=== PATIENT | male | born 1965 | race Hispanic/Latino ===

== ENCOUNTER 2017-11-22 13:00 | Inpatient (IN) | payer BC ==
[2017-11-22 18:41] LABS: Absolute Monocytes 0.2 K/uL (0.1-1.3); Absolute Neutrophil 1.9 K/uL (1.8-8.0); Basophils % 0.7 % (0-1.3); Eosinophils % 4.8 % (0-4.4); Hematocrit 33.4 % (39.6-49.0); Lymphocytes % 29.8 % (15.3-44.8); MCH 27.6 pg (27.0-35.0); MCV 79.9 fL (80-100); MPV 8.3 fL (7.6-11.3); Monocytes % 5.4 % (3.3-12.3); RBC Red Blood Cell Count 4.18 M/uL (4.33-5.43)
[2017-11-22 18:47] LABS: Potassium 4.7 mEq/L (3.6-5.0)
[2017-11-22] MEDS ORDERED: Morphine 2 MG/2 ML SYR IV PRN (19:00)
[2017-11-22] MEDS ORDERED: D50W 25 GM/50 ML SYRINGE IV PRN (20:37)
[2017-11-22] MEDS ORDERED: GLUCAGON 1 MG/VIAL IM PRN (20:37)
[2017-11-22] MEDS: ENOXAPARIN 40 MG/0.4 ML SQ SCH (21:00)
[2017-11-22] MEDS ORDERED: VANCOMYCIN/NS 1 gm 1 GM/250 ML BAG IV SCH (21:00)
[2017-11-22] MEDS: NA CHLORIDE 0.9% 1,000 ML IV SCH (21:03)
[2017-11-22] MEDS: INSULIN -REGULAR HUMAN 50 UNIT/0.5 ML ML SQ SCH (21:03)
[2017-11-22 21:23] LABS: Urine Appearance CLEAR; Urine Bilirubin NEGATIVE (NEG); Urine Blood 1+ (NEG); Urine Color YELLOW; Urine Glucose 3+ (NEG); Urine Protein 2+ (NEG); Urine Urobilinogen 0.2 mg/dL (0.2-1.0); Urine pH 5.5 (5.0-7.0)
[2017-11-22 21:28] LABS: Urine Microscopic Reflex ORDER UMIC
[2017-11-22 22:24] LABS: Urine Bacteria <20 /HPF (NONE SEEN); Urine Culture Reflex Order NOT NEEDED; Urine RBC <5 /HPF (NONE SEEN)
[2017-11-22 23:18] VITALS: BMI 43.9
[2017-11-23] MEDS: ACETAMINOPHEN 325 MG TABLET PO SCH ×3 (00:04→16:36)
[2017-11-23] MEDS: PANTOPRAZOLE 40MG TABLET PO SCH (07:30)
[2017-11-23] MEDS ORDERED: MIDAZOLAM HCL 2 MG/2 ML INJ ONE (07:34)
[2017-11-23] MEDS ORDERED: PROPOFOL 200 MG/20 ML VIAL IV ONE (07:34)
[2017-11-23] MEDS ORDERED: FENTANYL CITR 100 MCG/2 ML ONE (07:35)
[2017-11-23] MEDS ORDERED: LIDOCAINE 2% MPF 5 ML VIAL ONE (07:35)
[2017-11-23] MEDS: INSULIN -REGULAR HUMAN 50 UNIT/0.5 ML ML SQ SCH ×4 (07:40→20:52)
[2017-11-23] MEDS ORDERED: BUPIVACA 0.25%/EPI 0.0005%/PF 30 ML VIAL ONE (08:11)
[2017-11-23] MEDS ORDERED: KETOROLAC 30 MG/ML INJ ONE (08:37)
[2017-11-23] MEDS ORDERED: GLUCAGON 1 MG/VIAL IM PRN (08:41)
[2017-11-23] MEDS ORDERED: D50W 25 GM/50 ML SYRINGE IV PRN (08:41)
--- NOTE | 2017-11-23 08:44 | P.OP ---
Preoperative diagnosis: Suprapubic Abscess Postoperative diagnosis: Suprapubic Abscess Primary procedure: Incision and Drainage of Suprapubic Abscess Anesthesia: GETA + Local Estimated blood loss: <5cc Specimen: Cultures Sent / necrotic tissue Findings: ~4 cm suprapubic abscess Complications: None Transferred to: Recovery Room Condition: Good
[2017-11-23] MEDS: ENOXAPARIN 40 MG/0.4 ML SQ SCH (09:00)
[2017-11-23] MEDS: NA CHLORIDE 0.9% 1,000 ML IV SCH ×2 (09:49→20:52)
[2017-11-23] MEDS: LISINOPRIL 20 MG TAB PO SCH (09:50)
[2017-11-23] MEDS: AMLODIPINE 10 MG TAB PO SCH (09:50)
--- NOTE | 2017-11-23 10:11 | P.HP ---
Certification for Inpatient Patient admitted to: Inpatient With expected LOS: >2 Midnights Patient will require the following post-hospital care: Home Health Services Practitioner: I am a practitioner with admitting privileges, knowledge of patient current condition, hospital course, and medical plan of care. 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 He was seen a few weeks ago with what looked like a superficial rash. Was increasing in pain and erythema. He went to the urgent care. However it burst. He did not have any antibiotics. Came to the office. I sent him to the wound care center. He was found to have a deeper abcess than at first noted. After discussing with Dr. Perry. Patient was admitted for surgical debridgement. Part of the decision was his labs came back with an a1c of 13. Considering an infection in a poorly controlled diabetic. The possibility of sepsis made outpatient treatment too risky. Allergies No Known Allergies Allergy (Unverified 11/22/17 11:07) Home Medications: Amlodipine Besylate 10 mg PO DAILY 11/22/17 Lisinopril [Prinivil*] 20 mg PO DAILY 11/22/17 - Past Medical/Surgical History Has patient received pneumonia vaccine in the past: No Diabetic: Yes -: HTN -: DM -: jj -: Appendectomy - Family History Mother -: Hypertension, Diabetes Father -: Diabetes - Social History Smoking Status: Never smoker Alcohol use: No CD- Drugs: No Caffeine use: Yes Place of Residence: Home Review of Systems 10-point ROS is otherwise unremarkable Integumentary: As per HPI Physical Examination - Vital Signs Temperature: 97.3 F Blood Pressure: 143/87 Pulse: 66 Respirations: 17 Pulse Ox (%): 93 - Physical Exam General: Alert, In no apparent distress HEENT: Atraumatic, PERRLA, Mucous membr. moist/pink, EOMI, Sclerae nonicteric Neck: Supple, 2+ carotid pulse no bruit, No LAD, Without JVD or thyroid abnormality Respiratory: Clear to auscultation bilaterally, Normal air movement Cardiovascular: Regular rate/rhythm, Normal S1 S2 Gastrointestinal: Normal bowel sounds, No tenderness Musculoskeletal: No tenderness Integumentary: No rashes, Other (swelling and continuous serous drainage of the suprapubic area. He has puss extruded from one of the areas.) Neurological: Normal gait, Normal speech, Normal strength at 5/5 x4 extr, Normal tone, Normal affect Lymphatics: No axilla or inguinal lymphadenopathy - Studies Laboratory Data (last 24 hrs) 11/22/17 18:25: Sodium 128 L, Potassium 4.7, BUN 35 H, Creatinine 1.56 H, Glucose 399 H 11/22/17 18:25: WBC 3.3 L, Hgb 11.6 L, Hct 33.4 L, Plt Count 238 Assessment and Plan - Problems (Diagnosis) (1) Suprapubic abscess Current Visit: Yes Status: Acute Plan: Start the patient on fluids and vancomycin. Cultures drawn. Dr. Perry already taken him to the OR. 4 CM abcess I&D performed (2) HTN (hypertension) Current Visit: Yes Status: Acute Plan: will continue home medications of amlodipine and lisinopril. Will adjust as necessary. Qualifiers: Hypertension type: essential hypertension Qualified Code(s): I10 - Essential (primary) hypertension (3) Diabetes 1.5, managed as type 2 Current Visit: Yes Status: Acute Plan: Will start the patient on levemir with insulin sliding scale. Will continue to work with him as an outpatient Discharge Plan: Home Plan to discharge in: 48 Hours - Advance Directives Does patient have a Living Will: No Does patient have a Durable POA for Healthcare: No - Code Status/Comfort Care Code Status Assessed: No Code Status: Full Code Physician Review: Patient Assessed, Agree with Above Assessment and Plan Critical Care: No Time Spent Managing Pts Care (In Minutes): 75
--- NOTE | 2017-11-23 11:28 | CON ---
Date of Consultation: 11/23/2017 History Of Present Illness: The patient is a 51-year-old male, who presents with approximat ya 2-week history of suprapubic tenderness, swelling and pain. He noted that he started having some drainage from this several days ago and continues to drain and gets red and more tender in the supra pubic region. He is not aware of any insect bites, abrasions, trauma. He said it simply began as a boil, but beyond that he has no insight into the etiology of this. He has had similar episodes befor e in the past. He has been getting this abscess treated in the [facility] for approximately 1 0 days. He has a history of tinea capitis in the past as well. It is unsure if this is related etio logy. Past Surgical History: He has had appendectomy and a cholecystectomy. He has a right lateral knee w ound in the past. Allergies: NO KNOWN DRUG ALLERGIES. Past Medical History: Significant for hypertension, diabetes. Medications: Amlodipine and lisinopril. Social History: He denies smoking, alcohol, or recreational drug use. Review of Systems: A 10-point review of systems other than HPI, denies. Physical Examination: Vital Signs: At the time of my examination, his BMI is 44.0. His vital signs are blood pressure 144 /87, pulse 62, respiratory rate 16, temperature 97.0. General: He is awake, alert, and oriented. Psychiatric: He is appropriate and conversive. HEENT: He is normocephalic. His sclerae are anicteric. His mucous membranes are moist. He has poo r dentition. His oropharynx is otherwise clear. Neck: Supple. No JVD. Chest: Normal expansion and excursion. Cardiovascular: Regular rate and rhythm. Pulmonary: Clear to auscultation bilaterally. Abdomen: Soft, nontender. Skin: Focused examination of the suprapubic region shows a draining abscess in the central suprapubi c position with purulent drainage and surrounding cellulitis. This is fluctuant area. The remainder of skin examination is unremarkable. Laboratory Data: Reveals a white blood count of 3.3, hemoglobin is 11.6, hematocrit of 33.4, platele t count is 238. His sodium was 128, potassium 4.7, chloride 99, carbon dioxide 25, BUN 35, creatinin e 1.5, glucose is 399. UA showed 3+ glucose, 2+ protein, and 1+ blood, otherwise negative. Assessment And Plan: This is a 51-year-old male, who presents with a suprapubic abscess and history of uncontrolled diabetes. 1.IV fluid hydration. 2.Antibiotic coverage. 3.I have explained the risks, benefits, and alternatives of incision and drainage of the suprapubic abscess including, but not limited to bleeding, infection, damage to surrounding tissue, need for fur ther operations and procedures. A long-term wound care will be necessary. I have explained to the p atient with daily packing. He agrees to proceed as indicated. Thank you for this interesting consult. JOMAR/JOHNATHAN Voice ID: [id number] Report ID: [id number]
[2017-11-23] MEDS: VANCOMYCIN 2 GM in NA CHLORIDE 0.9% 500 ML IVPB SCH (14:37)
--- NOTE | 2017-11-23 20:44 | OP ---
Date of Procedure: 11/23/2017 Surgeon: Khadar Perry MD, Preoperative Diagnosis: Suprapubic abscess. Postoperative Diagnosis: Suprapubic abscess. Procedure Performed: Incision and drainage of suprapubic abscess. Anesthesia: General endotracheal plus local with 0.25% Marcaine with epinephrine. Estimated Blood Loss: 5 cc. Specimen: Culture sent of necrotic tissue. Findings: Approximately 4 cm suprapubic abscess. Complication: None. Disposition: Transferred to recovery room in good condition. Procedure In Detail: After informed consent was obtained, the patient was brought to the operating r oom, prepped and draped in the usual sterile fashion. After adequate anesthesia was achieved, a line ar incision was made over a suprapubic abscess of approximately 4 cm in size down to subcutaneous tis sues. Dissection continued down, and I digitally manipulated the tissues to break up loculations of this multiloculated abscess of the suprapubic area. There was approximately a 4 cm cavity with purul ent fluid present. This was completely cleansed out and irrigated multiple times. Hemostasis was ac hieved with electrocautery. I irrigated it once again until completely dry and then packed it with h sirena-inch iodoform packing with sterile dressing placed on top. The patient tolerated the procedure well without evidence of complication and transferred to PACU in good condition. All counts were cor rect at the end of the case. JOMAR/JOHNATHAN Voice ID: [id number] Report ID: [id number]
[2017-11-24] MEDS: ACETAMINOPHEN 325 MG TABLET PO SCH ×3 (00:01→17:00)
[2017-11-24 07:29] LABS: Absolute Lymphocytes (CBC) 0.6 K/uL (0.7-4.9); Absolute Monocytes 0.2 K/uL (0.1-1.3); Absolute Neutrophil 2.1 K/uL (1.8-8.0); Basophils % 0.5 % (0-1.3); Eosinophils % 3.1 % (0-4.4); Hematocrit 31.4 % (39.6-49.0); Lymphocytes % 20.7 % (15.3-44.8); MCH 27.3 pg (27.0-35.0); MCV 79.2 fL (80-100); MPV 8.3 fL (7.6-11.3); Monocytes % 5.9 % (3.3-12.3); RBC Red Blood Cell Count 3.96 M/uL (4.33-5.43)
[2017-11-24 07:51] LABS: Bilirubin Total 0.5 mg/dL (0.3-1.2); Potassium 4.6 mEq/L (3.6-5.0); Protein, Total 6.3 g/dL (6.0-8.3)
[2017-11-24] MEDS: INSULIN DETEMIR 100 UNIT/1 ML INSULIN SQ SCH (08:29)
[2017-11-24] MEDS: INSULIN -REGULAR HUMAN 50 UNIT/0.5 ML ML SQ SCH ×4 (08:29→20:52)
[2017-11-24] MEDS: PANTOPRAZOLE 40MG TABLET PO SCH (08:29)
[2017-11-24] MEDS: ENOXAPARIN 40 MG/0.4 ML SQ SCH (09:11)
[2017-11-24] MEDS: LISINOPRIL 20 MG TAB PO SCH (09:11)
[2017-11-24] MEDS: AMLODIPINE 10 MG TAB PO SCH (09:12)
[2017-11-24] MEDS: NA CHLORIDE 0.9% 1,000 ML IV SCH (10:41)
--- NOTE | 2017-11-24 11:34 | P.PN ---
Subjective Date of Service: 11/24/17 Primary Care Provider: Shereen Chief Complaint: Suprapubic abcess Subjective: Improving (pain much improved after drainage of abscess) Physical Examination - Vital Signs Temperature: 97.7 F Blood Pressure: 118/79 Pulse: 79 Respirations: 18 Pulse Ox (%): 97 - Physical Exam General: Alert, In no apparent distress, Cooperative Integumentary: Other (drainage site packed well, continues to drain clear fluid) - Studies Laboratory Data (last 24 hrs) 11/24/17 06:45: Sodium 136, Potassium 4.6, BUN 21 H, Creatinine 1.12, Glucose 191 H, Total Bilirubin 0.5, AST 12, ALT 13, Alkaline Phosphatase 66 11/24/17 06:45: WBC 3.0 L, Hgb 10.8 L, Hct 31.4 L, Plt Count 197 Microbiology Data (last 24 hrs): 11/23/17 08:29 Wound - Other Gram Stain - Final 11/23/17 08:29 Body Fluid - Other Gram Stain - Final Assessment And Plan - Current Problems (Diagnosis) (1) Suprapubic abscess Onset Date: 11/23/17 Current Visit: Yes Status: Acute Plan: - 1 more day of antibiotics - continue current treatment plan - follow up cultures - dressing changes daily with packing Physician Review: Patient Assessed, Agree with Above Assessment and Plan
[2017-11-24] MEDS: VANCOMYCIN 2 GM in NA CHLORIDE 0.9% 500 ML IVPB SCH (14:45)
[2017-11-25] MEDS: NA CHLORIDE 0.9% 1,000 ML IV SCH (00:20)
[2017-11-25] MEDS: ACETAMINOPHEN 325 MG TABLET PO SCH ×2 (00:38→08:56)
[2017-11-25 06:08] LABS: Absolute Lymphocytes (CBC) 1.1 K/uL (0.7-4.9); Absolute Monocytes 0.2 K/uL (0.1-1.3); Absolute Neutrophil 1.3 K/uL (1.8-8.0); Basophils % 0.3 % (0-1.3); Eosinophils % 4.5 % (0-4.4); Hematocrit 31.5 % (39.6-49.0); Lymphocytes % 39.7 % (15.3-44.8); MCH 27.5 pg (27.0-35.0); MCV 79.8 fL (80-100); MPV 8.4 fL (7.6-11.3); Monocytes % 7.1 % (3.3-12.3); RBC Red Blood Cell Count 3.95 M/uL (4.33-5.43)
[2017-11-25 06:29] LABS: Albumin 2.8 g/dL (3.2-5.5); Bilirubin Total 0.4 mg/dL (0.3-1.2); Potassium 4.3 mEq/L (3.6-5.0)
[2017-11-25 07:04] LABS: Blood Morphology Comment NOT SEEN (NOT SEEN); Platelet Estimate ADEQ; Urine White Blood Cell Casts OK
[2017-11-25] MEDS: INSULIN -REGULAR HUMAN 50 UNIT/0.5 ML ML SQ SCH ×2 (07:30→11:30)
[2017-11-25] MEDS: INSULIN DETEMIR 100 UNIT/1 ML INSULIN SQ SCH (08:00)
[2017-11-25] MEDS: ENOXAPARIN 40 MG/0.4 ML SQ SCH (08:53)
[2017-11-25] MEDS: PANTOPRAZOLE 40MG TABLET PO SCH (08:53)
[2017-11-25] MEDS: AMLODIPINE 10 MG TAB PO SCH (08:53)
[2017-11-25] MEDS: LISINOPRIL 20 MG TAB PO SCH (08:55)
[2017-11-25 11:08] VITALS: O2SAT 100
[2017-11-25 14:52] VITALS: BP 140/88; TEMP 97.3
== END 2017-11-25 11:54 | disposition home or self-care (01) | DRG 603 ==
LOC: 2ND 17:54
PROVIDERS: ADMIT Internal Medicine; ATTEND Internal Medicine
PROC: 0J9C3ZX Drainage of Pelvic Region Subcutaneous Tissue and Fascia, Percutaneous Approach, Diagnostic (ICD-10-PCS; principal; 2017-11-23 08:00)
DX: L02.211 Cutaneous abscess of abdominal wall (principal); I10 Essential (primary) hypertension; E11.65 Type 2 diabetes mellitus with hyperglycemia
CPT/HCPCS: 36415; 80048; 80053; 81003; 81015; 82962; 85025; 87040; 87070; 87075; 87077; 87186; 87205; 88304; 88305; J1650; J2250; J3010; J3370; J7030

== ENCOUNTER 2018-04-19 09:25 | Day surgery (SDC) | payer BC ==
--- OUTSIDE RECORDS SUMMARY | 2018-04-19 09:39 | XMS REPORT ---
:1965 Author Organization e[employer] Care Team Providers Name Role Phone Davis Regan Provider Role Unavailable Allergies, Adverse Reactions, Alerts Substance Reaction Event Type N.K.D.A. Info Not Available Non Drug Allergy Problems Problem Type Condition Code Onset Dates Condition Status Assessment HTN (hypertension) I10 Active Assessment Stage 1 chronic kidney disease N18.1 Active Assessment Microalbuminuria R80.9 Active Assessment Hyperlipidemia E78.5 Active Assessment Type 2 diabetes mellitus with E11.65 Active hyperglycemia Problem Hyperlipidemia E78.5 Active Problem HTN (hypertension) I10 Active Problem Stage 1 chronic kidney disease N18.1 Active Problem BMI 40.0-44.9, adult Z68.41 Active Problem Renal insufficiency N28.9 Active Problem Type 2 diabetes mellitus with E11.65 Active hyperglycemia Medications Medication Code Code Instructions Start End Status Dosage System Date Date Jardiance [facility] 94388605674 10 MG Orally November 22Apr Active 1 tablet Once a day 2017 Bydureon [facility] 45663039320 2 MG Active not Subcutaneous defined Lisinopril [facility] 79152955213 40 MG Orally Active 1 tablet Once a day Xultophy [facility] [address]-29 100-3.6 November 22 Active 30 units UNIT-MG/ML 2017 Subcutaneous daily Amlodipine Besylate [facility] 07658919858 10 MG Active TAKE ONE TABLET BY MOUTH ONCE DAILY Hydrochlorothiazide [facility] 15749848156 25 MG Orally Active 1 tablet Once a day in the morning Tramadol HCl [facility] 12541642757 50 MG Orally 3 Active 1 tablet x daily as as needed needed for pain Results No Known Results Summary Purpose eClinicalWorks Submission
--- OUTSIDE RECORDS SUMMARY | 2018-04-19 09:39 | XMS REPORT ---
:1965 Author Organization [employer] Care Team Providers Name Role Phone VickyKhadar Provider Role Unavailable Allergies, Adverse Reactions, Alerts Substance Reaction Event Type N.K.D.A. Info Not Available Non Drug Allergy Problems Problem Type Condition Code Onset Dates Condition Status Problem HTN (hypertension) I10 Active Problem Renal insufficiency N28.9 Active Problem Hyperlipidemia E78.5 Active Assessment Cutaneous abscess, unspecified site L02.91 Active Assessment Abscess of pubic region L02.219 Active Problem Type 2 diabetes mellitus with E11.65 Active hyperglycemia Problem BMI 40.0-44.9, adult Z68.41 Active Medications Medication Code Code Instructions Start End Status Dosage System Date Date Tramadol HCl [facility] 85277840368 50 MG Orally 3 Active 1 tablet x daily as as needed needed for pain Amlodipine Besylate ND 52332794330 10 MG Orally Active 1 tablet Once a day Jardiance [facility] 99174483356 10 MG Orally November 22Apr Active 1 tablet Once a day 2017 Xultophy [facility] 56049043002 100-3.6 November 22, Active 20 units UNIT-MG/ML 2018 Subcutaneous daily Bydureon ND 39669404125 2 MG Active not Subcutaneous defined Hydrochlorothiazide ND 32714977309 25 MG Orally Active 1 tablet Once a day in the morning Lisinopril [facility] 45176131751 40 MG Orally Active 1 tablet Once a day Results No Known Results Summary Purpose eClinicalWorks Submission
--- OUTSIDE RECORDS SUMMARY | 2018-04-19 09:39 | XMS REPORT ---
:1965 Author Organization [employer] Care Team Providers Name Role Phone Davis Regan Provider Role Unavailable Allergies, Adverse Reactions, Alerts Substance Reaction Event Type N.K.D.A. Info Not Available Non Drug Allergy Problems Problem Type Condition Code Onset Dates Condition Status Assessment Cutaneous abscess of back excluding L02.212 Active buttocks Assessment Type 2 diabetes mellitus with E11.65 Active hyperglycemia Problem Hyperlipidemia E78.5 Active Problem HTN (hypertension) I10 Active Problem Stage 1 chronic kidney disease N18.1 Active Problem BMI 40.0-44.9, adult Z68.41 Active Problem Renal insufficiency N28.9 Active Problem Type 2 diabetes mellitus with E11.65 Active hyperglycemia Medications Medication Code Code Instructions Start End Status Dosage System Date Date Tramadol HCl [facility] 36666379483 50 MG Orally Active 1 tablet every 8 hours as needed Bydureon [facility] 53550518467 2 MG Active not Subcutaneous defined Lisinopril ND 97381517851 40 MG Orally Active 1 tablet Once a day Xultophy [facility] 64690506228 100-3.6 November 22, Active 30 units UNIT-MG/ML 2017 Subcutaneous daily Bactrim DS [facility] 94934126382 800-160 MG Sept Oct Active 1 tablet Orally Twice a 2017 Hydrochlorothiazide [facility] 28571647902 25 MG Orally Active 1 tablet Once a day in the morning Amlodipine Besylate [facility] 55161771603 10 MG Active TAKE ONE TABLET BY MOUTH ONCE DAILY Jardiance [facility] 52365181791 10 MG Orally November 22Apr Active 1 tablet Once a day 2017 Results No Known Results Summary Purpose eClinicalWorks Submission
--- OUTSIDE RECORDS SUMMARY | 2018-04-19 09:39 | XMS REPORT ---
:1965 Author Organization [employer] Care Team Providers Name Role Phone Shereen, Davis Provider Role Unavailable Allergies No Known Allergies Problems Problem Type Condition Code Onset Dates Condition Status Assessment BMI 40.0-44.9, adult Z68.41 Active Assessment Type 2 diabetes mellitus with E11.65 Active hyperglycemia Assessment Renal insufficiency N28.9 Active Problem HTN (hypertension) I10 Active Problem Renal insufficiency N28.9 Active Problem Hyperlipidemia E78.5 Active Assessment Hyperlipidemia E78.5 Active Assessment HTN (hypertension) I10 Active Problem Type 2 diabetes mellitus with E11.65 Active hyperglycemia Problem BMI 40.0-44.9, adult Z68.41 Active Medications Medication Code Code Instructions Start End Status Dosage System Date Date Xultophy [facility] 27718896130 100-3.6 November 22, Active 20 units UNIT-MG/ML 2017 Subcutaneous daily Jardiance [facility] 98761332980 10 MG Orally November 22Apr Active 1 tablet Once a day 2017 Amlodipine Besylate [facility] 24710618099 10 MG Orally Active 1 tablet Once a day Hydrochlorothiazide [facility] 40610012943 25 MG Orally Active 1 tablet Once a day in the morning Tramadol HCl [facility] 01043621243 50 MG Orally 3 Active 1 tablet x daily as as needed needed for pain Lisinopril [facility] 15385109333 40 MG Orally Active 1 tablet Once a day Bydureon [facility] 50503302325 2 MG Active not Subcutaneous defined Results No Known Results Summary Purpose eClinicalWorks Submission
--- OUTSIDE RECORDS SUMMARY | 2018-04-19 09:39 | XMS REPORT ---
:1965 Author Organization e[employer]Works Care Team Providers Name Role Phone Shereen, Davis Provider Role Unavailable Allergies No Known Allergies Problems Problem Type Condition Code Onset Dates Condition Status Assessment Type 2 diabetes mellitus with E11.65 Active hyperglycemia Assessment Boil L02.92 Active Problem HTN (hypertension) I10 Active Problem Renal insufficiency N28.9 Active Problem Hyperlipidemia E78.5 Active Assessment Hyperlipidemia E78.5 Active Assessment Renal insufficiency N28.9 Active Problem Type 2 diabetes mellitus with E11.65 Active hyperglycemia Problem BMI 40.0-44.9, adult Z68.41 Active Medications Medication Code Code Instructions Start End Status Dosage System Date Date Lisinopril [facility] 09194708023 40 MG Orally Active 1 tablet Once a day Amlodipine Besylate [facility] 72188046801 10 MG Orally Active 1 tablet Once a day Jardiance [facility] 99583399601 10 MG Orally May Oct Active 1 tablet Once a day 2017 Tramadol HCl [facility] 01442525066 50 MG Orally 3 Active 1 tablet as x daily as needed needed for pain Hydrochlorothiazide [facility] 33494006088 25 MG Orally Active 1 tablet in Once a day the morning Bydureon [facility] 84748529523 2 MG Active not defined Subcutaneous Clotrimazole-Betameth [facility] 92707139519 1-0.05 % October Active 1 asone Externally , application Twice a day 2017 2017 to affected area Xultophy [facility] 52319855124 100-3.6 November Active 20 units UNIT-MG/ML 02, Subcutaneous 2018 daily Results No Known Results Summary Purpose eClinicalWorks Submission
--- OUTSIDE RECORDS SUMMARY | 2018-04-19 09:39 | XMS REPORT ---
:1965 Author Organization eClinicalWorks Care Team Providers Name Role Phone ShereenKimanian Provider Role Unavailable Allergies No Known Allergies Problems Problem Type Condition Code Onset Dates Condition Status Assessment HTN (hypertension) I10 Active Problem HTN (hypertension) I10 Active Problem Renal insufficiency N28.9 Active Problem Hyperlipidemia E78.5 Active Assessment Suprapubic abscess L02.219 Active Assessment Type 2 diabetes mellitus with E11.65 Active hyperglycemia Problem Type 2 diabetes mellitus with E11.65 Active hyperglycemia Problem BMI 40.0-44.9, adult Z68.41 Active Medications Medication Code Code Instructions Start End Status Dosage System Date Date Xultophy [facility] 65883198523 100-3.6 November 22 Active 20 units UNIT-MG/ML 2017 Subcutaneous daily Jardiance [facility] 82893788560 10 MG Orally November 22Apr Active 1 tablet Once a day 2017 Amlodipine Besylate [facility] 16998397401 10 MG Orally Active 1 tablet Once a day Tramadol HCl [facility] 32790785870 50 MG Orally 3 Active 1 tablet x daily as as needed needed for pain Lisinopril ND 05000692775 40 MG Orally Active 1 tablet Once a day Bydureon [facility] 53576074088 2 MG Active not Subcutaneous defined Hydrochlorothiazide [facility] 24078980204 25 MG Orally Active 1 tablet Once a day in the morning Results No Known Results Summary Purpose eClinicalWorks Submission
[2018-04-19] MEDS ORDERED: BUPIVACA 0.25%/EPI 0.0005% MDV 50 ML VIAL ONE (09:40)
[2018-04-19] MEDS ORDERED: CEFAZOLIN/SWI 1gm 1 GM/10 ML SYR ONE (09:52)
[2018-04-19] MEDS: NA CHLORIDE 0.9% 1,000 ML ONE ×2 (09:56→10:26)
[2018-04-19] MEDS ORDERED: LIDOCAINE 2% MPF 5 ML VIAL ONE (10:10)
[2018-04-19] MEDS ORDERED: MIDAZOLAM HCL 2 MG/2 ML INJ ONE (10:10)
[2018-04-19] MEDS ORDERED: PROPOFOL 200 MG/20 ML VIAL IV ONE (10:10)
[2018-04-19] MEDS ORDERED: FENTANYL CITR 100 MCG/2 ML ONE (10:10)
--- NOTE | 2018-04-19 11:07 | P.OP ---
Preoperative diagnosis: Right upper back infected sebaceous cyst Postoperative diagnosis: Right upper back infected sebaceous cyst Primary procedure: Excision of Right upper back infected sebaceous cyst Anesthesia: GETA + Local Estimated blood loss: <10cc Specimen: cultures and sebaceous material with capsule Findings: large ~7cm infected sebaceous cyst Complications: None Transferred to: Recovery Room Condition: Good
[2018-04-19] MEDS: MEPERIDINE HCL 50 MG/ML AMP ONE ×2 (11:29→11:44)
[2018-04-19] MEDS ORDERED: CODEINE 30MG/APAP 300MG TAB ONE (12:10)
[2018-04-19 13:23] VITALS: TEMP 96.4
[2018-04-19 13:26] VITALS: BP 136/64; O2SAT 96
--- NOTE | 2018-04-19 22:42 | OP ---
Date of Procedure: 04/19/2018 Surgeon: Khadar Perry MD, Preoperative Diagnosis: Right upper back infected sebaceous cyst. Postoperative Diagnosis: Right upper back infected sebaceous cyst. Procedure Performed: Excision of right upper back infected sebaceous cyst. Anesthesia: General endotracheal plus local, 0.25% Marcaine with epinephrine. Estimated Blood Loss: Less than 2 cc. Specimen: Cultures and sebaceous material with capsule sent. Findings: Large, approximately 7 cm x 4 cm infected sebaceous cyst down to the level of the muscle. Complications: None Disposition: Transferred to recovery room in good condition. Procedure In Detail: After informed consent was obtained, patient was brought to the operating room, prepped and draped in usual sterile fashion. After adequate anesthesia was achieved, a linear incis ion was made after appropriately anesthetizing an area of the right upper back of approximately 7 cm in size. Immediately encountered was a large sebaceous cyst with pus and rupture. This was cultured at this time and sent for examination. I then circumferentially removed the capsule and the sebaceo us material and sent it for pathologic examination as well. I completely removed all of the capsule material and sebum circumferentially and removed any necrotic skin from the edge of the incision as t his was an area where sebum had been emanating and draining prior to incision. I got down to good bl eeding tissue approximately to the level of the muscle but not involving the fascia. The area was co piously irrigated multiple times. Hemostasis was achieved easily with electrocautery and the wound w as then packed with iodoform soaked gauze in a damp to dry fashion. The patient tolerated the proced ure well without evidence of complication and transferred to the PACU in good condition. All counts were correct at the end of the case. JOMAR/JOHNATHAN Voice ID: [id number] Report ID: [id number]
== END 2018-04-19 12:45 | disposition home or self-care (01) ==
LOC: OR 09:25
PROVIDERS: ATTEND Surgery
PROC: 0JB70ZZ Excision of Back Subcutaneous Tissue and Fascia, Open Approach (ICD-10-PCS; principal; 2018-04-19 10:45)
DX: L72.3 Sebaceous cyst (principal); E11.9 Type 2 diabetes mellitus without complications; I10 Essential (primary) hypertension; E78.5 Hyperlipidemia, unspecified; Z83.3 Family history of diabetes mellitus; Z82.49 Family history of ischemic heart disease and other diseases of the circulatory system
CPT/HCPCS: 82962; 87070; 87075; 87205; 88304; 88305; J0690; J2175; J2250; J3010; J7030

== ENCOUNTER 2022-06-02 08:01 | Inpatient (IN) | payer OTHER ==
--- OUTSIDE RECORDS SUMMARY | 2022-06-02 08:06 | XMS REPORT | Continuity of Care Document ---
:1965 Author Organization [facility] t Address [address] [place] [address] Care Team Providers Name Role Phone Ofelia Attending Clinician Unavailable NASIM Attending Clinician Unavailable Tiffanie Andersen Attending Clinician Unavailable Ofelia Admitting Clinician Unavailable NASIM Admitting Clinician Unavailable Payers Payer Name Policy Type Policy Number Effective Date Expiration Date Lavell shultz [employer] - CHOICE [id number] 2020 00:00:00 (POS II) [place] [id number] 2017 00:00:00 [place] ([place] Problems Condition Condition Condition Status Onset Resolution Last Treating Co mments Source Name Details Category Date Date Treatment Clinician Date Onychomyco Onychomyco Problem Active 2020-07 [place] sis of sis of 0-09 da toenails Toenails 00:00: [facility] Tinea Tinea Problem Active 2020-07 [place] pedis Pedis 0-09 da 00:00: [facility] Vitamin D Vitamin D Problem Active 2020-07 [place] deficiency Deficiency 0-09 da 00:00: [facility] Peripheral Peripheral Problem Active 2020-07 [place] vascular Vascular 0-09 da disease Disease 00:00: [facility] 00 [facility] Eczema Eczema Problem Active 2020-07 [place] 0-09 da 00:00: [facility] 00 [facility] Body mass Body Mass Problem Active 2020-07 [place] index 40+ Index 40+ 0-09 da - severely - Severely 00:00: Ep iscop obese Obese 00 al Health Outreac h Program Chronic Chronic Problem Active [place] kidney Kidney 4-16 da disease Disease 00:00: [facility] stage 3A Stage 3a 00 al Health Outreac h Program SARS-CoV-2 SARS-CoV-2 Problem Active M [place] 7-18 da 00:00: [facility] 00 oh [facility] Diabetes Diabetes Problem Active [place] mellitus Mellitus da [facility] Hypertensi Hypertensi Problem Active M [place] ve ve da disorder Disorder [facility] p al [facility]re[facility] Program Type 2 Type 2 Problem Active Common diabetes diabetes Spirit mellitus mellitus - [facility] with with [facility] hyperglyce [facility] HTN HTN Problem Active Common (hypertens (hypertens Sp messi ion) ion) [facility] Renal Renal Problem Active Common insufficie insufficie Sp messi ncy ncy [facility] Hyperlipid Hyperlipid Problem Active C ommon emia emia Spirit [facility] BMI BMI Problem Active Common 40.0-44.9, 40.0-44.9, Sp messi adult adult - [facility] Stage 1 Stage 1 Problem Active Common chronic chronic [facility] kidney kidney - [facility] disease disease [facility] Allergies, Adverse Reactions, Alerts This patient has no known allergies or adverse reactions. Social History Smoking Status Start Date Stop Date Source Never Smoker [facility] Health Outreach Program Medications Ordered Filled Start Stop Current Ordering Indication Dosage Frequency Signature Comments Components Source Medication Medication Date Date Medication? Clinician (SIG) Name Name Odalis Jacobo Yes Davis 30 units Common 11-22 Shereen Spirit 00:00: - [facility] 00 [facility] cholecalcif cholecalcif No 1capsul Q1W cholecalci [place] mildred mildred e(s) ferol da (vitamin (vitamin (vitamin Epi scop D3) 1,250 D3) 1,250 D3) 1,250 al mcg (50,000 mcg (50,000 mcg H ealth unit) unit) (50,000 Outreac capsule capsule unit) h Take 1 Take 1 capsule Program capsule capsule Take 1 every week every week capsule by oral by oral every week route as route as by oral directed. directed. route as directed. ciclopirox ciclopirox No ciclopirox [place] 8 % topical 8 % topical 8 % d a solution solution topical Epis [employer] APPLY TO APPLY TO solution al THE THE APPLY TO Health AFFECTED AFFECTED THE Outreac AREA(S) BY AREA(S) BY AFFECTED h TOPICAL TOPICAL AREA(S) BY Pro gram ROUTE ONCE ROUTE ONCE TOPICAL DAILY DAILY ROUTE ONCE PREFERABLY PREFERABLY DAILY AT BEDTIME AT BEDTIME PREFERABLY OR 8 HOURS OR 8 HOURS AT BEDTIME BEFORE BEFORE OR 8 HOURS WASHING WASHING BEFORE WASHING lisinopril lisinopril No lisinopril [place] 10 mg 10 mg 10 mg da tablet Take tablet Take tablet [facility] 1 tablet 1 tablet Take 1 al every day every day tablet Hea lth by oral by oral every day Outr eac route in route in by oral h the the route in Program morning. morning. the morning. lisinopril lisinopril No 1 Q1D lisinopril [place] 20 mg 20 mg 20 mg da tablet Take tablet Take tablet [facility] 1 tablet 1 tablet Take 1 al every day every day tablet Hea lth by oral by oral every day Outr eac route as route as by oral h directed. directed. route as P rogram directed. Ozempic Ozempic No Ozempic [place] 0.25 mg or 0.25 mg or 0.25 mg or da 0.5 mg (2 0.5 mg (2 0.5 mg (2 [facility] mg/1.5 mL) mg/1.5 mL) mg/1.5 mL) al [facility] pen s pen us pen Outreac injector injector injector h Inject 0.5 Inject 0.5 Inject 0.5 Program mg every mg every mg every week by week by week by subcutaneou subcutaneou subcutaneo s route as s route as us route directed. directed. as directed. Ozempic 1 Ozempic 1 No Ozempic 1 [place] mg/dose (2 mg/dose (2 mg/dose (2 da mg/1.5 mL) mg/1.5 mL) mg/1.5 mL) [facility] subcutaneou subcutaneou subcutaneo al s pen s pen us pen Health injector injector injector Out reac h Program Sure Sure No Sure [place] Comfort Pen Comfort Pen Comfort da Needle 32 Needle 32 Pen Needle [facility] gauge x gauge x 32 gauge x al 07/27" 07/27" 07/27" Health Outreac h Program Synjardy 5 Synjardy 5 No Synjardy 5 [place] mg-1,000 mg mg-1,000 mg mg-1,000 da tablet TAKE tablet TAKE mg tablet [facility] ONE (1) ONE (1) TAKE ONE al TABLET(S) TABLET(S) (1) Healt h BY MOUTH BY MOUTH TABLET(S) Ou treac EVERY 12 EVERY 12 BY MOUTH h HOURS HOURS EVERY 12 Pro gram DIRECTED. DIRECTED. HOURS DIRECTED. Synjardy XR Synjardy XR No 2 Q1D Synjardy [place] 12.5 12.5 XR 12.5 da mg-1,000 mg mg-1,000 mg mg-1,000 [facility] tablet, tablet, mg tablet, al extended extended extended Hea lth release release release Outrea c Take 2 Take 2 Take 2 h tablets tablets tablets Progra m every day every day every day by oral by oral by oral route in route in route in the the the morning. morning. morning. Tresiba Tresiba No Tresiba [place] FlexTouch FlexTouch FlexTouch da U-200 U-200 U-200 [facility] insulin 200 insulin 200 insulin al unit/mL (3 unit/mL (3 200 Hea lth mL) mL) unit/mL (3 Outreac subcutaneou subcutaneou mL) h s pen s pen subcutaneo Program Inject 30 Inject 30 us pen units at units at Inject 30 bedtime bedtime units at every day. every day. bedtime every day. Immunizations Ordered Immunization Filled Immunization Date Status Commen ts Source Name Name COVID-19, mRNA, COVID-19, mRNA, 2021-10-06 Completed [place]ez margarette LNP-S, PF, 100 LNP-S, PF, 100 14:01:11 [facility] pal mcg/0.5 mL dose mcg/0.5 mL dose Heal th (Moderna) (Moderna) Outreach Program COVID-19, mRNA, COVID-19, mRNA, 2021-08-25 Completed Cortez margarette LNP-S, PF, 100 LNP-S, PF, 100 12:43:55 [facility] pal mcg/0.5 mL dose mcg/0.5 mL dose Heal th (Moderna) (Moderna) Outreach Program pneumococcal pneumococcal Unknown Completed [place] polysaccharide PPV23 polysaccharide PPV23 [facility] pneumococcal pneumococcal Unknown Completed [place] polysaccharide PPV23 polysaccharide PPV23 [facility] Vital Signs Vital Name Observation Time Observation Value Comments Source BP Diastolic 2021-10-26 00:00:00 110 [facility] Height 2021-10-26 00:00:00 66 [facility] BMI (Body Mass 2021-10-26 00:00:00 44.9 kg/m2 [place] 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 [facility] Index) Health Outreach Program BP Systolic 2021-10-26 00:00:00 174 [facility] Body Weight 2021-10-26 00:00:00 4449 [facility]av[facility] Height 2021-04-30 00:00:00 66 [facility] BMI (Body Mass 2021-04-30 00:00:00 45.2 kg/m2 [place] 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 Spirit[facility] Index) Health Outreach Program BP Systolic 2021-04-30 00:00:00 144 [facility]Hg[facility] Body Weight 2021-04-30 00:00:00 4480 [oz_av] [facility] BP Diastolic 2021-04-30 00:00:00 86 mm[facility]Hg[facility] BP Diastolic 2020-12-16 00:00:00 90 mm[Hg] [place] [facility] Height 2020-12-16 00:00:00 66 [in_i] [place] [facility] BMI (Body Mass 2020-12-16 00:00:00 45.8 kg/m2 [place] 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 Spirit[facility] Index) Health Outreach Program BP Systolic 2020-12-16 00:00:00 140 mm[Hg] [place] [facility] Body Weight 2020-12-16 00:00:00 4544 [oz_av] [place] [facility] BP Diastolic 2020-11-17 00:00:00 90 mm[Hg] [place] [facility] Height 2020-11-17 00:00:00 66 [in_i] [place] [facility] BMI (Body Mass 2020-11-17 00:00:00 45.5 kg/m2 [place] 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 [facility] Index) Health Outreach Program BP Systolic 2020-11-17 00:00:00 128 mm[Hg] [place] [facility] Body Weight 2020-11-17 00:00:00 4512 [oz_av] [place] [facility] BP Diastolic 2020-11-03 00:00:00 77 mm[Hg] [place] [facility] Height 2020-11-03 00:00:00 66 [in_i] [place] [facility] BMI (Body Mass 2020-11-03 00:00:00 46.5 kg/m2 [place] 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 [facility]ism Index) Health Outreach Program BP Systolic 2020-11-03 00:00:00 112 mm[Hg] [place] [facility] Body Weight 2020-11-03 00:00:00 4608 [oz_av] [place] [facility] BP Diastolic 2020-05-22 00:00:00 80 mm[Hg] [place] [facility] Height 2020-05-22 00:00:00 66 [in_i] [place] [facility] BMI (Body Mass 2020-05-22 00:00:00 46 kg/m2 [place] 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 [facility] Index) Health Outreach Program BP Systolic 2020-05-22 00:00:00 132 mm[Hg] [place] [facility] Body Weight 2020-05-22 00:00:00 4560 [oz_av] [place] [facility] BP Diastolic 2020-05-01 00:00:00 90 mm[Hg] [place] [facility] Height 2020-05-01 00:00:00 66 [in_i] [place] [facility] BMI (Body Mass 2020-05-01 00:00:00 46.5 kg/m2 [place] 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 [facility] Index) Health Outreach Program BP Systolic 2020-05-01 00:00:00 150 mm[Hg] [place] [facility] Body Weight 2020-05-01 00:00:00 4608 [oz_av] [place] [facility] BP Diastolic 2020-03-25 00:00:00 68 mm[Hg] [place] [facility] Height 2020-03-25 00:00:00 66 [in_i] [place] [facility] BMI (Body Mass 2020-03-25 00:00:00 45.1 kg/m2 [place] 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 [facility] Index) Health Outreach Program BP Systolic 2020-03-25 00:00:00 110 mm[Hg] [place] [facility] Body Weight 2020-03-25 00:00:00 4468 [oz_av] [place] [facility] BP Diastolic 2020-03-18 00:00:00 82 mm[Hg] [place] [facility] Height 2020-03-18 00:00:00 66 [in_i] [place] [facility] BMI (Body Mass 2020-03-18 00:00:00 44.3 kg/m2 [place] 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 [facility] Index) Health Outreach Program BP Systolic 2020-03-18 00:00:00 120 mm[Hg] [place] [facility] Body Weight 2020-03-18 00:00:00 4393.6 [oz_av] [place] 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 [facility] BP Diastolic 2020-03-13 00:00:00 78 mm[Hg] [place] [facility] Height 2020-03-13 00:00:00 66 [in_i] [place] [facility] BMI (Body Mass 2020-03-13 00:00:00 45 kg/m2 [place] 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 [facility] Index) Health Outreach Program BP Systolic 2020-03-13 00:00:00 128 mm[Hg] [place] [facility] Body Weight 2020-03-13 00:00:00 4460.8 [oz_av] [place] 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 [facility] BP Diastolic 2020-03-11 00:00:00 78 mm[Hg] [place] [facility] Height 2020-03-11 00:00:00 66 [in_i] [place] [facility] BMI (Body Mass 2020-03-11 00:00:00 44.6 kg/m2 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 [facility] Index) Health Outreach Program BP Systolic 2020-03-11 00:00:00 118 mm[Hg] [place] [facility] Body Weight 2020-03-11 00:00:00 4422.4 [oz_av] 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 [facility] Height 2020-02-25 00:00:00 66 [in_i] [place] [facility] BP Diastolic 2020-02-21 00:00:00 82 mm[Hg] [place] [facility] Height 2020-02-21 00:00:00 66 [in_i] [place] [facility] BMI (Body Mass 2020-02-21 00:00:00 48.4 kg/m2 [place] 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 [facility] Index) Health Outreach Program BP Systolic 2020-02-21 00:00:00 150 mm[Hg] [place] [facility] Body Weight 2020-02-21 00:00:00 4800 [oz_av] [place] [facility] BP Diastolic 2020-02-08 00:00:00 84 mm[Hg] [place] [facility] Height 2020-02-08 00:00:00 66 [in_i] [place] [facility] BMI (Body Mass 2020-02-08 00:00:00 48.4 kg/m2 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 [facility] Index) Health Outreach Program BP Systolic 2020-02-08 00:00:00 118 mm[Hg] [place] [facility] Body Weight 2020-02-08 00:00:00 4800 [oz_av] [place] [facility] BP Diastolic 2019-09-20 00:00:00 80 mm[Hg] [place] [facility] Height 2019-09-20 00:00:00 66 [in_i] [place] [facility] BMI (Body Mass 2019-09-20 00:00:00 46 kg/m2 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 Spirit[facility] Index) Health Outreach Program BP Systolic 2019-09-20 00:00:00 138 mm[Hg] [place] [facility] Body Weight 2019-09-20 00:00:00 285.2 [lb_av] [place] [facility] BP Diastolic 2019-05-15 00:00:00 68 mm[Hg] [place] [facility] Height 2019-05-15 00:00:00 66 [in_i] [place] [facility] BMI (Body Mass 2019-05-15 00:00:00 41.4 kg/m2 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 [facility] Index) Health Outreach Program BP Systolic 2019-05-15 00:00:00 128 mm[Hg] [place] [facility] Body Weight 2019-05-15 00:00:00 256.2 [lb_av] [place] [facility] BP Diastolic 2019-05-07 00:00:00 86 mm[Hg] [place] [facility] Height 2019-05-07 00:00:00 66 [in_i] [place] [facility] BMI (Body Mass 2019-05-07 00:00:00 41.5 kg/m2 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 [facility] Index) Health Outreach Program BP Systolic 2019-05-07 00:00:00 142 mm[Hg] [place] [facility] Body Weight 2019-05-07 00:00:00 257.4 [lb_av] [place] [facility] Procedures Procedure Date / Time Performed Performing Clinician Sourjadon e Cholecystectomy 2016-07-24 00:00:00 [place] Appendectomy [facility] Plan of Care Planned Activity Planned Date Details Comments Source Diagnostic Test 2021-10-26 glucose, [place] Ep iscopal Pending 00:00:00 fingerstick, blood Health Ou [place] [code = glucose, Program fingerstick, blood] Diagnostic Test 2021-10-26 CMP, serum or plasma Cortez margarette [facility] Pending 00:00:00 [code = CMP, serum Health Ou [place] or plasma] Program Diagnostic Test 2021-10-26 CBC w/ auto diff [place] [facility] Pending 00:00:00 [code = CBC w/ auto Health O utreach diff] Program Diagnostic Test 2021-10-26 microalbumin/creatin Cortez margarette [facility] Pending 00:00:00 ine, mass ratio, Health Outr each urine [code = Program microalbumin/creatin ine, mass ratio, urine] Diagnostic Test 2021-10-26 HIV 1 + 2, [place] Ep iscopal Pending 00:00:00 meaningful use set Health Ou [place] [code = HIV 1 + 2, Program meaningful use set] Diagnostic Test 2021-10-26 HbA1c (hemoglobin [place] [facility] Pending 00:00:00 A1c), blood [code = Health O utreach HbA1c (hemoglobin Program A1c), blood] Diagnostic Test 2021-10-26 PSA, total, serum or Cortez margarette [facility] Pending 00:00:00 plasma [code = PSA, Health O utreach total, serum or Program plasma] Diagnostic Test 2021-10-26 urinalysis, [place] Ep iscopal Pending 00:00:00 dipstick, reflex Health Outr each micro [code = Program urinalysis, dipstick, reflex micro] Diagnostic Test 2021-10-26 culture, urine [code Cortez margarette [facility] Pending 00:00:00 = culture, urine] Health Out reach Program Encounters Start End Encounter Admission Attending Care Care Encounter Source Date/Time Date/Time Type Type Clinicians Facility Department ID 2022-05-31 2022-05-31 Outpatient Ofelia LINARES [facility] [id number] [place] 00:00:00 00:00:00 1108 da [facility] 2021-10-26 2021-10-26 [facility] Ofelia [facility] [place] - [id number] 022 [place] 00:00:00 00:00:00 Rob Graves 0405 da DATA CENTER CONSULTANT-ATTENDING PHYSICIAN-C: [facility] Epi scop 1700 HOP - [facility] [phone] Sandra baker , Ph. 2021-10-06 2021-10-06 [facility] Ofelia [facility] [place] - [id number] 022 [place] 00:00:00 00:00:00 Rob Cuellar 0316 da MD: 1700 Spiritism [facility] [phone] h , Ph. Program 2021-08-25 2021-08-25 Outpatient Ofelia [facility] 7211 [place] 02:14:00 02:14:00 0202 da [facility] 2021-04-30 2021-04-30 [facility] Ofelia [facility] [place] - [id number] 021 [place] 00:00:00 00:00:00 Rob Graves 1008 da DATA CENTER CONSULTANT-ATTENDING PHYSICIAN-C: Spirit[facility] Epi scop 1700 [facility] [phone] Sandra baker , Ph. 2021-04-28 2021-04-28 Outpatient Ofelia [facility] 7211 [place] 04:40:00 04:40:00 1006 da [facility] Program 2020-12-16 2020-12-16 [facility] [place] - [id number] 021 [place] 00:00:00 00:00:00 Rob Graves 0526 da DATA CENTER CONSULTANT-ATTENDING PHYSICIAN-C: [facility] Epi scop 1700 [facility] [phone] Progr am , Ph. 2020-11-17 2020-11-17 [facility] [place] - [id number] 021 [place] 00:00:00 00:00:00 Rob Graves 0427 da DATA CENTER CONSULTANT-ATTENDING PHYSICIAN-C: [facility] Epi scop 1700 [facility] [phone] Progr am , Ph. 2020-11-03 2020-11-03 [facility] [place] - [id number] 021 [place] 00:00:00 00:00:00 Rob Graves 0413 da DATA CENTER CONSULTANT-ATTENDING PHYSICIAN-C: [facility] Epi scop 1700 [facility] [phone] Progr am , Ph. 2020-06-17 2020-06-17 Outpatient NEESE_MADELINE LINARES [facility] [id number] [place] 10:04:00 10:04:00 1125 da [facility] al [facility] Outreac h Program 2020-06-03 2020-06-03 Outpatient NEESE_MADELINE LINARES [facility] [id number] [place] 05:28:00 05:28:00 1111 da [facility] al [facility] Outreac h Program 2020-05-22 2020-05-22 Madeline Vega NEESE_MADELINE [facility] [place] - 7211 [place] 00:00:00 00:00:00 KRISTIN Romano: Rob 1030 d a 1700 Spiritism [facility] [address] [phone] h , Ph. Program 2020-05-01 2020-05-01 Madeline ROMANO_MADELINE LIN[place] - 7211 [place] 00:00:00 00:00:00 KRISTIN Romano: Rob 1009 d a 1700 [facility] [place] [phone] h , Ph. Program 2020-04-01 2020-04-01 Outpatient ROSALINA_MADELINE LINARES [facility] 72 [place] 09:20:00 09:20:00 0909 da [facility] al [facility] Outreac h Program 2020-03-25 2020-03-25 Madeline ROMANO_MADELINE [place] - 7211 [place] 00:00:00 00:00:00 KRISTIN Romano: Rob 0902 d a 1700 [facility] [place] [phone] h , Ph. Program 2020-03-18 2020-03-18 Madeline Vega MARCELINAJENNY_MADELINE [place] - 7211 [place] 00:00:00 00:00:00 KRISTIN Romano: [place] 0826 d a 1700 [facility] [place] [facility] [phone] h , Ph. Program 2020-03-13 2020-03-13 Madeline Gary ROMANO_MADELINE [place] - 7211 [place] 00:00:00 00:00:00 KRISTIN Romano: [place] 0821 d a 1700 [facility] [place] [facility] [phone] h , Ph. Program 2020-03-11 2020-03-11 Madeline Gary MARCELINAJENNY_MADELINE [place] - 7211 [place] 00:00:00 00:00:00 KRISTIN Romano: Rob 0819 d a 1700 [facility] [place] [facility] [phone] h , Ph. Program 2020-02-25 2020-02-25 Danuta LIN[place] - 7211 [place] 00:00:00 00:00:00 Rob Lees 0804 da ATTENDING PHYSICIAN: 1700 Spirit[facility] [address], [place] Outreac [phone] h , Ph. Program 2020-02-21 2020-02-21 Madeline Gary NEELIA [place] 7211 [place] 00:00:00 00:00:00 Rosalina PA: Rob 0731 d a 1700 [facility] [place] [facility] [place] [phone] h , Ph. Program 2020-02-19 2020-02-19 Outpatient NASIM LINARES [facility] 72 [place] 11:34:00 11:34:00 0729 da [facility] Program 2020-02-08 2020-02-08 Batool [place] - [id number] [place] 00:00:00 00:00:00 Joaquin Rivas 0718 da Simone, Spiritism Ep[facility] ATTENDING PHYSICIAN: 1700 [facility] - [place] [phone] [facility] am , Ph. 2019-09-20 2019-09-20 Madeline Gary MARCELINAELIA [place] - 7211 [place] 00:00:00 00:00:00 KRISTIN Romano: Rob 0228 d a 1700 [facility] [place] [facility] [phone] h , Ph. Program 2019-09-03 2019-09-02 Inpatient Tiffanie Andersen [facility] ENDO LA00 [id number] [facility] 14:00:00 13:29:[address] [facility] lance [facility] 2019-06-19 2019-06-19 [place] - [id number] 019 [place] 00:00:00 00:00:00 Rosalina PA: Rob 1127 d a 1700 Spiritism [facility] [address], [facility], [address] [place] [phone] Progr am , Ph. 2019-05-15 2019-05-15 [place] - [id number] 019 [place] 00:00:00 00:00:00 Rosalina PA: Rob 1023 d a 1700 Spiritism Ep[facility] [address], [facility] 3, [address] [place] [phone] Progr am , Ph. 2019-05-07 2019-05-07 [place] - [id number] 019 [place] 00:00:00 00:00:00 KRISTIN Romano: Rob 1015 d a 1700 Spiritism Ep[facility] [address], [facility] 3, [address] [place] [phone] Progr am , Ph. 2018-10-19 2018-10-19 [facility]patient [facility] 24 [id number] Common 14:28:00 14:28:00 [facility] 2018-10-16 2018-10-16 [facility] 24 [id number] Common 16:00:00 16:00:00 [facility] 2018-05-03 2018-05-03 [facility] 22 [id number] Common 08:13:00 08:13:00 [facility] 2018-04-23 2018-04-23 [facility] 21 [id number] Common 08:44:00 08:44:00 t Specialty/U Sp messi Specialty rology - [facility] 2018-04-17 2018-04-17 [facility] 21 [id number] Common 08:45:00 08:45:00 t Specialty/U Sp messi Specialty rology - [facility] 2018-04-16 2018-04-16 Outpatient [facility] 21 [id number] Common 10:00:00 10:00:00 t [facility] [address] [facility] [place] 2018-04-10 2018-04-10 [facility] 14 [id number] Common 08:30:00 08:30:00 t [facility] [address] [facility] 2017-12-27 2017-12-27 [facility] 13 [id number] Common 08:30:00 08:30:00 t [facility] [address] [facility] [place] 2017-11-30 2017-11-30 Out[facility] 13 [id number] Common 14:15:00 14:15:00 t Specialty/U Sp messi Specialty rology - [facility]Urology Clinic [facility] 2017-11-30 2017-11-30 [facility] 13 [id number] Common 08:30:00 08:30:00 t [facility] [address] [facility] [place] 2017-11-22 2017-11-22 Out[facility] 13 [id number] Common 08:45:00 08:45:00 t [facility] it [address] [facility] [place] Results Test Description Test Time Test Comments Results Result Comments Source Glucose [Mass/volume] in Capillary blood 2021-10-26 16:26:09 Test Item Value Reference Range Interpretation Comme nts Blood Glucose: mg/dl (test code = Blood Glucose: mg/dl) 400 [facility], [id number] 00:00:00 Test Item Value Reference Range Interpretation Comments Interpretation and review of note laboratory results (test code = 58564-7) Report (test code = 23881-8) not applicable [facility] CKD [id number] 00:00:00 Test Item Value Reference Range Interpretation Comments Report (test code = 63516-5) note Interpretation and review of laboratory . results (test code = 88989-4) [facility] Dent[facility] patient [id number] 00:00:00 Test Item Value Reference Range Interpretation Comments pdf (test code = pdf) not applicable [facility]enton[facility]acteria identified in Wound by [id number] 00:00:00 Test Item Value Reference Range Interpretation Comments Bacteria identified in final report Unspecified specimen by Anaerobe culture (test code = 635-3) Bacteria identified in pantoea agglomerans A Unspecified specimen by Culture (test code = 6463-4) Bacteria identified in final report A Unspecified specimen by Aerobe culture (test code = 634-6) Other Antibiotic comment [Susceptibility] (test code = 29864-4) [facility]enton[facility] W Auto Differential panel - Blood 2020-11-04 00:00:00 Test Item Value Reference Range Interpretation Comments Leukocytes [#/volume] in Blood 6.2 x10e3/uL 3.4-10.8 by Automated count (test code = 6690-2) Erythrocytes [#/volume] in 4.31 x10e6/uL 4.14-5.80 Blood by Automated count (test code = 789-8) Hemoglobin [Mass/volume] in 11.8 g/dL 13.0-17.7 L Blood (test code = 718-7) Hematocrit [Volume Fraction] of 35.5 % 37.5-51.0 L Blood by Automated count (test code = 4544-3) MCV [Entitic volume] by 82 fL 79-97 Automated count (test code = 787-2) MCH [Entitic mass] by Automated 27.4 pg 26.6-33.0 count (test code = 785-6) MCHC [Mass/volume] by Automated 33.2 g/dL 31.5-35.7 count (test code = 786-4) Erythrocyte distribution width 13.4 % 11.6-15.4 [Ratio] by Automated count (test code = 788-0) Platelets [#/volume] in Blood 262 x10e3/uL 150-450 by Automated count (test code = 777-3) Neutrophils/100 leukocytes in 81 % not estab. Blood by Automated count (test code = 770-8) Lymphocytes/100 leukocytes in 12 % not estab. Blood by Automated count (test code = 736-9) Monocytes/100 leukocytes in 5 % not estab. Blood by Automated count (test code = 5905-5) Eosinophils/100 leukocytes in 2 % not estab. Blood by Automated count (test code = 713-8) Basophils/100 leukocytes in 0 % not estab. Blood by Automated count (test code = 706-2) immature cells (test code = hot plate plywood press feeder immature cells) Neutrophils [#/volume] in Blood 5.0 x10e3/uL 1.4-7.0 by Automated count (test code = 751-8) Lymphocytes [#/volume] in Blood 0.8 x10e3/uL 0.7-3.1 by Automated count (test code = 731-0) Monocytes [#/volume] in Blood 0.3 x10e3/uL 0.1-0.9 by Automated count (test code = 742-7) Eosinophils [#/volume] in Blood 0.1 x10e3/uL 0.0-0.4 by Automated count (test code = 711-2) Basophils [#/volume] in Blood 0.0 x10e3/uL 0.0-0.2 by Automated count (test code = 704-7) Immature granulocytes/100 0 % not estab. leukocytes in Blood by Automated count (test code = 03021-1) Immature granulocytes 0.0 x10e3/uL 0.0-0.1 [#/volume] in Blood by Automated count (test code = 61029-9) Nucleated erythrocytes/100 hot plate plywood press feeder leukocytes [Ratio] in Blood by Automated count (test code = 88454-0) Morphology [Interpretation] in hot plate plywood press feeder Blood Narrative (test code = 63156-7) [facility] ProgramComprehensive metabolic 2000 panel - Serum or [id number] 00:00:00 Test Item Value Reference Range Interpretation Comments Glucose [Mass/volume] in Serum 526 mg/dL 65-99 H or Plasma (test code = 2345-7) Urea nitrogen [Mass/volume] in 21 mg/dL 6-24 Serum or Plasma (test code = 3094-0) Creatinine [Mass/volume] in 1.54 mg/dL 0.76-1.27 H Serum or Plasma (test code = 2160-0) Glomerular filtration 51 mL/min/1.73 >59 L rate/1.73 sq M.predicted among non-blacks [Volume Rate/Area] in Serum, Plasma or Blood by Creatinine-based formula (CKD-EPI) (test code = 65560-6) Glomerular filtration 59 mL/min/1.73 >59 L rate/1.73 sq M.predicted among blacks [Volume Rate/Area] in Serum, Plasma or Blood by Creatinine-based formula (CKD-EPI) (test code = 46274-8) Urea nitrogen/Creatinine [Mass 14 9-20 Ratio] in Serum or Plasma (test code = 3097-3) Sodium [Moles/volume] in Serum 132 mmol/L 134-144 L or Plasma (test code = 2951-2) Potassium [Moles/volume] in 4.3 mmol/L 3.5-5.2 Serum or Plasma (test code = 2823-3) Chloride [Moles/volume] in 92 mmol/L 96-106 L Serum or Plasma (test code = 5-0) Carbon dioxide, total 25 mmol/L 20-29 [Moles/volume] in Serum or Plasma (test code = 2027-9) Calcium [Mass/volume] in Serum 8.5 mg/dL 8.7-10.2 L or Plasma (test code = 58279-9) Protein [Mass/volume] in Serum 6.8 g/dL 6.0-8.5 or Plasma (test code = 2885-2) Albumin [Mass/volume] in Serum 3.3 g/dL 3.8-4.9 L or Plasma (test code = 1751-7) Globulin [Mass/volume] in 3.5 g/dL 1.5-4.5 Serum by calculation (test code = 39863-6) Albumin/Globulin [Mass Ratio] 0.9 1.2-2.2 L in Serum or Plasma (test code = 1759-0) Bilirubin.total [Mass/volume] 0.4 mg/dL 0.0-1.2 in Serum or Plasma (test code = 1975-2) Alkaline phosphatase 94 IU/L 39-117 [Enzymatic activity/volume] in Serum or Plasma (test code = 6768-6) Aspartate aminotransferase 7 IU/L 0-40 [Enzymatic activity/volume] in Serum or Plasma (test code = 1920-8) Alanine aminotransferase 9 IU/L 0-44 [Enzymatic activity/volume] in Serum or Plasma (test code = 1742-6) [facility] ProgramMicroalbumin/Creatinine [Mass Ratio] in [id number] 00:00:00 Test Item Value Reference Range Interpretation Comments Creatinine [Mass/volume] in 131.3 mg/dL not estab. Urine (test code = 2161-8) Microalbumin [Mass/volume] in 2710.8 ug/mL not estab. Urine (test code = 67449-8) Albumin/Creatinine [Mass 2065 mg/g creat 0-29 H ratio] in Urine (test code = 9318-7) [facility] CKD [id number] 00:00:00 Test Item Value Reference Range Interpretation Comments Report (test code = 67694-8) note Interpretation and review of laboratory . results (test code = 61134-1) [facility] DentonHemoglobin A1c/Hemoglobin.total in [id number] 00:00:00 Test Item Value Reference Range Interpretation Comments Hemoglobin A1c/Hemoglobin.total in 12.9 % 4.8-5.6 H Blood (test code = 4548-4) Glucose mean value [Mass/volume] in 324 mg/dL Blood Estimated from glycated hemoglobin (test code = 89949-2) [facility] Dentondiabetes patient [id number] 00:00:00 Test Item Value Reference Range Interpretation Comments pdf (test code = pdf) not applicable [facility] DentonComprehensive metabolic 2000 panel - Serum or [id number] 00:00:00 Test Item Value Reference Range Interpretation Comments Glucose [Mass/volume] in Serum 244 mg/dL 65-99 H or Plasma (test code = 2345-7) Urea nitrogen [Mass/volume] in 23 mg/dL 6-24 Serum or Plasma (test code = 3094-0) Creatinine [Mass/volume] in 1.49 mg/dL 0.76-1.27 H Serum or Plasma (test code = 2160-0) Glomerular filtration 53 mL/min/1.73 >59 L rate/1.73 sq M.predicted among non-blacks [Volume Rate/Area] in Serum, Plasma or Blood by Creatinine-based formula (CKD-EPI) (test code = 35537-0) Glomerular filtration 61 mL/min/1.73 >59 rate/1.73 sq M.predicted among blacks [Volume Rate/Area] in Serum, Plasma or Blood by Creatinine-based formula (CKD-EPI) (test code = 13176-1) Urea nitrogen/Creatinine [Mass 15 9-20 Ratio] in Serum or Plasma (test code = 3097-3) Sodium [Moles/volume] in Serum 138 mmol/L 134-144 or Plasma (test code = 2951-2) Potassium [Moles/volume] in 4.2 mmol/L 3.5-5.2 Serum or Plasma (test code = 2823-3) Chloride [Moles/volume] in 99 mmol/L 96-106 Serum or Plasma (test code = 2074-0) Carbon dioxide, total 27 mmol/L 20-29 [Moles/volume] in Serum or Plasma (test code = 2027-9) Calcium [Mass/volume] in Serum 9.0 mg/dL 8.7-10.2 or Plasma (test code = 40497-5) Protein [Mass/volume] in Serum 6.8 g/dL 6.0-8.5 or Plasma (test code = 2885-2) Albumin [Mass/volume] in Serum 3.9 g/dL 3.8-4.9 or Plasma (test code = 175-7) Globulin [Mass/volume] in 2.9 g/dL 1.5-4.5 Serum by calculation (test code = 57853-4) Albumin/Globulin [Mass Ratio] 1.3 1.2-2.2 in Serum or Plasma (test code = 1759-0) Bilirubin.total [Mass/volume] 0.3 mg/dL 0.0-1.2 in Serum or Plasma (test code = 1974-) Alkaline phosphatase 79 IU/L 39-117 [Enzymatic activity/volume] in Serum or Plasma (test code = 6768-6) Aspartate aminotransferase 14 IU/L 0-40 [Enzymatic activity/volume] in Serum or Plasma (test code = 1920-8) Alanine aminotransferase 18 IU/L 0-44 [Enzymatic activity/volume] in Serum or Plasma (test code = 1742-6) [facility] CKD [id number] 00:00:00 Test Item Value Reference Range Interpretation Comments interpretation (test code = note interpretation) pdf (test code = pdf) . [facility] patient [id number] 00:00:00 Test Item Value Reference Range Interpretation Comments pdf (test code = pdf) not applicable [facility] DentonHemoglobin A1c/Hemoglobin.total in [id number] 00:00:00 Test Item Value Reference Range Interpretation Comments Hemoglobin A1c/Hemoglobin.total in 9.9 % 4.8-5.6 H Blood (test code = 4548-4) [facility]entonBacteria identified in Unspecified specimen by Anaerobe+Aerobe [id number] 00:00:00 Test Item Value Reference Range Interpretation Comments Bacteria identified in final report Unspecified specimen by Anaerobe culture (test code = 635-3) Bacteria identified in staphylococcus aureus A Unspecified specimen by Culture (test code = 6463-4) Bacteria identified in final report A Unspecified specimen by Aerobe culture (test code = 634-6) Other Antibiotic comment [Susceptibility] (test code = 96010-9) [facility]acteria identified in Unspecified specimen by Anaerobe+Aerobe [id number] 00:00:00 Test Item Value Reference Range Interpretation Comments Bacteria identified in final report Unspecified specimen by Anaerobe culture (test code = 635-3) Bacteria identified in staphylococcus aureus A Unspecified specimen by Culture (test code = 6463-4) Bacteria identified in final report A Unspecified specimen by Aerobe culture (test code = 634-6) Other Antibiotic comment [Susceptibility] (test code = 22568-2) [facility] identified in Unspecified specimen by Anaerobe+Aerobe [id number] 00:00:00 Test Item Value Reference Range Interpretation Comments Bacteria identified in final report Unspecified specimen by Anaerobe culture (test code = 635-3) Bacteria identified in staphylococcus aureus A Unspecified specimen by Culture (test code = 6463-4) Bacteria identified in final report A Unspecified specimen by Aerobe culture (test code = 634-6) Other Antibiotic comment [Susceptibility] (test code = 94268-2) [facility]] in Respiratory specimen by ISIDRO with probe [id number] 00:00:00 Test Item Value Reference Range Interpretation Comments SARS coronavirus 2 RNA not detected not detected [Presence] in Respiratory specimen by ISIDRO with probe detection (test code = 13246-4) [facility] [Presence] in Respiratory specimen by ISIDRO with probe [id number] 00:00:00 Test Item Value Reference Range Interpretation Comments SARS coronavirus 2 RNA not detected not detected [Presence] in Respiratory specimen by ISIDRO with probe detection (test code = 04727-8) [facility] [Presence] in Respiratory specimen by ISIDRO with probe [id number] 00:00:00 Test Item Value Reference Range Interpretation Comments SARS coronavirus 2 RNA not detected not detected [Presence] in Respiratory specimen by ISIDRO with probe detection (test code = 89034-5) [facility] [Presence] in Respiratory specimen by ISIDRO with probe [id number] 00:00:00 Test Item Value Reference Range Interpretation Comments SARS coronavirus 2 RNA not detected not detected [Presence] in Respiratory specimen by ISIDRO with probe detection (test code = 98965-2) [facility] [Presence] in Respiratory specimen by ISIDRO with probe [id number] 00:00:00 Test Item Value Reference Range Interpretation Comments SARS coronavirus 2 RNA not detected not detected [Presence] in Respiratory specimen by ISIDRO with probe detection (test code = 13279-0) [facility] [Presence] in Respiratory specimen by ISIDRO with probe [id number] 00:00:00 Test Item Value Reference Range Interpretation Comments SARS coronavirus 2 RNA not detected not detected [Presence] in Respiratory specimen by ISIDRO with probe detection (test code = 57795-8) [facility] [Presence] in Respiratory specimen by ISIDRO with probe [id number] 00:00:00 Test Item Value Reference Range Interpretation Comments SARS coronavirus 2 RNA not detected not detected [Presence] in Respiratory specimen by ISIDRO with probe detection (test code = 56767-6) [facility] [Presence] in Respiratory specimen by ISIDRO with probe [id number] 00:00:00 Test Item Value Reference Range Interpretation Comments SARS coronavirus 2 RNA [Presence] in detected not detected A Respiratory specimen by ISIDRO with probe detection (test code = 73789-6) [facility] [Presence] in Respiratory specimen by ISIDRO with probe [id number] 00:00:00 Test Item Value Reference Range Interpretation Comments SARS coronavirus 2 RNA [Presence] in detected not detected A Respiratory specimen by ISIDRO with probe detection (test code = 44609-5) [facility] [id number] 00:00:00 Test Item Value Reference Range Interpretation Comments pdf image (test code = pdf image) . [facility]entonH.pylori,IgG/IgM [id number] 00:00:00 Test Item Value Reference Range Interpretation Comments Helicobacter pylori IgG Ab 1.75 index value 0.00-0.79 H [Units/volume] in Serum by Immunoassay (test code = 5176-3) Helicobacter pylori IgM Ab <9.0 0.0-8.9 [Units/volume] in Serum (test code = 7903-8) [facility]entonCBC [facility] Auto Differential panel - Blood 2019-05-08 00:00:00 Test Item Value Reference Range Interpretation Comments Leukocytes [#/volume] in Blood 3.3 x10e3/uL 3.4-10.8 L by Automated count (test code = 6690-2) Erythrocytes [#/volume] in 4.06 x10e6/uL 4.14-5.80 L Blood by Automated count (test code = 789-8) Hemoglobin [Mass/volume] in 10.8 g/dL 13.0-17.7 L Blood (test code = 718-7) Hematocrit [Volume Fraction] of 34.6 % 37.5-51.0 L Blood by Automated count (test code = 4544-3) Erythrocyte mean corpuscular 85 fL 79-97 volume [Entitic volume] by Automated count (test code = 787-2) Erythrocyte mean corpuscular 26.6 pg 26.6-33.0 hemoglobin [Entitic mass] by Automated count (test code = 785-6) Erythrocyte mean corpuscular 31.2 g/dL 31.5-35.7 L hemoglobin concentration [Mass/volume] by Automated count (test code = 786-4) Erythrocyte distribution width 14.0 % 12.3-15.4 [Ratio] by Automated count (test code = 788-0) Platelets [#/volume] in Blood 360 x10e3/uL 150-450 by Automated count (test code = 777-3) Neutrophils/100 leukocytes in 58 % not estab. Blood by Automated count (test code = 770-8) Lymphocytes/100 leukocytes in 31 % not estab. Blood by Automated count (test code = 736-9) Monocytes/100 leukocytes in 8 % not estab. Blood by Automated count (test code = 5905-5) Eosinophils/100 leukocytes in 3 % not estab. Blood by Automated count (test code = 713-8) Basophils/100 leukocytes in 0 % not estab. Blood by Automated count (test code = 706-2) immature cells (test code = hot plate plywood press feeder immature cells) Neutrophils [#/volume] in Blood 1.9 x10e3/uL 1.4-7.0 by Automated count (test code = 751-8) Lymphocytes [#/volume] in Blood 1.0 x10e3/uL 0.7-3.1 by Automated count (test code = 731-0) Monocytes [#/volume] in Blood 0.3 x10e3/uL 0.1-0.9 by Automated count (test code = 742-7) Eosinophils [#/volume] in Blood 0.1 x10e3/uL 0.0-0.4 by Automated count (test code = 711-2) Basophils [#/volume] in Blood 0.0 x10e3/uL 0.0-0.2 by Automated count (test code = 704-7) immature granulocytes (test 0 % not estab. code = immature granulocytes) Granulocytes Immature 0.0 x10e3/uL 0.0-0.1 [#/volume] in Blood by Automated count (test code = 17244-8) Nucleated erythrocytes/100 hot plate plywood press feeder leukocytes [Ratio] in Blood by Automated count (test code = 96521-9) Morphology [interpretation] in hot plate plywood press feeder Blood Narrative (test code = 92074-7) [facility]enton[facility] 2000 panel - Serum or [id number] 00:00:00 Test Item Value Reference Range Interpretation Comments Glucose [Mass/volume] in Serum 423 mg/dL 65-99 H or Plasma (test code = 2345-7) Urea nitrogen [Mass/volume] in 17 mg/dL 6-24 Serum or Plasma (test code = 3094-0) Creatinine [Mass/volume] in 1.25 mg/dL 0.76-1.27 Serum or Plasma (test code = 2160-0) eGFR if nonafricn AM (test 66 mL/min/1.73 >59 code = eGFR if nonafricn AM) eGFR if africn AM (test code = 77 mL/min/1.73 >59 eGFR if africn AM) Urea nitrogen/Creatinine [Mass 14 9-20 Ratio] in Serum or Plasma (test code = 3097-3) Sodium [Moles/volume] in Serum 137 mmol/L 134-144 or Plasma (test code = 2951-2) Potassium [Moles/volume] in 4.5 mmol/L 3.5-5.2 Serum or Plasma (test code = 2823-3) Chloride [Moles/volume] in 96 mmol/L 96-106 Serum or Plasma (test code = 2075-0) Carbon dioxide, total 26 mmol/L 20-29 [Moles/volume] in Serum or Plasma (test code = 2027-9) Calcium [Mass/volume] in Serum 9.1 mg/dL 8.7-10.2 or Plasma (test code = 13137-3) Protein [Mass/volume] in Serum 7.0 g/dL 6.0-8.5 or Plasma (test code = 2885-2) Albumin [Mass/volume] in Serum 3.7 g/dL 3.5-5.5 or Plasma (test code = 1751-7) Globulin [Mass/volume] in 3.3 g/dL 1.5-4.5 Serum by calculation (test code = 93848-4) Albumin/Globulin [Mass Ratio] 1.1 1.2-2.2 L in Serum or Plasma (test code = 1759-0) Bilirubin.total [Mass/volume] 0.3 mg/dL 0.0-1.2 in Serum or Plasma (test code = 1975-2) Alkaline phosphatase 203 IU/L 39-117 H [Enzymatic activity/volume] in Serum or Plasma (test code = 6768-6) Aspartate aminotransferase 15 IU/L 0-40 [Enzymatic activity/volume] in Serum or Plasma (test code = 1920-8) Alanine aminotransferase 16 IU/L 0-44 [Enzymatic activity/volume] in Serum or Plasma (test code = 1742-6) [facility]em[facility] A1c/Hemoglobin.total in [id number] 00:00:00 Test Item Value Reference Range Interpretation Comments Hemoglobin A1c/Hemoglobin.total in 11.2 % 4.8-5.6 H Blood (test code = 4548-4) [facility]
[2022-06-02] MEDS ORDERED: MORPHINE 4 MG/ML SYR ONE ×2 (09:11→13:50)
[2022-06-02] MEDS ORDERED: ONDANSETRON 4 MG/2 ML VIAL ONE (09:12)
[2022-06-02] MEDS ORDERED: NA CHLORIDE 0.9% 100 ML IV ONE ×2 (09:12→10:08)
[2022-06-02] MEDS ORDERED: PIPERACIL/TAZO 3.375 GM VIAL IV ONE (09:12)
[2022-06-02 09:20] LABS: Hematocrit 37.2 % (39.6-49.0); Lymphocytes % 11.2 % (15.3-44.8); MCV 81.1 fL (80-100); MPV 8.4 fL (7.6-11.3); RBC Red Blood Cell Count 4.59 M/uL (4.33-5.43)
[2022-06-02 09:40] LABS: Albumin 2.3 g/dL (3.4-5.0); Bilirubin Total 0.5 mg/dL (0.2-1.0); Potassium 3.9 mmol/L (3.5-5.1); Protein, Total 6.7 g/dL (6.4-8.2)
--- NOTE | 2022-06-02 09:40 | RAD REPORT ---
EXAM DESCRIPTION: RAD - Hand Right 3 View - 06/02/2022 9:24 am CLINICAL HISTORY: Right hand pain status post injury FINDINGS: No fracture or dislocation is seen.
[2022-06-02 09:54] LABS: SARS-CoV-2 Antigen Rapid Res Negative (Negative)
[2022-06-02] MEDS ORDERED: NA CHLORIDE 0.9% 1,000 ML ONE (10:07)
[2022-06-02] MEDS ORDERED: INSULIN -REGULAR HUMAN 50 UNIT/0.5 ML ML ONE (10:07)
[2022-06-02] MEDS ORDERED: VANCOMYCIN 1 GM/VIAL ONE (10:08)
--- NOTE | 2022-06-02 10:29 | ER ---
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 POSSIBLE INJECTION INJURY FROM HIGH PRESSURE WATER LINE. Coronavirus screen: At this time, the client does not indicate any symptoms associated with coronavirus-19. Ebola Screen: No symptoms or risks identified at this time. Initial Sepsis Screen: Does the patient meet any 2 criteria? No. Patient's initial sepsis screen is negative. Does the patient have a suspected source of infection? No. Patient's initial sepsis screen is negative. Risk Assessment: Do you want to hurt yourself or someone else? Patient reports no desire to harm self or others. Note ON PRESCRIBED KEFLEX FROM PCP WITH NO IMPROVEMENT. Onset of symptoms is unknown. 08:17 Method Of Arrival: Ambulatory bp 08:17 Acuity: MAYA 3 bp Triage Assessment: 08:19 General: Appears distressed, uncomfortable, obese, Behavior is calm, cooperative, bp appropriate for age. Pain: Complains of pain in right hand. EENT: No deficits noted. Neuro: No deficits noted. Cardiovascular: No deficits noted. Respiratory: No deficits noted. GI: No signs and/or symptoms were reported involving the gastrointestinal system. : No signs and/or symptoms were reported regarding the genitourinary system. Derm: Wound noted palm of right hand. Musculoskeletal: Circulation, motion, and sensation intact. Swelling present in right hand. Injury Description: ABSCESS TO R PALMAR SURFACE WITH EDEMA AND ERYTHEMA TO ENTIRE R HAND. Historical: - Allergies: 08:19 No Known Allergies; bp - Home Meds: 08:19 None [Active]; bp - PMHx: 08:19 Diabetes mellitus; Hypertensive disorder; bp - PSHx: 08:19 Appendectomy; Cholecystectomy; bp - Immunization history:: Adult Immunizations up to date. - Social history:: Smoking status: Patient denies any tobacco usage or history of. Screenin:21 Abuse screen: Denies threats or abuse. Denies injuries from another. Nutritional bp screening: No deficits noted. Tuberculosis screening: No symptoms or risk factors identified. Fall Risk None identified. Assessment: 08:21 General: SEE TRIAGE NOTE. bp 10:18 Reassessment: No changes from previously documented assessment. Patient and/or family bp updated on plan of care and expected duration. Pain level reassessed. 12:00 Reassessment: No changes from previously documented assessment. Patient and/or family bp updated on plan of care and expected duration. Pain level reassessed. ADMIT INITIATED Patient states feeling better. 14:19 Reassessment: ADMIT COMPLETED FOR RM 407, REPORT TO HERNAN LANDRY. bp Vital Signs: 08:17 BP 121 / 81; Pulse 78; Resp 17; Temp 98; Pulse Ox 98% ; Weight 119.75 kg; Height 5 ft. bp 8 in. (172.72 cm); 10:18 BP 118 / 75; Pulse 75; Resp 16; Pulse Ox 95% ; bp 12:00 BP 154 / 91; Pulse 77; Resp 16; Pulse Ox 96% ; bp 13:00 BP 139 / 82; Pulse 76; Resp 15; Pulse Ox 97% ; bp 14:00 BP 152 / 88; Pulse 74; Resp 16; Pulse Ox 95% ; bp 08:17 Body Mass Index 40.14 (119.75 kg, 172.72 cm) bp ED Course: 08:05 Patient arrived in ED. mr 08:16 Davy Fraire, FRANTZ is Primary Nurse. bp 08:18 Ellen Ji PA is PHCP. en 08:18 Tre Phan MD is Attending Physician. en 08:19 Triage completed. bp 08:19 Arm band placed on. bp 08:21 Patient has correct armband on for positive identification. Bed in low position. Call bp light in reach. Side rails up X2. Adult w/ patient. 09:00 Inserted saline lock: 20 gauge in left forearm, using aseptic technique. Blood bp collected. 09:26 Hand Right 3 View XRAY In Process Unspecified. EDMS 10:28 Joaquim Phan MD is Hospitalizing Provider. en 14:21 No provider procedures requiring assistance completed. Patient admitted, IV remains in bp place. Administered Medications: 09:10 Drug: Zosyn (piperacillin-tazobactam) 3.375 grams Route: IVPB; Infused Over: 60 mins; bp Site: left forearm; 14:26 Follow up: IV Status: Completed infusion; IV Intake: 100ml bp 09:10 Drug: morphine 4 mg Route: IVP; Infused Over: 4 mins; Site: left forearm; bp 14:26 Follow up: Response: Pain is decreased bp 09:10 Drug: Zofran (Ondansetron) 4 mg Route: IVP; Site: left forearm; bp 14:26 Follow up: Response: No adverse reaction bp 10:10 Drug: Vancomycin 1 grams Route: IV; Rate: bolus; Site: left forearm; bp 14:26 Follow up: IV Status: Completed infusion; IV Intake: 250ml bp 10:14 Drug: NS 0.9% 1000 ml Route: IV; Rate: 1 bolus; Site: left forearm; bp 14:22 Follow up: IV Status: Completed infusion; IV Intake: 1000ml bp 10:15 Drug: Insulin Regular Human 10 units {Co-Signature: db (Ana Maria Hale RN).} Route: bp IVP; Site: left forearm; 14:22 Follow up: Response: No adverse reaction bp Medication: 08:21 VIS not applicable for this client. bp Intake: 14:22 IV: 1000ml; Total: 1000ml. bp 14:26 IV: 250ml; Total: 1250ml. bp 14:26 IV: 100ml; Total: 1350ml. bp Outcome: 10:29 Decision to Hospitalize by Provider. en 14:21 Admitted to Med/surg accompanied by tech, family with patient, via wheelchair, room bp 407, with chart, Report called to HERNAN LANDRY 14:21 Condition: stable 14:21 Instructed on the need for admit. 14:59 Patient left the ED. bp Signatures: Dispatcher [employer] [facility] CutlerDanuta Brian, RN RN bp Ellen Ji PA PA en Ana Maria ruano
--- NOTE | 2022-06-02 10:30 | EDPHYS ---
Physician Documentation [facility] Name: Cameron Hooper Age: 56 yrs Sex: Male : 1965 Arrival Date: 06/02/2022 Time: 08:05 Bed 6 Private MD: ED Physician Tre Phan HPI: 06/02 10:10 This 56 yrs old Male presents to ER via Ambulatory with complaints of Wound en Infection. 10:10 Onset: The symptoms/episode began/occurred gradually, last week. Associated signs and en symptoms:. Modifying factors: the patient symptoms are aggravated by movement. 56 yo RHD male with NIDDM presents to ED with worsening right hand redness, pain, and swelling over the past 2 weeks after using a jackhammer. He reports increased redness now circumferentially involving the entire hand with decreased range of motion of the fingers and erythema extending proximally to the mid forearm. No fevers, chills, numbness, tingling. He does not check his glucose regularly.. Historical: - Allergies: 08:19 No Known Allergies; bp - Home Meds: 08:19 None [Active]; bp - PMHx: 08:19 Diabetes mellitus; Hypertensive disorder; bp - PSHx: 08:19 Appendectomy; Cholecystectomy; bp - Immunization history:: Adult Immunizations up to date. - Social history:: Smoking status: Patient denies any tobacco usage or history of. ROS: 10:10 Constitutional: Negative for fever, chills, and weight loss. en 10:10 Constitutional: Negative for body aches, chills, fever. 10:10 MS/extremity: Positive for Right hand pain and swelling with decreased range of motion. 10:10 Skin: Positive for Significant swelling and visible abscess on the palmar aspect of the right hand with redness extending to the mid forearm. Exam: 10:10 Constitutional: Well-developed well-nourished male visibly uncomfortable secondary to en pain but nontoxic-appearing 10:10 Constitutional: The patient appears alert, awake. 10:10 Head/face: Exam is negative for acute changes. 10:10 Eyes: Conjunctiva: exudate, injected. 10:10 ENT: Mouth: Oral mucosa: pink and intact, moist, Posterior pharynx: Airway: patent. 10:10 Cardiovascular: Rate: normal, Rhythm: regular, Pulses: no pulse deficits are appreciated, Heart sounds: normal, no murmur, no rub, no gallop. 10:10 Respiratory: the patient does not display signs of respiratory distress, Respirations: normal, Breath sounds: are clear throughout, no rales, rhonchi, no wheezing. 10:10 Musculoskeletal/extremity: Decreased range of motion of right hand to all fingers and with flexion extension of the wrist secondary to large 4 x 5 cm abscess to the palm of the hand with centralized fluctuance and surrounding induration. Cap refill less than 2 seconds, 2+ radial pulse.. 10:10 Skin: Large abscess to the palm of the right hand with centralized fluctuance and overlying callus. Circumferential erythema to the hand with induration extending proximally to the wrist in the mid forearm.. 10:10 Neuro: Orientation: is normal, appropriate for stated age, to person, place \T\ time. Sensation: is normal. Vital Signs: 08:17 BP 121 / 81; Pulse 78; Resp 17; Temp 98; Pulse Ox 98% ; Weight 119.75 kg; Height 5 ft. bp 8 in. (172.72 cm); 10:18 BP 118 / 75; Pulse 75; Resp 16; Pulse Ox 95% ; bp 12:00 BP 154 / 91; Pulse 77; Resp 16; Pulse Ox 96% ; bp 13:00 BP 139 / 82; Pulse 76; Resp 15; Pulse Ox 97% ; bp 14:00 BP 152 / 88; Pulse 74; Resp 16; Pulse Ox 95% ; bp 08:17 Body Mass Index 40.14 (119.75 kg, 172.72 cm) bp MDM: 08:26 Patient medically screened. en 10:10 Differential diagnosis: Deep space infection of the hand with visible abscess and en surrounding cellulitis. No SIRS criteria on arrival. Data reviewed: vital signs, nurses notes, lab test result(s), radiologic studies, plain films. ED course: 56-year-old male with large palmar abscess of the right hand and superficial cellulitis. Pain with flexion and extension of the wrist concerning for tenosynovitis. Will require I\T\D by hand surgeon. White blood cell count within normal limits glucose 440. Will give insulin and IV fluids. No evidence of sepsis at this time. Treated in the ED with vancomycin and Zosyn as well as pain control. Patient has been n.p.o. since last night and instructed to remain NPO. Consulted Dr. Chaudhary, hand surgeon who is in the OR. Office to call back.. 10:29 ED course: Consulted hand Dr. Chaudhary, will see patient tomorrow. Accepted by Dr. marzena Phan hospitalist. . 06/02 08:30 Order name: CBC with Diff; Complete Time: 09:27 en 06/02 08:30 Order name: CMP; Complete Time: 09:55 en 06/02 08:30 Order name: Blood Culture* en 06/02 09:20 Order name: SARS-COV-2 Antigen Rapid; Complete Time: 09:55 bp 06/02 13:14 Order name: CBC with Automated Diff EDMS 06/02 13:14 Order name: CBC with Automated Diff EDMS 06/02 08:30 Order name: Hand Right 3 View XRAY; Complete Time: 09:55 en 06/02 13:14 Order name: Comprehensive Metabolic Panel EDDC 06/02 13:14 Order name: Comprehensive Metabolic Panel EDDC 06/02 13:14 Order name: Magnesium EDMS 06/02 13:14 Order name: Magnesium EDDC 06/02 08:30 Order name: IV Saline Lock; Complete Time: 09:07 en 06/02 08:30 Order name: NPO; Complete Time: 08:31 en 06/02 13:11 Order name: CONS Physician Consult EDMS 06/02 13:14 Order name: 60g Consistent Carbohydrate (ADA 1800/2000) EDMS 06/02 13:14 Order name: NPO EDMS Administered Medications: 09:10 Drug: Zosyn (piperacillin-tazobactam) 3.375 grams Route: IVPB; Infused Over: 60 mins; bp Site: left forearm; 14:26 Follow up: IV Status: Completed infusion; IV Intake: 100ml bp 09:10 Drug: morphine 4 mg Route: IVP; Infused Over: 4 mins; Site: left forearm; bp 14:26 Follow up: Response: Pain is decreased bp 09:10 Drug: Zofran (Ondansetron) 4 mg Route: IVP; Site: left forearm; bp 14:26 Follow up: Response: No adverse reaction bp 10:10 Drug: Vancomycin 1 grams Route: IV; Rate: bolus; Site: left forearm; bp 14:26 Follow up: IV Status: Completed infusion; IV Intake: 250ml bp 10:14 Drug: NS 0.9% 1000 ml Route: IV; Rate: 1 bolus; Site: left forearm; bp 14:22 Follow up: IV Status: Completed infusion; IV Intake: 1000ml bp 10:15 Drug: Insulin Regular Human 10 units {Co-Signature: db (Ana Maria Hale RN).} Route: bp IVP; Site: left forearm; 14:22 Follow up: Response: No adverse reaction bp Disposition: 15:53 Co-signature as Attending Physician, Tre Phan MD. rn Disposition Summary: 06/02/22 10:29 Hospitalization Ordered Hospitalization Status: Inpatient Admission en Provider: Joaquim Phan Location: Telemetry/MedSurg (Inpatient) en Condition: Stable en Problem: new en Symptoms: have worsened en Bed/Room Type: Standard en Room Assignment: 407(06/02/22 13:16) [email or web address] Diagnosis - Right hand abscess, cellulitis, tenosynovitis en Forms: - Medication Reconciliation Form en - SBAR form en Signatures: Dispatcher [employer] EDMS Tre Phan MD MD rn Peltier, Brian, RN RN bp Jackson, Kandis kj1 Ellen Ji PA PA en Ana Maria ruano Corrections: (The following items were deleted from the chart) 10:30 10:10 ED course: 56-year-old male with large palmar abscess of the right hand and en superficial cellulitis. Will require I\T\D by hand surgeon. White blood cell count within normal limits glucose 440. Will give insulin and IV fluids. No evidence of sepsis at this time. Treated in the ED with vancomycin and Zosyn as well as pain control. Patient has been n.p.o. since last night and instructed to remain NPO. Consulted Dr. Chaudhary, hand surgeon who is in the OR. Office to call back.. en 13:16 10:29 en kj1
[2022-06-02] MEDS ORDERED: ACETAMINOPHEN 500 MG TAB PO PRN (13:09)
[2022-06-02] MEDS ORDERED: ONDANSETRON 4 MG/2 ML VIAL IV PRN (13:09)
--- NOTE | 2022-06-02 13:13 | P.HP ---
Certification for Inpatient Patient admitted to: Inpatient With expected LOS: >2 Midnights Practitioner: I am a practitioner with admitting privileges, knowledge of patient current condition, hospital course, and medical plan of care. Services: Services provided to patient in accordance with Admission requirements found in Title 42 Section 412.3 of the Code of Federal Regulations Patient History Date of Service: 06/02/22 Reason for admission: R hand abscess, tenosynovitis History of Present Illness: 56yo M, PMH: IDDM2, HTN Presents to ED due to worsening right hand pain, erythema over the last 2 weeks. Started as blister from using a hydraulic farhana hammer. Prescribed keflex 3 days ago, no improvement. Patient noted to be hyperglycemic in ED with significant pain and swelling of right hand, concerning for tenosynovitis. Dr. Pérez was consulted by ED and reportedly will see patient in consult, tentative plan for OR tomorrow. Allergies No Known Allergies Allergy (Verified 06/02/22 15:29) Home Medications: NK [No Home Meds] 06/02/22 - Past Medical/Surgical History Diabetic: No -: HTN -: IDDM -: Abscess mid abd -: jj -: Appendectomy - Family History Mother -: Hypertension, Diabetes Father -: Diabetes - Social History Smoking Status: Unknown if ever smoked Alcohol use: No CD- Drugs: No Caffeine use: Yes Place of Residence: Home Review of Systems 10-point ROS is otherwise unremarkable Physical Examination - Physical Exam General: Alert, In no apparent distress, Oriented x3 HEENT: EOMI, Sclerae nonicteric Neck: Supple, No LAD Respiratory: Clear to auscultation bilaterally, Normal air movement Cardiovascular: No edema, Regular rate/rhythm Gastrointestinal: Soft and benign, Non-distended, No tenderness Musculoskeletal: No contractures Integumentary: Tenderness/swelling (with erythema of hand up to forearm on right. no drainage) Neurological: Normal speech, Normal affect - Studies Laboratory Data (last 24 hrs) 06/02/22 08:45: Sodium 133 L, Potassium 3.9, BUN 30 H, Creatinine 1.65 H, Glucose 440 H*, Total Bilirubin 0.5, AST 5 L, ALT 12, Alkaline Phosphatase 77 06/02/22 08:45: WBC 9.00, Hgb 12.8 L, Hct 37.2 L, Plt Count 239 Assessment and Plan - Advance Directives Does patient have a Living Will: No Does patient have a Durable POA for Healthcare: No Physician Review Additional Text: Problem List R hand cellulitis / tenosynovitis IDDM2 HTN continue empiric antibiotics Dr. Pérez consulted by ED NPO after midnight pain medication as needed insulin accucheks Code: full Dispo: home, possibly a few days may need more than 1 trip to OR Time Spent Managing Pts Care (In Minutes): 70
[2022-06-02] MEDS: MORPHINE 4 MG/ML SYR IV PRN ×2 (13:52→18:30)
[2022-06-02] MEDS: VANCOMYCIN 2 GM in NA CHLORIDE 0.9% 500 ML IVPB SCH (14:00)
[2022-06-02 15:27] VITALS: BMI 40.8
[2022-06-02] MEDS ORDERED: HYDROCODONE/APAP 5/325 MG TAB PO PRN (16:12)
[2022-06-02] MEDS: INSULIN -REGULAR HUMAN 50 UNIT/0.5 ML ML SQ SCH ×2 (16:25→20:45)
[2022-06-02] MEDS: PIPER TAZO 3.375 GM in NA CHLORIDE 0.9% 100 ML IV SCH (16:25)
[2022-06-02] MEDS: HYDROMORPHONE HCL 0.5 MG/0.5 ML INJ IV PRN (20:44)
[2022-06-03] MEDS: PIPER TAZO 3.375 GM in NA CHLORIDE 0.9% 100 ML IV SCH ×3 (00:55→17:47)
[2022-06-03 04:13] LABS: Absolute Lymphocytes (CBC) 0.8 K/uL (0.7-4.9); Hematocrit 34.6 % (39.6-49.0); Lymphocytes % 9.5 % (15.3-44.8); MCV 81.2 fL (80-100); MPV 7.9 fL (7.6-11.3); RBC Red Blood Cell Count 4.26 M/uL (4.33-5.43)
[2022-06-03 04:42] LABS: Bilirubin Total 0.5 mg/dL (0.2-1.0); Magnesium 2.1 mg/dL (1.8-2.4); Potassium 3.7 mmol/L (3.5-5.1); Protein, Total 6.5 g/dL (6.4-8.2)
[2022-06-03] MEDS: MORPHINE 4 MG/ML SYR IV PRN ×2 (08:33→21:22)
[2022-06-03] MEDS: INSULIN -REGULAR HUMAN 50 UNIT/0.5 ML ML SQ SCH ×4 (08:34→21:14)
[2022-06-03] MEDS: VANCOMYCIN 2 GM in NA CHLORIDE 0.9% 500 ML IVPB SCH (13:36)
[2022-06-03] MEDS ORDERED: NA CHLORIDE 0.9% 1,000 ML ONE (14:34)
[2022-06-03] MEDS ORDERED: propofoL 200 MG/20 ML VIAL IV ONE (15:11)
[2022-06-03] MEDS ORDERED: LIDOCAINE 1% MPF 5 ML VIAL ONE (15:11)
[2022-06-03] MEDS ORDERED: MIDAZOLAM HCL 2 MG/2 ML INJ ONE (15:11)
[2022-06-03] MEDS ORDERED: FENTANYL CITR 100 MCG/2 ML ONE ×2 (15:11→15:39)
[2022-06-03] MEDS ORDERED: SILVER SULFADIAZINE 1% 25 GM TOP ONE (15:55)
[2022-06-03] MEDS ORDERED: SILVER SULFADIAZINE 1% 50 GM TOP ONE (16:00)
[2022-06-03] MEDS: HYDROMORPHONE HCL 1 MG/ML INJ ONE ×4 (16:51→17:18)
[2022-06-03] MEDS ORDERED: INSULIN GLARGINE 100 UNIT/ML SQ SCH (21:00)
--- NOTE | 2022-06-03 21:04 | P.PN ---
Date of Service: 06/03/22 Subjective: no acute events overnight, slight improvement in swelling pain tolerable with medication ROS: 10 point ROS as noted above, otherwise negative Physical Exam: Gen: NAD, AOx3 HEENT: normal conjunctiva, sclera anicteric CV: regular rate & rhythm, no edema Pulm: non-labored respirations, clear bilaterally Abd: soft, non-tender, non-distended MSK: no contractures, no tenderness Skin: no rashes, no lesions Neuro: normal speech, normal affect, moves all extremities Physical Exam General: Alert, NAD HEENT: EOMI, Sclerae nonicteric Respiratory: Clear to auscultation bilaterally, Normal air movement Cardiovascular: No edema, Regular rate/rhythm Gastrointestinal: Soft and benign, Non-distended, No tenderness Integumentary: Tenderness/swelling (with erythema of hand up to forearm on right. no drainage), abscess on palmar aspect Neurological: Normal speech, Normal affect Problem List R hand cellulitis / tenosynovitis IDDM2 HTN continue empiric antibiotics Dr. Pérez consulted by ED, OR today NPO pain medication as needed insulin accucheks Code: full Dispo: home, possibly a few days may need more than 1 trip to OR Time Spent Managing Pts Care (In Minutes): 35
[2022-06-04] MEDS: CODEINE 30MG/APAP 300MG TAB PO PRN ×4 (00:03→20:43)
[2022-06-04] MEDS: PIPER TAZO 3.375 GM in NA CHLORIDE 0.9% 100 ML IV SCH ×2 (00:05→07:56)
--- NOTE | 2022-06-04 03:36 | OP ---
Surgeon: Fahad Pérez MD Preoperative Diagnosis: Abscess of the right hand. Postoperative Diagnosis: Abscess of the right hand. Procedure Performed: Carpal tunnel release, and Guyon canal release, debridement skin, subcu tissue, incision and drainage of the palmar compartment. Anesthesia: General. Description Of Procedure: After satisfactory induction of general anesthesia, the right hand was pre pped with Betadine scrub, Betadine paint, dry sterile drapes applied. The arm was elevated. Tourniq uet inflated to 250 mmHg. Hand placed on roll lock table. The palmar puncture site was over about t he third or fourth metacarpal space. Incision was made around it. Pus was encountered. Cultures we re taken. were made within the carpal tunnel release. Dissection proceeded down, transve rse carpal ligament was divided at Guyon's canal. It was opened. The pus extended into Guyon's ivory l and also the carpal tunnel. It exited distally into the deep palmar spaces. The extension was mad e then toward the fifth metacarpal head, and all pockets and the loculations were opened up _ blunt dissection. The wound was curetted and jet lavage irrigated with 3 L of dilute Betadine solu tion. Tourniquet released. Electrocautery was used for hemostasis. Wound was covered with Silvaden e cream and quarter-inch Nu Gauze, 4x4s, Kerlix. The patient tolerated procedure well and returned t o recovery. EMILY/JOHNATHAN Voice ID: [id number] Report ID: [id number]
[2022-06-04] MEDS: MORPHINE 4 MG/ML SYR IV PRN ×3 (04:35→18:17)
[2022-06-04 06:24] LABS: Hematocrit 32.3 % (39.6-49.0); MPV 7.8 fL (7.6-11.3); RBC Red Blood Cell Count 3.94 M/uL (4.33-5.43)
[2022-06-04 06:43] LABS: Potassium 3.4 mmol/L (3.5-5.1)
[2022-06-04] MEDS ORDERED: NA CHLORIDE 0.9% 1,000 ML IV SCH (08:00)
[2022-06-04] MEDS: INSULIN -REGULAR HUMAN 50 UNIT/0.5 ML ML SQ SCH ×3 (08:10→15:42)
[2022-06-04] MEDS ORDERED: POTASSIUM CL SA 10 MEQ TAB PO ONE (08:15)
--- NOTE | 2022-06-04 11:01 | RAD REPORT ---
EXAM DESCRIPTION: US - Renal Ultrasound-Complete - 06/04/2022 10:44 am CLINICAL HISTORY: AGUSTO COMPARISON: Renal Ultrasound-Complete dated 07/11/2018 FINDINGS: Both kidneys are normal in size, shape and echotexture. The right kidney measures 13.6 cm. No hydronephrosis, focal mass or perinephric fluid. The left kidney measures 12.7 cm. No hydronephrosis, focal mass or perinephric fluid. The urinary bladder is incompletely distended without gross abnormality seen. IMPRESSION: Unremarkable renal sonogram. No evidence of hydronephrosis.
--- NOTE | 2022-06-04 15:03 | CON ---
Date of Consultation: 06/04/2022 Reason For Consultation: Elevated BUN and creatinine, fluid management. 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 Apparently, patient was working with a drill, got hand injury with a blister that got infected. For that reason, patient reported to the hospital. Upon arrival to the hospital, patient was found to have elevation in creatinine of 1.6, gradually creatinine sandra to 3. For that reason, we have been consulted. Reviewing the record for the patient back in December 10, 2017, creatinine 1, GFR of above 60 at that time of 76. Patient had debridement for the hand. Patient denied taking any nonsteroidal. There is no mention for any contrast exposure. In this admission, patient denied taking any medication as he is not taking any medication for diabetes or blood pressure according to him. Patient does not have any recent checkup for his kidney function. Past Medical History: Include: 1. Hypertension. 2. Hyperlipidemia. 3. Diabetes since 2004 complicated with neuropathy and retinopathy, apparently chronic kidney disease. Allergies: NO KNOWN DRUG ALLERGY. Past Surgical History: Includes hand surgery, appendectomy, cholecystectomy, abscess of the abdomen. Family History: Positive for diabetes. Social History: Denied smoking. Denies drinking. Denies drug abuse. Review of Systems: Head and Neck: Have headache. GI: No nausea, no vomiting. : No polyuria, no dysuria, no hematuria. CLIENT SERVICE MANAGER: Not applicable. Respiratory: No shortness of breath. Cardiovascular: No chest pain. Endocrine: No polydipsia. Skin: No rash. Neuro: Has neuropathy. Musculoskeletal: Has hand pain. Endocrine: No polydipsia. Skin: No rash. Physical Examination: Vital Signs: When I saw the patient, blood pressure of 135/75, pulse of 75, afebrile. Reviewing the record for the patient, blood pressure never been low on this admission, in fact it was high up to the 160. Chest: Clear to auscultation. Heart: S1, S2 regular. Abdomen: Soft, nontender. No organomegaly. Extremities: No edema. Neurologic: No focality. Skin: Patient had dressing on the right hand. Laboratory Data: Sodium 132, potassium 3.4, bicarb 25, BUN 29, creatinine of 3. Upon presentation on June 02, creatinine 1.6. GFR of 23, upon admission GFR of 49. Calcium 7.4. WBC 7.3, H and H 11.2/32.3, platelet 195. Upon admission, platelet 239, hemoglobin 12.8. TSH is within normal limit. Renal ultrasound normal size kidney 13.6/12.7. Current Medications: The patient is on include: 1. Zosyn. 2. Vancomycin. 3. Tylenol. 4. Zofran. 5. IV fluid. Assessment And Plan: 1. Acute kidney injury, unknown etiology possible toxic acute tubular necrosis secondary to hand infection superimposed with a questionable vancomycin toxicity not supported. Currently, I do not have any vancomycin trough level to rule out any AIN. No hyperkalemia, no acidosis, nonoliguric, only has hypokalemia and hyponatremia. a. I agree with current IV hydration. b. I am going to send for the full workup, and we will send for urine eosinophil to rule out any AIN as patient does not have any clear insult. 2. Hypertension, currently controlled, optimal. Keep holding blood pressure medication. Hold SULEMAN inhibitor and ARB. 3. Hypokalemia. We will supplement cautiously. 4. Hyponatremia, mostly depletional. We will continue IV hydration. 5. Hand infection. Patient was started on Zosyn given the current kidney function. I am going to decrease it to every 12 hours. We will follow up vancomycin trough. 6. Diabetes as by primary. Time spent examining the patient [id number], reviewing data, lab and radiology, discussing the case with the patient, discussing the case with medical director/head team physician including nursing and hospitalist more than 65 minutes MARYLU Voice ID: [id number] Report ID: [id number] REMI
[2022-06-04] MEDS: VANCOMYCIN 2 GM in NA CHLORIDE 0.9% 500 ML IVPB SCH (15:07)
[2022-06-04 15:41] LABS: Specific Gravity 1.009 (1.005-1.030); Urine Bacteria <20 /HPF (<20); Urine Bilirubin NEGATIVE (Negative); Urine Blood 1+ (Negative); Urine Clarity Turbid (Clear); Urine Color Light-Yellow (Yellow); Urine Crystals Unidentified Few /HPF (None Seen); Urine Glucose 4+ (Over) (Negative); Urine Mucus Slight /HPF (None Seen); Urine Protein 3+ (Negative); Urine RBC <5 /HPF (None Seen); Urine Urobilinogen Normal (Normal)
--- NOTE | 2022-06-04 16:14 | P.PN ---
Date of Service: 06/04/22 Subjective: no acute events overnight s/p OR yesterday pain tolerable no new/worsening symptoms appetite ok, afebrile ROS: 10 point ROS as noted above, otherwise negative Physical Exam General: Alert, NAD HEENT: EOMI, Sclerae nonicteric Respiratory: Clear to auscultation bilaterally, Normal air movement Cardiovascular: No edema, Regular rate/rhythm Gastrointestinal: Soft and benign, Non-distended, No tenderness Integumentary: R hand: surgical dressing in place, slight serosanguineous output noted on palmar aspect Problem List R hand cellulitis / tenosynovitis s/p I&D IDDM2 HTN continue empiric antibiotics Dr. Pérez consulted s/p I&D on 06/03 will need to go back to OR again Diabetic diet Adjust long-acting insulin, continue sliding scale, Accu-Cheks Need better glucose control pain medication as needed Code: full Dispo: home, 2 to 3 days Possibly longer if he needs further debridements Time Spent Managing Pts Care (In Minutes): 25
[2022-06-04] MEDS: NA CHLORIDE 0.9% 1,000 ML IV SCH (16:20)
[2022-06-04 19:14] LABS: Potassium 2.8 mmol/L (3.5-5.1)
[2022-06-04] MEDS: KCL 20 MEQ/100 mL IVPB 20 MEQ/100 ML BAG IV SCH (20:29)
[2022-06-04] MEDS ORDERED: PIPER TAZO 3.375 GM in NA CHLORIDE 0.9% 100 ML IV SCH (21:00)
[2022-06-05] MEDS: INSULIN -REGULAR HUMAN 50 UNIT/0.5 ML ML SQ SCH ×5 (00:13→21:00)
[2022-06-05] MEDS: KCL 20 MEQ/100 mL IVPB 20 MEQ/100 ML BAG IV SCH ×2 (00:13)
[2022-06-05] MEDS: INSULIN GLARGINE 100 UNIT/ML SQ SCH ×2 (00:14→21:00)
[2022-06-05] MEDS: NA CHLORIDE 0.9% 1,000 ML IV SCH ×2 (01:48→12:02)
[2022-06-05 03:45] LABS: Hematocrit 29.7 % (39.6-49.0); MCV 81.9 fL (80-100); MPV 7.7 fL (7.6-11.3); RBC Red Blood Cell Count 3.63 M/uL (4.33-5.43)
[2022-06-05 04:12] LABS: Albumin 1.6 g/dL (3.4-5.0); Phosphorus 3.4 mg/dL (2.5-4.9); Thyroid Stimulating Hormone 0.68 uIU/mL (0.360-3.740); Uric Acid 7.2 mg/dL (3.5-7.2)
[2022-06-05 05:51] LABS: Specific Gravity 1.008 (1.005-1.030); Urine Bacteria <20 /HPF (<20); Urine Bilirubin NEGATIVE (Negative); Urine Blood Trace (Negative); Urine Clarity Turbid (Clear); Urine Color Light-Yellow (Yellow); Urine Glucose 3+ (Negative); Urine Mucus Slight /HPF (None Seen); Urine Protein 2+ (Negative); Urine RBC <5 /HPF (None Seen); Urine Urobilinogen Normal (Normal)
[2022-06-05 06:15] LABS: Urine Protein/Creatinine Ratio 3.59 ratio (<0.15)
[2022-06-05] MEDS: MORPHINE 4 MG/ML SYR IV PRN ×2 (06:31→16:14)
[2022-06-05] MEDS: CODEINE 30MG/APAP 300MG TAB PO PRN (10:31)
--- NOTE | 2022-06-05 13:24 | PN ---
Date of Progress Note: 06/05/2022 Subjective: The patient was admitted with acute kidney injury, unknown etiology. The patient had hand infection, status post surgery. Physical Examination: Vital Signs: Blood pressure 140/86, pulse of 76, afebrile. Chest: Clear to auscultation. Heart: S1, S2. Regular. Abdomen: Soft, nontender. Extremity: Trace edema. Dressing on the right hand. Laboratory Data: Hemoglobin 10.3. Sodium 135, potassium 4, bicarb 23, BUN 39, creatinine 5.3, calcium 7.8, uric acid 7.2, phosphorus 3.4, CK of 16, albumin 1.6, corrected calcium is 9.8. Serum protein electrophoresis is still pending. PTH of 93. Urinalysis; the patient has proteinuria of 3.5. Renal ultrasound shows 13.6/12.7. GFR of 12. Medications: The patient on include; 1. Vancomycin. 2. Tylenol. 3. Insulin. 4. IV fluid. 5. Hydromorphone. 6. Codeine. Assessment And Plan: 1. Acute kidney injury, unknown etiology, nephrotic range proteinuria without any activity in the urine. Obstructive uropathy has been ruled out. Rhabdomyolysis secondary to compartment also ruled out, nonoliguric. No hyperkalemia. I am going to go ahead and follow up on urine eosinophil to rule out any AIA. I had long discussion with the patient given the unknown etiology and worsening in the kidney function to proceed with kidney biopsy. The patient verbalized understanding. We will proceed. 2. Nephrotic range of proteinuria, possible secondary to diabetes with the presence of acute kidney injury. To rule out any autoimmune disease, the patient's is serology still pending. We will follow up serum protein electrophoresis and we will monitor. 3. Hyponatremia, dilutional. We will monitor. No symptoms. 4. Hypokalemia. No need for supplement for the time being. 5. Hand infection, status post debridement. We will follow up with Surgery. Continue current antibiotic. Vancomycin trough on the goal. 6. Diabetes as by primary. Time spent examining the patient [id number], reviewing data, lab and radiology, discussing the case with the patient, discussing the case with teamcenter consultant including nursing and hospitalist more than 35 minutes MARYLU Voice ID: [id number] Report ID: [id number] REMI
[2022-06-05] MEDS: VANCOMYCIN 2 GM in NA CHLORIDE 0.9% 500 ML IVPB SCH (14:48)
--- NOTE | 2022-06-05 18:09 | P.PN ---
Date of Service: 06/05/22 Subjective: no acute events overnight pain tolerable with medication no new/worsening symptoms making urine denies abdominal/pelvic pain ROS: 10 point ROS as noted above, otherwise negative Physical Exam General: Alert, NAD HEENT: EOMI, Sclerae nonicteric Respiratory: Clear to auscultation bilaterally, Normal air movement Cardiovascular: No edema, Regular rate/rhythm Gastrointestinal: Soft and benign, Non-distended, No tenderness Integumentary: R hand: surgical dressing in place, slight serosanguineous output noted on palmar aspect Problem List R hand cellulitis / tenosynovitis s/p I&D AGUSTO IDDM2 HTN AGUSTO continue vancomycin, dc'd zosyn possibly contributed to AGUSTO unclear etiology nephrotic range proteinuria nephrology consulted high PVR, renal u/s without hydro insert poon 06/05 for accurate i/o's, r/o obstruction pt took advil and ketorolac PO at home over last week Dr. Pérez consulted s/p I&D on 06/03 will need to go back to OR again Diabetic diet Adjust long-acting insulin, continue sliding scale, Accu-Cheks Need better glucose control pain medication as needed Code: full Dispo: home, ~3 days Time Spent Managing Pts Care (In Minutes): 25
[2022-06-05] MEDS: HYDROMORPHONE HCL 0.5 MG/0.5 ML INJ IV PRN (21:42)
[2022-06-06 04:11] LABS: Rheumatoid Factor NEG (NEG)
[2022-06-06 05:50] LABS: Hematocrit 29.4 % (39.6-49.0); MCV 82.3 fL (80-100); MPV 7.6 fL (7.6-11.3); RBC Red Blood Cell Count 3.57 M/uL (4.33-5.43)
[2022-06-06 05:55] LABS: Protime INR 1.1
[2022-06-06 06:13] LABS: Albumin 1.7 g/dL (3.4-5.0); Phosphorus 4.3 mg/dL (2.5-4.9); Potassium 4.1 mmol/L (3.5-5.1)
[2022-06-06] MEDS: INSULIN -REGULAR HUMAN 50 UNIT/0.5 ML ML SQ SCH ×4 (07:30→20:34)
[2022-06-06] MEDS ORDERED: NA CHLORIDE 0.9% 500 ML ONE (08:55)
[2022-06-06] MEDS ORDERED: NALOXONE 0.4 MG/ML VIAL ONE (09:02)
[2022-06-06] MEDS ORDERED: MIDAZOLAM HCL 2 MG/2 ML INJ ONE (09:02)
[2022-06-06] MEDS ORDERED: FLUMAZENIL 0.1 MG/ML (5 mL VIAL) IV ONE (09:02)
[2022-06-06] MEDS ORDERED: FENTANYL CITR 100 MCG/2 ML ONE (09:02)
[2022-06-06] MEDS ORDERED: HYDRALAZINE HCL 20 MG/ML VIAL ONE (10:10)
[2022-06-06] MEDS ORDERED: METOPROLOL TARTRATE 5 MG/5 ML INJ IV ONE (10:43)
[2022-06-06] MEDS ORDERED: CEFAZOLIN SODIUM 1 GM/VIAL ONE (12:25)
[2022-06-06] MEDS ORDERED: NA CHLORIDE 0.9% 50 ML ONE (12:26)
[2022-06-06] MEDS: CEFAZOLIN 1 GM in NA CHLORIDE 0.9% 50 ML IVPB SCH (12:43)
--- NOTE | 2022-06-06 12:51 | RAD REPORT ---
EXAM DESCRIPTION: CT - Renal Biopsy CT - 06/06/2022 11:39 am CLINICAL HISTORY: Acute renal failure TECHNIQUE: The risks, benefits alternatives to the procedure were explained to the patient and infor med consent obtained Conscious sedation was performed for approximately 30 minutes. A nurse monitored vital signs througho ut the examination 1.5 milligrams Versed and 75 micrograms fentanyl administered intravenously All CT scans are performed using dose optimization technique as appropriate and may include automated exposure control or mA/KV adjustment according to patient size. The skin, subcutaneous tissue and musculature were anesthetized Lidocaine. Under CT guidance a 17 gauge needle was placed into the posterior aspect of the lower pole of the lef t kidney. An 18 gauge needle was then placed through this and 5 core biopsies obtained. The tissue va ried from a few millimeters to 2 centimeters. The post biopsy images do not demonstrate a hematoma. Patient experienced no immediate complication IMPRESSION: Core biopsies of the left kidney
[2022-06-06] MEDS: cloNIDine HCL 0.1 MG TAB PO PRN ×2 (15:00→21:04)
[2022-06-06] MEDS: NA CHLORIDE 0.9% 1,000 ML IV SCH ×2 (17:24→18:20)
[2022-06-06] MEDS: carvediloL 6.25 MG TAB PO SCH (17:45)
[2022-06-06] MEDS: MORPHINE 4 MG/ML SYR IV PRN (20:33)
[2022-06-06] MEDS: INSULIN GLARGINE 100 UNIT/ML SQ SCH (20:34)
--- NOTE | 2022-06-07 00:14 | P.PN ---
Date of Service: 06/06/22 Subjective: no acute events overnight denies any new/worsening symptoms pain improving of right hand ROS: 10 point ROS as noted above, otherwise negative Physical Exam General: Alert, NAD HEENT: EOMI, Sclerae nonicteric Respiratory: Clear to auscultation bilaterally, Normal air movement Cardiovascular: No edema, Regular rate/rhythm Gastrointestinal: Soft and benign, Non-distended, No tenderness Integumentary: R hand: surgical dressing in place Problem List R hand cellulitis / tenosynovitis s/p I&D AGUSTO IDDM2 HTN AGUSTO continue vancomycin, dc'd zosyn possibly contributed to AGUSTO unclear etiology nephrotic range proteinuria nephrology consulted high PVR, renal u/s without hydro inserted poon 06/05 for accurate i/o's, r/o obstruction pt took advil and ketorolac PO at home over last week continues to worsen Surgery consulted for HD cath Dr. Pérez consulted s/p I&D on 06/03 will need to go back to OR again, tentatively planned for tomorrow Diabetic diet Adjust long-acting insulin, continue sliding scale, Accu-Cheks Need better glucose control pain medication as needed Code: full Dispo: home, ~3-4 days Time Spent Managing Pts Care (In Minutes): 25
[2022-06-07] MEDS: NA CHLORIDE 0.9% 1,000 ML IV SCH ×3 (03:01→14:20)
[2022-06-07 06:33] LABS: Albumin 1.6 g/dL (3.4-5.0); Potassium 4.3 mmol/L (3.5-5.1)
--- NOTE | 2022-06-07 06:39 | PN ---
Date of Progress Note: 06/06/2022 Chief Complaint: Acute kidney injury of unknown etiology. The patient underwent renal biopsy today to evaluate for possible etiology of acute kidney injury. Patient presented to the hospital because of generalized weakness. He was found to have cellulitis of the hand, and is to have debridement and surgery. The patient has diminished urine output. Renal function has not improved over last 24 hours, although creatinine level is plateauing, and the patient does not have hyperkalemia. Review of Systems: Denies fever, chills. Physical Examination: Lungs: Clear to auscultation bilaterally. Heart: S1-S2. Abdomen: Soft. Extremities: Trace edema. Creatinine level 5.3, BUN 39, potassium 4.0, bicarbonate 23, sodium level 135. Today, blood work showed sodium 134, potassium 4.1, BUN 50, creatinine 6.9, glucose 183, calcium 7.9. Creatinine level has increased since yesterday. On arrival to the hospital on June 02, creatinine level was 1.65. Impression And Plan: Patient has accelerated acute kidney injury. Renal function has declined over the last several days. Patient likely has severe ATN due to sepsis. The patient may require dialysis within the next 24-48 hours. The patient had workup done and obstructive uropathy was ruled out, rhabdomyolysis was also was ruled out. Likely, patient will require a treatment for possible allergic interstitial nephritis, if renal biopsy show positive findings. The patient has nephrotic range proteinuria secondary to diabetes and diabetic kidney disease, although autoimmune glomerulonephritis needs to be ruled out and the plan was to evaluate for possible monoclonal gammopathy of unknown significance. 1. Hyponatremia is mild, asymptomatic. Continue normal saline and monitor electrolytes. 2. Hypokalemia replacement as needed. 3. Infection, cellulitis of the hand, status post debridement. Patient will have surgery tomorrow. 4. Vancomycin trough level was ordered. Continue to adjust vancomycin treatment. EB/MODL Voice ID: [id number] Report ID: [id number] REMI
[2022-06-07] MEDS: INSULIN -REGULAR HUMAN 50 UNIT/0.5 ML ML SQ SCH ×4 (07:30→21:00)
[2022-06-07] MEDS: carvediloL 6.25 MG TAB PO SCH ×2 (08:00→18:21)
[2022-06-07] MEDS: AMLODIPINE 10 MG TAB PO SCH (08:33)
[2022-06-07] MEDS ORDERED: propofoL 200 MG/20 ML VIAL IV ONE (08:45)
[2022-06-07] MEDS ORDERED: MIDAZOLAM HCL 2 MG/2 ML INJ ONE (08:45)
[2022-06-07] MEDS ORDERED: FENTANYL CITR 100 MCG/2 ML ONE (08:45)
[2022-06-07] MEDS ORDERED: ONDANSETRON 4 MG/2 ML VIAL ONE (08:49)
[2022-06-07] MEDS ORDERED: LIDOCAINE 2% MPF 5 ML VIAL ONE (08:49)
[2022-06-07] MEDS ORDERED: CEFAZOLIN SODIUM 1 GM/VIAL ONE ×2 (09:17→12:32)
[2022-06-07] MEDS ORDERED: SILVER SULFADIAZINE 1% 25 GM TOP ONE (09:35)
--- NOTE | 2022-06-07 10:09 | PN ---
The patient's dressing was changed. The wound has no signs and healing, still wide open and discolor ed. He has erythema over the mild tenderness. Plan will be incision and drainage of the area tomorrow. He is n.p.o. at midnight. His vital signs, temperature; he is afebrile; however, his creatinine is elevated, maybe he going into renal failure. He is having a renal biopsy today. Plan surgery tomorrow. EMILY/JOHNATHAN Voice ID: [id number] Report ID: [id number]
[2022-06-07] MEDS: HYDROMORPHONE HCL 2 MG/ML inj ONE ×4 (10:21→10:43)
[2022-06-07] MEDS ORDERED: NA CHLORIDE 0.9% 50 ML ONE (12:33)
[2022-06-07] MEDS: CEFAZOLIN 1 GM in NA CHLORIDE 0.9% 50 ML IVPB SCH (12:34)
[2022-06-07] MEDS: CODEINE 30MG/APAP 300MG TAB PO PRN (12:34)
[2022-06-07] MEDS: HYDROMORPHONE HCL 0.5 MG/0.5 ML INJ IV PRN (17:14)
[2022-06-07] MEDS: cloNIDine HCL 0.1 MG TAB PO PRN (17:14)
--- NOTE | 2022-06-07 18:00 | P.PN ---
Subjective Date of Service: 06/07/22 Chief Complaint: R hand abscess, tenosynovitis Status post left hand debridement by Dr. Woodson. No other complaint except pain postsurgery. Physical Examination - Vital Signs Temperature: 97.7 F Blood Pressure: 158/90 Pulse: 69 Respirations: 20 Pulse Ox (%): 97 - Studies Microbiology Data (last 24 hrs): 06/02/22 09:00 Blood - Blood Aerobic Blood Culture - Final No growth in 5 days. 06/02/22 09:00 Blood - Blood Anaerobic Blood Culture - Final No growth in 5 days. 06/02/22 08:45 Blood - Blood Aerobic Blood Culture - Final No growth in 5 days. 06/02/22 08:45 Blood - Blood Anaerobic Blood Culture - Final No growth in 5 days. Assessment And Plan - Plan Physical Exam General: Alert, NAD Respiratory: Clear to auscultation bilaterally, Normal air movement Cardiovascular: No edema, Regular rate/rhythm Gastrointestinal: Soft and benign, Non-distended, No tenderness Integumentary: R hand: surgical dressing in place Problem List R hand cellulitis / tenosynovitis s/p I&D AGUSTO IDDM2 HTN Right hand cellulitis/tenosynovitis Status post I&D and debridement. Wound culture grew MSSA Change vancomycin to cefazolin given AGUSTO Infectious disease consult Pain management with opioids. Avoid NSAIDs. AGUSTO unclear etiology Change vancomycin to cefazolin nephrotic range proteinuria nephrology is following renal u/s without hydro poon catheter inserted 06/05 for accurate i/o's, r/o obstruction pt took advil and ketorolac PO at home over last week Avoid NSAIDs Surgery consulted for HD cath. Dr. Robledo is planning temporary HD catheter insertion tomorrow or . DM type 2: Continue long-acting insulin and insulin sliding scale. Code: full Dispo: home Time Spent Managing Pts Care (In Minutes): 27
[2022-06-07] MEDS: INSULIN GLARGINE 100 UNIT/ML SQ SCH (22:18)
--- NOTE | 2022-06-07 22:39 | PN ---
Date of Progress Note: 06/07/2022 Chief Complaint: Acute kidney injury. Subjective: The patient underwent renal biopsy yesterday for evaluation of possible etiology of acut e kidney injury. Renal function has declined. Patient is to start dialysis today. He underwent fabio ridement and surgery for cellulitis and abscess of the hand. Patient had diminished urine output. R enal function has not improved over the last few days. The patient agreed to start hemodialysis and he is scheduled to have repeat dialysis catheter procedure done. I discussed case with Dr. Perry. The patient will have temporary dialysis catheter. Review of Systems: Denies fever or chills. Physical Examination: Lungs: Clear to auscultation bilaterally. Heart: S1, S2. Abdomen: Soft. Impression And Plan: 1.The patient has accelerated acute kidney injury. Renal function has declined. Lab work was order ed to rule out rapidly progressive glomerulonephritis and vasculitis. Patient is to have dialysis as soon as possible. Likely he has acute tubular necrosis due to sepsis, although other etiology needs to be ruled out. The patient had workup done to rule out obstructive uropathy and this was ruled ou t. Rhabdomyolysis also was ruled out. There is possible allergic interstitial nephritis and renal b iopsy may show finding of above entity. The patient has nephrotic range proteinuria secondary to bobby betes and diabetic kidney disease although autoimmune glomerulonephritis needs to be rule out in the setting of accelerated kidney failure. 2.Hyponatremia, mild dilutional. Monitor electrolytes. 3.Hypokalemia. Monitor potassium level and treat hypokalemia accordingly. 4.Infection, cellulitis status post surgery. Continue to monitor vancomycin level. EB/MODL Voice ID: [id number] Report ID: [id number]
[2022-06-08] MEDS: CODEINE 30MG/APAP 300MG TAB PO PRN ×2 (01:21→22:17)
[2022-06-08] MEDS: NA CHLORIDE 0.9% 1,000 ML IV SCH ×3 (01:24→11:14)
[2022-06-08 06:23] LABS: Protime INR 1.14
[2022-06-08 07:15] LABS: Potassium 4.3 mmol/L (3.5-5.1)
[2022-06-08 07:26] LABS: Phosphorus 5.7 mg/dL (2.5-4.9)
[2022-06-08] MEDS: INSULIN -REGULAR HUMAN 50 UNIT/0.5 ML ML SQ SCH ×4 (07:30→21:00)
--- NOTE | 2022-06-08 08:27 | OP ---
Surgeon: Fahad Pérez MD Preoperative Diagnosis: Infection of the right hand. Postoperative Diagnosis: Infection of the right hand. Procedure Performed: Debridement of skin, subcutaneous tissue, release of antebrachial fascia, relea se of first webspace. Anesthesia: General. Description Of The Procedure: After satisfactory induction of general anesthesia, the right arm was prepped with Betadine scrub and Betadine paint. Dry sterile drapes applied in the usual manner. Peter brock was placed on Roto Lock table. Proximal incision was made inside the anterior brachial fascia. Ex cellent bleeding was encountered. At that time, tourniquet was inflated. Then the wound was extende d distally. The web between the index and thumb was opened. Again more MRSA looking tissue was enco untered. Necrotic fat was excised. Patient then had an incision made over the thenar region extendi ng over the area of maximum swelling. Fluid was encountered as well as MRSA like infection of fat. After this was all done, debridement was performed with scissors, scalpel, and forceps. Wound was sc rubbed with Betadine scrub, jet lavaged, irrigated with 3 L of dilute Betadine solution. Tourniquet was released. Electrocautery was used for hemostasis. Not much was recorded. The wounds were relat ively ischemic and then the wound was then packed with Silvadene cream and 2-inch Michelle Kerlix. The patient tolerated the procedure well, returned to Recovery. EMILY/JOHNATHAN Voice ID: [id number] Report ID: [id number]
[2022-06-08] MEDS ORDERED: CEFAZOLIN SODIUM 1 GM/VIAL ONE (09:56)
[2022-06-08] MEDS ORDERED: NA CHLORIDE 0.9% 50 ML ONE (10:08)
[2022-06-08] MEDS: SILVER SULFADIAZINE 1% 50 GM TOP SCH ×2 (10:10→22:19)
[2022-06-08] MEDS: carvediloL 6.25 MG TAB PO SCH ×2 (10:11→16:55)
[2022-06-08] MEDS: AMLODIPINE 10 MG TAB PO SCH (10:11)
[2022-06-08] MEDS: CEFAZOLIN 1 GM in NA CHLORIDE 0.9% 50 ML IVPB SCH (10:12)
[2022-06-08] MEDS: HYDROMORPHONE HCL 0.5 MG/0.5 ML INJ IV PRN (11:13)
[2022-06-08] MEDS: cloNIDine HCL 0.1 MG TAB PO PRN (12:46)
--- NOTE | 2022-06-08 13:33 | P.PN ---
Subjective Date of Service: 06/08/22 Chief Complaint: R hand abscess, tenosynovitis Status post left hand debridement by Dr. Woodson day 2 postop. Patient states his pain is better. Renal function continues to worsen. Physical Examination - Vital Signs Temperature: 97.5 F Blood Pressure: 168/82 Pulse: 71 Respirations: 16 Pulse Ox (%): 97 - Studies Microbiology Data (last 24 hrs): 06/02/22 09:00 Blood - Blood Aerobic Blood Culture - Final No growth in 5 days. 06/02/22 09:00 Blood - Blood Anaerobic Blood Culture - Final No growth in 5 days. 06/02/22 08:45 Blood - Blood Aerobic Blood Culture - Final No growth in 5 days. 06/02/22 08:45 Blood - Blood Anaerobic Blood Culture - Final No growth in 5 days. Assessment And Plan - Plan Physical Exam General: Alert, NAD Respiratory: Clear to auscultation bilaterally, Normal air movement Cardiovascular: No edema, Regular rate/rhythm Gastrointestinal: Soft and benign, Non-distended, No tenderness Integumentary: R hand: surgical dressing in place Problem List R hand cellulitis / tenosynovitis s/p I&D AGUSTO IDDM2 HTN Right hand cellulitis/tenosynovitis Status post I&D and debridement. Wound culture grew MSSA Infectious disease input appreciated Continue IV cefazolin Pain management with opioids. Avoid NSAIDs. Tetanus shot. AGUSTO unclear etiology vancomycin changed to cefazolin nephrotic range proteinuria nephrology is following renal u/s without hydro poon catheter inserted 06/05 for accurate i/o's, r/o obstruction pt took advil and ketorolac PO at home over last week Avoid NSAIDs Surgery consulted for HD cath. Dr. Robledo is planning HD catheter insertion tomorrow. DM type 2: Continue long-acting insulin and insulin sliding scale. Code: full Dispo: home Time Spent Managing Pts Care (In Minutes): 25
[2022-06-08] MEDS ORDERED: TETANUS & DIPHTHERIA TOX,ADULT 0.5 ML VIAL IMVAC ONE (13:45)
--- NOTE | 2022-06-08 15:05 | PN ---
Date of Progress Note: 06/08/2022 Subjective: The patient was admitted with acute kidney injury, unknown etiology. The patient undergone kidney biopsy on Monday, we are still waiting for the result. The patient is still nonoliguric. Kidney function continued to decline. Physical Examination: Vital Signs: Blood pressure 154/82, pulse of 65. Chest: Clear to auscultation. Heart: S1, S2. Regular. Abdomen: Soft, nontender. Extremities: Dressing on the right hand. Trace edema. Neurologic: Alert. No focality. Laboratory Data: Hemoglobin 10.1. Sodium 134, potassium 4.3, bicarb 19, BUN 64, creatinine 8.4, calcium 8.3, phosphorus 5.7, albumin of 2, corrected calcium is 9.9. Current Medications: The patient on include amlodipine 10 mg, carvedilol 6.25, Tylenol, Zofran, IV fluid. Assessment And Plan: 1. Acute kidney injury with nephrotic range proteinuria, unknown etiology, fast progression, questionable of AIN. Urine eosinophil is still pending. I will proceed with dialysis. I had long discussion with the patient regarding the option of home hemodialysis or in center. The patient still not decided. We will revisit with the patient tomorrow about the final decision for the dialysis and we will follow up. 2. Hypertension, controlled, optimal. Continue current medication. Please avoid any SULEMAN inhibitor or ARB for the time being. 3. Hand infection, status post debridement. We will follow up with Surgery. Continue current antibiotic. Time spent examining the patient [id number], reviewing data, lab and radiology, discussing the case with the patient, discussing the case with logistics team lead including nursing and hospitalist more than 35 minutes MARYLU Voice ID: [id number] Report ID: [id number] REMI
--- NOTE | 2022-06-08 15:42 | CON ---
History Of Present Illness: This is a 56-year-old male, who came into hospital for his right head in [facility]. The patient has been seen in the emergency room prior to coming to this hospital for developing a blister due to hydraulic jackhammer. The patient has significant past medical histo ry of diabetes mellitus. He was given Keflex with no improvement. The patient has surgical debridem ent by surgical team there. The patient had surgical debridement done on 06/04/2022. Past Medical History: Diabetes mellitus, coronary artery disease, hypertension, mid abdomen abscess, cholecystectomy, appendectomy. Social History: Nonsmoker, nondrinker. Family History: Noncontributory except diabetes mellitus and hypertension. Medications: Cefazolin. See MAR for other medications. Allergies: NO KNOWN DRUG ALLERGIES. Review of Systems: A 10-point review was performed. Physical Examination: General: This is a 56-year-old male, lying in bed, not in any acute cardiopulmonary distress. Vital Signs: Temperature 96.9, pulse 65, respirations 16, blood pressure 154/82. HEENT: Unremarkable. Neck: Supple. Lungs: Basal crackles. Heart: S1, S2. Regular. Abdomen: Soft, nontender. Bowel sounds present. Extremity: Right hand surgical wound noted, purplish discoloration around the palmar side of hand. Laboratory Data: Shows WBC 4.6, hemoglobin 10.1, platelets are 229. Chemistry shows sodium 134, pot assium 4.3, chloride 104, bicarb 19, BUN 64, creatinine 8.4, glucose is 163. Albumin level is 2. The patient is currently on cefazolin. Micro data shows wound culture growing Staph aureus. Assessment And Plan: Right hand cellulitis in a patient with diabetes mellitus, status post debridem ent by surgical team for necrotic tissue, currently getting cefazolin. We will recommend to add empi mason coverage if the patient does not improve with vancomycin and meropenem. Morbid obesity, renal fa ilure, anemia of chronic disease. Prognosis is guarded. Consider packing with wash wound site and i ncreasing antibiotic treatment to meropenem and vancomycin. We will follow the patient closely. Thank you, Dr. Estrada for consult. NF/MODL Voice ID: [id number] Report ID: [id number]
[2022-06-08] MEDS: INSULIN GLARGINE 100 UNIT/ML SQ SCH (22:19)
[2022-06-09 05:02] LABS: Albumin 1.6 g/dL (3.4-5.0); C-Reactive Protein 99.6 mg/L (<3.00); Phosphorus 6.3 mg/dL (2.5-4.9); Potassium 4.1 mmol/L (3.5-5.1)
[2022-06-09] MEDS: INSULIN -REGULAR HUMAN 50 UNIT/0.5 ML ML SQ SCH ×4 (07:30→21:56)
[2022-06-09] MEDS ORDERED: HEPARIN 5000 UNIT/ML 1 ML VIAL ONE (07:57)
[2022-06-09] MEDS: carvediloL 6.25 MG TAB PO SCH ×2 (08:00→16:29)
--- NOTE | 2022-06-09 08:09 | P.OP ---
Preoperative diagnosis: Acute on Chronic Renal Failure Postoperative diagnosis: Acute on Chronic Renal Failure Primary procedure: Placement of Temporary LEFT Femoral Hemodialysis Catheter Secondary procedure: Ultrasound Guidance and Micro-introducer utilized Anesthesia: Local Estimated blood loss: <5cc Specimen: none Findings: non-pulsatile blood returned Complications: None Transferred to: Recovery Room Condition: Good
[2022-06-09] MEDS ORDERED: NA CHLORIDE 0.9% 1,000 ML ONE (08:30)
[2022-06-09] MEDS ORDERED: LIDOCAINE 1% MPF 5 ML VIAL ONE (08:34)
[2022-06-09] MEDS ORDERED: ROPLVACAINE HCL 40 ML ONE (08:35)
[2022-06-09] MEDS ORDERED: MIDAZOLAM HCL 2 MG/2 ML INJ ONE (08:35)
[2022-06-09] MEDS ORDERED: FENTANYL CITR 100 MCG/2 ML ONE (08:35)
[2022-06-09] MEDS ORDERED: dexAMETHasone 10 MG/ML VIAL ONE (08:35)
[2022-06-09] MEDS ORDERED: EPINEPHRINE/PF 1 MG/ML AMP ONE (08:35)
[2022-06-09] MEDS ORDERED: CEFAZOLIN SODIUM 1 GM/VIAL ONE (08:49)
[2022-06-09] MEDS: SILVER SULFADIAZINE 1% 50 GM TOP SCH ×2 (09:00→21:57)
[2022-06-09] MEDS: AMLODIPINE 10 MG TAB PO SCH (09:00)
[2022-06-09] MEDS: CEFAZOLIN 1 GM in NA CHLORIDE 0.9% 50 ML IVPB SCH (09:00)
[2022-06-09] MEDS ORDERED: NS 0.9% VIAL 10 ML ONE (09:12)
[2022-06-09] MEDS ORDERED: LIDOCAINE 2% MPF 5 ML VIAL ONE (09:12)
[2022-06-09] MEDS ORDERED: propofoL 200 MG/20 ML VIAL IV ONE (09:12)
[2022-06-09] MEDS ORDERED: SILVER SULFADIAZINE 1% 25 GM TOP ONE (09:16)
[2022-06-09 10:20] LABS: HIV AG/AB 4TH GEN Non-reactive (Non-reactive)
--- NOTE | 2022-06-09 14:24 | P.PN ---
Subjective Date of Service: 06/09/22 Chief Complaint: R hand abscess, tenosynovitis No major changes from yesterday. Dr. Perry placed a temporary dialysis cath in the left femoral. Renal function continues to worsen. Physical Examination - Vital Signs Temperature: 97.7 F Blood Pressure: 124/73 Pulse: 63 Respirations: 18 Pulse Ox (%): 92 Assessment And Plan - Plan Physical Exam General: Alert, NAD Respiratory: Clear to auscultation bilaterally, Normal air movement Cardiovascular: No edema, Regular rate/rhythm Gastrointestinal: Soft and benign, Non-distended, No tenderness Integumentary: R hand: surgical dressing in place Problem List R hand cellulitis / tenosynovitis s/p I&D AGUSTO IDDM2 HTN Right hand cellulitis/tenosynovitis Status post I&D and debridement. Wound culture grew MSSA Infectious disease input appreciated Antibiotics changed to IV meropenem and vancomycin by infectious disease. Pain management with opioids. Avoid NSAIDs. Patient stated he has never had a tetanus shot. Tetanus shot given. AGUSTO unclear etiology nephrotic range proteinuria nephrology is following renal u/s without hydro poon catheter inserted 06/05 for accurate i/o's, r/o obstruction pt took advil and ketorolac PO at home over last week Avoid NSAIDs Temporary dialysis catheter inserted. Hemodialysis initiation per nephrology. DM type 2: Continue long-acting insulin and insulin sliding scale. Titrate long-acting insulin to keep blood glucose less than 200. Code: full Dispo: home Time Spent Managing Pts Care (In Minutes): 25
[2022-06-09] MEDS: Meropenem 1,000 MG in NA CHLORIDE 0.9% 100 ML IV SCH (15:22)
[2022-06-09 16:07] LABS: Hepatitis C Virus RNA (PCR)log <1.18 log IU/mL
[2022-06-09] MEDS: CALCIUM CARBONATE CHEW 500MG TAB PO SCH (16:29)
--- NOTE | 2022-06-09 18:11 | OP ---
Date of Procedure: 06/09/2022 Surgeon: Khadar Perry MD, Preoperative Diagnosis: [id number] renal failure. Postoperative Diagnosis: [id number]-[id number] renal failure. Procedure Performed: Placement of temporary left femoral hemodialysis catheter using ultrasound guid ance and microintroducer set. Anesthesia: Local 1% lidocaine utilized. Estimated Blood Loss: Less than 5 cc. Specimen: None. Findings: Dark red, non pulsatile blood returned and imaging confirmed position in the femoral vein. Complications: None. Patient in bed in room in good condition. Procedure In Detail: After informed consent was obtained, the patient was prepped and draped in the usual sterile fashion in the floor bed. After adequate anesthesia was utilized in the left femoral r egion I used ultrasound guidance, after failing anatomic landmarks to confirm the position of the lef t femoral vein, which was visualized easily on ultrasound guidance. I then, using a microintroducer, cannulated the femoral vein on the first attempt. Microwire was advanced at this point and confirme d position using ultrasound guidance. At this point, I made a small mckinley incision overlying the inse rtion site, placed a 5-English introducer sheath using Seldinger technique over the wire. Ultimately removed the wire and dark red nonpulsatile blood was returned. Inner cannula was removed. Sheath re mained in place. I then advanced the standard wire into the femoral vein without evidence of any com plication. I then removed the introducer sheath and performed sequential dilatation using Seldinger technique over the standard wire and then advancing the catheter into the left femoral vein without e vidence of any complication. The wire was removed. Dark red nonpulsatile blood was returned from emelyn th ports. I then flushed both ports after drawing back with dark red nonpulsatile blood with sterile saline and then packed each of these with 2.5 cc of heparin super flush and sterile caps placed over the top. I then cleansed the area and secured the catheter to the skin with an attached 2-0 nylon s uture and a sterile dressing placed over top. Patient tolerated the procedure without evidence of an y complication and remained in the floor bed in good condition throughout the procedure. All counts were correct at the end of the case. JOMAR/JAYEL Voice ID: [id number] Report ID: [id number]
--- NOTE | 2022-06-09 18:41 | OP ---
Surgeon: Fahad Pérez MD Preoperative Diagnosis: Open wound to the right hand. Postoperative Diagnosis: Open wound to the right hand. Procedure: Debridement of skin and subcutaneous tissue. Anesthesia: Block. Procedure In Detail: After satisfactory induction of block, the right hand was prepped with Betadine scrub and Betadine paint. Dry sterile drapes were placed in usual manner. Hand was placed on the R adelaida Lock table. Tenotomy scissors and forceps were used to debride skin and subcu tissue as needed. The wounds were quite extensive down to the median nerve and down to the flexor tendons, over the th umb and over to the flexor surface as well as extending the web space between the thumb and index. A fter the wounds were debrided and curetted, then jet lavaged and irrigated with 3 L of dilute Betadin e solution. Electrocautery was used for a small number of bleeders. Bleeding was very minor. Then the wound was packed with 2 inch Michelle soaked in Silvadene cream and Kerlix. The patient tolerated p rocedure well and returned to recovery. EMILY/JOHNATHAN Voice ID: [id number] Report ID: [id number]
--- NOTE | 2022-06-09 21:42 | PN ---
Date of Progress Note: 06/09/2022 Subjective: The patient was admitted with infected hand and had multiple debridement. The patient had acute kidney injury, unknown etiology with nephrotic range of proteinuria. Biopsy done. Biopsy showed ATN, no autoimmune disease. Serology was negative. Physical Examination: Vital Signs: When I saw the patient blood pressure was 124/73, pulse of 63, afebrile. Chest: Clear to auscultation. Heart: S1, S2. Systolic murmur. Abdomen: Soft, nontender. Extremities: Plus edema. Dressing on the right hand. Neurologic: Alert. No focality. Genitourinary: The patient had urine output of 1100. Laboratory Data: Hemoglobin 10.1. Sodium 137, potassium 4.1, bicarb 20, BUN 69, creatinine 8.7, calcium 7.7, phosphorus 6.3, albumin 1.6, corrected calcium is 9.7. Serum protein electrophoresis is still pending. Serology was negative. Current Medications: 1. Meropenem. 2. Carvedilol 6.25. 3. Clonidine p.r.n. 4. Insulin. 5. Codeine. Assessment And Plan: 1. Acute kidney injury secondary to toxic acute tubular necrosis secondary to infection. Autoimmune disease has been ruled out by the biopsy. No acute interstitial nephritis. The patient had temporary hemodialysis catheter by the surgeon. The patient had severe infection in the hand with suspect of bacteremia and advised not to use permanent catheter for the time being. We will dialyze the patient today and tomorrow and we will follow up the patient. The patient will have hopefully good recovery. We will continue to monitor the patient predialysis. 2. Hypertension, controlled. Continue current treatment. Avoid SULEMAN inhibitor or ARB given the acute kidney injury. 3. Infected hand status post debridement. We will follow up with Surgery. Continue current antibiotic dose appropriate. 4. Acidosis, resolved. 5. Hyperkalemia, resolved. 6. Hyperphosphatemia and secondary hyperparathyroidism. I am going to start the patient on Tums. 7. Hypocalcemia. The patient is going to be started on Tums. We will follow up. Time spent examining the patient [id number], reviewing data, lab and radiology, discussing the case with the patient, discussing the case with hospitality team member including nursing and hospitalist more than 35 minutes MARYLU Voice ID: [id number] Report ID: [id number] [facility] CENTERCheryl
[2022-06-09] MEDS: INSULIN GLARGINE 100 UNIT/ML SQ SCH (21:55)
[2022-06-10 04:04] LABS: Absolute Lymphocytes (CBC) 0.3 K/uL (0.7-4.9); Hematocrit 27.5 % (39.6-49.0); MCV 82.2 fL (80-100); MPV 7.7 fL (7.6-11.3); RBC Red Blood Cell Count 3.35 M/uL (4.33-5.43)
[2022-06-10 04:36] LABS: Albumin 1.6 g/dL (3.4-5.0); Potassium 5.2 mmol/L (3.5-5.1)
[2022-06-10] MEDS: INSULIN -REGULAR HUMAN 50 UNIT/0.5 ML ML SQ SCH ×4 (07:30→20:52)
[2022-06-10] MEDS: carvediloL 6.25 MG TAB PO SCH ×2 (08:11→16:41)
[2022-06-10] MEDS: AMLODIPINE 10 MG TAB PO SCH (08:11)
[2022-06-10] MEDS: CALCIUM CARBONATE CHEW 500MG TAB PO SCH ×3 (08:11→16:10)
[2022-06-10] MEDS: SILVER SULFADIAZINE 1% 50 GM TOP SCH ×2 (08:12→20:53)
[2022-06-10] MEDS: CODEINE 30MG/APAP 300MG TAB PO PRN ×2 (08:15→15:42)
--- NOTE | 2022-06-10 11:53 | P.PN ---
Subjective Date of Service: 06/10/22 Chief Complaint: R hand abscess, tenosynovitis Patient is complaining of uncontrolled pain in the right hand. He has been getting Tylenol 3 for pain. Status post debridement of right hand wound yesterday. Status post hemodialysis yesterday. Physical Examination - Vital Signs Temperature: 97.0 F Blood Pressure: 153/87 Pulse: 60 Respirations: 18 Pulse Ox (%): 95 Assessment And Plan - Plan Physical Exam General: Alert, NAD Respiratory: Clear to auscultation bilaterally, Normal air movement Cardiovascular: No edema, Regular rate/rhythm Gastrointestinal: Soft and benign, Non-distended, No tenderness Integumentary: R hand: surgical dressing in place Problem List R hand cellulitis / tenosynovitis s/p I&D AGUSTO IDDM2 HTN Right hand cellulitis/tenosynovitis Status post I&D and debridement x 3. Dr. Pérez is planning secondary wound closure Wound culture grew MSSA Infectious disease input appreciated IV meropenem and vancomycin per infectious disease recommendation. Pain management with opioids. Avoid NSAIDs. Patient stated he has never had a tetanus shot. Tetanus shot given. AGUSTO unclear etiology nephrotic range proteinuria nephrology is following renal u/s without hydro poon catheter inserted 06/05 for accurate i/o's, r/o obstruction pt took advil and ketorolac PO at home over last week Avoid NSAIDs Temporary dialysis catheter inserted. Hemodialysis per nephrology. DM type 2: Continue long-acting insulin and insulin sliding scale. Titrate long-acting insulin to keep blood glucose less than 200. Code: full Dispo: home Time Spent Managing Pts Care (In Minutes): 25
[2022-06-10] MEDS: MORPHINE 2 MG/ML SYR IV PRN ×3 (12:00→21:40)
[2022-06-10] MEDS: Meropenem 1,000 MG in NA CHLORIDE 0.9% 100 ML IV SCH (15:34)
--- NOTE | 2022-06-10 17:12 | PN ---
Subjective: The patient lying in bed. No new acute event. Denies any chest pain, abdominal pain, c onstipation, or diarrhea. Objective: Vital Signs: Temperature 97, pulse 60, respirations 16, blood pressure 153/87. Lungs: Basal crackles. Heart: S1, S2. Regular. Abdomen: Soft, nontender. Bowel sounds present. Extremities: Right arm wound noted. Laboratory Data: Shows WBC 4, hemoglobin 9.5, platelets 313. BUN is 68, creatinine 8.2. The patien t was dialyzed yesterday. Wound culture growing Staphylococcus aureus. Assessment And Plan: Right hand surgical debridement of the wound secondary to staphylococcus infect ion. Acute on chronic renal failure. The patient has been dialyzed yesterday. Currently on meropen em. Consider switching patient to vancomycin or Unasyn. Continue supportive care. Wound care as pe r surgical team. We will follow the patient as needed. NF/MODL Voice ID: [id number] Report ID: [id number]
--- NOTE | 2022-06-10 17:42 | P.PN ---
Subjective Date of Service: 06/10/22 Chief Complaint: R hand abscess, tenosynovitis Subjective: No new changes Physical Examination - Vital Signs Temperature: 97.1 F Blood Pressure: 135/77 Pulse: 71 Respirations: 16 Pulse Ox (%): 96 - Physical Exam General: Other (appears as his stated age) HEENT: Atraumatic, Normocephalic Neck: Supple Respiratory: Other (symmetric chest expansion) Cardiovascular: No rubs, No murmurs Gastrointestinal: Soft and benign Musculoskeletal: No clubbing Integumentary: No warmth Neurological: Normal tone Urinary: Other (no bladder distention) External genitalia: Deferred Rectal: Deferred Assessment And Plan - Plan 1. Acute kidney injury secondary to toxic acute tubular necrosis secondary to infection. Autoimmune disease has been ruled out by the biopsy. No acute interstitial nephritis. The patient had temporary hemodialysis catheter placed by the surgeon. The patient had severe infection in the hand with suspect of bacteremia and advised not to use permanent catheter for the time being. HD received yesterday. HD tomorrow, & until further renal recovery. 2. Hypertension, controlled. Continue current treatment. Avoid SULEMAN inhibitor or ARB given the acute kidney injury. 3. Infected hand status post debridement. We will follow up with Surgery. Continue current antibiotic. 4. Acidosis, improved, HD as above.. 5. Pseudohyponatremia. Corrected serum Na 138. Monitor. 6. Anemia. Monitor H/H.
--- NOTE | 2022-06-10 20:15 | CON ---
Date of Consultation: 06/07/2022 Brief History Of Present Illness: The patient is a 56-year-old male with a history of hypertension, diabetes, acute on chronic renal dysfunction, who had right hand pain, erythematous changes, and star owen to have a blister after using a hydraulic jackhammer. He was given antibiotics without significa nt improvement and he had hyperglycemia and as such he came to the emergency room with the above-stat ed complaints. There was a concern for tenosynovitis and Dr. Pérez, was consulted to see him for hand surgery and ultimately had planned on taking the patient to the operating room for debridement of his hand. Please see Dr. Pérez's note for consultation regarding his plan. I have been consu lted to discuss placement of a permanent versus temporary hemodialysis catheter in the interim for th e patient, as he has continuing worsening renal function. Past Medical History: Hypertension, diabetes, chronic renal insufficiency, abscess in the midabdomen . Past Surgical History: Includes abscess drainage, cholecystectomy, appendectomy. Allergies: NO KNOWN DRUG ALLERGIES. Home Medications: None. Social History: He denies alcohol or recreational drug use. Review of Systems: Ten-point review of systems other than HPI, he denies. Physical Examination: At the time of my examination: General: He is awake, alert, and oriented. Psychiatric: He is appropriate, conversive. HEENT: He is normocephalic, sclerae icteric. Mucous membranes are moist. Oropharynx clear. Neck: Supple. No JVD. Chest: Normal expansion and excursion. Cardiovascular: Regular rate and rhythm. Pulmonary: Clear to auscultation bilaterally. Abdomen: Soft. Extremities: His right hand is wrapped up in a gauze right now. I have not unwrapped this to examin e it fully. The fingers were exposed. There appears to be some minimal drainage from the area and c ellulitic changes to the hand grossly around the dressings. Laboratory Data: Revealed a sodium of 134, potassium 4.3, chloride 104, carbon dioxide 19, BUN 64, c reatinine 8.4, glucose is 163. C-reactive protein was 113, albumin is 2.0. He had imaging of the chi nd, renal biopsy and renal ultrasound performed. Assessment And Plan: This is a 56-year-old male who comes with acute on chronic renal dysfunction wi th worsening kidney function. I have discussed the case with Dr. Smiley, Dr. Pérez, who advised th at I place a temporary hemodialysis catheter after his surgery to give him an opportunity to clear th e potential infection. There was concern for bacteremia. As such, I have explained the risks, benef its, and alternatives of placement of both a tunneled and a temporary hemodialysis catheter including , but not limited to bleeding, infection, damage to surrounding tissues, need for further operative p rocedures, pneumothorax, injury to great vessels, heart attack, strokes, blood clots, need for furthe r operation procedures, the patient agreed to proceed as indicated. TK/MODL Voice ID: [id number] Report ID: [id number]
[2022-06-10] MEDS: INSULIN GLARGINE 100 UNIT/ML SQ SCH (20:52)
[2022-06-11] MEDS: CODEINE 30MG/APAP 300MG TAB PO PRN ×3 (00:33→14:59)
[2022-06-11 03:51] LABS: Albumin 1.7 g/dL (3.4-5.0); Phosphorus 5.7 mg/dL (2.5-4.9); Potassium 4.8 mmol/L (3.5-5.1)
[2022-06-11] MEDS: CALCIUM CARBONATE CHEW 500MG TAB PO SCH ×3 (07:30→16:20)
[2022-06-11] MEDS: INSULIN -REGULAR HUMAN 50 UNIT/0.5 ML ML SQ SCH ×4 (07:30→21:00)
[2022-06-11] MEDS: carvediloL 6.25 MG TAB PO SCH ×2 (08:20→17:37)
[2022-06-11] MEDS: SILVER SULFADIAZINE 1% 50 GM TOP SCH ×2 (08:20→23:09)
[2022-06-11] MEDS: AMLODIPINE 10 MG TAB PO SCH (08:20)
--- NOTE | 2022-06-11 12:23 | P.PN ---
Subjective Date of Service: 06/11/22 Chief Complaint: R hand abscess, tenosynovitis Patient has no new complaint. He stated his flank pain is better today. Physical Examination - Vital Signs Temperature: 97.0 F Blood Pressure: 131/76 Pulse: 68 Respirations: 18 Pulse Ox (%): 97 Assessment And Plan - Plan Physical Exam General: Alert, NAD Respiratory: Clear to auscultation bilaterally, Normal air movement Cardiovascular: No edema, Regular rate/rhythm Gastrointestinal: Soft and benign, Non-distended, No tenderness Integumentary: R hand: surgical dressing in place Problem List R hand cellulitis / tenosynovitis s/p I&D AGUSTO IDDM2 HTN Right hand cellulitis/tenosynovitis Status post I&D and debridement x 3. Dr. Pérez is planning secondary wound closure on Monday. Wound culture grew MSSA Infectious disease is following IV meropenem and vancomycin per infectious disease recommendation. Pain management with opioids. Avoid NSAIDs. Tetanus shot given. AGUSTO nephrotic range proteinuria. AGUSTO secondary to ATN. nephrology is following renal u/s without hydro poon catheter inserted 06/05 for accurate i/o's, r/o obstruction pt took advil and ketorolac PO at home over last week Avoid NSAIDs Temporary dialysis catheter inserted. Hemodialysis per nephrology. DM type 2: Continue long-acting insulin and insulin sliding scale. Titrate long-acting insulin to keep blood glucose less than 200. Hypertension Blood pressure is well controlled. Continue current antihypertensives. Code: full Dispo: home Time Spent Managing Pts Care (In Minutes): 27
[2022-06-11] MEDS: Meropenem 1,000 MG in NA CHLORIDE 0.9% 100 ML IV SCH (14:59)
--- NOTE | 2022-06-11 16:27 | P.PN ---
Subjective Date of Service: 06/11/22 Chief Complaint: R hand abscess, tenosynovitis Subjective pt cr 1.6 on admission and trending up to 8.6, pt is S/p renal biopsy , started on HD on 06/10 today no overnight events S/P HD today good UO will monitor for renal function , if no improvement then will need to place Tunneled dialysis catheter Physical exam General: AAOx3, NAD, obese HEENT PERRLA, moist mucose membrane neck: supple, no elevated JVD CHEST; CTAB, no wheezes or rales HEART : RRR. Normal S1,2 no murmur or rub Abd: soft, Nt, poon catheter Ext: trace edema Skin : No rash 1. Acute kidney injury secondary to toxic acute tubular necrosis secondary to infection. Serology W/U so far negative , pending ANCA and SPEP S/P renal biopsy on 06/16, results pending non oliguric started on HD on 06/10 will cont to monitor renal function 2. Hypertension, controlled. Continue current treatment. Avoid SULEMAN inhibitor or ARB given the acute kidney injury. 3. Infected hand status post debridement. Continue current antibiotic. Surgery following 4. Acidosis, improved, HD as above.. 5. Pseudohyponatremia. BS control 6. Anemia of chronic disease Monitor H/H. transfuse if Hb <7.0 Total time spent 45 minutes including documentation, reviewing labs , placing orders and discussing with medical team Physical Examination - Vital Signs Temperature: 97.0 F Blood Pressure: 131/76 Pulse: 68 Respirations: 18 Pulse Ox (%): 97
[2022-06-11] MEDS: INSULIN GLARGINE 100 UNIT/ML SQ SCH (21:51)
[2022-06-11] MEDS: MORPHINE 2 MG/ML SYR IV PRN (21:57)
[2022-06-12 02:58] LABS: HBsAG Nonreactive (Nonreactive)
[2022-06-12 04:37] LABS: Albumin 1.7 g/dL (3.4-5.0); Phosphorus 5.9 mg/dL (2.5-4.9); Potassium 4.7 mmol/L (3.5-5.1)
[2022-06-12] MEDS: INSULIN -REGULAR HUMAN 50 UNIT/0.5 ML ML SQ SCH ×5 (07:30→21:00)
[2022-06-12] MEDS: SILVER SULFADIAZINE 1% 50 GM TOP SCH ×2 (09:00→21:00)
[2022-06-12] MEDS: AMLODIPINE 10 MG TAB PO SCH (09:14)
[2022-06-12] MEDS: carvediloL 6.25 MG TAB PO SCH ×2 (09:14→16:15)
[2022-06-12] MEDS: CALCIUM CARBONATE CHEW 500MG TAB PO SCH ×3 (09:15→16:16)
--- NOTE | 2022-06-12 11:39 | P.PN ---
Subjective Date of Service: 06/12/22 Chief Complaint: R hand abscess, tenosynovitis Patient has no new complaint. He stated his right hand pain is well controlled. No recorded fever. Physical Examination - Vital Signs Temperature: 98.6 F Blood Pressure: 177/88 Pulse: 59 Respirations: 18 Pulse Ox (%): 96 Assessment And Plan - Plan Physical Exam General: Alert, NAD Respiratory: Clear to auscultation bilaterally, Normal air movement Cardiovascular: No edema, Regular rate/rhythm Gastrointestinal: Soft and benign, Non-distended, No tenderness Integumentary: R hand: surgical dressing in place Problem List R hand cellulitis / tenosynovitis s/p I&D AGUSTO IDDM2 HTN Right hand cellulitis/tenosynovitis Status post I&D and debridement x 3. Dr. Pérez is planning secondary wound closure tomorrow. Wound culture grew MSSA Infectious disease is following IV meropenem and vancomycin per infectious disease recommendation. Pain management with opioids. Avoid NSAIDs. Tetanus shot given. AGUSTO nephrotic range proteinuria. AGUSTO secondary to ATN. nephrology is following renal u/s without hydro poon catheter inserted 06/05 for accurate i/o's, r/o obstruction pt took advil and ketorolac PO at home over last week Avoid NSAIDs Temporary dialysis catheter inserted. Hemodialysis per nephrology. DM type 2: Continue long-acting insulin and insulin sliding scale. Titrate long-acting insulin to keep blood glucose less than 200. Hypertension Blood pressure is well controlled. Continue current antihypertensives. Code: full Dispo: home Time Spent Managing Pts Care (In Minutes): 25
[2022-06-12] MEDS: Meropenem 1,000 MG in NA CHLORIDE 0.9% 100 ML IV SCH (14:23)
[2022-06-12] MEDS: CODEINE 30MG/APAP 300MG TAB PO PRN (16:55)
--- NOTE | 2022-06-12 16:56 | P.PN ---
Subjective Date of Service: 06/12/22 Chief Complaint: R hand abscess, tenosynovitis Subjective pt cr 1.6 on admission and trending up to 8.6, pt is S/p renal biopsy , started on HD on 06/10 today no overnight events good UO S/P HD yesterday , cr only down to 7.3 will monitor for renal function , if no improvement then will need to place Tunneled dialysis catheter and arrange for outpatient dialysis Physical exam General: AAOx3, NAD, obese HEENT PERRLA, moist mucose membrane neck: supple, no elevated JVD CHEST; CTAB, no wheezes or rales HEART : RRR. Normal S1,2 no murmur or rub Abd: soft, Nt, poon catheter Ext: trace edema Skin : No rash 1. Acute kidney injury secondary to toxic acute tubular necrosis secondary to infection. Serology W/U so far negative , pending ANCA and SPEP S/P renal biopsy on 06/16, results pending non oliguric started on HD on 06/10 will monitor for renal function , if no improvement then will need to place Tunneled dialysis catheter and arrange for outpatient dialysis 2. Hypertension, controlled. Continue current treatment. Avoid SULEMAN inhibitor or ARB given the acute kidney injury. 3. Infected hand status post debridement. Continue current antibiotic. Surgery following 4. Acidosis, improved, HD as above.. 5. Pseudohyponatremia. BS control 6. Anemia of chronic disease Monitor H/H. transfuse if Hb <7.0 Total time spent 45 minutes including documentation, reviewing labs , placing orders and discussing with medical team Physical Examination - Vital Signs Temperature: 98.3 F Blood Pressure: 174/79 Pulse: 73 Respirations: 18 Pulse Ox (%): 96
[2022-06-12] MEDS: INSULIN GLARGINE 100 UNIT/ML SQ SCH (21:34)
[2022-06-12] MEDS: HYDRALAZINE HCL 25 MG TABLET PO SCH (21:34)
[2022-06-13] MEDS: MORPHINE 2 MG/ML SYR IV PRN ×2 (00:50→10:05)
[2022-06-13] MEDS: cloNIDine HCL 0.1 MG TAB PO PRN (00:50)
[2022-06-13] MEDS: CALCIUM CARBONATE CHEW 500MG TAB PO SCH ×3 (07:30→16:03)
[2022-06-13] MEDS: INSULIN -REGULAR HUMAN 50 UNIT/0.5 ML ML SQ SCH ×4 (07:30→20:52)
[2022-06-13] MEDS: carvediloL 6.25 MG TAB PO SCH ×3 (08:00→16:09)
[2022-06-13] MEDS: HYDRALAZINE HCL 25 MG TABLET PO SCH ×3 (09:00→20:52)
[2022-06-13] MEDS: AMLODIPINE 10 MG TAB PO SCH ×2 (09:00→10:04)
[2022-06-13] MEDS: SILVER SULFADIAZINE 1% 50 GM TOP SCH ×2 (09:00→20:53)
--- NOTE | 2022-06-13 10:35 | RAD REPORT ---
EXAM DESCRIPTION: RAD - Chest Single View - 06/13/2022 10:29 am CLINICAL HISTORY: rulo out TB COMPARISON: None TECHNIQUE: AP portable chest image was obtained 06/13/2022 10:29 am . FINDINGS: No focal mass or consolidation in the lung parenchyma. No mediastinal or hilar mass or lym phadenopathy seen. No focal scarring changes identifiable. Lung markings are accentuated by shallow i nspiration. Heart and vasculature are normal. No measurable pleural effusion and no pneumothorax. No acute bony abnormality seen. No acute aortic findings suspected. IMPRESSION: No acute cardiopulmonary process. No radiographic findings for current or prior TB infection.
--- NOTE | 2022-06-13 11:25 | P.PN ---
Subjective Date of Service: 06/13/22 Chief Complaint: R hand abscess, tenosynovitis Patient has no new complaint. He stated his right hand pain is well controlled. No recorded fever. Physical Examination - Vital Signs Temperature: 97.0 F Blood Pressure: 151/73 Pulse: 63 Respirations: 16 Pulse Ox (%): 97 Assessment And Plan - Plan Physical Exam General: Alert, NAD Respiratory: Clear to auscultation bilaterally, Normal air movement Cardiovascular: No edema, Regular rate/rhythm Gastrointestinal: Soft and benign, Non-distended, No tenderness Integumentary: R hand: surgical dressing in place Problem List R hand cellulitis / tenosynovitis s/p I&D AGUSTO IDDM2 HTN Right hand cellulitis/tenosynovitis Status post I&D and debridement x 3. Dr. Pérez is planning secondary wound closure tomorrow. Wound culture grew MSSA Infectious disease is following IV meropenem and vancomycin per infectious disease recommendation. Pain management with opioids. Avoid NSAIDs. Tetanus shot given. AGUSTO nephrotic range proteinuria. AGUSTO secondary to ATN. nephrology is following renal u/s without hydro poon catheter inserted 06/05 for accurate i/o's, r/o obstruction pt took advil and ketorolac PO at home over last week Avoid NSAIDs Temporary dialysis catheter inserted. Considering permanent tunneled dialysis catheter placement today. Social service assisting with arrangement for outpatient dialysis. DM type 2: Continue long-acting insulin and insulin sliding scale. Titrate long-acting insulin to keep blood glucose less than 200. Hypertension Continue current antihypertensives. Code: full Dispo: home Time Spent Managing Pts Care (In Minutes): 25
[2022-06-13] MEDS ORDERED: NA CHLORIDE 0.9% 500 ML ONE (11:33)
[2022-06-13] MEDS ORDERED: HEPARIN 5000 UNIT/ML 1 ML VIAL ONE (11:37)
[2022-06-13] MEDS ORDERED: NA CHLORIDE 0.9% 50 ML IV ONE (11:37)
[2022-06-13] MEDS ORDERED: BUPIVACAINE 0.25% PF 10 ML VIAL ONE (11:37)
[2022-06-13 11:59] LABS: Potassium 5.3 mmol/L (3.5-5.1)
[2022-06-13] MEDS ORDERED: propofoL 200 MG/20 ML VIAL IV ONE (12:05)
[2022-06-13 12:06] LABS: Absolute Lymphocytes (CBC) 0.5 K/uL (0.7-4.9); Hematocrit 30.1 % (39.6-49.0); Lymphocytes % 12.3 % (15.3-44.8); MCV 81.9 fL (80-100); MPV 7.2 fL (7.6-11.3); RBC Red Blood Cell Count 3.68 M/uL (4.33-5.43)
[2022-06-13] MEDS ORDERED: LIDOCAINE 2% MPF 5 ML VIAL ONE (12:06)
[2022-06-13] MEDS ORDERED: FENTANYL CITR 100 MCG/2 ML ONE (12:06)
[2022-06-13] MEDS ORDERED: MIDAZOLAM HCL 2 MG/2 ML INJ ONE (12:07)
--- NOTE | 2022-06-13 13:01 | P.OP ---
Preoperative diagnosis: End Stage Renal Disease Postoperative diagnosis: End Stage Renal Disease Primary procedure: Placement of RIGHT IJ Tunnelled Hemodialysis Catheter Secondary procedure: Ultrasound Guidance and Micro-introducer utilized Other procedure(s): Flouroscopy utilized Anesthesia: GETA + Local Estimated blood loss: <10cc Specimen: none Findings: non-pulsatile blood returned, flouroscopy confirmed position Complications: None Implants: 19cm Hemosplit Catheter Transferred to: Recovery Room Condition: Good
--- NOTE | 2022-06-13 13:40 | RAD REPORT ---
EXAM DESCRIPTION: RAD - Fluoroscopy <1 Hour - 06/13/2022 1:31 pm CLINICAL HISTORY: Venous catheter insertion. HEMODIALYSIS CATH PLACEMENT COMPARISON: Urinary Bladder dated 07/11/2018 FINDINGS: Fluoroscopic imaging is submitted from placement of a venous catheter. Details of the pro cedure not available. Fluoroscopy time: 10 seconds
--- NOTE | 2022-06-13 13:44 | RAD REPORT ---
EXAM DESCRIPTION: RAD - Chest Single View - 06/13/2022 1:39 pm CLINICAL HISTORY: s/p hd cath placement Chest pain. COMPARISON: Chest Single View dated 06/13/2022 FINDINGS: Portable technique limits examination quality. Right-sided venous catheter is in place with its tip in the SVC. No postprocedure pneumothorax.
[2022-06-13] MEDS ORDERED: VANCOMYCIN 2 GM in NA CHLORIDE 0.9% 500 ML IVPB ONE (14:00)
[2022-06-13] MEDS: Meropenem 1,000 MG in NA CHLORIDE 0.9% 100 ML IV SCH (16:10)
[2022-06-13] MEDS: SODIUM ZIRCONIUM CYCLOSILICATE 10 GM/PKT PO SCH (17:59)
--- NOTE | 2022-06-13 18:33 | PN ---
Subjective: Patient is lying in bed. No new acute event. Chart reviewed. Objective: Vital Signs: Temperature 97, pulse 63, respirations 16, blood pressure 131/73. Lungs: Basal crackles. Heart: S1, S2. Regular. Abdomen: Soft, nontender. Bowel sounds present. Extremities: Right hand wound noted. Laboratory Data: Shows WBC 4, hemoglobin 9.5, platelets 313, BUN 67, and creatinine 7.3. Wound cult ure had Staph. Currently, patient on meropenem. Assessment And Plan: Right hand wound, status post surgical debridement. We will recommend to add v ancomycin to current regimen to have better Staph coverage. Renal failure, diabetes mellitus, diabet ic neuropathy. Continue supportive care and wound care. Continue with Silvadene and monitor for sig ns of infection. We will follow the patient closely. NF/MODL Voice ID: [id number] Report ID: [id number]
--- NOTE | 2022-06-13 19:11 | P.PN ---
Date of Service: 06/14/22 Subjective: no acute events overnight no new/ worsening symptoms pain and swelling of hand improving continues to have good UOP ROS: 10 point ROS as noted above, otherwise negative Physical Exam General: Alert, NAD HEENT: EOMI, Sclerae nonicteric Respiratory: Clear to auscultation bilaterally, Normal air movement Cardiovascular: No edema, Regular rate/rhythm Gastrointestinal: Soft and benign, Non-distended, No tenderness Integumentary: R hand: surgical dressing in place Problem List R hand cellulitis / tenosynovitis s/p I&D AGUSTO, now requiring HD, ATN secondary to acute infection IDDM2 HTN Right hand cellulitis/tenosynovitis s/p I&D multiple times, most recent 06/14. Dr. Pérez is planning secondary wound closure Monday Wound culture grew MSSA IV meropenem and vancomycin per infectious disease recommendation. Pain management as needed with opioids. Avoid NSAIDs. Tetanus shot given. AGUSTO, now requiring HD nephrotic range proteinuria. AGUSTO secondary to ATN, infection nephrology is following renal u/s without hydro poon catheter inserted 06/05 for accurate i/o's, r/o obstruction pt took advil and ketorolac PO at home over last week prior to admission Avoid NSAIDs Temporary dialysis catheter inserted initially, now s/p tunneled cath placement 06/13 Social service assisting with arrangement for outpatient dialysis. IDDM2 Continue long-acting insulin and insulin sliding scale. Titrate long-acting insulin to keep blood glucose less than 200. Hypertension Continue current antihypertensives. Code: full Dispo: home, Monday/Monday Time Spent Managing Pts Care (In Minutes): 25
[2022-06-13] MEDS: INSULIN GLARGINE 100 UNIT/ML SQ SCH ×2 (20:53→20:55)
[2022-06-13] MEDS: CODEINE 30MG/APAP 300MG TAB PO PRN (20:55)
--- NOTE | 2022-06-13 22:06 | PN ---
Date of Progress Note: 06/13/2022 Chief Complaint: Acute kidney injury, severe secondary to ATN in setting of sepsis. Subjective: Serology workup is negative, pending ANCA and SPEP. The patient is dialysis dependent. He started dialysis on 06/10. Review of Systems: Denies fever or chills. Physical Examination: Lungs: Clear to auscultation bilaterally. Heart: S1, S2. Abdomen: Soft. Extremities: No edema. Impression And Plan: 1.Acute kidney injury secondary to toxic acute tubular necrosis in setting of severe infection. Mariana iemadeleine underwent debridement of cellulitis of the hand. Serology lab work did not confirm secondary gl omerulonephritis although ANCA is pending and SPEP is pending. Patient underwent biopsy on 06/16. R esults are pending. Patient has nonoliguric urine output. He is scheduled to have dialysis tomorrow . Last dialysis was done on Monday. Today he was found to have borderline hyperkalemia with potas sium of 5.3 and he received Lokelma. There is no metabolic acidosis present. Catheter is malfunctio rohini and the patient is to have blood culture and catheter exchange as soon as possible. 2.Hypertension. Blood pressure is controlled. Continue to avoid angiotensin receptor francis and A CE inhibitor. 3.Infected hand status post debridement. Continue antibiotics. Adjust dose to renal function. 4.Acidosis, improved and is controlled with dialysis. 5.Anemia due to chronic kidney disease. Monitor hemoglobin level. Transfuse if hemoglobin is below 7. Continue LUIS FERNANDO. EB/MODL Voice ID: [id number] Report ID: [id number]
--- NOTE | 2022-06-13 23:18 | OP ---
Date of Procedure: 06/13/2022 Surgeon: Khadar Perry MD, Preoperative Diagnosis: End-stage renal disease. Postoperative Diagnosis: End-stage renal disease. Procedure Performed: Placement of right internal jugular tunneled hemodialysis catheter using ultras ound guidance, fluoroscopy, and microintroducer set. Anesthesia: General endotracheal plus local with 0.25% Marcaine without epinephrine. Specimen: None. Estimated Blood Loss: Less than 10 cc. Findings: Nonpulsatile blood return. Fluoroscopy confirmed position. Complications: None. Implants: 19 cm HemoSplit tunneled dialysis catheter. Disposition: The patient was transferred to recovery room in good condition. Procedure In Detail: After informed consent was obtained, patient was brought to the operating room and prepped and draped in the usual sterile fashion. After adequate anesthesia was achieved, an area of the right internal jugular vein was visualized using ultrasound guidance and microintroducer need le was introduced at this point. Dark red nonpulsatile blood was returned. Microwire was advanced. Fluoroscopy confirmed position in the SVC. At this point, the microwire was removed. A small mckinley incision was made overlying the insertion point and the 5-Chinese sheath was introduced into the jugul ar vein without evidence of any complication. Microwire was removed and the standard wire was advanc ed at this point. Fluoroscopy confirmed position of standard wire to the SVC once again and into the right atrium. At this point, I anesthetized the entire tract on the chest wall in the infraclavicul ar position down to subcutaneous tissues including the entire tract leading up to the insertion site. At this point, a small mckinley incision was made at the chest wall insertion site and I advanced the c atheter using a tunneling device into the insertion site. The cuff was inserted, but there was some resistance to pass in the cuff into the subcutaneous position due to firmness of his overall skin, bu t it was advanced into a good anatomic position. At this point, I performed sequential dilatation us ing the Seldinger technique over the wire and confirmed with fluoroscopy frequently checking with seq uential dilatations. Ultimately, the catheter was introduced after the introducer sheath was placed and the inner portion was removed. Dark red nonpulsatile blood was returned and the catheter was adv anced into the SVC at this point. Here was initially some sluggish withdrawal of the red port; yaima nolen, upon loosening the skin at the insertion site and allowing for more catheter movement, the cathete r was flushed quite easily and withdrew dark red nonpulsatile blood quite easily. Both ports were ch ecked, both are red and blue for dark red nonpulsatile pulsatile blood to be returned, which was retu rned quite easily and they were both flushed until completely clear with sterile saline quite easily. At this point, they were both packed with heparin super flush and caps were placed at this point. The patient was taken out of Trendelenburg position at this point. The insertion site and the all in cised areas were irrigated copiously at this point. The insertion site was closed using interrupted 3-0 nylon suture and a sterile dressing placed over top. I then secured the catheter to the chest wa ll, the same said 3-0 nylon suture and a sterile dressing was placed over top. The patient tolerated the procedure without evidence of any complication and transferred to PACU in good condition. All c ounts were correct at the end of the case. Stat chest x-ray will be performed in recovery. JOMAR/JOHNATHAN Voice ID: [id number] Report ID: [id number]
[2022-06-14 05:10] LABS: Albumin 1.8 g/dL (3.4-5.0); Magnesium 2.1 mg/dL (1.8-2.4); Phosphorus 6.5 mg/dL (2.5-4.9)
[2022-06-14] MEDS: MORPHINE 2 MG/ML SYR IV PRN ×2 (06:58→21:56)
--- NOTE | 2022-06-14 07:11 | P.PN ---
Subjective Date of Service: 06/14/22 Chief Complaint: R hand abscess, tenosynovitis Subjective pt cr 1.6 on admission and trending up to 8.6, pt is S/p renal biopsy , started on HD on 06/10 today no overnight events good UO S/p TDC on 06/13 HD today pending outpatient dialysis chair time arrangement Physical exam General: AAOx3, NAD, obese HEENT PERRLA, moist mucose membrane neck: supple, no elevated JVD CHEST; CTAB, no wheezes or rales HEART : RRR. Normal S1,2 no murmur or rub Abd: soft, Nt, poon catheter Ext: trace edema Skin : No rash 1. Acute kidney injury secondary to toxic acute tubular necrosis secondary to infection. Serology W/U so far negative , pending ANCA and SPEP S/P renal biopsy on 06/16, results pending non oliguric started on HD on 06/10 S/p TDC on 06/13 HD today pending outpatient dialysis chair time arrangement 2. Hypertension, controlled. Continue current treatment. Avoid SULEMAN inhibitor or ARB given the acute kidney injury. 3. Infected hand status post debridement. Continue current antibiotic. Surgery following 4. Pseudohyponatremia. BS control 5. Anemia of chronic disease Monitor H/H. transfuse if Hb <7.0 COnt Epogen Total time spent 45 minutes including documentation, reviewing labs , placing orders and discussing with medical team Physical Examination - Vital Signs Temperature: 97.8 F Blood Pressure: 154/87 Pulse: 70 Respirations: 18 Pulse Ox (%): 96
[2022-06-14] MEDS ORDERED: KETOROLAC 30 MG/ML INJ ONE (07:24)
[2022-06-14] MEDS ORDERED: propofoL 200 MG/20 ML VIAL IV ONE (07:24)
[2022-06-14] MEDS ORDERED: MIDAZOLAM HCL 2 MG/2 ML INJ ONE (07:24)
[2022-06-14] MEDS ORDERED: ONDANSETRON 4 MG/2 ML VIAL ONE (07:24)
[2022-06-14] MEDS ORDERED: FENTANYL CITR 100 MCG/2 ML ONE (07:24)
[2022-06-14] MEDS ORDERED: LIDOCAINE 2% MPF 5 ML VIAL ONE (07:25)
[2022-06-14] MEDS: INSULIN -REGULAR HUMAN 50 UNIT/0.5 ML ML SQ SCH ×4 (07:30→21:47)
[2022-06-14] MEDS: CALCIUM CARBONATE CHEW 500MG TAB PO SCH ×3 (07:30→16:08)
[2022-06-14] MEDS ORDERED: EPINEPHRINE/PF 1 MG/ML AMP ONE (07:49)
[2022-06-14] MEDS ORDERED: dexAMETHasone 10 MG/ML VIAL ONE (07:49)
[2022-06-14] MEDS ORDERED: ROPLVACAINE HCL 40 ML ONE (07:49)
[2022-06-14] MEDS ORDERED: LIDOCAINE 1% MPF 5 ML VIAL ONE (07:49)
[2022-06-14] MEDS: carvediloL 6.25 MG TAB PO SCH ×2 (08:00→16:09)
[2022-06-14] MEDS ORDERED: NA CHLORIDE 0.9% 500 ML ONE (08:00)
[2022-06-14] MEDS: SILVER SULFADIAZINE 1% 50 GM TOP SCH (09:00)
[2022-06-14] MEDS: SODIUM ZIRCONIUM CYCLOSILICATE 10 GM/PKT PO SCH (09:00)
[2022-06-14] MEDS: HYDRALAZINE HCL 25 MG TABLET PO SCH ×3 (09:00→21:47)
[2022-06-14] MEDS: AMLODIPINE 10 MG TAB PO SCH (09:00)
[2022-06-14] MEDS ORDERED: SODIUM HYPOCHLORITE 0.25% 473 ML ONE (09:22)
[2022-06-14] MEDS: HYDROMORPHONE HCL 1 MG/ML INJ ONE ×2 (10:20→10:25)
[2022-06-14] MEDS: EPOETIN 4,000 UNIT/ML VIAL IV SCH (13:45)
[2022-06-14] MEDS: Meropenem 1,000 MG in NA CHLORIDE 0.9% 100 ML IV SCH (16:09)
[2022-06-14] MEDS ORDERED: VANCOMYCIN 1 GM in NA CHLORIDE 0.9% 250 ML IVPB SCH ×4 (17:00)
--- NOTE | 2022-06-14 19:41 | OP ---
Surgeon: Fahad Pérez MD Visual Supervisor: None. Preoperative Diagnosis: Open wound to the right hand. Postoperative Diagnosis: Open wound to the right hand. Procedure: Debridement of skin and subcutaneous tissue. Anesthesia: General. Procedure In Detail: After satisfactory induction of general anesthesia, right hand was prepped with Betadine scrub and paint. Dry sterile drapes were placed in usual manner. Hand placed on Roto Lock . Tenotomy scissors and forceps were used to debride skin and subcu tissue with a curette. The woun d was scrubbed with Betadine scrub brush and jet lavage irrigated with 3 L of dilute Betadine solutio n. The wound was then packed with 2-inch Michelle soaked in half-strength Dakin and Kerlix. The patien t tolerated the procedure well and returned to the recovery. EMILY/JOHNATHAN Voice ID: [id number] Report ID: [id number]
[2022-06-14] MEDS: INSULIN GLARGINE 100 UNIT/ML SQ SCH (21:47)
[2022-06-15] MEDS: cloNIDine HCL 0.1 MG TAB PO PRN (05:17)
[2022-06-15] MEDS: CODEINE 30MG/APAP 300MG TAB PO PRN (06:29)
[2022-06-15] MEDS: CALCIUM CARBONATE CHEW 500MG TAB PO SCH ×3 (08:22→16:41)
[2022-06-15] MEDS: AMLODIPINE 10 MG TAB PO SCH (08:23)
[2022-06-15] MEDS: carvediloL 6.25 MG TAB PO SCH ×2 (08:24→17:00)
[2022-06-15] MEDS: INSULIN -REGULAR HUMAN 50 UNIT/0.5 ML ML SQ SCH ×4 (08:24→21:00)
[2022-06-15] MEDS: HYDRALAZINE HCL 25 MG TABLET PO SCH ×3 (08:24→21:40)
[2022-06-15] MEDS: SODIUM HYPOCHLORITE 0.25% 473 ML TOP SCH ×2 (08:25→21:00)
[2022-06-15] MEDS: SODIUM ZIRCONIUM CYCLOSILICATE 10 GM/PKT PO SCH (08:26)
[2022-06-15 09:29] LABS: Hematocrit 27.5 % (39.6-49.0); MCV 82.4 fL (80-100); RBC Red Blood Cell Count 3.34 M/uL (4.33-5.43)
[2022-06-15 09:54] LABS: Potassium 4.5 mmol/L (3.5-5.1)
[2022-06-15] MEDS: MORPHINE 2 MG/ML SYR IV PRN ×2 (11:48→16:39)
--- NOTE | 2022-06-15 14:45 | P.PN ---
Subjective Date of Service: 06/15/22 Chief Complaint: R hand abscess, tenosynovitis Subjective: Other (No c/o SOB.) Physical Examination - Vital Signs Temperature: 96.5 F Blood Pressure: 131/80 Pulse: 57 Respirations: 18 Pulse Ox (%): 95 - Physical Exam General: In no apparent distress HEENT: Atraumatic, Normocephalic Neck: Supple, JVD not distended Respiratory: Other (Symmetric chest expansion) Cardiovascular: No rubs, No murmurs Gastrointestinal: Soft and benign, No guarding Musculoskeletal: No clubbing Integumentary: No warmth Neurological: Normal tone External genitalia: Deferred Rectal: Deferred Assessment And Plan - Plan 1. Acute kidney injury secondary to toxic acute tubular necrosis secondary to infection. Serology W/U so far negative , pending ANCA and SPEP S/P renal biopsy on 06/16, results pending Started on HD on 06/10 S/p TDC on 06/13 Next HD tomorrow Pending outpatient dialysis chair time arrangement 2. Hypertension, controlled. Continue current treatment. Avoid SULEMAN inhibitor or ARB given the acute kidney injury. 3. Infected hand status post debridement. Continue current antibiotic. Surgery following 4. Pseudohyponatremia. BS control 5. Anemia of chronic disease Monitor H/H transfuse if Hb <7.0 Epogen TTS
[2022-06-15] MEDS: Meropenem 1,000 MG in NA CHLORIDE 0.9% 100 ML IV SCH (15:00)
[2022-06-15 15:33] LABS: Alpha-1-Globulins 0.6 g/dL (0.2-0.3); Alpha-2-Globulins 1.1 g/dL (0.5-0.9); Gamma Globulins 0.8 g/dL (0.8-1.7); INTERPRETATION REPORT
--- NOTE | 2022-06-15 15:57 | P.PN ---
Date of Service: 06/15/22 Subjective: no acute events overnight no new/ worsening symptoms ROS: 10 point ROS as noted above, otherwise negative Physical Exam General: Alert, NAD HEENT: EOMI, Sclerae nonicteric Respiratory: Clear to auscultation bilaterally, Normal air movement Cardiovascular: No edema, Regular rate/rhythm Gastrointestinal: Soft and benign, Non-distended, No tenderness Integumentary: R hand: surgical dressing in place poon in place Problem List R hand cellulitis / tenosynovitis s/p I&D AGUSTO, now requiring HD, ATN secondary to acute infection IDDM2 HTN Right hand cellulitis/tenosynovitis s/p I&D multiple times, most recent 06/14. Dr. Pérez is planning secondary wound closure Monday Wound culture grew MSSA IV meropenem and vancomycin per ID recommendation. will discuss with ID, for possible de-escalation; vanc/ancef/gent can be done at dialysis center Pain management as needed with opioids. Avoid NSAIDs. Tetanus shot given. AGUSTO, now requiring HD nephrotic range proteinuria. AGUSTO secondary to ATN, infectionl; did receive vanc/zosyn as well nephrology is following renal u/s without hydro poon catheter inserted 06/05 for accurate i/o's, r/o obstruction; no evidence of obstruction; dc poon in AM 06/16 pt took advil and ketorolac PO at home over last week prior to admission; Avoid NSAIDs Temporary dialysis catheter inserted initially, now s/p tunneled cath placement 06/13 Social service assisting with arrangement for outpatient dialysis. IDDM2 Continue long-acting insulin and insulin sliding scale. Titrate long-acting insulin to keep blood glucose less than 200. Hypertension Continue current antihypertensives. Code: full Dispo: home, Monday/Monday Time Spent Managing Pts Care (In Minutes): 25
[2022-06-15] MEDS ORDERED: VANCOMYCIN 1 GM in NA CHLORIDE 0.9% 250 ML IVPB SCH (17:00)
--- NOTE | 2022-06-15 17:53 | PN ---
Subjective: The patient is lying in bed. The patient was seen with the help of nurse. Wound dressi ng was taken off at the time of examination. Objective: Vital Signs: Temperature 96.5, pulse 61, respirations 18, blood pressure 138/77. Lungs: Clear to auscultation. Heart: S1, S2. Regular. Abdomen: Soft, nontender. Bowel sounds present. Extremities: Right hand wound noted. Laboratory Data: Shows WBC 4.5, hemoglobin 9.3, platelets 352. Chemistry shows BUN 57, creatinine 5 .8. Current Medications: Include meropenem and vancomycin. Assessment And Plan: Right hand surgical debridement with cellulitis. Continue empiric antibiotics with Merrem and vancomycin for hand cellulitis and infected surgical wound. Diabetes mellitus, renal failure, anemia of chronic disease, severe protein-calorie malnourishment. Continue current treatme nt. Keep arm elevated as much as possible. NF/MODL Voice ID: [id number] Report ID: [id number]
[2022-06-15] MEDS: INSULIN GLARGINE 100 UNIT/ML SQ SCH (21:39)
[2022-06-16 06:22] LABS: Potassium 4.3 mmol/L (3.5-5.1)
[2022-06-16] MEDS: INSULIN -REGULAR HUMAN 50 UNIT/0.5 ML ML SQ SCH ×4 (07:30→21:08)
[2022-06-16] MEDS: CALCIUM CARBONATE CHEW 500MG TAB PO SCH ×3 (07:46→17:23)
[2022-06-16] MEDS: AMLODIPINE 10 MG TAB PO SCH (09:55)
[2022-06-16] MEDS: carvediloL 6.25 MG TAB PO SCH ×2 (09:56→17:23)
[2022-06-16] MEDS: HYDRALAZINE HCL 25 MG TABLET PO SCH ×3 (09:56→20:10)
[2022-06-16] MEDS: MORPHINE 2 MG/ML SYR IV PRN ×2 (10:30→21:51)
[2022-06-16] MEDS: SODIUM HYPOCHLORITE 0.25% 473 ML TOP SCH ×2 (10:30→20:10)
--- NOTE | 2022-06-16 13:12 | PN ---
Subjective: Patient lying in bed. Family by the bedside. Denies any chest pain, abdominal pain, co nstipation, or diarrhea. Objective: Vital Signs: Temperature 97, pulse 65, respirations 18, blood pressure 164/80. Lungs: Basal crackles. Heart: S1, S2. Regular. Abdomen: Soft, nontender. Bowel sounds present. Extremities: No edema. Erythematous changes noted by the wound site. Laboratory Data: WBC 4.5, hemoglobin 9.3, platelets 352. Chemistry shows BUN of 59, creatinine 5.8 from today. Assessment And Plan: Right hand cellulitis and surgical wound with the necrotic tissue, improving wi th Dakin's solution to be continued daily. Continue antibiotic meropenem and vancomycin. Continue s upportive care. Acute renal failure, diabetes mellitus, diabetic neuropathy. We will follow patient as needed. NF/MODL Voice ID: [id number] Report ID: [id number]
--- NOTE | 2022-06-16 13:13 | P.PN ---
Subjective Date of Service: 06/16/22 Chief Complaint: R hand abscess, tenosynovitis Subjective: No new changes, Other (Received HD today.) Physical Examination - Vital Signs Temperature: 97.5 F Blood Pressure: 164/82 Pulse: 65 Respirations: 18 Pulse Ox (%): 96 - Physical Exam General: In no apparent distress HEENT: Atraumatic, Normocephalic Neck: Supple Respiratory: Clear to auscultation bilaterally Cardiovascular: No rubs, No murmurs Gastrointestinal: Soft and benign, No guarding Musculoskeletal: No clubbing Integumentary: No warmth Neurological: Normal speech, Normal tone Urinary: Other (No bladder distention) External genitalia: Deferred Rectal: Deferred Assessment And Plan - Plan 1. Acute kidney injury secondary to toxic acute tubular necrosis secondary to infection. Serology W/U so far negative , pending ANCA and SPEP S/P renal biopsy on 06/16, results pending Started on HD on 06/10 S/p TDC on 06/13 HD received today. Cont HD TTS sked. Pending outpatient dialysis chair time arrangement 2. Hypertension, controlled. Continue current treatment. Avoid SULEMAN inhibitor or ARB given the acute kidney injury. 3. Infected hand status post debridement. Continue current antibiotic. Surgery following 4. Pseudohyponatremia. BS control 5. Anemia of chronic disease Monitor H/H transfuse if Hb <7.0 Epogen TTS
[2022-06-16] MEDS: Meropenem 1,000 MG in NA CHLORIDE 0.9% 100 ML IV SCH (15:00)
--- NOTE | 2022-06-16 15:06 | P.PN ---
Date of Service: 06/16/22 Subjective: no acute events overnight no new/ worsening symptoms pain improving, feels swelling improving poon removed, voided this morning ROS: 10 point ROS as noted above, otherwise negative Physical Exam General: Alert, NAD Respiratory: Clear to auscultation bilaterally, Normal air movement Cardiovascular: No edema, Regular rate/rhythm Gastrointestinal: Soft and benign, Non-distended, No tenderness Integumentary: R hand: dressing in place, c/d/i, moves fingers, intact sensation distally Problem List R hand cellulitis / tenosynovitis s/p I&D AGUSTO, now requiring HD, ATN secondary to acute infection IDDM2 HTN Right hand cellulitis/tenosynovitis s/p I&D multiple times, most recent 06/14. Dr. Pérez is planning secondary wound closure Monday Wound culture grew MSSA received ~2 weeks of vanc/merrem dc'd merrem 06/16, monitor on vancomycin, discussed with ID anticipate prolonged antibiotic course - vanc with HD on discharge Pain management as needed with opioids. Avoid NSAIDs. Tetanus shot given. AGUSTO, now requiring HD nephrotic range proteinuria. AGUSTO secondary to ATN, infectionl; did receive vanc/zosyn as well nephrology is following renal u/s ok poon catheter inserted 06/05 for accurate i/o's, r/o obstruction; no evidence of obstruction; dc poon in AM 06/16 pt took advil and ketorolac PO at home over last week prior to admission; Avoid NSAIDs Temporary dialysis catheter inserted initially, now s/p tunneled cath placement 06/13 Social service assisting with arrangement for outpatient dialysis. IDDM2 Continue long-acting insulin and insulin sliding scale. Titrate long-acting insulin to keep blood glucose less than 200. Hypertension Continue current antihypertensives. Code: full Dispo: home, Monday/Monday anticipate prolonged antibiotic course - vanc with HD on discharge Time Spent Managing Pts Care (In Minutes): 25
[2022-06-16] MEDS ORDERED: VANCOMYCIN 1 GM in NA CHLORIDE 0.9% 250 ML IVPB SCH (16:00)
[2022-06-16] MEDS: EPOETIN 4,000 UNIT/ML VIAL IV SCH (16:15)
[2022-06-16] MEDS: VANCOMYCIN 1 GM in NA CHLORIDE 0.9% 250 ML IVPB SCH (20:10)
[2022-06-16] MEDS: INSULIN GLARGINE 100 UNIT/ML SQ SCH (21:09)
[2022-06-17] MEDS: INSULIN -REGULAR HUMAN 50 UNIT/0.5 ML ML SQ SCH ×4 (07:30→21:00)
[2022-06-17] MEDS: CALCIUM CARBONATE CHEW 500MG TAB PO SCH ×3 (08:33→15:56)
[2022-06-17] MEDS: carvediloL 6.25 MG TAB PO SCH ×2 (08:33→16:34)
[2022-06-17] MEDS: AMLODIPINE 10 MG TAB PO SCH (08:33)
[2022-06-17] MEDS: HYDRALAZINE HCL 25 MG TABLET PO SCH ×3 (08:34→20:53)
[2022-06-17] MEDS: SODIUM HYPOCHLORITE 0.25% 473 ML TOP SCH ×2 (08:34→20:54)
[2022-06-17] MEDS: cloNIDine HCL 0.1 MG TAB PO PRN (12:17)
--- NOTE | 2022-06-17 14:43 | P.PN ---
Subjective Date of Service: 06/17/22 Chief Complaint: R hand abscess, tenosynovitis Subjective: No new changes Physical Examination - Vital Signs Temperature: 97.0 F Blood Pressure: 168/87 Pulse: 66 Respirations: 16 Pulse Ox (%): 96 - Physical Exam General: In no apparent distress HEENT: Atraumatic, Normocephalic Neck: Supple Respiratory: Clear to auscultation bilaterally Cardiovascular: No rubs, No murmurs Gastrointestinal: Soft and benign, No guarding Musculoskeletal: No clubbing Integumentary: No warmth Neurological: Normal speech, Normal tone Urinary: Other (No bladder distention) External genitalia: Deferred Rectal: Deferred Assessment And Plan - Plan 1. Acute kidney injury secondary to toxic acute tubular necrosis secondary to infection. Serology W/U so far negative , pending ANCA and SPEP S/P renal biopsy on 06/06, sent to [facility], result pending Started on HD on 06/10 S/p TDC on 06/13 HD received yesterday. Cont HD TTS sked. Pending outpatient dialysis chair time arrangement 2. Hypertension, controlled. Continue current treatment. Avoid SULEMAN inhibitor or ARB given the acute kidney injury. 3. Infected hand status post debridement. Continue current antibiotic. Surgery following 4. Pseudohyponatremia. BS control 5. Anemia of chronic disease Monitor H/H transfuse if Hb <7.0 Epogen TTS
[2022-06-17] MEDS: MORPHINE 2 MG/ML SYR IV PRN (15:02)
--- NOTE | 2022-06-17 16:04 | P.PN ---
Date of Service: 06/17/22 Subjective: no acute events overnight no new/ worsening symptoms tolerating pain ROS: 10 point ROS as noted above, otherwise negative Physical Exam General: Alert, NAD Respiratory: Clear to auscultation bilaterally, Normal air movement Cardiovascular: No edema, Regular rate/rhythm Gastrointestinal: Soft and benign, Non-distended, No tenderness Integumentary: R hand: dressing in place, c/d/i, moves fingers, intact sensation distally Problem List R hand cellulitis / tenosynovitis s/p I&D AGUSTO, now requiring HD, ATN secondary to acute infection IDDM2 HTN Right hand cellulitis/tenosynovitis s/p I&D multiple times, most recent 06/14. Dr. Pérez is planning secondary wound closure Monday Wound culture grew MSSA received ~2 weeks of vanc/merrem dc'd merrem 06/16, monitor on vancomycin, discussed with ID anticipate prolonged antibiotic course -2 weeks vanc with HD on discharge Pain management as needed with opioids. Avoid NSAIDs. Tetanus shot given. AGUSTO, now requiring HD nephrotic range proteinuria. AGUSTO secondary to ATN, infectionl; did receive vanc/zosyn as well nephrology is following renal u/s ok poon catheter inserted 06/05 for accurate i/o's, r/o obstruction; no evid ence of obstruction; dc'd poon in AM 06/16; voiding witout issue pt took advil and ketorolac PO at home over last week prior to admission; Avoid NSAIDs Temporary dialysis catheter inserted initially, now s/p tunneled cath placement 06/13 Social service assisting with arrangement for outpatient dialysis. IDDM2 Continue long-acting insulin and insulin sliding scale. Titrate long-acting insulin to keep blood glucose less than 200. Hypertension Continue current antihypertensives. Code: full Dispo: home, Monday/Monday anticipate prolonged antibiotic course - 2 weeks vanc with HD on discharge Time Spent Managing Pts Care (In Minutes): 25
[2022-06-17] MEDS: HYDROCODONE/APAP 5/325 MG TAB PO PRN ×2 (16:05→20:53)
[2022-06-17] MEDS: INSULIN GLARGINE 100 UNIT/ML SQ SCH (20:54)
[2022-06-18 03:55] LABS: Hematocrit 27.6 % (39.6-49.0); MCV 82.3 fL (80-100); MPV 7.2 fL (7.6-11.3); RBC Red Blood Cell Count 3.36 M/uL (4.33-5.43)
[2022-06-18 04:08] LABS: Albumin 2.1 g/dL (3.4-5.0); Magnesium 1.8 mg/dL (1.8-2.4); Phosphorus 4.8 mg/dL (2.5-4.9); Potassium 4.1 mmol/L (3.5-5.1)
[2022-06-18] MEDS: INSULIN -REGULAR HUMAN 50 UNIT/0.5 ML ML SQ SCH ×4 (07:30→21:46)
[2022-06-18] MEDS: SODIUM HYPOCHLORITE 0.25% 473 ML TOP SCH ×2 (08:19→21:00)
[2022-06-18] MEDS: CALCIUM CARBONATE CHEW 500MG TAB PO SCH ×3 (08:19→16:16)
[2022-06-18] MEDS: HYDRALAZINE HCL 25 MG TABLET PO SCH ×3 (08:20→21:45)
[2022-06-18] MEDS: AMLODIPINE 10 MG TAB PO SCH (08:20)
[2022-06-18] MEDS: carvediloL 6.25 MG TAB PO SCH ×2 (08:20→16:16)
--- NOTE | 2022-06-18 14:06 | P.PN ---
Subjective Date of Service: 06/18/22 Chief Complaint: R hand abscess, tenosynovitis Subjective: Other (HD received today.) Physical Examination - Vital Signs Temperature: 97.2 F Blood Pressure: 163/90 Pulse: 68 Respirations: 16 Pulse Ox (%): 98 - Physical Exam General: In no apparent distress HEENT: Atraumatic, Normocephalic Neck: Supple Respiratory: Clear to auscultation bilaterally Cardiovascular: No rubs, No murmurs Gastrointestinal: Soft and benign, No guarding Musculoskeletal: No clubbing Integumentary: No warmth Neurological: Normal speech, Normal tone Urinary: Other (No bladder distention) External genitalia: Deferred Rectal: Deferred Assessment And Plan - Plan 1. Acute kidney injury secondary to toxic acute tubular necrosis secondary to infection. Serology W/U so far negative , pending ANCA and SPEP S/P renal biopsy on 06/06, sent to [facility], result pending, f/u Monday Started on HD on 06/10 S/p TDC on 06/13 HD received today. Cont HD TTS sked. Pending outpatient dialysis chair time arrangement 2. Hypertension, controlled. Continue current treatment. Avoid SULEMAN inhibitor or ARB given the acute kidney injury. 3. Infected hand status post debridement. Continue current antibiotic. Surgery following 4. Pseudohyponatremia. BS control 5. Anemia of chronic disease Monitor H/H transfuse if Hb <7.0 Epogen TTS
--- NOTE | 2022-06-18 14:10 | P.PN ---
Date of Service: 06/18/22 Subjective: no acute events overnight no new/ worsening symptoms waiting for surgery - Monday ROS: 10 point ROS as noted above, otherwise negative Physical Exam General: Alert, NAD Respiratory: Clear to auscultation bilaterally, Normal air movement Cardiovascular: No edema, Regular rate/rhythm Gastrointestinal: Soft and benign, Non-distended, No tenderness Integumentary: R hand: dressing in place, c/d/i, moves fingers, intact sensation distally Problem List R hand cellulitis / tenosynovitis s/p I&D renal failure, now requiring HD, ATN secondary to acute infection IDDM2 HTN Right hand cellulitis/tenosynovitis s/p I&D multiple times, most recent 06/14. Dr. Pérez is planning secondary wound closure Monday Wound culture grew MSSA received ~2 weeks of vanc/merrem dc'd merrem 06/16, monitor on vancomycin, discussed with ID anticipate prolonged antibiotic course -2 weeks vanc with HD on discharge Pain management as needed with opioids. Avoid NSAIDs. Tetanus shot given. AGUSTO, now requiring HD nephrotic range proteinuria. AGUSTO secondary to ATN, infection; did receive vanc/zosyn as well pt took advil and ketorolac PO at home over last week prior to admission; Avoid NSAIDs nephrology is following renal u/s ok poon catheter inserted 06/05 for accurate i/o's, r/o obstruction; no evidence of obstruction; dc'd poon in AM 06/16; voiding without issue Temporary dialysis catheter inserted initially, now s/p tunneled cath placement 06/13 Social service assisting with arrangement for outpatient dialysis. IDDM2 Continue long-acting insulin and insulin sliding scale. Titrate long-acting insulin to keep blood glucose less than 200. Hypertension Continue current antihypertensives. Code: full Dispo: home, Monday/Monday anticipate prolonged antibiotic course - 2 weeks vanc with HD on discharge can be done at dialysis center Time Spent Managing Pts Care (In Minutes): 25
[2022-06-18] MEDS: HYDROCODONE/APAP 5/325 MG TAB PO PRN (16:23)
[2022-06-18] MEDS: MORPHINE 2 MG/ML SYR IV PRN ×2 (17:38→21:48)
[2022-06-18] MEDS: VANCOMYCIN 1 GM in NA CHLORIDE 0.9% 250 ML IVPB SCH (20:17)
[2022-06-18] MEDS: INSULIN GLARGINE 100 UNIT/ML SQ SCH (21:46)
[2022-06-19 04:32] LABS: Absolute Lymphocytes (CBC) 0.7 K/uL (0.7-4.9); Hematocrit 28.7 % (39.6-49.0); Lymphocytes % 20.1 % (15.3-44.8); MCV 82.4 fL (80-100); MPV 7.4 fL (7.6-11.3); RBC Red Blood Cell Count 3.48 M/uL (4.33-5.43)
[2022-06-19 04:50] LABS: Albumin 2.2 g/dL (3.4-5.0); Phosphorus 4.2 mg/dL (2.5-4.9); Potassium 4.1 mmol/L (3.5-5.1)
--- NOTE | 2022-06-19 07:14 | P.PN ---
Date of Service: 06/19/22 Subjective: no acute events overnight no new/ worsening symptoms awaiting for OR tomorrow ROS: 10 point ROS as noted above, otherwise negative Physical Exam General: Alert, NAD Respiratory: Clear to auscultation bilaterally, Normal air movement Cardiovascular: No edema, Regular rate/rhythm Gastrointestinal: Soft and benign, Non-distended, No tenderness Integumentary: R hand: dressing in place, c/d/i, moves fingers, intact sensation distally Problem List R hand cellulitis / tenosynovitis s/p I&D renal failure, now requiring HD, ATN secondary to acute infection IDDM2 HTN Right hand cellulitis/tenosynovitis s/p I&D multiple times, most recent 06/14. Dr. Pérez is planning secondary wound closure Monday Wound culture grew MSSA received ~2 weeks of vanc/merrem dc'd merrem 06/16, monitor on vancomycin, discussed with ID anticipate prolonged antibiotic course -2 weeks vanc with HD on discharge Pain management as needed with opioids. Avoid NSAIDs. Tetanus shot given. AGUSTO, now requiring HD nephrotic range proteinuria. AGUSTO secondary to ATN, infection; did receive vanc/zosyn as well pt took advil and ketorolac PO at home over last week prior to admission; Avoid NSAIDs nephrology is following renal u/s ok biopsy results expected ~06/20 poon catheter inserted 06/05 for accurate i/o's, r/o obstruction; no evidence of obstruction; dc'd poon in AM 06/16; voiding without issue Temporary dialysis catheter inserted initially, now s/p tunneled cath placement 06/13 Social service assisting with arrangement for outpatient dialysis. IDDM2 Continue long-acting insulin and insulin sliding scale. Titrate long-acting insulin to keep blood glucose less than 200. Hypertension Continue current antihypertensives. Code: full Dispo: home, Monday/Monday will need prolonged antibiotic course - 2 weeks vanc with HD on discharge can be done at dialysis center Time Spent Managing Pts Care (In Minutes): 25
[2022-06-19] MEDS: INSULIN -REGULAR HUMAN 50 UNIT/0.5 ML ML SQ SCH ×4 (07:30→21:00)
[2022-06-19] MEDS: CALCIUM CARBONATE CHEW 500MG TAB PO SCH ×3 (08:08→16:05)
[2022-06-19] MEDS: HYDRALAZINE HCL 25 MG TABLET PO SCH ×3 (08:08→22:16)
[2022-06-19] MEDS: AMLODIPINE 10 MG TAB PO SCH (08:08)
[2022-06-19] MEDS: carvediloL 6.25 MG TAB PO SCH ×2 (08:08→16:05)
--- NOTE | 2022-06-19 08:08 | P.PN ---
Subjective Date of Service: 06/19/22 Chief Complaint: R hand abscess, tenosynovitis Subjective: No new changes Physical Examination - Vital Signs Temperature: 97.2 F Blood Pressure: 163/90 Pulse: 68 Respirations: 16 Pulse Ox (%): 98 - Physical Exam General: In no apparent distress HEENT: Atraumatic, Normocephalic Neck: Supple Respiratory: Clear to auscultation bilaterally Cardiovascular: No rubs, No murmurs Gastrointestinal: Soft and benign, No guarding Musculoskeletal: No clubbing, Other (+R hand wound dressing) Integumentary: No warmth Neurological: Normal speech, Normal tone Urinary: Other (No bladder distention) External genitalia: Deferred Rectal: Deferred Assessment And Plan - Plan 1. Acute kidney injury secondary to toxic acute tubular necrosis secondary to infection. Serology W/U so far negative , pending ANCA and SPEP S/P renal biopsy on 06/06, sent to [facility], result pending, f/u Monday Started on HD on 06/10 S/p TDC on 06/13 HD received yesterday. No acute indication for HD today. Cont HD TTS sked. Pending outpatient dialysis chair time arrangement 2. Hypertension, controlled. Continue current treatment. Avoid SULEMAN inhibitor or ARB given the acute kidney injury. 3. Infected hand status post debridement. Continue current antibiotic. Surgery following 4. Pseudohyponatremia. BS control 5. Anemia of chronic disease Monitor H/H transfuse if Hb <7.0 Epogen TTS
[2022-06-19] MEDS: SODIUM HYPOCHLORITE 0.25% 473 ML TOP SCH ×2 (08:09→21:00)
[2022-06-19] MEDS: HYDROCODONE/APAP 5/325 MG TAB PO PRN ×2 (13:40→22:20)
[2022-06-19] MEDS: MORPHINE 2 MG/ML SYR IV PRN (14:56)
[2022-06-19] MEDS: INSULIN GLARGINE 100 UNIT/ML SQ SCH (22:15)
[2022-06-20 05:23] LABS: Hematocrit 30.2 % (39.6-49.0); MCV 82.3 fL (80-100); MPV 7.2 fL (7.6-11.3); RBC Red Blood Cell Count 3.67 M/uL (4.33-5.43)
[2022-06-20 05:36] LABS: Potassium 4.2 mmol/L (3.5-5.1)
[2022-06-20] MEDS: INSULIN -REGULAR HUMAN 50 UNIT/0.5 ML ML SQ SCH ×4 (07:30→20:26)
[2022-06-20] MEDS: carvediloL 6.25 MG TAB PO SCH ×2 (08:00→16:29)
[2022-06-20] MEDS: CALCIUM CARBONATE CHEW 500MG TAB PO SCH ×3 (08:36→16:29)
[2022-06-20] MEDS: NA CHLORIDE 0.9% 500 ML ONE ×2 (08:55→09:00)
[2022-06-20] MEDS: SODIUM HYPOCHLORITE 0.25% 473 ML TOP SCH ×2 (08:56→20:26)
[2022-06-20] MEDS: HYDRALAZINE HCL 25 MG TABLET PO SCH ×3 (08:56→20:24)
[2022-06-20] MEDS: AMLODIPINE 10 MG TAB PO SCH (08:57)
[2022-06-20] MEDS ORDERED: MIDAZOLAM HCL 2 MG/2 ML INJ ONE (09:08)
[2022-06-20] MEDS ORDERED: FENTANYL CITR 100 MCG/2 ML ONE (09:08)
[2022-06-20] MEDS ORDERED: LIDOCAINE 1% MPF 5 ML VIAL ONE (09:08)
[2022-06-20] MEDS ORDERED: dexAMETHasone 10 MG/ML VIAL ONE (09:08)
[2022-06-20] MEDS ORDERED: EPINEPHRINE/PF 1 MG/ML AMP ONE (09:09)
[2022-06-20] MEDS ORDERED: SODIUM HYPOCHLORITE 0.25% 473 ML ONE (09:15)
[2022-06-20] MEDS ORDERED: KETAMINE HCL 500 MG/5 ML VIAL ONE (09:41)
[2022-06-20] MEDS ORDERED: propofoL 200 MG/20 ML VIAL IV ONE (09:41)
[2022-06-20] MEDS ORDERED: KETOROLAC 30 MG/ML INJ ONE (09:41)
[2022-06-20] MEDS ORDERED: LIDOCAINE 2% MPF 5 ML VIAL ONE (09:41)
[2022-06-20] MEDS ORDERED: ONDANSETRON 4 MG/2 ML VIAL ONE (09:41)
--- NOTE | 2022-06-20 10:51 | PN ---
Subjective: The patient lying in bed. No new complaints. Denies any headache, nausea, vomiting, ch est pain, abdominal pain, constipation, or diarrhea. Objective: Vital Signs: Reviewed. Lungs: Basal crackles. Heart: S1, S2, regular. Abdomen: Soft, nontender. Bowel sounds present. Extremities: Trace edema. Patient currently on vancomycin. Assessment And Plan: Right hand cellulitis with Staph infection. Postsurgical wound improving. Acu te renal failure, on dialysis with good urine output. We will follow the patient as needed. NF/MODL Voice ID: [id number] Report ID: [id number]
--- NOTE | 2022-06-20 14:26 | OP ---
Surgeon: Fahad Pérez MD Preoperative Diagnosis: Open wound, right hand. Postoperative Diagnosis: Open wound, right hand. Procedure Performed: Debridement of skin and subcutaneous tissue, closure 25 cm. Anesthesia: General. Procedure In Detail: After satisfactory induction of general anesthesia, the right hand was prepped with Betadine scrub and paint. Dry sterile drapes were placed in usual manner. The open wounds on t he palm extended from all the way to the thumb and index webspace and another incision ove r the thumb side. Skin and subcu tissue were debrided with forceps and tenotomy scissors. Wound was curetted, scrubbed with Betadine scrub brush, jet lavage irrigated with 3 L of dilute Bet adine solution. Then, the wound was approximated by advancing the flaps, closed with 3-0 Prolene paresh tical mattress for mattress of simple sutures. Portion of the wound was still left open for drainage . Dressed with Xeroform and Kerlix. Patient tolerated the procedure well, returned to the recovery. EMILY/JOHNATHAN Voice ID: [id number] Report ID: [id number]
--- NOTE | 2022-06-20 14:57 | PN ---
Subjective: Patient is lying in bed, no new acute event. Had surgical treatment done today with karina sing of 3/4 of his wound on his hand leaving the thumb area open. Objective: Vital Signs: Temperature 97, pulse 56, respirations 18, blood pressure 136/78. Lungs: Basal crackles. Heart: S1, S2. Regular. Abdomen: Soft, nontender. Bowel sounds present. Extremities: No edema. Laboratory Data: WBC 3.2, hemoglobin 10, platelets are 247. Patient is currently on vancomycin. Assessment And Plan: End-stage renal disease in a diabetic patient, leukopenia, and anemia of chroni c disease. Continue vancomycin. Monitor patient for signs of infection and wound care as per our little rgical team. We will follow the patient closely. NF/MODL Voice ID: [id number] Report ID: [id number]
[2022-06-20] MEDS: HYDROCODONE/APAP 5/325 MG TAB PO PRN ×2 (16:34→22:08)
--- NOTE | 2022-06-20 17:13 | P.PN ---
Date of Service: 06/20/22 Subjective: no acute events overnight OR today with closure of most of his wound ROS: 10 point ROS as noted above, otherwise negative Physical Exam General: Alert, NAD Respiratory: Clear to auscultation bilaterally, Normal air movement Cardiovascular: No edema, Regular rate/rhythm Gastrointestinal: Soft and benign, Non-distended, No tenderness Integumentary: R hand: dressing in place, c/d/i, moves fingers, intact sensation distally Problem List R hand tenosynovitis s/p I&D renal failure, now requiring HD, ATN secondary to acute infection IDDM2 HTN Right hand tenosynovitis s/p I&D multiple times, most recent 06/20 - closed most of wound on 06/20, planning to go back to OR on for fianl closure Wound culture grew MSSA received ~2 weeks of vanc/merrem dc'd merrem 06/16, monitor on vancomycin, discussed with ID anticipate prolonged antibiotic course -2 weeks vanc with HD on discharge; WBC remains low, ID recommends dc Vanc; continue to monitor Tetanus shot given. AGUSTO, now requiring HD nephrotic range proteinuria. AGUSTO secondary to ATN, infection; did receive vanc/zosyn as well pt took advil and ketorolac PO at home over last week prior to admission; Avoid NSAIDs nephrology is following renal u/s ok biopsy results expected ~06/20 poon catheter inserted 06/05 for accurate i/o's, r/o obstruction; no evidence of obstruction; dc'd poon in AM 06/16; voiding without issue Temporary dialysis catheter inserted initially, now s/p tunneled cath placement 06/13 Social service assisting with arrangement for outpatient dialysis. IDDM2 Continue long-acting insulin and insulin sliding scale. Titrate long-acting insulin to keep blood glucose less than 200. Hypertension Continue current antihypertensives. Code: full Dispo: home, no chair time set up yet Time Spent Managing Pts Care (In Minutes): 25
[2022-06-20] MEDS: INSULIN GLARGINE 100 UNIT/ML SQ SCH (20:26)
--- NOTE | 2022-06-21 01:11 | PN ---
Date of Progress Note: 06/20/2022 Chief Complaint: Acute kidney injury secondary to severe ATN in setting of infection. Subjective: Patient was found to have right hand abscess and tenosynovitis and underwent incision an d drainage and had plastic surgery. Review of Systems: Denies fever or chills. Physical Examination: Lungs: Clear to auscultation bilaterally. Heart: S1, S2. Abdomen: Soft, benign. Extremities: Slight edema. Impression And Plan: 1.Acute kidney injury secondary to acute tubular necrosis in setting of severe sepsis and infection. Patient had workup done to rule out nephritis. ANCA and serum protein electrophoresis are pending. The patient underwent renal biopsy on June 06 and results are pending. The patient was start ed on dialysis on June 10. Continue dialysis. Currently patient has a tunneled dialysis tyrone ter, which was placed on June 13. Previously, he underwent dialysis via temporary dialysis cat heter. Monitor blood culture. 2.Hypertension controlled. Avoid SULEMAN inhibitor and angiotensin receptor francis in view of acute ki dney injury. 3.Infected hand status post debridement. Continue antibiotics. Wound care per Plastic Surgery. 4.Hyperglycemia. Diabetes mellitus. Per primary team. 5.Anemia in chronic kidney disease. Continue LUIS FERNANDO. 6.Acute kidney injury. Patient likely has advanced chronic kidney disease. Pending workup to rule out nephritis. Currently, patient is dialysis dependent. Continue dialysis 3 times per week. LUIS FERNANDO/JAYEL Voice ID: [id number] Report ID: [id number]
[2022-06-21] MEDS: HYDROCODONE/APAP 5/325 MG TAB PO PRN ×2 (05:37→15:18)
[2022-06-21] MEDS: INSULIN -REGULAR HUMAN 50 UNIT/0.5 ML ML SQ SCH ×4 (07:30→21:00)
[2022-06-21] MEDS: carvediloL 6.25 MG TAB PO SCH ×2 (08:00→17:22)
[2022-06-21] MEDS: HYDRALAZINE HCL 25 MG TABLET PO SCH ×3 (09:00→21:00)
[2022-06-21] MEDS: AMLODIPINE 10 MG TAB PO SCH (09:00)
[2022-06-21] MEDS: SODIUM HYPOCHLORITE 0.25% 473 ML TOP SCH ×2 (09:56→21:00)
[2022-06-21] MEDS: CALCIUM CARBONATE CHEW 500MG TAB PO SCH ×3 (09:57→17:22)
[2022-06-21] MEDS: EPOETIN 4,000 UNIT/ML VIAL IV SCH (13:00)
--- NOTE | 2022-06-21 16:28 | P.PN ---
Subjective Date of Service: 06/21/22 Chief Complaint: R hand abscess, tenosynovitis Patient has no new complaint. He underwent hemodialysis today. Physical Examination - Vital Signs Temperature: 97.9 F Blood Pressure: 122/78 Pulse: 62 Respirations: 18 Pulse Ox (%): 97 Assessment And Plan - Plan Physical Exam General: Alert, NAD Respiratory: Clear to auscultation bilaterally, Normal air movement Cardiovascular: No edema, Regular rate/rhythm Gastrointestinal: Soft and benign, Non-distended, No tenderness Integumentary: R hand: dressing in place, moves all fingers. Problem List R hand tenosynovitis s/p I&D renal failure, now requiring HD, ATN secondary to acute infection IDDM2 HTN Right hand tenosynovitis s/p I&D multiple times, most recent 06/20 - closed most of wound on 06/20, planning to go back to OR on for final closure Wound culture grew MSSA received ~2 weeks of vanc/merrem dc'd merrem 06/16, ID is following. Vancomycin also discontinued. continue to monitor Tetanus shot given. AGUSTO, now requiring HD nephrotic range proteinuria. AGUSTO secondary to ATN, infection; did receive vanc/zosyn as well pt took advil and ketorolac PO. Avoid NSAIDs nephrology is following renal u/s ok Renal biopsy: Diabetic glomerulopathy. Fowler catheter discontinued. Dialysis catheter access. Patient now has an outpatient dialysis seat IDDM2 Continue long-acting insulin and insulin sliding scale. Titrate long-acting insulin to keep blood glucose less than 200. Hypertension Continue current antihypertensives. Code: full Dispo: home. Time Spent Managing Pts Care (In Minutes): 27
--- NOTE | 2022-06-21 19:27 | PN ---
Date of Progress Note: 06/21/2022 Subjective: The patient was admitted with acute kidney injury, infected hand. The patient had multiple debridements on his hand. Patient recovered. His acute kidney injury was unknown etiology after biopsy confirmed it as ATN. No autoimmune disease. The patient was initiated on dialysis. The patient tolerated the dialysis very well. The patient waiting for placement. Physical Examination: Vital Signs: Blood pressure 122/78, pulse of 62, afebrile. Chest: Clear to auscultation. Heart: S1, S2 regular. Abdomen: Soft, nontender. Extremities: Dressing on the right and no edema. Laboratory Data: Hemoglobin 10. Sodium 137, potassium 4.2, bicarb 28, BUN 43, creatinine 4.5. Calcium 8.5, magnesium of 2. Current Medications: The patient on include: 1. Heparin. 2. Epogen. 3. Amlodipine 10 mg. 4. Carvedilol 6.5. 5. Hydralazine 25 t.i.d. Assessment And Plan: 1. Acute kidney injury secondary to acute tubular necrosis, still 3 dialysis. Creatinine is elevated, but it is much better range than before, now it is around 4. I am going to continue the dialysis Monday, Monday, Monday, and we will follow up the patient. The patient is going to be scheduled for TTS. For that reason, I am going to switch him to TTS. We will arrange for the dialysis . 2. Hypertension, controlled, optimal. 3. Secondary hyperparathyroid, stable. Continue current treatment. 4. Hand cellulitis, status post debridement. Will follow up with Hand surgery. Time spent examining the patient [id number], reviewing data, lab and radiology, discussing the case with the patient, discussing the case with rehabilitation team lead including nursing and hospitalist more than 35 minutes MARYLU Voice ID: [id number] Report ID: [id number] REMI
[2022-06-21] MEDS: INSULIN GLARGINE 100 UNIT/ML SQ SCH (21:06)
[2022-06-22] MEDS: HYDROCODONE/APAP 5/325 MG TAB PO PRN ×3 (03:34→21:55)
[2022-06-22] MEDS: INSULIN -REGULAR HUMAN 50 UNIT/0.5 ML ML SQ SCH ×4 (07:30→21:00)
[2022-06-22] MEDS: HYDRALAZINE HCL 25 MG TABLET PO SCH ×3 (09:36→21:54)
[2022-06-22] MEDS: CALCIUM CARBONATE CHEW 500MG TAB PO SCH ×3 (09:36→16:30)
[2022-06-22] MEDS: AMLODIPINE 10 MG TAB PO SCH (09:36)
[2022-06-22] MEDS: carvediloL 6.25 MG TAB PO SCH ×2 (09:37→16:38)
[2022-06-22] MEDS: SODIUM HYPOCHLORITE 0.25% 473 ML TOP SCH ×2 (09:38→21:57)
--- NOTE | 2022-06-22 14:37 | P.PN ---
Subjective Date of Service: 06/22/22 Chief Complaint: R hand abscess, tenosynovitis Patient has no new complaint. No changes from yesterday. Physical Examination - Vital Signs Temperature: 97.1 F Blood Pressure: 114/67 Pulse: 64 Respirations: 18 Pulse Ox (%): 96 Assessment And Plan - Plan Physical Exam General: Alert, NAD Respiratory: Clear to auscultation bilaterally, Normal air movement Cardiovascular: No edema, Regular rate/rhythm Gastrointestinal: Soft and benign, Non-distended, No tenderness Integumentary: R hand: dressing in place, moves all fingers. Problem List R hand tenosynovitis s/p I&D renal failure, now requiring HD, ATN secondary to acute infection IDDM2 HTN Right hand tenosynovitis s/p I&D multiple times, most recent 06/20 - closed most of wound on 06/20, planning to go back to OR tomorrow for final closure Wound culture grew MSSA received ~2 weeks of vanc/merrem dc'd merrem 06/16, ID is following. Vancomycin also discontinued per ID recommendation. continue to monitor Tetanus shot given. AGUSTO, now requiring HD nephrotic range proteinuria. AGUSTO secondary to ATN, infection; did receive vanc/zosyn as well pt took advil and ketorolac PO. nephrology is following renal u/s ok Renal biopsy: Diabetic glomerulopathy. Fowler catheter discontinued. Avoid NSAIDs. Permanent dialysis catheter access placed. Patient now has an outpatient dialysis seat IDDM2 Continue long-acting insulin and insulin sliding scale. Titrate long-acting insulin to keep blood glucose less than 200. Hypertension Continue current antihypertensives. Code: full Dispo: home. Time Spent Managing Pts Care (In Minutes): 19
--- NOTE | 2022-06-22 16:54 | PN ---
Date of Progress Note: 06/22/2022 Subjective: The patient was admitted with acute kidney injury, infected hand. The patient had a kidney biopsy, showed ATN. The patient was initiated on dialysis. Physical Examination: Vital Signs: Blood pressure 114/67, pulse of 64. Chest: Clear to auscultation. Heart: S1, S2. Regular. Abdomen: Soft, nontender. Extremity: No edema. Dressing on the right hand. Neurological: Alert, oriented x3. No focal. No tremor. Laboratory Data: Hemoglobin 10, WBC 3.2. Sodium 137, potassium 4.2, bicarb 28, BUN 43, creatinine 4.5, GFR of 15, calcium 8.5. Current Medications: The patient on include heparin, Epogen, calcium, amlodipine 10 mg, carvedilol 6.25 b.i.d., hydralazine 25 t.i.d., insulin. Assessment And Plan: 1. Acute kidney injury secondary to ATN supported with finding on the biopsy. We will continue the patient on dialysis. The patient is going to be scheduled for dialysis tomorrow and we will follow up the patient. Also, we will continue to monitor for recovery supported with biopsy finding. 2. Hypertension, controlled, optimal. Continue current medication. 3. Anemia of chronic kidney disease. Continue LUIS FERNANDO. 4. Secondary hyperparathyroidism, stable. Responded to current binder doses. 5. Hand infection. Continue current treatment. Follow up with ID and Surgery. Plan for closing tomorrow with Hand Surgery. Time spent examining the patient [id number], reviewing data, lab and radiology, discussing the case with the patient, discussing the case with team leader surgery including nursing and hospitalist more than 35 minutes MARYLU Voice ID: [id number] Report ID: [id number] REMI
--- NOTE | 2022-06-22 17:06 | PN ---
Subjective: Patient is lying in bed. Denies any chest pain, abdominal pain, constipation, or diarrh ea. Objective: Vital Signs: Temperature 97, pulse 77, respirations 16, blood pressure 114/67. Lungs: Basal crackles. Heart: S1, S2. Regular. Abdomen: Soft, nontender. Bowel sounds present. Extremities: Right hand surgical wound noted. Laboratory Data: Reviewed. Assessment And Plan: Right hand cellulitis, status post surgical wound debridement, partial closure. Patient is doing well. Continue Xeroform. Continue current treatment. Repeat CBC with dialysis t omorrow to monitor the blood count. We will follow patient closely. NF/MODL Voice ID: [id number] Report ID: [id number]
[2022-06-22] MEDS: INSULIN GLARGINE 100 UNIT/ML SQ SCH (21:00)
[2022-06-23 04:20] LABS: Albumin 2.5 g/dL (3.4-5.0); Phosphorus 4.8 mg/dL (2.5-4.9)
[2022-06-23] MEDS: INSULIN -REGULAR HUMAN 50 UNIT/0.5 ML ML SQ SCH ×3 (07:30→16:06)
[2022-06-23] MEDS: CALCIUM CARBONATE CHEW 500MG TAB PO SCH ×3 (07:30→16:06)
[2022-06-23] MEDS: carvediloL 6.25 MG TAB PO SCH (08:00)
[2022-06-23] MEDS: HYDRALAZINE HCL 25 MG TABLET PO SCH (08:11)
[2022-06-23] MEDS: AMLODIPINE 10 MG TAB PO SCH (08:12)
[2022-06-23] MEDS: SODIUM HYPOCHLORITE 0.25% 473 ML TOP SCH (08:12)
[2022-06-23] MEDS ORDERED: NA CHLORIDE 0.9% 500 ML ONE (08:19)
[2022-06-23] MEDS ORDERED: propofoL 200 MG/20 ML VIAL IV ONE (08:37)
[2022-06-23] MEDS ORDERED: MIDAZOLAM HCL 2 MG/2 ML INJ ONE (08:37)
[2022-06-23] MEDS ORDERED: FENTANYL CITR 100 MCG/2 ML ONE (08:38)
[2022-06-23] MEDS ORDERED: ONDANSETRON 4 MG/2 ML VIAL ONE (08:38)
[2022-06-23] MEDS ORDERED: LIDOCAINE 2% MPF 5 ML VIAL ONE (08:38)
[2022-06-23] MEDS: HYDROMORPHONE HCL 2 MG/ML inj ONE ×6 (10:09→10:24)
[2022-06-23] MEDS: FENTANYL CITR 100 MCG/2 ML ONE ×3 (10:32→10:40)
[2022-06-23] MEDS ORDERED: MEPERIDINE HCL 25 MG/ML SYR ONE ×2 (10:53→10:58)
[2022-06-23 11:00] VITALS: O2SAT 96
--- NOTE | 2022-06-23 12:05 | OP ---
Surgeon: Fahad Pérez MD Preoperative Diagnosis: Open wounds of the right hand. Postoperative Diagnosis: Open wounds of the right hand. Procedure Performed: Debridement of skin and subcutaneous tissue, closure of 27 cm wounds. Anesthesia: General. Description Of Procedure: After satisfactory induction of general anesthesia, the right hand was pre pped with Betadine scrub and Betadine paint. Dry sterile drapes were applied in the usual manner. H and placed on roll lock table. Sutures removed from previous partial closure and then wound was cure tted, scrubbed with Betadine scrub brush, jet lavaged, irrigated with 3 L of dilute Betadine solution . Electrocautery was used for hemostasis. Wound was closed with vertical mattress, horizontal mattr ess everting skin edges, and this was done for the long wound over the palm and also the wound over t he thenar area, dressed with Xeroform and Kerlix. Patient tolerated the procedure well and returned to Recovery. MEILY/JOHNATHAN Voice ID: [id number] Report ID: [id number]
[2022-06-23 13:07] VITALS: BP 92/68; TEMP 96.6
[2022-06-23] MEDS ORDERED: carvediloL 3.125 MG TAB PO SCH (17:00)
--- NOTE | 2022-06-23 17:52 | P.DS ---
Admission Date: 06/02/22 Discharge Date: 06/23/22 Disposition: ROUTINE DISCHARGE Discharge Condition: FAIR Reason for Admission: R hand abscess, tenosynovitis Brief History of Present Illness: 56yo M, PMH: IDDM2, HTN presented to the ED due to worsening right hand pain, erythema over 2 weeks. He stated it started as blister from using a hydraulic farhana hammer, he took keflex for 3 days with no improvement. Patient noted to be hyperglycemic in ED with significant pain and swelling of right hand, concerning for tenosynovitis. Dr. Pérez was consulted by ED who recommended surgery. Patient was hospitalized for further management. Hospital Course: Diagnosis R hand tenosynovitis s/p I&D renal failure, now requiring HD, ATN secondary to acute infection IDDM2 HTN Right hand tenosynovitis s/p I&D multiple times, most recent 06/20, secondary wound closure done on 06/20, and 06/23. Wound culture grew MSSA. Patient seen by ID received ~2 weeks of vanc/merrem. Antibiotics discontinued and patient monitored. Wound continued to improve Tetanus shot given. Patient advised to keep his hand clean. Patient informed to follow-up with Dr. Pérez next week Monday. AGUSTO, requiring HD nephrotic range proteinuria. AGUSTO secondary to ATN, infection; did receive vanc/zosyn as well pt took advil and ketorolac PO prior to presentation. Seen by nephrology renal u/s ak Renal biopsy: Diabetic glomerulopathy. Fowler catheter was inserted and later discontinued. Permanent dialysis catheter placed. Patient outpatient dialysis seat. Nephrology plan to continue outpatient dialysis. IDDM2 Noncompliant Diabetes was treated with long-acting insulin and insulin sliding scale. He was treated with 15 units Lantus insulin which overall kept his blood sugar under control. Hypertension Continude home antihypertensives. Vital Signs/Physical Exam: Temp Pulse Resp BP Pulse Ox 96.6 F L 69 16 92/68 94 06/23/22 12:00 06/23/22 12:00 06/23/22 12:00 06/23/22 12:00 06/23/22 12:00 Laboratory Data at Discharge: WBC 3.20 K/uL (4.3-10.9) L 06/20/22 05:07 Hgb 10.0 g/dL (13.6-17.9) L 06/20/22 05:07 Hct 30.2 % (39.6-49.0) L 06/20/22 05:07 Plt Count 247 K/uL (152-406) 06/20/22 05:07 PT 12.5 SECONDS (9.5-12.5) 06/08/22 06:08 INR 1.14 06/08/22 06:08 APTT 29.3 SECONDS (24.3-36.9) 06/06/22 05:33 Sodium 137 mmol/L (136-145) 06/23/22 03:31 Potassium 4.0 mmol/L (3.5-5.1) 06/23/22 03:31 BUN 49 mg/dL (7-18) H 06/23/22 03:31 Creatinine 4.69 mg/dL (0.55-1.3) H 06/23/22 03:31 Glucose 110 mg/dL (74-106) H 06/23/22 03:31 Uric Acid 7.2 mg/dL (3.5-7.2) 06/05/22 03:23 Phosphorus 4.8 mg/dL (2.5-4.9) 06/23/22 03:31 Magnesium 2.0 mg/dL (1.8-2.4) 06/20/22 05:07 Total Bilirubin 0.5 mg/dL (0.2-1.0) 06/03/22 03:39 AST 6 U/L (15-37) L 06/03/22 03:39 ALT 11 U/L (12-78) L 06/03/22 03:39 Alkaline Phosphatase 79 U/L (45-117) 06/03/22 03:39 Home Medications: Alcohol Antiseptic Pads [Alcohol Prep Pads] 1 each TP TID #1 box 06/23/22 Blood Sugar Diagnostic [Blood Glucose Test Strip] 1 each MC TID #90 strip 06/23/22 Blood-Glucose Meter [Blood Glucose Monitoring] 1 each MC TID #1 kit 06/23/22 Epoetin [Retacrit] 3,000 unit IV EVERY HD vial 06/23/22 Heparin [Heparin 1,000 units/mL *] 3,000 unit IV EVERY HD PRN vial 06/23/22 Heparin [Heparin 1,000 units/mL *] 4,000 unit IV EVERY HD PRN vial 06/23/22 Hydrocodone 5/APAP 325 [[place] 5/325*] 1 tab PO Q6H PRN #20 tab 06/23/22 Insulin Glargine,Hum.rec.anlog [Lantus Solostar] 15 unit SQ DAILY #15 ml 06/23/22 Syring-Needl,Disp,Insul,0.3 ml [Insulin Syringe] 1 each MC DAILY #1 box 06/23/22 carvediloL [Coreg*] 3.125 mg PO BIDWM #60 tab 06/23/22 New Medications: Alcohol Antiseptic Pads [Alcohol Prep Pads] 1 each TP TID #1 box Blood-Glucose Meter [Blood Glucose Monitoring] 1 each MC TID #1 kit Blood Sugar Diagnostic [Blood Glucose Test Strip] 1 each MC TID #90 strip carvediloL [Coreg*] 3.125 mg PO BIDWM #60 tab Syring-Needl,Disp,Insul,0.3 ml [Insulin Syringe] 1 each MC DAILY #1 box Insulin Glargine,Hum.rec.anlog [Lantus Solostar] 15 unit SQ DAILY #15 ml Hydrocodone 5/APAP 325 [[place] 5/325*] 1 tab PO Q6H PRN #20 tab PRN Reason: Pain Scale 5-7 (Moderate) Diet: ADA Activity: Ad césar Followup: Fahad Pérez MD [ACTIVE - CAN ADMIT] - (Monday 9AM at [place] Office Call [phone]) OOT,OOT [Primary Care Provider] - Time spent managing pt's care (in minutes): 42
--- NOTE | 2022-06-23 19:06 | PN ---
Date of Progress Note: 06/23/2022 Subjective: Patient was admitted with infection in the hand, developed acute kidney injury secondary to toxic ATN confirmed with kidney biopsy. Patient required initiating renal replacement therapy. Patient seen on dialysis today. The patient being dialyzed through right IJ PermCath. Physical Examination: Vital Signs: Blood pressure 105/65, pulse of 70, afebrile. Chest: Clear to auscultation. Heart: S1, S2. Regular. Abdomen: Soft, nontender. Extremities: Right IJ PermCath. The dressing on the right hand. No edema. Neurologic: Alert. No focality. Laboratory Data: Hemoglobin 10, sodium 137, potassium 4, bicarb 28, BUN 49, creatinine 4.6, calcium 8.2, phosphorous 4.8. Current Medications: The patient on, include: 1. Epogen. 2. Calcium carbonate. 3. Carvedilol 3.125 b.i.d. 4. Tylenol. 5. Zofran. 6. Insulin. Assessment And Plan: 1. Acute kidney injury secondary to ATN. Still dialysis dependent. We will continue dialysis 3 times a week and we will monitor. 2. Hypertension. Currently blood pressure on the lower side. Discontinue amlodipine, discontinue hydralazine and we will monitor the patient. Decrease carvedilol to 3.125. 3. Hyponatremia, dilutional, will be corrected with dialysis. 4. Hypokalemia, will be corrected with dialysis. 5. Acute tubular necrosis, confirmed with biopsy. We will monitor for recovery. 6. Hand infection. We will follow up with Surgery, status post closing today. Time spent examining the patient [id number], reviewing data, lab and radiology, discussing the case with the patient, discussing the case with steam plant operator including nursing and hospitalist more than 35 minutes MARYLU Voice ID: [id number] Report ID: [id number] REMI
== END 2022-06-23 17:48 | disposition home or self-care (01) | DRG 987 ==
LOC: ER 08:01 → ERHOLD 13:08 → 4TH 13:56 → 2ND 06-04 16:25
PROVIDERS: ADMIT Hospitalist; ATTEND Internal Medicine
PROC: 01N50ZZ Release Median Nerve, Open Approach (ICD-10-PCS; 2022-06-03)
PROC: 01N40ZZ Release Ulnar Nerve, Open Approach (ICD-10-PCS; 2022-06-03)
PROC: 0TB13ZX Excision of Left Kidney, Percutaneous Approach, Diagnostic (ICD-10-PCS; 2022-06-06)
PROC: 0JBJ0ZZ Excision of Right Hand Subcutaneous Tissue and Fascia, Open Approach (ICD-10-PCS; principal; 2022-06-07 09:00)
PROC: 0JBJ0ZZ Excision of Right Hand Subcutaneous Tissue and Fascia, Open Approach (ICD-10-PCS; 2022-06-09)
PROC: 06HY33Z Insertion of Infusion Device into Lower Vein, Percutaneous Approach (ICD-10-PCS; 2022-06-09)
PROC: 5A1D70Z Performance of Urinary Filtration, Intermittent, Less than 6 Hours Per Day (ICD-10-PCS; 2022-06-09)
PROC: 5A1D70Z Performance of Urinary Filtration, Intermittent, Less than 6 Hours Per Day (ICD-10-PCS; 2022-06-11)
PROC: 0JH63XZ Insertion of Tunneled Vascular Access Device into Chest Subcutaneous Tissue and Fascia, Percutaneous Approach (ICD-10-PCS; 2022-06-13)
PROC: 02HV33Z Insertion of Infusion Device into Superior Vena Cava, Percutaneous Approach (ICD-10-PCS; 2022-06-13)
PROC: 0JBJ0ZZ Excision of Right Hand Subcutaneous Tissue and Fascia, Open Approach (ICD-10-PCS; 2022-06-14)
PROC: 5A1D70Z Performance of Urinary Filtration, Intermittent, Less than 6 Hours Per Day (ICD-10-PCS; 2022-06-14)
PROC: 5A1D70Z Performance of Urinary Filtration, Intermittent, Less than 6 Hours Per Day (ICD-10-PCS; 2022-06-16)
PROC: 5A1D70Z Performance of Urinary Filtration, Intermittent, Less than 6 Hours Per Day (ICD-10-PCS; 2022-06-18)
PROC: 0JQJ0ZZ Repair Right Hand Subcutaneous Tissue and Fascia, Open Approach (ICD-10-PCS; 2022-06-20)
PROC: 5A1D70Z Performance of Urinary Filtration, Intermittent, Less than 6 Hours Per Day (ICD-10-PCS; 2022-06-21)
PROC: 0JQJ0ZZ Repair Right Hand Subcutaneous Tissue and Fascia, Open Approach (ICD-10-PCS; 2022-06-23)
PROC: 5A1D70Z Performance of Urinary Filtration, Intermittent, Less than 6 Hours Per Day (ICD-10-PCS; 2022-06-23)
DX: I96 Gangrene, not elsewhere classified (principal); N17.0 Acute kidney failure with tubular necrosis; N18.6 End stage renal disease; L02.511 Cutaneous abscess of right hand; E87.1 Hypo-osmolality and hyponatremia; L03.113 Cellulitis of right upper limb; E87.20 Acidosis, unspecified; I12.0 Hypertensive chronic kidney disease with stage 5 chronic kidney disease or end stage renal disease; N25.81 Secondary hyperparathyroidism of renal origin; E11.52 Type 2 diabetes mellitus with diabetic peripheral angiopathy with gangrene; M65.9 Synovitis and tenosynovitis, unspecified; E87.6 Hypokalemia; E87.5 Hyperkalemia; E83.39 Other disorders of phosphorus metabolism; E83.51 Hypocalcemia; E11.40 Type 2 diabetes mellitus with diabetic neuropathy, unspecified; E11.319 Type 2 diabetes mellitus with unspecified diabetic retinopathy without macular edema; E11.65 Type 2 diabetes mellitus with hyperglycemia; E78.5 Hyperlipidemia, unspecified; M19.90 Unspecified osteoarthritis, unspecified site; E66.01 Morbid (severe) obesity due to excess calories; D63.8 Anemia in other chronic diseases classified elsewhere; E11.22 Type 2 diabetes mellitus with diabetic chronic kidney disease; Z99.2 Dependence on renal dialysis; Z91.199 Patient's noncompliance with other medical treatment and regimen due to unspecified reason; Z20.822 Contact with and (suspected) exposure to COVID-19
CPT/HCPCS: 36415; 50200; 71045; 76000; 76770; 80048; 80053; 80069; 80202; 81001; 82550; 82553; 82570; 82947; 83036; 83520; 83735; 83970; 84132; 84156; 84165; 84300; 84443; 84550; 85025; 85027; 85610; 85652; 85730; 86021; 86038; 86140; 86160; 86225; 86317; 86334; 86335; 86430; 86704; 86706; 87040; 87070; 87075; 87077; 87186; 87205; 87340; 87389; 87522; 87811; 88108; 88300; 88304; 90471; 90714; 90935; 94760; 96365; 96366; 96375; 99285; A4216; C1752; J0171; J0360; J0690; J1100; J1170; J1644; J1815; J2001; J2175; J2185; J2250; J2270; J2310; J2405; J2543; J2704; J2795; J3010; J3370; J3480; J7030; J7040; J7050; Q5105

== ENCOUNTER 2022-08-25 07:55 | Day surgery (SDC) | payer OTHER ==
[2022-08-23 13:03] LABS: Potassium 4.5 mmol/L (3.5-5.1)
[2022-08-25] MEDS ORDERED: NA CHLORIDE 0.9% 1,000 ML ONE (08:02)
[2022-08-25] MEDS ORDERED: LIDOCAINE 1% W/EPI 1:100,000 50 ML MDV ONE (08:44)
[2022-08-25] MEDS ORDERED: FENTANYL CITR 100 MCG/2 ML ONE (08:47)
[2022-08-25] MEDS ORDERED: MIDAZOLAM HCL 2 MG/2 ML INJ ONE (08:48)
[2022-08-25] MEDS ORDERED: propofoL 200 MG/20 ML VIAL IV ONE (08:48)
[2022-08-25] MEDS ORDERED: LIDOCAINE 2% MPF 5 ML VIAL ONE (08:48)
[2022-08-25] MEDS ORDERED: ROCURONIUM 50 MG/5 ML VIAL IV ONE (08:48)
[2022-08-25] MEDS ORDERED: LIDOCAINE 1% W/EPI 1:100,000 30 ML VIAL ONE (08:51)
[2022-08-25] MEDS ORDERED: ONDANSETRON 4 MG/2 ML VIAL ONE (09:11)
[2022-08-25] MEDS ORDERED: BUPIVACAINE 0.25% PF 10 ML VIAL SQ ONE (09:13)
--- NOTE | 2022-08-25 09:28 | P.OP ---
Preoperative diagnosis: Attention to Hemodialysis Catheter Postoperative diagnosis: Attention to Hemodialysis Catheter Primary procedure: Removal of Tunnelled Hemodialysis Catheter Anesthesia: GETA + Local Estimated blood loss: <2cc Specimen: catheter for ID only Findings: no infection Complications: None Transferred to: Recovery Room Condition: Good
--- NOTE | 2022-08-25 09:43 | OP ---
Date of Procedure: 08/25/2022 Surgeon: Khadar Perry MD, Preoperative Diagnosis: Tension/no longer requires hemodialysis. Postoperative Diagnosis: Tension/no longer requires hemodialysis. Procedure Performed: Removal of tunneled hemodialysis catheter. Anesthesia: General endotracheal plus local. Estimated Blood Loss: Less than 2 cc. Specimen: Catheter for ID only. Findings: No infection. Complications: None. Disposition: The patient was transferred to the recovery room in good condition. Procedure In Detail: After informed consent was obtained, the patient brought to the operating room, prepped and draped in the usual sterile fashion after adequate anesthesia was achieved. The patient was placed in steep Trendelenburg position. I then anesthetized the tract around the cuff of the tu nneled hemodialysis catheter. At this point, sutures were removed. I then circumferentially dissect ed using primarily blunt dissection around the cuff of the catheter. I then used Metzenbaum scissors to circumferentially dissect around the cuff with the alveolar tissue. The patient remained in stee p Trendelenburg position. Using gentle traction, I delivered the cuff under the visual field and rem ariella the remaining attachments. I then pulled the catheter out and placed it on the back table to be sent for ID only. The patient was then placed in the head-up position. The wound was then copiousl y irrigated and closed with interrupted sutures of 2-0 nylon. A sterile dressing placed over top. T he patient tolerated the procedure well without evidence of complication and transferred to PACU in good condition. All counts were correct at the end of the case. JOMAR/JOHNATHAN Voice ID: [id number] Report ID: [id number]
[2022-08-25 12:21] VITALS: BP 116/77; TEMP 97.2; O2SAT 99
== END 2022-08-25 11:00 | disposition home or self-care (01) ==
LOC: OR 07:55
PROVIDERS: ATTEND Surgery
PROC: 0WPG03Z Removal of Infusion Device from Peritoneal Cavity, Open Approach (ICD-10-PCS; principal; 2022-08-25 09:30)
DX: Z49.02 Encounter for fitting and adjustment of peritoneal dialysis catheter (principal)
CPT/HCPCS: 36415; 80048; 82947; 88300; J2001; J2250; J2405; J2704; J3010; J7030

== ENCOUNTER 2023-07-06 12:55 | Inpatient (IN) | payer OTHER ==
--- OUTSIDE RECORDS SUMMARY | 2023-07-06 13:00 | XMS REPORT | Continuity of Care Document ---
Author Name Unknown Address [address] [facility] [address] [place] [address] [facility]connect Address [address] [facility] [address] [place] [address] Care Team Providers Care Calker Name Role Phone Ofelia Attending Clinician Unavailable NASIM Attending Clinician Unavailable Tiffanie Andersen Attending Clinician Unavail able Ofelia Admitting Clinician Unavailable NASIM Admitting Clinician Unavailable Payers Payer Name Policy Type Policy Number Effective Date Expirati on Date Source [facility] [id number] [employer] - CHOICE (POS II) [id number] 2020 00:00:[place] [id number] 2017 00:00:00 Problems Condition Name Condition Details Condition Category Status Onset Date Resolution Date Last Treatment Date Treating Clinician Comments Source Type 2 diabetes mellitus Type 2 Diabetes Mellitus Problem Active 2022-07 2-13 00:00: 00 [facility] Open wound of left lower leg Open Wound of Left Lower Leg Problem Active 2022-07 00:00: 00 [facility] Insulin treated type 2 diabetes mellitus Insulin Treated Type 2 Diabetes Mellitus Problem Active 2021-07 00:00: 00 [facility] Hyperlipid emia Hyperlipid emia Problem Active 2021-07 00:00: 00 [facility] Anemia of chronic disease Anemia of Chronic Disease Problem Active 2021-07 00:00: 00 [facility] Acute injury of kidney Acute Injury of Kidney Problem Active 2021-07 00:00: 00 [facility] 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 Active 2021-07 00:00: 00 [facility] 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 athy Due to Diabetes Mellitus Problem Active 2021-07 00:00: 00 [facility] Venous catheteriz ation for renal dialysis Venous Catheteriz ation for Renal Dialysis Problem Active 2021-07 00:00: 00 [facility] 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 in Adult Problem Active 2021-07 00:00: 00 [facility] Onychomyco sis of toenails Onychomyco sis of Toenails Problem Active 2020-07 00:00: 00 [facility] Tinea pedis Tinea Pedis Problem Active 2020-07 0 00:00: 00 [facility] Vitamin D deficiency Vitamin D Deficiency Problem Active 2020-07 00:00: 00 [facility] Peripheral vascular disease Peripheral Vascular Disease Problem Active 2020-07 0 00:00: 00 [facility] Eczema Eczema Problem Active 2020-07 00:00: 00 [facility] Body mass index 40+ - severely obese Body Mass Index 40+ - Severely Obese Problem Active 2020-07 0-09 00:00: 00 [facility] Chronic kidney disease stage 3A Chronic Kidney Disease Stage 3a Problem Active 4-16 00:00: 00 [facility] SARS-CoV-2 SARS-CoV-2 Problem Active 7 00:00: 00 [facility] History of herpes zoster History of Herpes Zoster Problem Active 1- 00:00: 00 [facility] Type 2 diabetes mellitus with hyperglyce ignacio Type 2 diabetes mellitus with hyperglyce ignacio Problem Active [facility] HTN (hypertens ion) HTN (hypertens ion) Problem Active [facility] Renal insufficie ncy Renal insufficie ncy Problem Active [facility] Hyperlipid emia Hyperlipid emia Problem Active [facility] BMI 40.0-44.9, adult BMI 40.0-44.9, adult Problem Active [facility] Stage 1 chronic kidney disease Stage 1 chronic kidney disease Problem Active [facility] Diabetes mellitus Diabetes Mellitus Problem Active [facility] Hypertensi ve disorder Hypertensi ve Disorder Problem Active [facility] Social History Smoking Status Start Date Stop Date Source Never Smoker [facility] Medications Ordered Medication Name Filled Medication Name Start Date Stop Date Current Medication? Ordering Clinician Indication Dosage Frequency Signature (SIG) Comments Components Source ketorolac 60 mg/2 mL intramuscul ar solutionInj ect 2 mL by intramuscul ar route one time only ketorolac 60 mg/2 mL intramuscul ar solutionInj ect 2 mL by intramuscul ar route one time only 2021-07 18:34: 07 No ketorolac 60 mg/2 mL intramuscu lar solutionIn ject 2 mL by intramuscu lar route one time only [facility] Odalis Jacobo 11-22 00:00: 00 Yes Davis Regan 30 units Common [facility] cholecalcif mildred (vitamin D3) 1,250 mcg (50,000 unit) capsule Take 1 capsule every week by oral route as directed. cholecalcif mildred (vitamin D3) 1,250 mcg (50,000 unit) capsule Take 1 capsule every week by oral route as directed. No 1capsul e(s) Q1W cholecalci ferol (vitamin D3) 1,250 mcg (50,000 unit) capsule Take 1 capsule every week by oral route as directed. [facility] ciclopirox 8 % topical solution APPLY TO THE AFFECTED AREA(S) BY TOPICAL ROUTE ONCE DAILY PREFERABLY AT BEDTIME OR 8 HOURS BEFORE WASHING ciclopirox 8 % topical solution APPLY TO THE AFFECTED AREA(S) BY TOPICAL ROUTE ONCE DAILY PREFERABLY AT BEDTIME OR 8 HOURS BEFORE WASHING No ciclopirox 8 % topical solution APPLY TO THE AFFECTED AREA(S) BY TOPICAL ROUTE ONCE DAILY PREFERABLY AT BEDTIME OR 8 HOURS BEFORE WASHING [facility] lisinopril 10 mg tablet Take 1 tablet every day by oral route in the morning. lisinopril 10 mg tablet Take 1 tablet every day by oral route in the morning. No lisinopril 10 mg tablet Take 1 tablet every day by oral route in the morning. [facility] lisinopril 20 mg tablet Take 1 tablet every day by oral route as directed. lisinopril 20 mg tablet Take 1 tablet every day by oral route as directed. No 1 Q1D lisinopril 20 mg tablet Take 1 tablet every day by oral route as directed. [facility] Ozempic 0.25 mg or 0.5 mg (2 mg/1.5 mL) subcutaneou s pen injector Inject 0.5 mg every week by subcutaneou s route as directed. Ozempic 0.25 mg or 0.5 mg (2 mg/1.5 mL) subcutaneou s pen injector Inject 0.5 mg every week by subcutaneou s route as directed. No Ozempic 0.25 mg or 0.5 mg (2 mg/1.5 mL) subcutaneo us pen injector Inject 0.5 mg every week by subcutaneo us route as directed. [facility] Ozempic 1 mg/dose (2 mg/1.5 mL) subcutaneou s pen injector Ozempic 1 mg/dose (2 mg/1.5 mL) subcutaneou s pen injector No Ozempic 1 mg/dose (2 mg/1.5 mL) subcutaneo us pen injector [facility] Sure Comfort Pen Needle 32 gauge x 1/4" Sure Comfort Pen Needle 32 gauge x 1/4" No Sure Comfort Pen Needle 32 gauge x 1/4" [facility] Synjardy 5 mg-1,000 mg tablet TAKE ONE (1) TABLET(S) BY MOUTH EVERY 12 HOURS DIRECTED. Synjardy 5 mg-1,000 mg tablet TAKE ONE (1) TABLET(S) BY MOUTH EVERY 12 HOURS DIRECTED. No Synjardy 5 mg-1,000 mg tablet TAKE ONE (1) TABLET(S) BY MOUTH EVERY 12 HOURS DIRECTED. [facility] Synjardy XR 12.5 mg-1,000 mg tablet, extended release Take 2 tablets every day by oral route in the morning. Synjardy XR 12.5 mg-1,000 mg tablet, extended release Take 2 tablets every day by oral route in the morning. No 2 Q1D Synjardy XR 12.5 mg-1,000 mg tablet, extended release Take 2 tablets every day by oral route in the morning. [facility] Tresiba FlexTouch U-200 insulin 200 unit/mL (3 mL) subcutaneou s pen Inject 30 units at bedtime every day. Tresiba FlexTouch U-200 insulin 200 unit/mL (3 mL) subcutaneou s pen Inject 30 units at bedtime every day. No Tresiba FlexTouch U-200 insulin 200 unit/mL (3 mL) subcutaneo us pen Inject 30 units at bedtime every day. [facility] atorvastati n 10 mg tablet TAKE ONE (1) TABLET(S) BY MOUTH ONCE DAILY IN THE EVENING. atorvastati n 10 mg tablet TAKE ONE (1) TABLET(S) BY MOUTH ONCE DAILY IN THE EVENING. No atorvastat in 10 mg tablet TAKE ONE (1) TABLET(S) BY MOUTH ONCE DAILY IN THE EVENING. [facility] BD Gauri 2nd Gen Pen Needle 32 gauge x 5/32" USE DIRECTED FOR TRESIBA ONCE DAILY. BD Gauri 2nd Gen Pen Needle 32 gauge x 5/32" USE DIRECTED FOR TRESIBA ONCE DAILY. No BD Gauri 2nd Gen Pen Needle 32 gauge x 5/32" USE DIRECTED FOR TRESIBA ONCE DAILY. [facility] cephalexin 500 mg capsule Take 1 capsule every 6 hours by oral route as directed for 7 days. cephalexin 500 mg capsule Take 1 capsule every 6 hours by oral route as directed for 7 days. No 1capsul e(s) Q6H cephalexin 500 mg capsule Take 1 capsule every 6 hours by oral route as directed for [address] [facility] cholecalcif mildred (vitamin D3) 1,250 mcg (50,000 unit) capsule Take 1 capsule every week by oral route as directed. cholecalcif mildred (vitamin D3) 1,250 mcg (50,000 unit) capsule Take 1 capsule every week by oral route as directed. No 1capsul e(s) Q1W cholecalci ferol (vitamin D3) 1,250 mcg (50,000 unit) capsule Take 1 capsule every week by oral route as directed. [facility] ciclopirox 8 % topical solution APPLY TO THE AFFECTED AREA(S) BY TOPICAL ROUTE ONCE DAILY PREFERABLY AT BEDTIME OR 8 HOURS BEFORE WASHING ciclopirox 8 % topical solution APPLY TO THE AFFECTED AREA(S) BY TOPICAL ROUTE ONCE DAILY PREFERABLY AT BEDTIME OR 8 HOURS BEFORE WASHING No ciclopirox 8 % topical solution APPLY TO THE AFFECTED AREA(S) BY TOPICAL ROUTE ONCE DAILY PREFERABLY AT BEDTIME OR [address] [facility] FreeStyle Melita 2 [place] USE DIRECTED TO CHECK BLOOD SUGARS AT LEAST 4 TIMES DAILY. FreeStyle Melita 2 [place] USE DIRECTED TO CHECK BLOOD SUGARS AT LEAST 4 TIMES DAILY. No FreeStyle Melita 2 [place] USE DIRECTED TO CHECK BLOOD SUGARS AT LEAST [address] [facility] FreeStyle Melita 2 Sensor kit USE DIRECTED TO CHECK BLOOD SUGARS AT LEAST 4 TIMES DAILY. CHANGE EVERY 14 DAYS. FreeStyle Melita 2 Sensor kit USE DIRECTED TO CHECK BLOOD SUGARS AT LEAST 4 TIMES DAILY. CHANGE EVERY 14 DAYS. No FreeStyle Melita 2 Sensor kit USE DIRECTED TO CHECK BLOOD SUGARS AT LEAST 4 TIMES DAILY. CHANGE EVERY [address] [facility] ketorolac 10 mg tablet Take 1 tablet every 8 hours by oral route as needed for 2 days. ketorolac 10 mg tablet Take 1 tablet every 8 hours by oral route as needed for 2 days. No ketorolac 10 mg tablet Take 1 tablet every 8 hours by oral route as needed for [address] [facility] ketorolac 60 mg/2 mL intramuscul ar solution Inject 2 mL by intramuscul ar route one time only ketorolac 60 mg/2 mL intramuscul ar solution Inject 2 mL by intramuscul ar route one time only No ketorolac 60 mg/2 mL intramuscu lar solution Inject 2 mL by intramuscu lar route one time only [facility] lisinopril 20 mg tablet TAKE ONE (1) TABLET(S) BY MOUTH DAILY. lisinopril 20 mg tablet TAKE ONE (1) TABLET(S) BY MOUTH DAILY. No lisinopril 20 mg tablet TAKE ONE (1) TABLET(S) BY MOUTH DAILY. [facility] mupirocin 2 % topical ointment APPLY A SMALL AMOUNT TO THE AFFECTED AREA BY TOPICAL ROUTE 3 TIMES PER DAY mupirocin 2 % topical ointment APPLY A SMALL AMOUNT TO THE AFFECTED AREA BY TOPICAL ROUTE 3 TIMES PER DAY No mupirocin 2 % topical ointment APPLY A SMALL AMOUNT TO THE AFFECTED AREA BY TOPICAL ROUTE [address] [facility] Ozempic 0.25 mg or 0.5 mg (2 mg/1.5 mL) subcutaneou s pen injector INJECT 0.5 MG UNDER THE SKIN ONCE EVERY WEEK DIRECTED. Ozempic 0.25 mg or 0.5 mg (2 mg/1.5 mL) subcutaneou s pen injector INJECT 0.5 MG UNDER THE SKIN ONCE EVERY WEEK DIRECTED. No Ozempic 0.25 mg or 0.5 mg (2 mg/1.5 mL) subcutaneo us pen injector INJECT 0.5 MG UNDER THE SKIN ONCE EVERY WEEK DIRECTED. [facility] Ozempic 1 mg/dose (2 mg/1.5 mL) subcutaneou s pen injector Ozempic 1 mg/dose (2 mg/1.5 mL) subcutaneou s pen injector No Ozempic 1 mg/dose (2 mg/1.5 mL) subcutaneo us pen injector [facility] prednisone 20 mg tablet TAKE 2 TABLETS BY MOUTH WITH BREAKFAST prednisone 20 mg tablet TAKE 2 TABLETS BY MOUTH WITH BREAKFAST No prednisone 20 mg tablet TAKE 2 TABLETS BY MOUTH WITH BREAKFAST [facility] Sure Comfort Pen Needle 32 gauge x 1/4" Sure Comfort Pen Needle 32 gauge x 1/4" No Sure Comfort Pen Needle 32 gauge x 1/4" [facility] Synjardy XR 12.5 mg-1,000 mg tablet, extended release TAKE TWO (2) TABLET(S) BY MOUTH ONCE A DAY IN THE MORNING. Synjardy XR 12.5 mg-1,000 mg tablet, extended release TAKE TWO (2) TABLET(S) BY MOUTH ONCE A DAY IN THE MORNING. No Synjardy XR 12.5 mg-1,000 mg tablet, extended release TAKE TWO (2) TABLET(S) BY MOUTH ONCE A DAY IN THE MORNING. [facility] Tresiba FlexTouch U-200 insulin 200 unit/mL (3 mL) subcutaneou s pen INJECT 30 UNITS UNDER THE SKIN AT BEDTIME EVERY DAY. Tresiba FlexTouch U-200 insulin 200 unit/mL (3 mL) subcutaneou s pen INJECT 30 UNITS UNDER THE SKIN AT BEDTIME EVERY DAY. No Tresiba FlexTouch U-200 insulin 200 unit/mL (3 mL) subcutaneo us pen INJECT 30 UNITS UNDER THE SKIN AT BEDTIME EVERY DAY. [facility] carvedilol 3.125 mg tablet Take 1 tablet twice a day by oral route as directed. carvedilol 3.125 mg tablet Take 1 tablet twice a day by oral route as directed. No 1 BID carvedilol 3.125 mg tablet Take 1 tablet twice a day by oral route as directed. [facility] Fiasp FlexTouch U-100 Insulin 100 unit/mL (3 mL) subcutaneou s pen Inject by subcutaneou s route per sliding scale. Fiasp FlexTouch U-100 Insulin 100 unit/mL (3 mL) subcutaneou s pen Inject by subcutaneou s route per sliding scale. No Fiasp FlexTouch U-100 Insulin 100 unit/mL (3 mL) subcutaneo us pen Inject by subcutaneo us route per sliding scale. [facility] Sure Comfort Pen Needle 32 gauge x 1/4" Sure Comfort Pen Needle 32 gauge x 1/4" No Sure Comfort Pen Needle 32 gauge x 1/4" [facility] Tresiba FlexTouch U-200 insulin 200 unit/mL (3 mL) subcutaneou s pen Inject 20 units at bedtime every day. Tresiba FlexTouch U-200 insulin 200 unit/mL (3 mL) subcutaneou s pen Inject 20 units at bedtime every day. No Tresiba FlexTouch U-200 insulin 200 unit/mL (3 mL) subcutaneo us pen Inject 20 units at bedtime every day. [facility] Fiasp FlexTouch U-100 Insulin 100 unit/mL (3 mL) subcutaneou s pen Inject by subcutaneou s route per sliding scale. Fiasp FlexTouch U-100 Insulin 100 unit/mL (3 mL) subcutaneou s pen Inject by subcutaneou s route per sliding scale. No Fiasp FlexTouch U-100 Insulin 100 unit/mL (3 mL) subcutaneo us pen Inject by subcutaneo us route per sliding scale. [facility] hydrocodone 5 mg-acetamin ophen 325 mg tablet hydrocodone 5 mg-acetamin ophen 325 mg tablet No hydrocodon e 5 mg-acetami nophen 325 mg tablet [facility] Sure Comfort Pen Needle 32 gauge x 1/4" Sure Comfort Pen Needle 32 gauge x 1/4" No Sure Comfort Pen Needle 32 gauge x 1/4" [facility] Tresiba FlexTouch U-200 insulin 200 unit/mL (3 mL) subcutaneou s pen Inject 20 units at bedtime every day. Tresiba FlexTouch U-200 insulin 200 unit/mL (3 mL) subcutaneou s pen Inject 20 units at bedtime every day. No Tresiba FlexTouch U-200 insulin 200 unit/mL (3 mL) subcutaneo us pen Inject 20 units at bedtime every day. [facility] BD Ultra-Fine Micro Pen Needle 32 gauge x 1/4" BD Ultra-Fine Micro Pen Needle 32 gauge x 1/4" No BD Ultra-Fine Micro Pen Needle 32 gauge x 1/4" [facility] Fiasp FlexTouch U-100 Insulin 100 unit/mL (3 mL) subcutaneou s pen Inject by subcutaneou s route every day at start of meals per sliding scale. 141-180 2 [id number] 0 4 -54 0 6 [id number] 0 8 -98 0 10 [id number] 0 12 units>400 14 units and call office. Fiasp FlexTouch U-100 Insulin 100 unit/mL (3 mL) subcutaneou s pen Inject by subcutaneou s route every day at start of meals per sliding scale. 141-180 2 [id number] 0 4 [id number] 0 6 -66 0 8 -18 0 10 [id number] 0 12 units>400 14 units and call office. No Fiasp FlexTouch U-100 Insulin 100 unit/mL (3 mL) subcutaneo us pen Inject by subcutaneo us route every day at start of meals per sliding scale. 141-180 2 [id number] 20 4 -8 60 6 [id number] 00 8 -6 50 10 -7 00 12 units>400 14 units and call office. [facility] hydrocodone 5 mg-acetamin ophen 325 mg tablet hydrocodone 5 mg-acetamin ophen 325 mg tablet No hydrocodon e 5 mg-acetami nophen 325 mg tablet [facility] Tresiba FlexTouch U-100 insulin 100 unit/mL (3 mL) subcutaneou s pen Inject 22 units every day by subcutaneou s route as directed. Tresiba FlexTouch U-100 insulin 100 unit/mL (3 mL) subcutaneou s pen Inject 22 units every day by subcutaneou s route as directed. No 22unit( s) Q1D Tresiba FlexTouch U-100 insulin 100 unit/mL (3 mL) subcutaneo us pen Inject 22 units every day by subcutaneo us route as directed. [facility] Bactrim DS 800 mg-160 mg tablet Take 1 tablet every 12 hours by oral route. Bactrim DS 800 mg-160 mg tablet Take 1 tablet every 12 hours by oral route. No 1 Q12H Bactrim DS 800 mg-160 mg tablet Take 1 tablet every 12 hours by oral route. [facility] losartan 25 mg tablet Take 1 tablet every day by oral route. losartan 25 mg tablet Take 1 tablet every day by oral route. No 1 Q1D losartan 25 mg tablet Take 1 tablet every day by oral route. [facility] Tresiba FlexTouch U-100 insulin 100 unit/mL (3 mL) subcutaneou s pen Inject 22 units every day by subcutaneou s route as directed. Tresiba FlexTouch U-100 insulin 100 unit/mL (3 mL) subcutaneou s pen Inject 22 units every day by subcutaneou s route as directed. No 22unit( s) Q1D Tresiba FlexTouch U-100 insulin 100 unit/mL (3 mL) subcutaneo us pen Inject 22 units every day by subcutaneo us route as directed. [facility] Immunizations Ordered Immunization Name Filled Immunization Name Date Status Comments Source COVID-19, mRNA, LNP-S, PF, 100 mcg/0.5 mL dose (Moderna) COVID-19, mRNA, LNP-S, PF, 100 mcg/0.5 mL dose (Moderna) 2021-10-06 14:01:11 Completed [facility] COVID-19, mRNA, LNP-S, PF, 100 mcg/0.5 mL dose (Moderna) COVID-19, mRNA, LNP-S, PF, 100 mcg/0.5 mL dose (Moderna) 2021-10-06 14:01:11 Completed [facility] COVID-19, mRNA, LNP-S, PF, 100 mcg/0.5 mL dose (Moderna) COVID-19, mRNA, LNP-S, PF, 100 mcg/0.5 mL dose (Moderna) 2021-10-06 14:01:11 Completed [facility] COVID-19, mRNA, LNP-S, PF, 100 mcg/0.5 mL dose (Moderna) COVID-19, mRNA, LNP-S, PF, 100 mcg/0.5 mL dose (Moderna) 2021-10-06 14:01:11 Completed [facility] COVID-19, mRNA, LNP-S, PF, 100 mcg/0.5 mL dose (Moderna) COVID-19, mRNA, LNP-S, PF, 100 mcg/0.5 mL dose (Moderna) 2021-10-06 14:01:11 Completed [facility] COVID-19, mRNA, LNP-S, PF, 100 mcg/0.5 mL dose (Moderna) COVID-19, mRNA, LNP-S, PF, 100 mcg/0.5 mL dose (Moderna) 2021-08-25 12:43:55 Completed [facility] COVID-19, mRNA, LNP-S, PF, 100 mcg/0.5 mL dose (Moderna) COVID-19, mRNA, LNP-S, PF, 100 mcg/0.5 mL dose (Moderna) 2021-08-25 12:43:55 Completed [facility] COVID-19, mRNA, LNP-S, PF, 100 mcg/0.5 mL dose (Moderna) COVID-19, mRNA, LNP-S, PF, 100 mcg/0.5 mL dose (Moderna) 2021-08-25 12:43:55 Completed [facility] COVID-19, mRNA, LNP-S, PF, 100 mcg/0.5 mL dose (Moderna) COVID-19, mRNA, LNP-S, PF, 100 mcg/0.5 mL dose (Moderna) 2021-08-25 12:43:55 Completed [facility] COVID-19, mRNA, LNP-S, PF, 100 mcg/0.5 mL dose (Moderna) COVID-19, mRNA, LNP-S, PF, 100 mcg/0.5 mL dose (Moderna) 2021-08-25 12:43:55 Completed [facility] pneumococcal polysaccharide PPV23 pneumococcal polysaccharide PPV23 Unknown Completed [facility] pneumococcal polysaccharide PPV23 pneumococcal polysaccharide PPV23 Unknown Completed [facility] pneumococcal polysaccharide PPV23 pneumococcal polysaccharide PPV23 Unknown Completed [facility] pneumococcal polysaccharide PPV23 pneumococcal polysaccharide PPV23 Unknown Completed [facility] pneumococcal polysaccharide PPV23 pneumococcal polysaccharide PPV23 Unknown Completed [facility] pneumococcal polysaccharide PPV23 pneumococcal polysaccharide PPV23 Unknown Completed [facility] pneumococcal polysaccharide PPV23 pneumococcal polysaccharide PPV23 Unknown Completed [facility] pneumococcal polysaccharide PPV23 pneumococcal polysaccharide PPV23 Unknown Completed [facility] zoster recombinant - kit zoster recombinant - kit Unknown Completed [facility] pneumococcal polysaccharide PPV23 pneumococcal polysaccharide PPV23 Unknown Completed [facility] pneumococcal polysaccharide PPV23 pneumococcal polysaccharide PPV23 Unknown Completed [facility] zoster recombinant - kit zoster recombinant - kit Unknown Completed [facility] pneumococcal polysaccharide PPV23 pneumococcal polysaccharide PPV23 Unknown Completed [facility] COVID-19, mRNA, LNP-S, PF, 100 mcg/0.5 mL dose (Moderna) COVID-19, mRNA, LNP-S, PF, 100 mcg/0.5 mL dose (Moderna) Unknown Completed [facility] COVID-19, mRNA, LNP-S, PF, 100 mcg/0.5 mL dose (Moderna) COVID-19, mRNA, LNP-S, PF, 100 mcg/0.5 mL dose (Moderna) Unknown Completed [facility] pneumococcal polysaccharide PPV23 pneumococcal polysaccharide PPV23 Unknown Completed [facility] Vital Signs Vital Name Observation Time Observation Value Comments S ource BP Diastolic 2023-07-05 00:00:00 113 mm[Hg] [facility] Height 2023-07-05 00:00:00 66 [in_i] [facility] BMI (Body Mass Index) 2023-07-05 00:00:00 45.7 kg/m2 [facility] Body Weight 2023-07-05 00:00:00 4535 [oz_av] [facility] BP Systolic 2023-07-05 00:00:00 182 mm[Hg] [facility] BP Diastolic 2022-08-05 00:00:00 92 mm[Hg] [facility] Height 2022-08-05 00:00:00 66 [in_i] [facility] BMI (Body Mass Index) 2022-08-05 00:00:00 42 kg/m2 [facility] BP Systolic 2022-08-05 00:00:00 148 mm[Hg] [facility] [facility] Body Weight 2022-08-05 00:00:00 4161 [oz_av] [place] [facility] BP Diastolic 2022-07-08 00:00:00 85 mm[Hg] [place] [facility] Height 2022-07-08 00:00:00 66 [in_i] [place] [facility] BMI (Body Mass Index) 2022-07-08 00:00:00 41.3 kg/m2 [facility] BP Systolic 2022-07-08 00:00:00 143 mm[Hg] [place] [facility] Body Weight 2022-07-08 00:00:00 4096 [oz_av] Jemal [facility] BP Diastolic 2022-06-24 00:00:00 72 mm[Hg] [place] [facility] Height 2022-06-24 00:00:00 66 [in_i] [place] [facility] BMI (Body Mass Index) 2022-06-24 00:00:00 41.2 kg/m2 [facility] BP Systolic 2022-06-24 00:00:00 112 mm[Hg] [place] [facility] Body Weight 2022-06-24 00:00:00 4081 [oz_av] [facility] BP Diastolic 2022-05-31 00:00:00 90 mm[Hg] [place] [facility] Height 2022-05-31 00:00:00 66 [in_i] [place] [facility] BMI (Body Mass Index) 2022-05-31 00:00:00 43.4 kg/m2 [facility] BP Systolic 2022-05-31 00:00:00 150 mm[Hg] [place] [facility] Body Weight 2022-05-31 00:00:00 4305.6 [oz_av] [place] [facility] BP Diastolic 2021-10-26 00:00:00 110 mm[Hg] [place] [facility] Height 2021-10-26 00:00:00 66 [in_i] [place] [facility] BMI (Body Mass Index) 2021-10-26 00:00:00 44.9 kg/m2 [facility] BP Systolic 2021-10-26 00:00:00 174 mm[Hg] [place] [facility] Body Weight 2021-10-26 00:00:00 4449 [oz_av] [facility] Height 2021-04-30 00:00:00 66 [in_i] [place] [facility] BMI (Body Mass Index) 2021-04-30 00:00:00 45.2 kg/m2 [facility] BP Systolic 2021-04-30 00:00:00 144 mm[Hg] [place] [facility] Body Weight 2021-04-30 00:00:00 4480 [oz_av] [facility] BP Diastolic 2021-04-30 00:00:00 86 mm[Hg] [place] [facility] BP Diastolic 2020-12-16 00:00:00 90 mm[Hg] [place] [facility] Height 2020-12-16 00:00:00 66 [in_i] [place] [facility] BMI (Body Mass Index) 2020-12-16 00:00:00 45.8 kg/m2 [facility] BP Systolic 2020-12-16 00:00:00 140 mm[Hg] [place] [facility] Body Weight 2020-12-16 00:00:00 4544 [oz_av] [facility] BP Diastolic 2020-11-17 00:00:00 90 mm[Hg] [place] [facility] Height 2020-11-17 00:00:00 66 [in_i] [place] [facility] BMI (Body Mass Index) 2020-11-17 00:00:00 45.5 kg/m2 [facility] BP Systolic 2020-11-17 00:00:00 128 mm[Hg] [place] [facility] Body Weight 2020-11-17 00:00:00 4512 [oz_av] [facility] BP Diastolic 2020-11-03 00:00:00 77 mm[Hg] [place] [facility] Height 2020-11-03 00:00:00 66 [in_i] [place] [facility] BMI (Body Mass Index) 2020-11-03 00:00:00 46.5 kg/m2 [facility] BP Systolic 2020-11-03 00:00:00 112 mm[Hg] [place] [facility] Body Weight 2020-11-03 00:00:00 4608 [oz_av] [place] [facility] BP Diastolic 2020-05-22 00:00:00 80 mm[Hg] [place] [facility] Height 2020-05-22 00:00:00 66 [in_i] [place] [facility] BMI (Body Mass Index) 2020-05-22 00:00:00 46 kg/m2 [facility] BP Systolic 2020-05-22 00:00:00 132 mm[Hg] [place] [facility] Body Weight 2020-05-22 00:00:00 4560 [oz_av] [place] [facility] BP Diastolic 2020-05-01 00:00:00 90 mm[Hg] [place] [facility] Height 2020-05-01 00:00:00 66 [in_i] [place] [facility] BMI (Body Mass Index) 2020-05-01 00:00:00 46.5 kg/m2 [facility] BP Systolic 2020-05-01 00:00:00 150 mm[Hg] [place] [facility] Body Weight 2020-05-01 00:00:00 4608 [oz_av] [place] [facility] BP Diastolic 2020-03-25 00:00:00 68 mm[Hg] [place] [facility] Height 2020-03-25 00:00:00 66 [in_i] [place] [facility] BMI (Body Mass Index) 2020-03-25 00:00:00 45.1 kg/m2 [facility] BP Systolic 2020-03-25 00:00:00 110 mm[Hg] [place] [facility] Body Weight 2020-03-25 00:00:00 4468 [oz_av] [place] [facility] BP Diastolic 2020-03-18 00:00:00 82 mm[Hg] [place] [facility] Height 2020-03-18 00:00:00 66 [in_i] [place] [facility] BMI (Body Mass Index) 2020-03-18 00:00:00 44.3 kg/m2 [facility] BP Systolic 2020-03-18 00:00:00 120 mm[Hg] [place] [facility] Body Weight 2020-03-18 00:00:00 4393.6 [oz_av] [facility] BP Diastolic 2020-03-13 00:00:00 78 mm[Hg] [place] [facility] Height 2020-03-13 00:00:00 66 [in_i] [place] [facility] BMI (Body Mass Index) 2020-03-13 00:00:00 45 kg/m2 [facility] BP Systolic 2020-03-13 00:00:00 128 mm[Hg] [place] [facility] Body Weight 2020-03-13 00:00:00 4460.8 [oz_av] [facility] BP Diastolic 2020-03-11 00:00:00 78 mm[Hg] [place] [facility] Height 2020-03-11 00:00:00 66 [in_i] [place] [facility] BMI (Body Mass Index) 2020-03-11 00:00:00 44.6 kg/m2 [facility] BP Systolic 2020-03-11 00:00:00 118 mm[Hg] [place] [facility] Body Weight 2020-03-11 00:00:00 4422.4 [oz_av] [facility] Height 2020-02-25 00:00:00 66 [in_i] [place] [facility] BP Diastolic 2020-02-21 00:00:00 82 mm[Hg] [place] [facility] Height 2020-02-21 00:00:00 66 [in_i] [place] [facility] BMI (Body Mass Index) 2020-02-21 00:00:00 48.4 kg/m2 [facility] BP Systolic 2020-02-21 00:00:00 150 mm[Hg] [place] [facility] Body Weight 2020-02-21 00:00:00 4800 [oz_av] [place] [facility] BP Diastolic 2020-02-08 00:00:00 84 mm[Hg] [place] [facility] Height 2020-02-08 00:00:00 66 [in_i] [place] [facility] BMI (Body Mass Index) 2020-02-08 00:00:00 48.4 kg/m2 [facility] BP Systolic 2020-02-08 00:00:00 118 mm[Hg] [place] [facility] Body Weight 2020-02-08 00:00:00 4800 [oz_av] [place] [facility] BP Diastolic 2019-09-20 00:00:00 80 mm[Hg] [place] [facility] Height 2019-09-20 00:00:00 66 [in_i] [place] [facility] BMI (Body Mass Index) 2019-09-20 00:00:00 46 kg/m2 [facility] BP Systolic 2019-09-20 00:00:00 138 mm[Hg] [place] [facility] Body Weight 2019-09-20 00:00:00 285.2 [lb_av] [place] [facility] BP Diastolic 2019-05-15 00:00:00 68 mm[Hg] [place] [facility] Height 2019-05-15 00:00:00 66 [in_i] [place] [facility] BMI (Body Mass Index) 2019-05-15 00:00:00 41.4 kg/m2 [facility] BP Systolic 2019-05-15 00:00:00 128 mm[Hg] Diego [facility] Body Weight 2019-05-15 00:00:00 256.2 [lb_av] [facility] BP Diastolic 2019-05-07 00:00:00 86 mm[Hg] [facility] lacya [facility] Height 2019-05-07 00:00:00 66 [in_i] [facility] BMI (Body Mass Index) 2019-05-07 00:00:00 41.5 kg/m2 [facility] BP Systolic 2019-05-07 00:00:00 142 mm[Hg] [place] [facility] Body Weight 2019-05-07 00:00:00 257.4 [lb_av] [facility] Procedures Procedure Date / Time Performed Performing Clinician Source MRI, lower leg, w/o contrast 2023-07-05 00:00:00 [place] [facility] Kidney Biopsy 2022-06-06 00:00:00 [place] da [facility] Colonoscopy 2019-05-28 00:00:00 [facility] Cholecystectomy 2016-07-24 00:00[facility] Appendectomy [facility] Debridement of Hand [facility] Drainage of Skin [facility]cess [facility] Hand Incision [facility] Plan of Care Planned Activity Planned Date Details Comments Source Diagnostic Test Pending 2023-07-05 00:00:00 HbA1c (hemoglobin A1c), blood [code = HbA1c (hemoglobin A1c), blood] [facility] Test Pending 2023-07-05 00:00:00 CMP, serum or plasma [code = CMP, serum or plasma] [facility] Diagnostic Test Pending 2023-07-05 00:00:00 microalbumin/creatin ine, mass ratio, urine [code = microalbumin/creatin ine, mass ratio, urine] [facility] Diagnostic Test Pending 2023-07-05 00:00:00 urinalysis complete, reflex culture [code = urinalysis complete, reflex culture] [facility] Diagnostic Test Pending 2023-07-05 00:00:00 lipid panel, serum [code = lipid panel, serum] [facility] Diagnostic Test Pending 2023-07-05 00:00:00 CBC w/ auto diff [code = CBC w/ auto diff] [facility] Diagnostic Test Pending 2023-07-05 00:00:00 vitamin D, 25-hydroxy, total, serum [code = vitamin D, 25-hydroxy, total, serum] [facility] Diagnostic Test Pending 2023-07-05 00:00:00 TSH + free T4, serum [code = TSH + free T4, serum] [facility] Future Appointment 2023-07-12 00:00:00 Raquel Maurice, Manpreet Hamilton; , [place] [address] [facility] En[facility]ters Start Date/Time End Date/Time Encounter Type Admission Type Attending [facility] Care Facility Care Department Encounter ID Source 2023-07-05 00:00:00 2023-07-05 00:00:00 Outpatient [facility] [id number] [facility] 2023-07-05 00:00:00 2023-07-05 00:00:00 Raquel Maurice, GARAGE MECHANIC: Manpreet Hamilton, [place] [address] , Ph. [facility] [id number] [facility] 2022-09-03 00:00:00 2022-09-03 00:00:00 Outpatient Ngen_Tho [facility] [id number] [facility] 2022-08-05 00:00:00 2022-08-05 00:00:00 Austen TAVARES Graves-GARAGE MECHANIC-C: [address] [place] [address] , Ph. [facility] [id number] [facility] 2022-08-04 00:00:00 2022-08-04 00:00:00 Outpatient Nguyen_Tho [facility] [id number] [facility] 2022-08-04 00:00:00 2022-08-04 00:00:00 Outpatient Nguyen_Tho [facility] [id number] [facility] 2022-07-22 00:00:00 2022-07-22 00:00:00 Outpatient Nguyen_Tho [facility] [id number] [facility] 2022-07-08 00:00:00 2022-07-08 00:00:00 Outpatient Nguyen_Tho [facility] [id number] [facility] 2022-07-08 00:00:00 2022-07-08 00:00:00 Austen NATASHA GravesGARAGE MECHANIC-C: [address] [place] [address] , [facility]. [facility] [id number] [facility] 2022-06-29 00:00:00 2022-06-29 00:00:00 Outpatient Nguyen_Tho [facility] [id number] [facility] 2022-06-27 00:00:00 2022-06-27 00:00:00 Outpatient Nguyen_Tho [facility] [id number] [facility] 2022-06-26 00:00:00 2022-06-26 00:00:00 Outpatient Nguyen_Tho [facility] [id number] [facility] 2022-06-24 00:00:00 2022-06-24 00:00:00 Outpatient Ofelia [facility] [id number] [facility] 2022-06-24 00:00:00 2022-06-24 00:00:00 NATASHA NegronGARAGE MECHANIC-C: [address] [place] [address] , Ph. [facility] [id number] [facility] 2022-05-31 00:00:00 2022-05-31 00:00:00 [facility] [id number] [facility] 2022-05-31 00:00:00 2022-05-31 00:00:00 NATASHA NegronGARAGE MECHANIC-C: [address] [place] [address] , Ph. [facility] Primary Expansion [id number] [facility] 2021-10-26 00:00:00 2021-10-26 00:00:00 MARQUEZ NegronC: [address] [place] [address] , Ph. [facility] [id number] [facility] 2021-10-06 00:00:00 2021-10-06 00:00:00 Sandie Cuellar MD: [address] [place] [address] , Ph. Cartermarzena_Tho [facility] [place] [address] 0316 [facility] 2021-08-25 02:14:00 2021-08-25 02:14:00 [facility] [id number] [facility] 2021-04-30 00:00:00 2021-04-30 00:00:00 NATASHA NegronGARAGE MECHANIC-C: [address] [place] [address] , [place]. [place] [address] 1008 [facility] 2021-04-28 04:40:00 2021-04-28 04:40:00 [facility] [id number] [facility] 2020-12-16 00:00:00 2020-12-16 00:00:00 NATASHA NegronGARAGE MECHANIC-C: [address] [phone] , [place]. [place] [address] 0526 [facility] 2020-11-17 00:00:00 2020-11-17 00:00:00 NATASHA NegronGARAGE MECHANIC-C: [address] [place] [address] , Ph. [place] [address] 0427 [facility] 2020-11-03 00:00:00 2020-11-03 00:00:00 NATASHA NegronGARAGE MECHANIC-C: [address] [place] [address] , Ph. Cartermarzena_Austen LINARES [place] [facility] [place] [facility] 0413 [facility] 2020-06-17 10:04:00 2020-06-17 10:04:00 Outpatient NEELIA LINARES [facility] [id number] [facility] 2020-06-03 05:28:00 2020-06-03 05:28:00 Outpatient NEESE_MADELINE LINARES [facility] [id number] [facility] 2020-05-22 00:00:00 2020-05-22 00:00:00 KRISTIN Rodriguez: [address] [place] [address] , Ph. FILIBERTOMADELINE LAMBBE [facility] [place] [facility] 3 1030 [facility] 2020-05-01 00:00:00 2020-05-01 00:00:00 KRISTIN Rodriguez: [address] [place] [address] , Ph. FILIBERTOMADELINE LAMBBE [facility] 3 1009 [facility] 2020-04-01 09:20:00 2020-04-01 09:20:00 Outpatient ROSALINA_MADELINE LABE [facility] [id number] [facility] 2020-03-25 00:00:00 2020-03-25 00:00:00 aMdeline Sanders PA: [address] [place] [address] , Ph. FILIBERTOMADELINE LAMBBE [facility] 3 0902 [facility] 2020-03-18 00:00:00 2020-03-18 00:00:00 Madeline Sanders PA: [address] [place] [phone] , Ph. MARCELINAJENNY_MADELINE LINARES [facility] 3 825 [facility] 2020-03-13 00:00:00 2020-03-13 00:00:00 Madeline Sanders PA: [address] [phone] , Ph. [facility] [place] [facility] 3 820 [facility] 2020-03-11 00:00:00 2020-03-11 00:00:00 Madeline Sanders PA: [address] [place] [phone] , Ph. FILIBERTOMADELINE [facility] 3 818 [facility] 2020-02-25 00:00:00 2020-02-25 00:00:00 Danuta Lees, GARAGE MECHANIC: [address] [place] [phone] , Ph. ROSALINAGERMAN LINARES [facility] [place] [facility] 803 [facility] 2020-02-21 00:00:00 2020-02-21 00:00:00 Madeline Sanders PA: [address] [place] [phone] , Ph. ROSALINA_MADELINE [facility] [place] [facility] 3 730 [facility] 2020-02-19 11:34:00 2020-02-19 11:34:00 Outpatient NAISM BE [facility] [id number] [facility] 2020-02-08 00:00:00 2020-02-08 00:00:00 Batool Nichols, GARAGE MECHANIC: [address] [place] [address] , Ph. ROSALINA_[facility] [place] [facility] 0718 [facility] 2019-09-20 00:00:00 2019-09-20 00:00:00 Madeline Sanders PA: [address] [place] [address] , Ph. ROSALINA_[facility] 3 0228 [facility] 2019-09-03 14:00:00 2019-09-02 13:29:57 Inpatient Tiffanie Andersen [facility] ENDO [id number] [facility] 2019-06-19 00:00:00 2019-06-19 00:00:00 Madeline Sanders PA: [address], [address], [place] [address] , Ph. [facility] 3 1127 [facility] 2019-05-15 00:00:00 2019-05-15 00:00:00 Madeline Sanders PA: [address], [address], [place] [address] , Ph. [facility] [place] [facility] 3 1023 [facility] 2019-05-07 00:00:00 2019-05-07 00:00:00 Madeline Sanders PA: [address], [address], [place] [address] , Ph. [facility] [place] [facility] 3 1015 [facility] 2018-10-19 14:28:00 2018-10-19 14:28:[address] [facility] [id number] [facility] 2018-10-16 16:00:00 2018-10-16 16:00:[address] [facility] [id number] [facility] 2018-05-03 08:13:00 2018-05-03 08:13:[address] [facility] [id number] [facility] 2018-04-23 08:44:00 2018-04-23 08:44:00 [facility] [id number] [facility] 2018-04-17 08:45:00 2018-04-17 08:45:00 [facility] [id number] [facility] 2018-04-16 10:00:00 2018-04-16 10:00:[address] [facility] [id number] [facility] 2018-04-10 08:30:00 2018-04-10 08:30:[address] [facility] [id number] [facility] 2017-12-27 08:30:00 2017-12-27 08:30:[address] [facility] [id number] [facility] 2017-11-30 14:15:00 2017-11-30 14:15:00 [facility] [id number] [facility] 2017-11-30 08:30:00 2017-11-30 08:30:[address] [facility] [id number] [facility] 2017-11-22 08:45:00 2017-11-22 08:45:[address] [facility] [facility] [id number] [facility] Results Test Description Test Time Test Comments Results Result Co mments Source [facility] Out[facility] ProgramGlucose [Mass/volume] in Capillary [id number] 13:08:30* Test Item Value Reference Range Interpretation Comme nts Blood Glucose: mg/dl (test c ode = Blood Glucose: mg/dl) 197 [facility] Out[facility] ProgramGlucose [Mass/volume] in Capillary [id number] 13:08:30* Test Item Value Reference Range Interpretation Comme nts Blood Glucose: mg/dl (test c ode = Blood Glucose: mg/dl) 197 [facility] Out[facility] ProgramCBC W Auto Differential panel - Blood 2022-06-25 00:00:00* Test Item Value Reference Range Interpretation Comme nts Leukocytes [#/volume] in Blo od by Automated count (test code = 6690-2) 5.0 x10e3/uL 3.4-10.8 Erythrocytes [#/volume] in Blood by Automated count (test code = 789-8) 4.01 x10e6/uL 4.14-5.80 L Hemoglobin [Mass/volume] in Blood (test code = 718-7) 10.9 g/dL 13.0-17.7 L Hematocrit [Volume Fraction] of Blood by Automated count (test code = 4544-3) 32.8 % 37.5-51.0 L Erythrocyte mean corpuscular volume [Entitic volume] by Automated count (test code = 787-2) 82 fL 79-97 Erythrocyte mean corpuscular hemoglobin [Entitic mass] by Automated count (test code = 785-6) 27.2 pg 26.6-33.0 Erythrocyte mean corpuscular hemoglobin concentration [Mass/volume] by Automated count (test code = 786-4) 33.2 g/dL 31.5-35.7 Erythrocyte distribution wid th [Ratio] by Automated count (test code = 788-0) 12.7 % 11.6-15.4 Platelets [#/volume] in Bloo d by Automated count (test code = 777-3) 246 x10e3/uL 150-450 Neutrophils/100 leukocytes i n Blood by Automated count (test code = 770-8) 67 % not estab. Lymphocytes/100 leukocytes i n Blood by Automated count (test code = 736-9) 22 % not estab. Monocytes/100 leukocytes in Blood by Automated count (test code = 5905-5) 7 % not estab. Eosinophils/100 leukocytes i n Blood by Automated count (test code = 713-8) 3 % not estab. Basophils/100 leukocytes in Blood by Automated count (test code = 706-2) 1 % not estab. immature cells (test code = immature cells) magazine keeper Neutrophils [#/volume] in Bl ood by Automated count (test code = 751-8) 3.4 x10e3/uL 1.4-7.0 Lymphocytes [#/volume] in Bl ood by Automated count (test code = 731-0) 1.1 x10e3/uL 0.7-3.1 Monocytes [#/volume] in Bloo d by Automated count (test code = 742-7) 0.3 x10e3/uL 0.1-0.9 Eosinophils [#/volume] in Bl ood by Automated count (test code = 711-2) 0.2 x10e3/uL 0.0-0.4 Basophils [#/volume] in Bloo d by Automated count (test code = 704-7) 0.0 x10e3/uL 0.0-0.2 Immature granulocytes/100 leukocytes in Blood by Automated count (test code = 68492-9) 0 % not estab. Immature granulocytes [#/volume] in Blood by Automated count (test code = 31994-2) 0.0 x10e3/uL 0.0-0.1 Nucleated erythrocytes/100 leukocytes [Ratio] in Blood by Automated count (test code = 95133-1) magazine keeper Morphology [Interpretation] in Blood Narrative (test code = 62137-2) magazine keeper [facility] ProgramComprehensive metabolic 2000 panel - Serum or [id number] 00:00:00* Test Item Value Reference Range Interpretation Comme nts Glucose [Mass/volume] in Ser um or Plasma (test code = 2345-7) 131 mg/dL 70-99 H Urea nitrogen [Mass/volume] in Serum or Plasma (test code = 3094-0) 35 mg/dL 6-24 H Creatinine [Mass/volume] in Serum or Plasma (test code = 2160-0) 4.36 mg/dL 0.76-1.27 H eGFR (test code = eGFR) 15 mL/min/1.73 >59 L Urea nitrogen/Creatinine [Ma ss Ratio] in Serum or Plasma (test code = 3097-3) 8 9-20 L Sodium [Moles/volume] in Ser um or Plasma (test code = 2951-2) 138 mmol/L 134-144 Potassium [Moles/volume] in Serum or Plasma (test code = 2823-3) 4.5 mmol/L 3.5-5.2 Chloride [Moles/volume] in Serum or Plasma (test code = 2075-0) 100 mmol/L 96-106 Carbon dioxide, total [Moles/volume] in Serum or Plasma (test code = 2027-) 21 mmol/L 20-29 Calcium [Mass/volume] in Ser um or Plasma (test code = 71701-3) 8.8 mg/dL 8.7-10.2 Protein [Mass/volume] in Ser um or Plasma (test code = 2885-2) 7.4 g/dL 6.0-8.5 Albumin [Mass/volume] in Ser um or Plasma (test code = 1751-7) 4.1 g/dL 3.8-4.9 Globulin [Mass/volume] in Serum by calculation (test code = 92676-8) 3.3 g/dL 1.5-4.5 Albumin/Globulin [Mass Ratio ] in Serum or Plasma (test code = 1759-0) 1.2 1.2-2.2 Bilirubin.total [Mass/volume ] in Serum or Plasma (test code = 1974-) 0.4 mg/dL 0.0-1.2 Alkaline phosphatase [Enzymatic activity/volume] in Serum or Plasma (test code = 6768-6) 102 IU/L 44-121 Aspartate aminotransferase [Enzymatic activity/volume] in Serum or Plasma (test code = 1920-8) 14 IU/L 0-40 Alanine aminotransferase [Enzymatic activity/volume] in Serum or Plasma (test code = 1742-6) 13 IU/L 0-44 [facility] - Serum or Plasma 2022-06-25 00:00:00* Test Item Value Reference Range Interpretation Comme nts Cholesterol [Mass/volume] in Serum or Plasma (test code = 2093-3) 181 mg/dL 100-199 Triglyceride [Mass/volume] i n Serum or Plasma (test code = 2571-8) 192 mg/dL 0-149 H Cholesterol in HDL [Mass/vol ume] in Serum or Plasma (test code = 2085-9) 36 mg/dL >39 L Cholesterol in VLDL [Mass/vo lume] in Serum or Plasma by calculation (test code = 66191-6) 34 mg/dL 5-40 Cholesterol in LDL [Mass/vol ume] in Serum or Plasma by calculation (test code = 70921-4) 111 mg/dL 0-99 H Laboratory comment [Text] in Report Narrative (test code = 37414-7) magazine keeper [facility] ProgramMicro[facility]/Creatinine [Mass Ratio] in [id number] 00:00:00* Test Item Value Reference Range Interpretation Comme nts Creatinine [Mass/volume] in Urine (test code = 2161-8) 136.0 mg/dL not estab. Microalbumin [Mass/volume] i n Urine (test code = 92230-1) 714.7 ug/mL not estab. Albumin/Creatinine [Mass ratio] in Urine (test code = 9318-7) 526 mg/g creat 0-29 H [facility], [id number] 00:00:00* Test Item Value Reference Range Interpretation Comme nts Interpretation and review of laboratory results (test code = 68066-4) note Report (test code = 59524-9) not applicable [facility] Programlitholink CKD [id number] 00:00:00* Test Item Value Reference Range Interpretation Comme nts Report (test code = 45787-9) note Interpretation and review of laboratory results (test code = 45681-3) . [facility] Programdiabetes patient [id number] 00:00:00* Test Item Value Reference Range Interpretation Comme nts pdf (test code = pdf) not applicable [facility] ProgramHemoglobin A1c/Hemoglobin.total in Smoar8965-09-05 00:00:00* Test Item Value Reference Range Interpretation Comme nts Hemoglobin A1c/Hemoglobin.to lindsay in Blood (test code = 4548-4) 11.2 % 4.8-5.6 H [facility]wallGlucose [Mass/volume] in Capillary [id number] 14:30:40* Test Item Value Reference Range Interpretation Comme nts Blood Glucose: mg/dl (test c ode = Blood Glucose: mg/dl) 136 [facility] ProgramGlucose [Mass/volume] in Capillary [id number] 14:30:40* Test Item Value Reference Range Interpretation Comme nts Blood Glucose: mg/dl (test c ode = Blood Glucose: mg/dl) 136 [facility]ucose [Mass/volume] in Capillary [id number] 16:26:09* Test Item Value Reference Range Interpretation Comme nts Blood Glucose: mg/dl (test c ode = Blood Glucose: mg/dl) 400 [facility]wall[facility] panel, [id number] 00:00:00* Test Item Value Reference Range Interpretation Comme nts Interpretation and review of laboratory results (test code = 45716-2) note Report (test code = 55319-2) not applicable [facility] [facility] [id number] 00:00:00* Test Item Value Reference Range Interpretation Comme nts Report (test code = 19171-9) note Interpretation and review of laboratory results (test code = 80723-4) . [facility] [id number] 00:00:00* Test Item Value Reference Range Interpretation Comme nts pdf (test code = pdf) not applicable [facility]wallBacteria identified in Wound by [id number] 00:00:00* Test Item Value Reference Range Interpretation Comme nts Bacteria identified in Unspecified specimen by Anaerobe culture (test code = 635-3) final report Bacteria identified in Unspecified specimen by Culture (test code = 6463-4) pantoea agglomerans A Bacteria identified in Unspecified specimen by Aerobe culture (test code = 634-6) final report A Other Antibiotic [Susceptibility] (test code = 58700-0) comment [facility] W Auto Differential panel - Blood 2020-11-04 00:00:00* Test Item Value Reference Range Interpretation Comme nts Leukocytes [#/volume] in Blo od by Automated count (test code = 6690-2) 6.2 x10e3/uL 3.4-10.8 Erythrocytes [#/volume] in Blood by Automated count (test code = 789-8) 4.31 x10e6/uL 4.14-5.80 Hemoglobin [Mass/volume] in Blood (test code = 718-7) 11.8 g/dL 13.0-17.7 L Hematocrit [Volume Fraction] of Blood by Automated count (test code = 4544-3) 35.5 % 37.5-51.0 L MCV [Entitic volume] by Automated count (test code = 787-2) 82 fL 79-97 MCH [Entitic mass] by Automa owen count (test code = 785-6) 27.4 pg 26.6-33.0 MCHC [Mass/volume] by Automa owen count (test code = 786-4) 33.2 g/dL 31.5-35.7 Erythrocyte distribution wid th [Ratio] by Automated count (test code = 788-0) 13.4 % 11.6-15.4 Platelets [#/volume] in Bloo d by Automated count (test code = 777-3) 262 x10e3/uL 150-450 Neutrophils/100 leukocytes i n Blood by Automated count (test code = 770-8) 81 % not estab. Lymphocytes/100 leukocytes i n Blood by Automated count (test code = 736-9) 12 % not estab. Monocytes/100 leukocytes in Blood by Automated count (test code = 5905-5) 5 % not estab. Eosinophils/100 leukocytes i n Blood by Automated count (test code = 713-8) 2 % not estab. Basophils/100 leukocytes in Blood by Automated count (test code = 706-2) 0 % not estab. immature cells (test code = immature cells) magazine keeper Neutrophils [#/volume] in Bl ood by Automated count (test code = 751-8) 5.0 x10e3/uL 1.4-7.0 Lymphocytes [#/volume] in Bl ood by Automated count (test code = 731-0) 0.8 x10e3/uL 0.7-3.1 Monocytes [#/volume] in Bloo d by Automated count (test code = 742-7) 0.3 x10e3/uL 0.1-0.9 Eosinophils [#/volume] in Bl ood by Automated count (test code = 711-2) 0.1 x10e3/uL 0.0-0.4 Basophils [#/volume] in Bloo d by Automated count (test code = 704-7) 0.0 x10e3/uL 0.0-0.2 Immature granulocytes/100 leukocytes in Blood by Automated count (test code = 58610-8) 0 % not estab. Immature granulocytes [#/volume] in Blood by Automated count (test code = 95504-0) 0.0 x10e3/uL 0.0-0.1 Nucleated erythrocytes/100 leukocytes [Ratio] in Blood by Automated count (test code = 34845-6) magazine keeper Morphology [Interpretation] in Blood Narrative (test code = 98292-2) magazine keeper [facility] Out[facility] ProgramComprehensive metabolic 2000 panel - Serum or [id number] 00:00:00* Test Item Value Reference Range Interpretation Comme nts Glucose [Mass/volume] in Ser um or Plasma (test code = 2345-7) 526 mg/dL 65-99 H Urea nitrogen [Mass/volume] in Serum or Plasma (test code = 3094-0) 21 mg/dL 6-24 Creatinine [Mass/volume] in Serum or Plasma (test code = 2160-0) 1.54 mg/dL 0.76-1.27 H Glomerular filtration rate/1.73 sq M.predicted among non-blacks [Volume Rate/Area] in Serum, Plasma or Blood by Creatinine-based formula (CKD-EPI) (test code = 31084-0) 51 mL/min/1.73 >59 L Glomerular filtration rate/1.73 sq M.predicted among blacks [Volume Rate/Area] in Serum, Plasma or Blood by Creatinine-based formula (CKD-EPI) (test code = 81170-7) 59 mL/min/1.73 >59 L Urea nitrogen/Creatinine [Ma ss Ratio] in Serum or Plasma (test code = 3097-3) 14 9-20 Sodium [Moles/volume] in Ser um or Plasma (test code = 2951-2) 132 mmol/L 134-144 L Potassium [Moles/volume] in Serum or Plasma (test code = 2823-3) 4.3 mmol/L 3.5-5.2 Chloride [Moles/volume] in Serum or Plasma (test code = 2075-0) 92 mmol/L 96-106 L Carbon dioxide, total [Moles/volume] in Serum or Plasma (test code = 2027-9) 25 mmol/L 20-29 Calcium [Mass/volume] in Ser um or Plasma (test code = 97152-9) 8.5 mg/dL 8.7-10.2 L Protein [Mass/volume] in Ser um or Plasma (test code = 2885-2) 6.8 g/dL 6.0-8.5 Albumin [Mass/volume] in Ser um or Plasma (test code = 1751-7) 3.3 g/dL 3.8-4.9 L Globulin [Mass/volume] in Serum by calculation (test code = 46997-0) 3.5 g/dL 1.5-4.5 Albumin/Globulin [Mass Ratio ] in Serum or Plasma (test code = 1759-0) 0.9 1.2-2.2 L Bilirubin.total [Mass/volume ] in Serum or Plasma (test code = 1975-2) 0.4 mg/dL 0.0-1.2 Alkaline phosphatase [Enzymatic activity/volume] in Serum or Plasma (test code = 6768-6) 94 IU/L 39-117 Aspartate aminotransferase [Enzymatic activity/volume] in Serum or Plasma (test code = 1920-8) 7 IU/L 0-40 Alanine aminotransferase [Enzymatic activity/volume] in Serum or Plasma (test code = 1742-6) 9 IU/L 0-44 [facility] ProgramMicroalbumin/Creatinine [Mass Ratio] in [id number] 00:00:00* Test Item Value Reference Range Interpretation Comme nts Creatinine [Mass/volume] in Urine (test code = 2161-8) 131.3 mg/dL not estab. Microalbumin [Mass/volume] i n Urine (test code = 74562-6) 2710.8 ug/mL not estab. Albumin/Creatinine [Mass ratio] in Urine (test code = 9318-7) 2065 mg/g creat 0-29 H [facility] CKD [id number] 00:00:00* Test Item Value Reference Range Interpretation Comme nts Report (test code = 19924-3) note Interpretation and review of laboratory results (test code = 00255-7) . [facility]wallHemoglobin A1c/Hemoglobin.total in Ajrdx5820-25-11 00:00:00* Test Item Value Reference Range Interpretation Comme nts Hemoglobin A1c/Hemoglobin.to lindsay in Blood (test code = 4548-4) 12.9 % 4.8-5.6 H Glucose mean value [Mass/vol ume] in Blood Estimated from glycated hemoglobin (test code = 50802-3) 324 mg/dL [facility] [id number] 00:00:00* Test Item Value Reference Range Interpretation Comme nts pdf (test code = pdf) not applicable [facility]wallCom[facility] 2000 panel - Serum or [id number] 00:00:00* Test Item Value Reference Range Interpretation Comme nts Glucose [Mass/volume] in Ser um or Plasma (test code = 2345-7) 244 mg/dL 65-99 H Urea nitrogen [Mass/volume] in Serum or Plasma (test code = 3094-0) 23 mg/dL 6-24 Creatinine [Mass/volume] in Serum or Plasma (test code = 2160-0) 1.49 mg/dL 0.76-1.27 H Glomerular filtration rate/1.73 sq M.predicted among non-blacks [Volume Rate/Area] in Serum, Plasma or Blood by Creatinine-based formula (CKD-EPI) (test code = 11463-2) 53 mL/min/1.73 >59 L Glomerular filtration rate/1.73 sq M.predicted among blacks [Volume Rate/Area] in Serum, Plasma or Blood by Creatinine-based formula (CKD-EPI) (test code = 29950-1) 61 mL/min/1.73 >59 Urea nitrogen/Creatinine [Ma ss Ratio] in Serum or Plasma (test code = 3097-3) 15 9-20 Sodium [Moles/volume] in Ser um or Plasma (test code = 2951-2) 138 mmol/L 134-144 Potassium [Moles/volume] in Serum or Plasma (test code = 2823-3) 4.2 mmol/L 3.5-5.2 Chloride [Moles/volume] in Serum or Plasma (test code = 2075-0) 99 mmol/L 96-106 Carbon dioxide, total [Moles/volume] in Serum or Plasma (test code = 2027-9) 27 mmol/L 20-29 Calcium [Mass/volume] in Ser um or Plasma (test code = 53489-3) 9.0 mg/dL 8.7-10.2 Protein [Mass/volume] in Ser um or Plasma (test code = 2885-2) 6.8 g/dL 6.0-8.5 Albumin [Mass/volume] in Ser um or Plasma (test code = 1751-7) 3.9 g/dL 3.8-4.9 Globulin [Mass/volume] in Serum by calculation (test code = 82723-1) 2.9 g/dL 1.5-4.5 Albumin/Globulin [Mass Ratio ] in Serum or Plasma (test code = 1759-0) 1.3 1.2-2.2 Bilirubin.total [Mass/volume ] in Serum or Plasma (test code = 1975-2) 0.3 mg/dL 0.0-1.2 Alkaline phosphatase [Enzymatic activity/volume] in Serum or Plasma (test code = 6768-6) 79 IU/L 39-117 Aspartate aminotransferase [Enzymatic activity/volume] in Serum or Plasma (test code = 1920-8) 14 IU/L 0-40 Alanine aminotransferase [Enzymatic activity/volume] in Serum or Plasma (test code = 1742-6) 18 IU/L 0-44 [facility] CKD [id number] 00:00:00* Test Item Value Reference Range Interpretation Comme nts interpretation (test code = interpretation) note pdf (test code = pdf) . [facility] nlndhezgd1087-27-27 00:00:00* Test Item Value Reference Range Interpretation Comme nts pdf (test code = pdf) not applicable [facility]em[facility] A1c/Hemoglobin.total in Owczi1139-92-39 00:00:00* Test Item Value Reference Range Interpretation Comme nts Hemoglobin A1c/Hemoglobin.to lindsay in Blood (test code = 4548-4) 9.9 % 4.8-5.6 H [facility] identified in Unspecified specimen by Anaerobe+Aerobe [id number] 00:00:00* Test Item Value Reference Range Interpretation Comme nts Bacteria identified in Unspecified specimen by Anaerobe culture (test code = 635-3) final report Bacteria identified in Unspecified specimen by Culture (test code = 6463-4) staphylococcus aureus A Bacteria identified in Unspecified specimen by Aerobe culture (test code = 634-6) final report A Other Antibiotic [Susceptibility] (test code = 78864-8) comment [facility] in Unspecified specimen by Anaerobe+Aerobe stpzshi1695-85-90 00:00:00* Test Item Value Reference Range Interpretation Comme nts Bacteria identified in Unspecified specimen by Anaerobe culture (test code = 635-3) final report Bacteria identified in Unspecified specimen by Culture (test code = 6463-4) staphylococcus aureus A Bacteria identified in Unspecified specimen by Aerobe culture (test code = 634-6) final report A Other Antibiotic [Susceptibility] (test code = 14207-9) comment [facility] in Unspecified specimen by Anaerobe+Aerobe [id number] 00:00:00* Test Item Value Reference Range Interpretation Comme nts Bacteria identified in Unspecified specimen by Anaerobe culture (test code = 635-3) final report Bacteria identified in Unspecified specimen by Culture (test code = 6463-4) staphylococcus aureus A Bacteria identified in Unspecified specimen by Aerobe culture (test code = 634-6) final report A Other Antibiotic [Susceptibility] (test code = 26072-8) [facility] [Presence] in Respiratory specimen by ISIDRO with probe [id number] 00:00:00* Test Item Value Reference Range Interpretation Comme nts SARS coronavirus 2 RNA [Presence] in Respiratory specimen by ISIDRO with probe detection (test code = 91198-8) not detected not detected [facility] coronavirus 2 RNA [Presence] in Respiratory specimen by ISIDRO with probe [id number] 00:00:00* Test Item Value Reference Range Interpretation Comme nts SARS coronavirus 2 RNA [Presence] in Respiratory specimen by ISIDRO with probe detection (test code = 82010-8) not detected not detected [facility] ProgramS[facility] coronavirus 2 RNA [Presence] in Respiratory specimen by ISIDRO with probe [id number] 00:00:00* Test Item Value Reference Range Interpretation Comme nts SARS coronavirus 2 RNA [Presence] in Respiratory specimen by ISIDRO with probe detection (test code = 89186-3) not detected not detected [facility] ProgramS[facility] coronavirus 2 RNA [Presence] in Respiratory specimen by ISIDRO with probe eetvzvpdu9220-11-91 00:00:00* Test Item Value Reference Range Interpretation Comme nts SARS coronavirus 2 RNA [Presence] in Respiratory specimen by ISIDRO with probe detection (test code = 01979-2) not detected not detected [facility] ProgramS[facility] coronavirus 2 RNA [Presence] in Respiratory specimen by ISIDRO with probe [id number] 00:00:00* Test Item Value Reference Range Interpretation Comme nts SARS coronavirus 2 RNA [Presence] in Respiratory specimen by ISIDRO with probe detection (test code = 26554-4) not detected not detected [facility] ProgramS[facility] coronavirus 2 RNA [Presence] in Respiratory specimen by ISIDRO with probe qaftyidbx2588-42-72 00:00:00* Test Item Value Reference Range Interpretation Comme nts SARS coronavirus 2 RNA [Presence] in Respiratory specimen by ISIDRO with probe detection (test code = 28988-3) not detected not detected [facility] ProgramS[facility] coronavirus 2 RNA [Presence] in Respiratory specimen by ISIDRO with probe [id number] 00:00:00* Test Item Value Reference Range Interpretation Comme nts SARS coronavirus 2 RNA [Presence] in Respiratory specimen by ISIDRO with probe detection (test code = 76274-9) not detected not detected [facility] [Presence] in Respiratory specimen by ISIDRO with probe [id number] 00:00:00* Test Item Value Reference Range Interpretation Comme nts SARS coronavirus 2 RNA [Pres ence] in Respiratory specimen by ISIDRO with probe detection (test code = 73398-6) detected not detected [facility] [Presence] in Respiratory specimen by ISIDRO with probe [id number] 00:00:00* Test Item Value Reference Range Interpretation Comme nts SARS coronavirus 2 RNA [Pres ence] in Respiratory specimen by ISIDRO with probe detection (test code = 70231-0) detected not detected A [facility] [id number] 00:00:00* Test Item Value Reference Range Interpretation Comme nts pdf image (test code = pdf image) . [facility].pylori,IgG/IgM ccq5283-71-85 00:00:00* Test Item Value Reference Range Interpretation Comme nts Helicobacter pylori IgG Ab [Units/volume] in Serum by Immunoassay (test code = 5176-3) 1.75 index value 0.00-0.79 H Helicobacter pylori IgM Ab [Units/volume] in Serum (test code = 7903-8) <9.0 0.0-8.9 [facility] W Auto Differential panel - Blood 2019-05-08 00:00:00* Test Item Value Reference Range Interpretation Comme nts Leukocytes [#/volume] in Blo od by Automated count (test code = 6690-2) 3.3 x10e3/uL 3.4-10.8 L Erythrocytes [#/volume] in Blood by Automated count (test code = 789-8) 4.06 x10e6/uL 4.14-5.80 L Hemoglobin [Mass/volume] in Blood (test code = 718-7) 10.8 g/dL 13.0-17.7 L Hematocrit [Volume Fraction] of Blood by Automated count (test code = 4544-3) 34.6 % 37.5-51.0 L Erythrocyte mean corpuscular volume [Entitic volume] by Automated count (test code = 787-2) 85 fL 79-97 Erythrocyte mean corpuscular hemoglobin [Entitic mass] by Automated count (test code = 785-6) 26.6 pg 26.6-33.0 Erythrocyte mean corpuscular hemoglobin concentration [Mass/volume] by Automated count (test code = 786-4) 31.2 g/dL 31.5-35.7 L Erythrocyte distribution wid th [Ratio] by Automated count (test code = 788-0) 14.0 % 12.3-15.4 Platelets [#/volume] in Bloo d by Automated count (test code = 777-3) 360 x10e3/uL 150-450 Neutrophils/100 leukocytes i n Blood by Automated count (test code = 770-8) 58 % not estab. Lymphocytes/100 leukocytes i n Blood by Automated count (test code = 736-9) 31 % not estab. Monocytes/100 leukocytes in Blood by Automated count (test code = 5905-5) 8 % not estab. Eosinophils/100 leukocytes i n Blood by Automated count (test code = 713-8) 3 % not estab. Basophils/100 leukocytes in Blood by Automated count (test code = 706-2) 0 % not estab. immature cells (test code = immature cells) magazine keeper Neutrophils [#/volume] in Bl ood by Automated count (test code = 751-8) 1.9 x10e3/uL 1.4-7.0 Lymphocytes [#/volume] in Bl ood by Automated count (test code = 731-0) 1.0 x10e3/uL 0.7-3.1 Monocytes [#/volume] in Bloo d by Automated count (test code = 742-7) 0.3 x10e3/uL 0.1-0.9 Eosinophils [#/volume] in Bl ood by Automated count (test code = 711-2) 0.1 x10e3/uL 0.0-0.4 Basophils [#/volume] in Bloo d by Automated count (test code = 704-7) 0.0 x10e3/uL 0.0-0.2 immature granulocytes (test code = immature granulocytes) 0 % not estab. Granulocytes Immature [#/volume] in Blood by Automated count (test code = 79974-8) 0.0 x10e3/uL 0.0-0.1 Nucleated erythrocytes/100 leukocytes [Ratio] in Blood by Automated count (test code = 59146-4) magazine keeper Morphology [interpretation] in Blood Narrative (test code = 11666-7) magazine keeper [facility] ProgramComprehensive metabolic 2000 panel - Serum or [id number] 00:00:00* Test Item Value Reference Range Interpretation Comme nts Glucose [Mass/volume] in Ser um or Plasma (test code = 2345-7) 423 mg/dL 65-99 H Urea nitrogen [Mass/volume] in Serum or Plasma (test code = 3094-0) 17 mg/dL 6-24 Creatinine [Mass/volume] in Serum or Plasma (test code = 2160-0) 1.25 mg/dL 0.76-1.27 eGFR if nonafricn AM (test code = eGFR if nonafricn AM) 66 mL/min/1.73 >59 eGFR if africn AM (test code = eGFR if africn AM) 77 mL/min/1.73 >59 Urea nitrogen/Creatinine [Ma ss Ratio] in Serum or Plasma (test code = 3097-3) 14 9-20 Sodium [Moles/volume] in Ser um or Plasma (test code = 2951-2) 137 mmol/L 134-144 Potassium [Moles/volume] in Serum or Plasma (test code = 2823-3) 4.5 mmol/L 3.5-5.2 Chloride [Moles/volume] in Serum or Plasma (test code = 5-0) 96 mmol/L 96-106 Carbon dioxide, total [Moles/volume] in Serum or Plasma (test code = 2027-) 26 mmol/L 20-29 Calcium [Mass/volume] in Ser um or Plasma (test code = 62965-9) 9.1 mg/dL 8.7-10.2 Protein [Mass/volume] in Ser um or Plasma (test code = 2885-2) 7.0 g/dL 6.0-8.5 Albumin [Mass/volume] in Ser um or Plasma (test code = 1751-7) 3.7 g/dL 3.5-5.5 Globulin [Mass/volume] in Serum by calculation (test code = 63827-3) 3.3 g/dL 1.5-4.5 Albumin/Globulin [Mass Ratio ] in Serum or Plasma (test code = 1759-0) 1.1 1.2-2.2 L Bilirubin.total [Mass/volume ] in Serum or Plasma (test code = 1975-2) 0.3 mg/dL 0.0-1.2 Alkaline phosphatase [Enzymatic activity/volume] in Serum or Plasma (test code = 6768-6) 203 IU/L 39-117 H Aspartate aminotransferase [Enzymatic activity/volume] in Serum or Plasma (test code = 1920-8) 15 IU/L 0-40 Alanine aminotransferase [Enzymatic activity/volume] in Serum or Plasma (test code = 1742-6) 16 IU/L 0-44 [facility]Hemoglobin.total in Ecptn1672-64-64 00:00:00* Test Item Value Reference Range Interpretation Comme nts Hemoglobin A1c/Hemoglobin.to lindsay in Blood (test code = 4548-4) 11.2 % 4.8-5.6 H [facility]
[2023-07-06] MEDS ORDERED: VANCOMYCIN 500 MG/VIAL ONE (14:18)
[2023-07-06] MEDS ORDERED: VANCOMYCIN 1 GM/VIAL ONE (14:18)
[2023-07-06] MEDS ORDERED: PIPERACIL/TAZO 3.375 GM VIAL IV ONE (14:19)
[2023-07-06] MEDS ORDERED: NA CHLORIDE 0.9% 100 ML ONE (14:19)
[2023-07-06] MEDS ORDERED: NA CHLORIDE 0.9% 0 ML ONE (14:19)
[2023-07-06 14:30] LABS: Absolute Lymphocytes (CBC) 0.9 K/uL (0.7-4.9); Hematocrit 36.9 % (39.6-49.0); Lymphocytes % 23.8 % (15.3-44.8); MCV 82.3 fL (80-100); MPV 8.7 fL (7.6-11.3); Platelets 183 thou/uL (152-406); RBC Red Blood Cell Count 4.48 M/uL (4.33-5.43)
--- NOTE | 2023-07-06 14:40 | RAD REPORT ---
EXAM DESCRIPTION: RADTib Fib Left07/06/2023 2:32 pm CLINICAL HISTORY: Left leg pain/wound FINDINGS: No fracture is seen Vague oval lucency overlies the anterior mid to distal tibial cortex. It is uncertain if this represe nts a bony lesion related to osteomyelitis or edema within overlying soft tissue. Further evaluation could be obtained with MRI
[2023-07-06 14:54] LABS: Albumin 3.1 g/dL (3.4-5.0); Bilirubin Total 0.4 mg/dL (0.2-1.0); C-Reactive Protein 5.57 mg/L (<3.00); Potassium 4.8 mEq/L (3.5-5.1); Protein, Total 7.6 g/dL (6.4-8.2)
--- NOTE | 2023-07-06 15:04 | EDPHYS ---
Physician Documentation [facility] Name: Cameron Hooper Age: 57 yrs Sex: Male : 1965 Arrival Date: 07/06/2023 Time: 12:55 Bed 15 Private MD: ED Physician Jesus Mendez HPI: 07/06 13:20 This 57 yrs old Male presents to ER via Unassigned with complaints of Wound ec2 Check. 13:20 Patient arrives today for worsening wound on left anterior tibia. Patient reports that ec2 he has noted a wound for the past several weeks that has progressively gotten larger. States that he is having discharge that is malodorous. Patient reports no fevers or chills, no nausea or vomiting, does report history of diabetes and poor wound healing general. Does also report history of hypertension.. Historical: - Allergies: 13:37 No Known Allergies; nj1 - PMHx: 13:37 diabetes mellitus; Hypertensive disorder; nj1 - PSHx: 13:37 Appendectomy; Cholecystectomy; nj1 - Immunization history:: Client reports receiving the 2nd dose of the Covid vaccine. - Social history:: Smoking status: Patient denies any tobacco usage or history of. ROS: 13:20 Constitutional: as per hpi ec2 Exam: 13:20 Constitutional: GEN: NAD Head: atraumatic Eyes: EOMI Ears: External ears are ec2 normal. CV: regular rate LUNGS: no respiratory distress ABD: non-distended SKIN: Left anterior tibia with draining wound noted, malodorous, surrounding erythema, no significant warmth. MSK: no evidence of trauma NEURO: moves all extremities equally Vital Signs: 13:06 BP 161 / 83; Pulse 87; Resp 18; Pulse Ox 97% on R/A; Weight 129.27 kg; Height 5 ft. 6 nj1 in. ; Pain 3/10; 14:00 BP 151 / 63; Pulse 69; Resp 16; Pulse Ox 90% on R/A; db 14:10 Temp 97.6(O); db 15:00 BP 152 / 73; Pulse 69; Resp 16; Pulse Ox 95% on 2 lpm NC; db 16:00 BP 131 / 72; Pulse 65; Resp 16; Pulse Ox 95% on 2 lpm NC; db 18:00 BP 196 / 99; Pulse 72; Resp 16; Pulse Ox 98% on R/A; db 19:30 BP 185 / 104; Pulse 72; Resp 20; Pulse Ox 96% on R/A; Pain 5/10; la4 20:00 BP 185 / 104; Pulse 77; Resp 22; Temp 98(O); Pulse Ox 96% ; la4 07/07 05:00 BP 158 / 102; Pulse 68; Resp 20; Temp 97.9; Pulse Ox 93% on R/A; Pain 3/10; la4 07/06 13:06 Body Mass Index 46.00 (129.27 kg, 167.64 cm) nj1 07/06 13:06 Pain Scale: Adult nj1 19:30 Pain Scale: Adult la4 07/07 05:00 Pain Scale: Adult la4 07/06 14:00 PLACED PT ON NC 2 L db 19:30 Pain to left lower leg at wound la4 07/07 05:00 left lower leg la4 [place] Coma Score: 07/06 19:30 Eye Response: spontaneous(4). Motor Response: obeys commands(6). Verbal Response: la4 oriented(5). Total: 15. 20:00 Eye Response: spontaneous(4). Motor Response: obeys commands(6). Verbal Response: la4 oriented(5). Total: 15. 07/07 05:00 Eye Response: spontaneous(4). Motor Response: obeys commands(6). Verbal Response: la4 oriented(5). Total: 15. MDM: 07/06 13:15 Patient medically screened. ec2 13:20 Data reviewed:. ED course: Patient arrives today for evaluation of a wound on the left ec2 tibia. Examination remarkable for 1 findings noted above. Will obtain lab work, x-ray, give the patient vancomycin and Zosyn, anticipate admission for cellulitis. Currently considering cellulitis, possible osteomyelitis. Patient also with history of diabetes, predispose him to poor wound healing. 14:39 ED course: CBC with slight leukopenia noted.. ec2 15:01 ED course: Metabolic profile with renal dysfunction noted with a creatinine of 2.23 and ec2 a GFR of 34. CRP elevated at 5.57. Tib-fib x-ray shows possible lucency over the skin breakdown area, will admit for continued antibiotics and further testing and management for possible osteomyelitis. . 07/06 13:19 Order name: CBC with Diff; Complete Time: 14:39 ec2 07/06 13:19 Order name: CMP; Complete Time: 15:01 ec2 07/06 13:19 Order name: CRP; Complete Time: 15:01 ec2 07/06 15:40 Order name: Basic Metabolic Panel EDMS 07/06 15:40 Order name: Basic Metabolic Panel EDMS 07/06 15:40 Order name: Basic Metabolic Panel EDMS 07/06 15:40 Order name: Basic Metabolic Panel EDMS 07/06 15:40 Order name: Basic Metabolic Panel EDMS 07/06 15:40 Order name: Basic Metabolic Panel EDMS 07/06 15:40 Order name: Basic Metabolic Panel EDMS 07/06 15:40 Order name: Basic Metabolic Panel EDMS 07/06 15:40 Order name: CBC with Automated Diff EDMS 07/06 15:40 Order name: CBC with Automated Diff EDMS 07/06 15:40 Order name: CBC with Automated Diff EDMS 07/06 15:40 Order name: CBC with Automated Diff EDMS 07/06 15:40 Order name: CBC with Automated Diff EDMS 07/06 15:40 Order name: CBC with Automated Diff EDMS 07/06 15:40 Order name: CBC with Automated Diff EDMS 07/06 15:40 Order name: CBC with Automated Diff EDMS 07/06 15:40 Order name: Magnesium EDMS 07/06 15:40 Order name: Magnesium EDMS 14 15:40 Order name: Magnesium EDMS 14 15:40 Order name: Magnesium EDMS 14 15:40 Order name: Magnesium EDMS 14 15:40 Order name: Magnesium EDMS 14 15:40 Order name: Magnesium EDMS 14 15:40 Order name: Magnesium EDMS 14 15:40 Order name: Phosphorus EDMS 14 15:40 Order name: Phosphorus EDMS 14 15:40 Order name: Phosphorus EDMS 14 15:40 Order name: Phosphorus EDMS 14 15:40 Order name: Phosphorus EDMS 14 15:40 Order name: Phosphorus EDMS 14 15:40 Order name: Phosphorus EDMS 14 15:40 Order name: Phosphorus EDMS 14 19:16 Order name: Glucose, Ancillary Testing EDMS 07/07 00:21 Order name: Glucose, Ancillary Testing EDUT 07/07 05:05 Order name: Hemoglobin A1c EDUT 07/07 06:48 Order name: Glucose, Ancillary Testing EDMS 07/07 08:05 Order name: Glucose, Ancillary Testing EDMS 07/07 11:57 Order name: Glucose, Ancillary Testing EDMS 07/07 16:58 Order name: Glucose, Ancillary Testing EDMS 07/06 13:19 Order name: Tib Fib Left XRAY; Complete Time: 15:01 ec2 07/06 22:26 Order name: CT EDMS 07/07 16:31 Order name: RAD EDMS 07/06 15:40 Order name: CONS Physician Consult EDMS Administered Medications: 14:40 Drug: Piperacillin-Tazobactam IVPB 3.375 grams IVPB once over 60 mins; (mix in NS 100 db mL) Route: IVPB; Infused Over: 60 mins; Site: right antecubital; 16:08 Drug: vancoMYCIN IVPB 1.5 grams IVPB at calculated rate once Route: IVPB; Rate: db calculated rate; Site: left antecubital; Disposition Summary: 07/06/23 15:04 Hospitalization Ordered Notes: Hospitalization Status: Inpatient Admission ec2 Provider: Angel Luis Estrada ec2 Condition: Stable ec2 Problem: new ec2 Symptoms: are unchanged ec2 Bed/Room Type: Standard ec2 Location: Telemetry/MedSurg (Inpatient)(07/07/23 16:22) eb Room Assignment: [facility](07/07/23 16:22) eb Diagnosis - Cellulitis of left lower limb ec2 Forms: - Medication Reconciliation Form ec2 - SBAR form ec2 - Leadership Thank You Letter ec2 Signatures: Dispatcher [employer] [facility] Ellen Garcia Kelly RN RN kb3 Ana Maria Hale RN RN db Suri Solis RN RN nj1 Jesus Mendez MD MD ec2 Corrections: (The following items were deleted from the chart) 13:22 13:21 Patient medically screened. ec2 ec2 16:46 15:04 Telemetry/MedSurg (Inpatient) ec2 kb3 16:46 15:04 ec2 kb3 07/07 16:22 07/06 16:46 [facility] ER HOLD kb3 eb 07/07 16:22 12/14 16:46 ERHOLD- kb3 eb
--- NOTE | 2023-07-06 15:04 | ER ---
Nurse's Notes [facility] Name: Cameron Hooper Age: 57 yrs Sex: Male : 1965 Arrival Date: 07/06/2023 Time: 12:55 Bed 15 Private MD: Diagnosis: Cellulitis of left lower limb Presentation: 07/06 13:06 Chief complaint: Patient states: Wound to left lower leg. First noticed about 3 weeks nj1 ago, taking care of it at home, seemed to get better but then started to get worse, seen at PCP yesterday, sent to wound clinic today who instructed patient to come to ED for further treatment/evaluation. Non complaint diabetic. 13:06 Coronavirus screen: Vaccine status: Patient reports receiving the 2nd dose of the covid nj1 vaccine. Ebola Screen: Patient denies travel to an Ebola-affected area in the 21 days before illness onset. Initial Sepsis Screen:. 13:06 Method Of Arrival: Ambulatory [facility] 13:36 Risk Assessment: Do you want to hurt yourself or someone else? Patient reports no [facility] desire to harm self or others. Onset of symptoms was May 2023. 13:36 Acuity: MAYA 3 nj1 19:20 Initial Sepsis Screen: Does the patient meet any 2 criteria? No. Patient's initial db sepsis screen is negative. Does the patient have a suspected source of infection? No. Patient's initial sepsis screen is negative. Historical: - Allergies: 13:37 No Known Allergies; nj1 - PMHx: 13:37 diabetes mellitus; Hypertensive disorder; nj1 - PSHx: 13:37 Appendectomy; Cholecystectomy; nj1 - Immunization history:: Client reports receiving the 2nd dose of the Covid vaccine. - Social history:: Smoking status: Patient denies any tobacco usage or history of. Screenin:14 [facility] ED Fall Risk Assessment (Adult) History of falling in the last 3 months, db including since admission No falls in past 3 months (0 pts) Confusion or Disorientation No (0 pts) Intoxicated or Sedated No (0 pts) Impaired Gait No (0 pts) Mobility Assist Device Used No (0 pt) Altered Elimination No (0 pt) Score/Fall Risk Level 0 - 2 = Low Risk Oriented to surroundings, Maintained a safe environment. Abuse screen: Denies threats or abuse. Denies injuries from another. Nutritional screening: No deficits noted. Tuberculosis screening: No symptoms or risk factors identified. Assessment: 14:52 Reassessment: Patient appears in no apparent distress at this time. Patient and/or db family updated on plan of care and expected duration. Pain level reassessed. Patient is alert, oriented x 3, equal unlabored respirations, skin warm/dry/pink. LEFT LEG WOUND X 2 WEEKS. General: Appears in no apparent distress. comfortable, Behavior is calm, cooperative. Pain: Complains of pain in left leg. Neuro: Level of Consciousness is awake, alert, obeys commands, Oriented to person, place, time, situation. Respiratory: Airway is patent Respiratory effort is even, unlabored, Respiratory pattern is regular, symmetrical. Derm: Wound noted FRANKLIN. 16:15 Reassessment: Patient appears in no apparent distress at this time. Patient and/or db family updated on plan of care and expected duration. Pain level reassessed. Patient is alert, oriented x 3, equal unlabored respirations, skin warm/dry/pink. Patient states feeling better. Neuro: Level of Consciousness is awake, alert, obeys commands, Oriented to person, place, time, situation. 17:15 Reassessment: Patient appears in no apparent distress at this time. Patient and/or db family updated on plan of care and expected duration. Pain level reassessed. Patient is alert, oriented x 3, equal unlabored respirations, skin warm/dry/pink. 18:25 Reassessment: Patient appears in no apparent distress at this time. Patient and/or db family updated on plan of care and expected duration. Pain level reassessed. Patient is alert, oriented x 3, equal unlabored respirations, skin warm/dry/pink. FAMILY AT BEDSIDE. 19:30 General: Appears in no apparent distress. comfortable, Behavior is calm, cooperative, la4 appropriate for age. Pain: Complains of pain in left franklin Pain currently is 5 out of 10 on a pain scale. Quality of pain is described as throbbing, Pain began 2 weeks ago Is continuous. Neuro: Colin Agitation-Sedation Scale (RASS): 0 - Alert and Calm Level of Consciousness is Oriented to. Cardiovascular: No deficits noted. Heart tones S1 S2 Capillary refill < 3 seconds is brisk Pulses are all present. Edema is 2+ to left midcalf, left ankle and left foot Rhythm is regular. Respiratory: Airway is patent Trachea midline Respiratory effort is even, unlabored, Respiratory pattern is regular, symmetrical, Breath sounds are clear bilaterally. GI: No deficits noted. : No deficits noted. Derm: Skin is red, Skin temperature is hot around wound. Wound noted left franklin Wound is ulceration noted to the front of the left franklin w/ black and slough tissue noted to wound bed. Yellow/singh foul smelling drainage noted. Wound cleaned and odor remained. Dressed w/ 4/4 and coban used to secure dressing. skin surrounding skin noted to be red, shiny, hot and tender to touch. Vital Signs: 13:06 BP 161 / 83; Pulse 87; Resp 18; Pulse Ox 97% on R/A; Weight 129.27 kg; Height 5 ft. 6 nj1 in. ; Pain 3/10; 14:00 BP 151 / 63; Pulse 69; Resp 16; Pulse Ox 90% on R/A; db 14:10 Temp 97.6(O); db 15:00 BP 152 / 73; Pulse 69; Resp 16; Pulse Ox 95% on 2 lpm NC; db 16:00 BP 131 / 72; Pulse 65; Resp 16; Pulse Ox 95% on 2 lpm NC; db 18:00 BP 196 / 99; Pulse 72; Resp 16; Pulse Ox 98% on R/A; db 19:30 BP 185 / 104; Pulse 72; Resp 20; Pulse Ox 96% on R/A; Pain 5/10; la4 20:00 BP 185 / 104; Pulse 77; Resp 22; Temp 98(O); Pulse Ox 96% ; la4 07/07 05:00 BP 158 / 102; Pulse 68; Resp 20; Temp 97.9; Pulse Ox 93% on R/A; Pain 3/10; la4 07/06 13:06 Body Mass Index 46.00 (129.27 kg, 167.64 cm) nj1 07/06 13:06 Pain Scale: Adult nj1 19:30 Pain Scale: Adult la4 07/07 05:00 Pain Scale: Adult la4 07/06 14:00 PLACED PT ON NC 2 L db 19:30 Pain to left lower leg at wound la4 07/07 05:00 left lower leg la4 Vitals: 07/06 19:30 Cardiac Rhythm Assessment Regular. la4 [place] Coma Score: 19:30 Eye Response: spontaneous(4). Motor Response: obeys commands(6). Verbal Response: la4 oriented(5). Total: 15. 20:00 Eye Response: spontaneous(4). Motor Response: obeys commands(6). Verbal Response: la4 oriented(5). Total: 15. 07/07 05:00 Eye Response: spontaneous(4). Motor Response: obeys commands(6). Verbal Response: la4 oriented(5). Total: 15. ED Course: 07/06 12:58 Patient arrived in ED. mg5 13:03 Jesus Mendez MD is Attending Physician. ec2 13:15 Ana Maria Hale, RN is Primary Nurse. db 13:37 Triage completed. nj1 13:37 Arm band placed on. nj1 14:15 Inserted saline lock: 20 gauge in right antecubital area, using aseptic technique. db Blood collected. 14:34 Tib Fib Left XRAY In Process Unspecified. EDMS 14:53 Patient has correct armband on for positive identification. Bed in low position. Call db light in reach. Side rails up X 1. Pulse ox on. NIBP on. 15:03 Angel Luis Estrada is Hospitalizing Provider. ec2 18:26 No provider procedures requiring assistance completed. db 19:19 Provided Education on: admission. db 19:19 Patient admitted, IV remains in place. db 19:26 Primary Nurse role handed off by Ana Maria Hale, RN la4 19:26 Genia Still, RN is Primary Nurse. la4 20:00 Patient moved to MRI. la4 Administered Medications: 14:40 Drug: Piperacillin-Tazobactam IVPB 3.375 grams IVPB once over 60 mins; (mix in NS 100 db mL) Route: IVPB; Infused Over: 60 mins; Site: right antecubital; 16:08 Drug: vancoMYCIN IVPB 1.5 grams IVPB at calculated rate once Route: IVPB; Rate: db calculated rate; Site: left antecubital; Medication: 19:19 VIS not applicable for this client. db Outcome: 15:04 Decision to Hospitalize by Provider. ec2 19:19 Admitted to ER Hold. Please see [facility] for further documentation. db 19:19 Condition: stable 19:19 Instructed on the need for admit, 07/07 18:10 Patient left the ED. mb9 Signatures: Dispatcher [employer] Ana Maria Buckner, RN RN db Chivo, Danuta Craig RN RN mb9 Suri Solis RN RN nj1 Kaylee Cutler 5 Jesus Mendez MD MD ec2 Genia Still RN RN la4
[2023-07-06] MEDS ORDERED: VANCOMYCIN 1.5 GM in NA CHLORIDE 0.9% 500 ML IVPB ONE (15:30)
[2023-07-06] MEDS: NA CHLORIDE 0.9% 1,000 ML IV SCH (16:00)
--- NOTE | 2023-07-06 16:08 | P.HP ---
Certification for Inpatient Patient admitted to: Inpatient With expected LOS: >2 Midnights Patient will require the following post-hospital care: None Practitioner: I am a practitioner with admitting privileges, knowledge of patient current condition, hospital course, and medical plan of care. Services: Services provided to patient in accordance with Admission requirements found in Title 42 Section 412.3 of the Code of Federal Regulations <Shilpi Nelson - Last Filed: 07/06/23 17:48> Patient History Date of Service: 07/06/23 Reason for admission: non healing wound, osteomylitis to left anterior tibia History of Present Illness: Cameron Hooper is a 57-year-old male with past medical history of diabetes and hypertension who presented to the ED complaining of pain and non healing wound to left anterior tibia. He reports splitting logs a few weeks ago, the log scraped against his franklin but did not present as a deep wound until a week later when the scab appeared with swelling. A week after that the wound was smaller and the swelling had gone down, he was thinking it was getting better. The wound now has malodorous discharge and is indented with black eschar present. He states he has had a previous injury to his right palm last year which needed debridement. He is also an uncontrolled diabetic with serum glucose of 366, he reports not taking his medications currently. A1c is pending, he states he was previously on dialysis and has maintain a caffeine free diet to avoid going back on dialysis. Dr. Hall was his development vice president at that time. Further education will need to be provided. Initial vital BP 161 / 83; Pulse 87; Resp 18; Pulse Ox 97% on R/A. Laboratory evaluation serum glucose 366, white blood cells 3.8, BUN/creatinine 44/2.23, GFR 34, C-reactive protein 5.57. X-ray of left tibia-fibula reports "Vague oval lucency overlies the anterior mid to distal tibial cortex. It is uncertain if this represents a bony lesion related to osteomyelitis or edema within overlying soft tissue. Further evaluation could be obtained with MRI." Cameron will be admitted to hospitalist service for further evaluation and treatment of left anterior tibial osteomyelitis. - Past Medical/Surgical History Diabetic: Yes -: HTN -: IDDM -: Abscess mid abd -: jj -: Appendectomy - Family History Mother -: Hypertension, Diabetes Father -: Diabetes - Social History Alcohol use: No CD- Drugs: No Caffeine use: Yes <Shilpi Nelson - Last Filed: 07/06/23 17:48> Date of Service: 07/07/23 <Juan Pablo Pappas - Last Filed: 07/08/23 09:02> Allergies No Known Allergies Allergy (Verified 08/23/22 12:18) Home Medications: Insulin Degludec [Tresiba] 20 unit SQ BEDTIME 08/23/22 Losartan Potassium 0.5 mg PO DAILY 08/23/22 Review of Systems General: Unremarkable Eyes: Unremarkable ENT: Unremarkable Respiratory: Unremarkable Cardiovascular: Unremarkable Gastrointestinal: Unremarkable Genitourinary: Unremarkable Musculoskeletal: Leg Pain (left anterior tibia) Integumentary: Unremarkable Neurological: Unremarkable <Shilpi Nelson - Last Filed: 07/06/23 17:48> Physical Examination - Physical Exam General: Alert, In no apparent distress, Oriented x3 HEENT: Atraumatic, Normocephalic, PERRLA Neck: Supple, 2+ carotid pulse no bruit, JVD not distended Respiratory: Clear to auscultation bilaterally, Normal air movement Cardiovascular: No edema, Normal pulses, Regular rate/rhythm, Normal S1 S2 Capillary refill: <2 Seconds Gastrointestinal: Normal bowel sounds, Soft and benign Musculoskeletal: No clubbing, No swelling, No contractures, Erythema (left anterior tibia) Integumentary: Tenderness/swelling (left anterior tibia), Erythema (left anterior tibia), Warmth (left anterior tibia) Neurological: Normal speech, Normal strength at 5/5 x4 extr, Normal tone - Studies Laboratory Data (last 24 hrs) 07/06/23 07/06/23 14:13 14:13 WBC 3.80 L Hgb 12.7 L Hct 36.9 L Plt Count 183 Sodium 135 L Potassium 4.8 BUN 44 H Creatinine 2.23 H Glucose 366 H Total Bilirubin 0.4 AST 12 L ALT 22 Alkaline Phosphatase 103 <Shilpi Nelson - Last Filed: 07/06/23 17:48> Assessment and Plan - Plan Assessment and plan Acute osteomyelitis to the left anterior tibia -X-ray of left tibia-fibula reports "Vague oval lucency overlies the anterior mid to distal tibial cortex. It is uncertain if this represents a bony lesion related to osteomyelitis or edema within overlying soft tissue. Further evaluation could be obtained with MRI." -Zosyn and Vanco given in the ED -Cefepime -Pain control AGUSTO versus CKD -Previously on dialysis, making urine -BUN/creatinine 44/2.23, GFR 34. -Dr. Hall consulted -Gentle IV fluid -Monitor morning labs Uncontrolled diabetes mellitusNIDDM -Serum glucose 366 -A1c pending -Accu-Chek with sliding scale insulin -Gentle IV fluids -Cameron states he is not taking the prescribed medications History of hypertension -Blood pressure stable -Continue to monitor every 4 hours DVT PPx heparin Full code LOS 2 to 3 days Discharge Plan: Home Plan to discharge in: 72 Hours - Advance Directives Does patient have a Living Will: No Does patient have a Durable POA for Healthcare: No Time Spent Managing Pts Care (In Minutes): 55 <Shilpi Nelson - Last Filed: 07/06/23 17:48>
[2023-07-06] MEDS: INSULIN REGULAR (HUMAN) 100 UNIT/ML SQ SCH ×2 (16:30→21:00)
[2023-07-06] MEDS: HEPARIN 5000 UNIT/ML 1 ML VIAL SQ SCH (17:00)
[2023-07-06] MEDS ORDERED: HYDROCODONE/APAP 7.5/325 MG TAB PO PRN (17:45)
[2023-07-06] MEDS ORDERED: MORPHINE 2 MG/ML SYR IV PRN (17:45)
[2023-07-06] MEDS ORDERED: HEPARIN 5000 UNIT/ML 1 ML VIAL ONE (19:07)
[2023-07-06] MEDS ORDERED: INSULIN REGULAR (HUMAN) 100 UNIT/ML ONE (19:08)
[2023-07-06] MEDS ORDERED: NA CHLORIDE 0.9% 1,000 ML ONE (19:09)
--- NOTE | 2023-07-06 22:25 | RAD REPORT ---
EXAM DESCRIPTION: CT - Tib Fib Left Wo Con - 07/06/2023 10:00 pm CLINICAL HISTORY: Left leg pain and swelling COMPARISON: X-ray July 06, 2023 TECHNIQUE: Computed axial tomography obtained from below the knee 2 below the left ankle. Coronal sa gittal reconstruction FINDINGS: Anterior soft tissue ulceration adjacent to the mid to distal left tibia. The underlying tibial cortex is intact. A lesion is not seen. No fracture or dislocation. Edema within the subcutaneous tissues. A 9 millimeter curvilinear radiopaque foreign body within the anterior subcutaneous tissue distal low er leg. IMPRESSION: Anterior soft tissue ulceration adjacent to the mid to distal left tibia No radiographic evidence of osteomyelitis. No bony lesion seen
[2023-07-07] MEDS: HEPARIN 5000 UNIT/ML 1 ML VIAL SQ SCH ×3 (01:00→17:00)
[2023-07-07] MEDS: NA CHLORIDE 0.9% 1,000 ML IV SCH ×3 (02:00→22:31)
[2023-07-07 04:10] LABS: Absolute Lymphocytes (CBC) 0.9 K/uL (0.7-4.9); Hematocrit 33.9 % (39.6-49.0); Lymphocytes % 26.4 % (15.3-44.8); MCV 82.6 fL (80-100); MPV 8.6 fL (7.6-11.3); Platelets 152 thou/uL (152-406); RBC Red Blood Cell Count 4.11 M/uL (4.33-5.43)
[2023-07-07 04:33] LABS: Magnesium 2.1 mg/dL (1.6-2.4); Phosphorus 3.1 mg/dL (2.5-4.9); Potassium 4.3 mEq/L (3.5-5.1)
[2023-07-07] MEDS ORDERED: NA CHLORIDE 0.9% 1,000 ML ONE (04:38)
[2023-07-07 06:48] VITALS: BMI 46.0
[2023-07-07] MEDS: INSULIN REGULAR (HUMAN) 100 UNIT/ML SQ SCH ×4 (07:30→20:30)
[2023-07-07] MEDS ORDERED: HEPARIN 5000 UNIT/ML 1 ML VIAL ONE (08:37)
[2023-07-07] MEDS ORDERED: CEFEPIME 2 GM VIAL ONE (08:37)
[2023-07-07] MEDS ORDERED: NA CHLORIDE 0.9% 100 ML ONE (08:38)
[2023-07-07] MEDS: CEFEPIME 2 GM in NA CHLORIDE 0.9% 100 ML IV SCH ×2 (09:00→20:29)
[2023-07-07] MEDS ORDERED: INSULIN REGULAR (HUMAN) 100 UNIT/ML ONE (11:48)
--- NOTE | 2023-07-07 15:21 | P.PN ---
Date of Service: 07/07/23 Subjective: Awake alert and oriented x3 in no acute distress, still with pain to the left anterior tibia Consulting surgery today ROS: 10 point ROS as noted above, otherwise negative Physical Exam General: Alert, In no apparent distress, Oriented x3 HEENT: Atraumatic, Normocephalic, PERRLA Neck: Supple, 2+ carotid pulse no bruit, JVD not distended Respiratory: Clear to auscultation bilaterally, Normal air movement Cardiovascular: No edema, Normal pulses, Regular rate/rhythm, Normal S1 S2 Capillary refill: <2 Seconds Gastrointestinal: Normal bowel sounds, Soft and benign Musculoskeletal: No clubbing, No swelling, No contractures, Erythema (left anterior tibia) Integumentary: Tenderness/swelling (left anterior tibia), Erythema (left anterior tibia), Warmth (left anterior tibia) Neurological: Normal speech, Normal strength at 5/5 x4 extr, Normal tone Vitals reviewed Diagonsis Acute osteomyelitis to the left anterior tibia AGUSTO versus CKD Uncontrolled diabetes mellitus-NIDDM Assessment and plan Acute osteomyelitis to the left anterior tibia -X-ray of left tibia-fibula reports "Vague oval lucency overlies the anterior mid to distal tibial cortex. It is uncertain if this represents a bony lesion related to osteomyelitis or edema within overlying soft tissue. Further evaluation could be obtained with MRI." -Zosyn and Vanco given in the ED -Cefepime -Pain control -surgery consulted -PICC line AGUSTO versus CKD -Previously on dialysis, making urine -BUN/creatinine 39/1.90, GFR 41- improved -Dr. Hall consulted -Gentle IV fluid -Monitor morning labs Uncontrolled diabetes mellitus-NIDDM -Serum glucose 211 -A1c 10.0 -Accu-Chek with sliding scale insulin -Gentle IV fluids -Cameron states he is not taking the prescribed medications History of hypertension -Blood pressure stable -Continue to monitor every 4 hours DVT PPx heparin Full code LOS 2 to 3 days Discharge Plan: Home Plan to discharge in: 72 Hours Time Spent Managing PTS Care (In Minutes): 35
--- NOTE | 2023-07-07 16:30 | RAD REPORT ---
EXAM DESCRIPTION: RAD - Chest Single View - 07/07/2023 3:58 pm CLINICAL HISTORY: Device placement PICC line placement IMPRESSION: PICC line with its tip proximal to mid SVC
--- NOTE | 2023-07-07 16:41 | P.CNS ---
Date of Consult: 07/07/23 Reason for Consult: AGUSTO Requesting Physician: shanae singh Chief Complaint: non healing wound, osteomylitis to left anterior tibia History of Present Illness: 57M w/ PMHx of AGUSTO 2/2 to ATN who recently received dialysis now discontinued, uncontrolled DM2, & Htn who p/w pain and non healing wound on left anterior tibia, admitted for wound infection w/ L tibial osteomyelitis. He is referred to Nephrology for AGUSTO. SCr 2.2 on adm. He is receiving IV fluids & IV abx. Repeat serum Cr improved to 1.9. BP high. Allergies No Known Allergies Allergy (Verified 08/23/22 12:18) Home Medications: Insulin Degludec [Tresiba] 20 unit SQ BEDTIME 08/23/22 Losartan Potassium 0.5 mg PO DAILY 08/23/22 - Past Medical/Surgical History Diabetic: Yes -: HTN -: IDDM -: Abscess mid abd -: jj -: Appendectomy - Family History Mother Medical History: Hypertension, Diabetes Father Medical History: Diabetes - Social History Alcohol use: No CD- Drugs: No Caffeine use: Yes Review of Systems General: Weakness Eyes: Unremarkable ENT: Unremarkable Respiratory: Unremarkable Cardiovascular: Unremarkable Gastrointestinal: Unremarkable Genitourinary: Unremarkable Musculoskeletal: Leg Pain Integumentary: Other (L leg wound) Neurological: Weakness Lymphatics: Unremarkable Physical Examination Temp Pulse Resp BP Pulse Ox 89 18 162/103 H 96 07/07/23 11:42 07/07/23 11:42 07/07/23 11:42 07/07/23 11:42 General: In no apparent distress HEENT: Atraumatic, Normocephalic Neck: Supple Respiratory: Other (symmetric chest expansion) Cardiovascular: No rubs, No murmurs Gastrointestinal: Soft and benign, No guarding Musculoskeletal: No clubbing Integumentary: No warmth Neurological: Normal tone Lymphatics: No axilla or inguinal lymphadenopathy Urinary: Other (no bladder distention) External genitalia: Deferred Rectal: Deferred Conclusions/Impression: # AGUSTO 2/2 prerenal state/hyperglycemia-induced osmotic diuresis +/- ATN from prolonged prerenal, vs AGUSTO on CKD SCr 2.2 on adm, improved to 1.9 today Recently stopped chronic dialysis F/u urinalysis, urine chem, UPCR CPK wnl, no rhabo BNP wnl Cont IVF [place] po fluid intake Glycemic control # L anterior tibial osteomyelitis IV abx Local wound care Surgery service consulted # Htn BP meds adjusted Pain control # Anemia F/u iron panel # Vit D deficiency Start D3 5000 IU po daily # Secondary hyperPTH D3 repletion as above # DM2 uncontrolled Mngt per primary team
--- NOTE | 2023-07-07 20:14 | CON ---
Date of Consultation: 07/07/2023 Reason For Service: Cellulitis and necrotic open wound on the left anterior leg. Subjective: This is a case of a 57-year-old patient, comes to us with foul smelling ulcer in the ant erior leg region, diagnosed with acute cholecystitis, possible osteomyelitis. Surgical consult was o btained for debridement. He does not remember exact details. He believe is somehow maybe hit or may be initially caused by trauma. He noticed he was not getting better, so decided to come here to the ER. The patient was admitted and a surgical consult was obtained. Allergies: NONE. Medications: Include Tresiba and losartan. Medical History: Insulin-dependent diabetes and hypertension. Past Surgical History: Include cholecystectomies, appendectomies, mid abdomen abscess and debridemen t in the past. Family History: Includes hypertension and diabetes. Social History: He does not smoke. He does not drink alcohol. Review of Systems: Leg pain in anterior tibia. 10 points otherwise unremarkable. Physical Examination: General: The patient is awake, alert. HEENT: Pupils are equal and reactive. Anicteric. Neck: Supple. Chest: Clear. Heart: S1, S2. Abdomen: Soft and depressible. Extremities: Good capillary refill. Peripheral pulses still present including popliteal and dorsali s pedis. Integumentary: Shows a foul-smelling necrotic ulcer with black eschar present and fluctuance with th e left anterior leg region warm to touch and tender. Laboratory Data: Blood work shows WBC count of 3.3, hemoglobin of 11.7 with potassium 4.3 and glucos e 211. CAT scan of the lower extremity interpreted by Dr. Mahan as anterior soft tissue ulceration adjacent to the mid to distal left tibia. No radiographic evidence of osteomyelitis. Assessment: It is necrotic wound on the left anterior tibial region, the patient will have debrideme nt, n.p.o. after midnight. Benefits, alternatives, and risks of debridement fully explained, which i nclude, but not limited to infection, bleeding, damage to adjacent structures, anesthesia complicatio n, PA, and even . He also understands he will require wound care. He was advised the importanc e of diabetes control. HM/MODL Voice ID: [id number] Report ID: [id number]
[2023-07-07] MEDS: INSULIN GLARGINE 100 UNIT/ML SQ SCH (20:31)
[2023-07-07] MEDS: Mupirocin NASAL 2 APPL/1 GM TUBE NAS SCH (20:32)
[2023-07-08] MEDS: HEPARIN 5000 UNIT/ML 1 ML VIAL SQ SCH ×3 (01:58→20:43)
[2023-07-08 05:41] LABS: Absolute Lymphocytes (CBC) 0.9 K/uL (0.7-4.9); Hematocrit 33.2 % (39.6-49.0); Lymphocytes % 29.3 % (15.3-44.8); MCV 81.6 fL (80-100); MPV 8.5 fL (7.6-11.3); Platelets 151 thou/uL (152-406); RBC Red Blood Cell Count 4.07 M/uL (4.33-5.43)
[2023-07-08 06:03] LABS: Potassium 4.2 mEq/L (3.5-5.1)
[2023-07-08 06:08] LABS: Creatine Phosphokinase 41 U/L (39-308); NT PRO-BNP 32 pg/mL (<125)
[2023-07-08] MEDS ORDERED: VANCOMYCIN 2 GM in NA CHLORIDE 0.9% 500 ML IVPB SCH (07:00)
[2023-07-08] MEDS: INSULIN REGULAR (HUMAN) 100 UNIT/ML SQ SCH ×4 (07:30→20:42)
[2023-07-08] MEDS: NA CHLORIDE 0.9% 1,000 ML IV SCH ×2 (08:00→15:17)
[2023-07-08] MEDS ORDERED: VANCOMYCIN 1 GM in NA CHLORIDE 0.9% 250 ML IVPB SCH (09:00)
[2023-07-08] MEDS: VANCOMYCIN 1.75 GM in NA CHLORIDE 0.9% 500 ML IVPB SCH (09:06)
[2023-07-08] MEDS: Mupirocin NASAL 2 APPL/1 GM TUBE NAS SCH ×2 (09:07→20:43)
--- NOTE | 2023-07-08 09:21 | P.PN ---
Date of Service: 07/08/23 Subjective: Did well overnight, no acute events Has pain to left anterior tibia ROS: 10 point ROS as noted above, otherwise negative Physical exam GEN: Alert, oriented, NAD HEENT: Normal conjunctiva, sclera anicteric CV: Regular rate and rhythm, no edema Pulm: Nonlabored respirations on room air ABD: Soft, nontender, nondistended MSK: No joint tenderness Integumentary: Ulcerative wound with necrotic tissue present left anterior tibia Neuro: Normal speech, normal affect Vitals reviewed Problem List Infected wound/diabetic ulcer left anterior tibia AGUSTO versus CKD Diabetes mellitus type 9znq-aezswro-nrancffwu with hyperglycemia Hypertension Infected wound/diabetic ulcer left anterior tibia -X-ray of left tibia-fibula reports "Vague oval lucency overlies the anterior mid to distal tibial cortex. It is uncertain if this represents a bony lesion related to osteomyelitis or edema within overlying soft tissue. Further evaluation could be obtained with MRI." -Continue vancomycin, cefepime -Pain control -surgery consulted plan for debridement today 1216 -CT does not show evidence of osteomyelitis currently -Await further recommendations from general surgery after debridement AGUSTO versus CKD -Previously on dialysis, making urine -BUN/creatinine 39/1.90, GFR 41- improved -Dr. Hall consulted -Gentle IV fluid -Monitor morning labs Diabetes mellitus type 8evg-[id number]-dkayfryrz with hyperglycemia -Serum glucose 211 -A1c 10.0 -Accu-Chek with sliding scale insulin -Gentle IV fluids -Cameron states he is not taking the prescribed medications History of hypertension -Blood pressure stable VTE: Heparin subcu Code: Full Dispo: 1 to 2 days Time Spent Managing Pts Care (In Minutes): 35
[2023-07-08] MEDS ORDERED: FENTANYL CITR 100 MCG/2 ML ONE (11:14)
[2023-07-08] MEDS ORDERED: LIDOCAINE 2% MPF 5 ML VIAL ONE (11:14)
[2023-07-08] MEDS ORDERED: propofoL 200 MG/20 ML VIAL IV ONE (11:14)
[2023-07-08] MEDS ORDERED: MIDAZOLAM HCL 2 MG/2 ML INJ ONE (11:14)
[2023-07-08] MEDS ORDERED: ONDANSETRON 4 MG/2 ML VIAL ONE (11:14)
--- NOTE | 2023-07-08 12:40 | P.BOP ---
Preoperative diagnosis: Left leg cellulitis, infected necrotic ulcer Postoperative diagnosis: same Primary procedure: Excisional debridement Left leg infected necrotic ulcer [id number] Estimated blood loss: <10cc Specimen: culture, necrotic tissue Findings: Left leg infected necrotic ulcer down to bone tibial area exposed Complications: None Drain(s): Other Transferred to: Recovery Room Condition: Good
[2023-07-08] MEDS ORDERED: EPHEDRINE SULF 50 MG/ML VIAL ONE (12:47)
[2023-07-08] MEDS: HYDROMORPHONE HCL 1 MG/ML INJ ONE ×2 (13:22→13:27)
[2023-07-08] MEDS: CEFEPIME 2 GM in NA CHLORIDE 0.9% 100 ML IV SCH ×2 (15:15→20:43)
[2023-07-08] MEDS: VITAMIN D 5,000 UNIT CAP PO SCH (15:16)
[2023-07-08] MEDS: INSULIN GLARGINE 100 UNIT/ML SQ SCH (20:43)
[2023-07-09] MEDS: NA CHLORIDE 0.9% 1,000 ML IV SCH ×2 (00:33→12:28)
--- NOTE | 2023-07-09 03:56 | PN ---
Chief Complaint: Acute on chronic kidney injury. Subjective: The patient is a 57-year-old man who is admitted to the hospital because of acute kidney injury secondary to ATN. He recently received dialysis and subsequently dialysis was discontinued d ue to the fact that the patient was found to have an improvement of renal failure. The patient has u ncontrolled diabetes, hypertension and history of chronic pain, nonhealing wounds in left anterior ti rocio. The patient is admitted for wound infection and he was found to have tibial osteomyelitis on th e left tibia. The patient was found to have creatinine of 2.2 and subsequently after IV fluids, seru m creatinine level improved slightly to 1.9. Review of Systems: Denies chest pain, palpitation. Physical Examination: Lungs: Clear to auscultation bilaterally. Heart: S1-S2. Abdomen: Soft. Extremities: No clubbing, no cyanosis. Impression And Plan: 1.Acute on chronic kidney injury, nonoliguric acute kidney injury due to hyperglycemia and the use o f osmotic diuresis, ATN from prolonged prerenal condition. The patient likely has underlying chronic kidney disease. Followup urinalysis, urine chemistry, and urine protein electrophoresis. 2.CPK is within normal limits. The patient does not have rhabdomyolysis. The patient does not appe ar to be hypervolemic. BNP is within normal limits. Continue IV fluids. The patient is tolerating IV fluids. IV fluids were started for acute kidney injury and to correct hypovolemia and prevent lópez al hypoperfusion. 3.Left tibia osteomyelitis, on IV antibiotics. Adjust antibiotics to renal function. 4.Hypertension. Continue current blood pressure medication. 5.Anemia. Follow up iron panel. 6.Vitamin D deficiency. Continue vitamin D3 at 5000 units daily. 7.Secondary hyperparathyroidism, D3 repletion as above. 8.Diabetes mellitus, uncontrolled. Adjustment of treatment per primary team. EB/MODL Voice ID: [id number] Report ID: [id number]
[2023-07-09 05:03] LABS: Absolute Lymphocytes (CBC) 0.8 K/uL (0.7-4.9); Hematocrit 31.1 % (39.6-49.0); MCV 82.2 fL (80-100); MPV 8.3 fL (7.6-11.3); Platelets 154 thou/uL (152-406); RBC Red Blood Cell Count 3.78 M/uL (4.33-5.43)
[2023-07-09 05:19] LABS: Magnesium 1.9 mg/dL (1.6-2.4); Potassium 4.3 mEq/L (3.5-5.1)
[2023-07-09] MEDS: INSULIN REGULAR (HUMAN) 100 UNIT/ML SQ SCH ×4 (07:30→20:22)
--- NOTE | 2023-07-09 08:38 | P.PN ---
Date of Service: 07/09/23 Subjective: Did well overnight, no acute events pain well controlled Had debridement yesterday ROS: 10 point ROS as noted above, otherwise negative Physical exam GEN: Alert, oriented, NAD HEENT: Normal conjunctiva, sclera anicteric CV: Regular rate and rhythm, no edema Pulm: Nonlabored respirations on room air ABD: Soft, nontender, nondistended MSK: No joint tenderness Integumentary: Ulcerative wound with necrotic tissue present left anterior tibia Neuro: Normal speech, normal affect Vitals reviewed Problem List Infected wound/diabetic ulcer left anterior tibia AGUSTO versus CKD Diabetes mellitus type 8oiz-qqowype-wnjnhybml with hyperglycemia Hypertension Infected wound/diabetic ulcer left anterior tibia S/P excisional debridement Left leg infected necrotic ulcer [id number] 07/08-down to bone -X-ray of left tibia-fibula reports "Vague oval lucency overlies the anterior mid to distal tibial cortex. It is uncertain if this represents a bony lesion related to osteomyelitis or edema within overlying soft tissue. Further evaluation could be obtained with MRI." -Continue vancomycin, cefepime -Pain control -CT does not show evidence of osteomyelitis currently -Follow wound cultures obtained during debridement -May require prolonged IV abx AGUSTO versus CKD -Previously on dialysis, making urine -BUN/creatinine 39/1.90, GFR 41- improved -Dr. Hall consulted -Gentle IV fluid -Monitor morning labs Diabetes mellitus type 4tba-uhqnoge-ojxtflrqe with hyperglycemia -Serum glucose 211 -A1c 10.0 -Accu-Chek with sliding scale insulin -Gentle IV fluids -Reports recently restarted on home meds by PCP History of hypertension -Blood pressure stable VTE: Heparin subcu Code: Full Dispo: 2 to 3 days Time Spent Managing Pts Care (In Minutes): 35
[2023-07-09] MEDS: Mupirocin NASAL 2 APPL/1 GM TUBE NAS SCH ×2 (08:43→20:22)
[2023-07-09] MEDS: CEFEPIME 2 GM in NA CHLORIDE 0.9% 100 ML IV SCH ×2 (08:44→20:21)
[2023-07-09] MEDS: COLLAGENASE 30 GM OINTMENT TOP SCH (08:44)
[2023-07-09] MEDS: VITAMIN D 5,000 UNIT CAP PO SCH (08:44)
[2023-07-09] MEDS: HEPARIN 5000 UNIT/ML 1 ML VIAL SQ SCH ×2 (08:44→20:22)
--- NOTE | 2023-07-09 18:30 | PN ---
Diagnosis: Status post debridement of the leg necrotic ulcer. Subjective: Patient is doing better. Objective: Chest: Clear. Skin: Leg surgical site is intact. Extremities: Good capillary refill. Plan: Follow up cultures. Continue antibiotics per ID and primary doctor. From the surgical standp oint, wet-to-dry dressing and follow up at the [facility] when discharged. ARCELIA/JOHNATHAN Voice ID: [id number] Report ID: [id number]
[2023-07-09] MEDS: INSULIN GLARGINE 100 UNIT/ML SQ SCH (20:22)
[2023-07-09] MEDS ORDERED: HYDRALAZINE HCL 20 MG/ML VIAL IV PRN (20:52)
[2023-07-09] MEDS: VANCOMYCIN 1.75 GM in NA CHLORIDE 0.9% 500 ML IVPB SCH (21:41)
[2023-07-09] MEDS: AMLODIPINE 5 MG TAB PO SCH (21:41)
--- NOTE | 2023-07-10 00:02 | PN ---
Date of Progress Note: 07/09/2023 Chief Complaint: Acute on chronic kidney injury. Subjective: The patient is a 57-year-old man who was admitted to the hospital because of acute kidne y injury secondary to ATN. He recently received dialysis and subsequently, dialysis was discontinued due to the fact that the patient was found to have an improvement of renal function. The patient chi s uncontrolled diabetes, hypertension, history of chronic pain, nonhealing wounds in the left anterio r tibia. Patient is admitted for wound infection and he was found to have tibial osteomyelitis of th e left tibia. The patient was found to have creatinine of 2.2. Subsequently, after he received IV f luids, serum creatinine level improved to 1.9. Review of Systems: Denies headache, vision changes, chest pain, palpitation. Physical Examination: Lungs: Clear to auscultation bilaterally. Heart: S1-S2. Abdomen: Soft. Extremities: No clubbing, no cyanosis. Impression And Plan: 1.Acute on chronic kidney injury, nonoliguric acute kidney injury due to hyperglycemia and effect of osmotic diuresis related to uncontrolled diabetes with hyperglycemia and patient had ATN from prolon ged prerenal condition. The patient likely has underlying chronic kidney disease secondary to diabet es and hypertension. Follow up urinalysis, urine chemistry and urine protein electrophoresis. 2.CPK is within normal limits. There is no evidence of rhabdomyolysis. Patient will continue hydration. He tolerated IV fluids and p.o. intake is improving. Plan is to wean him off IV fl uids. 3.Left tibia osteomyelitis, on IV antibiotics. Continue antibiotics according to renal function. 4.Hypertension. Continue blood pressure medication. 5.Anemia, chronic. Follow up iron panel. Adjust treatment accordingly. 6.Vitamin D deficiency. Continue vitamin D3 5000 units daily. 7.Secondary hyperparathyroidism, D3 repletion as above. 8.Diabetes mellitus, uncontrolled. Continue insulin. The patient is not a good candidate for metfo rmin. EB/MODL Voice ID: [id number] Report ID: [id number]
[2023-07-10] MEDS: NA CHLORIDE 0.9% 1,000 ML IV SCH ×2 (01:30→14:43)
[2023-07-10 05:09] LABS: Absolute Lymphocytes (CBC) 0.8 K/uL (0.7-4.9); Hematocrit 31.1 % (39.6-49.0); Lymphocytes % 27.8 % (15.3-44.8); MCV 81.1 fL (80-100); MPV 8.1 fL (7.6-11.3); Platelets 137 thou/uL (152-406); RBC Red Blood Cell Count 3.83 M/uL (4.33-5.43)
[2023-07-10 05:25] LABS: Magnesium 1.8 mg/dL (1.6-2.4); Phosphorus 2.5 mg/dL (2.5-4.9); Potassium 3.8 mEq/L (3.5-5.1)
[2023-07-10] MEDS: INSULIN REGULAR (HUMAN) 100 UNIT/ML SQ SCH ×4 (07:30→20:20)
--- NOTE | 2023-07-10 08:05 | P.PN ---
Date of Service: 07/10/23 Subjective: Did well overnight, no acute events pain well controlled Denies complaints ROS: 10 point ROS as noted above, otherwise negative Physical exam GEN: Alert, oriented, NAD HEENT: Normal conjunctiva, sclera anicteric CV: Regular rate and rhythm, no edema Pulm: Nonlabored respirations on room air ABD: Soft, nontender, nondistended MSK: No joint tenderness Integumentary: Ulcerative wound with health tissue present Neuro: Normal speech, normal affect Vitals reviewed Problem List Infected wound/diabetic ulcer left anterior tibia AGUSTO versus CKD Diabetes mellitus type 9dzy-wnkyhiz-aocfcqnqq with hyperglycemia Hypertension Infected wound/diabetic ulcer left anterior tibia S/P excisional debridement Left leg infected necrotic ulcer [id number] 07/08-down to bone -X-ray of left tibia-fibula reports "Vague oval lucency overlies the anterior mid to distal tibial cortex. It is uncertain if this represents a bony lesion related to osteomyelitis or edema within overlying soft tissue. Further evaluation could be obtained with MRI." -Continue vancomycin, cefepime -Pain control -CT does not show evidence of osteomyelitis currently -Follow wound cultures obtained during debridement -May require prolonged IV abx -ID consult in place, await recs as pt needed debridement down to bone AGUSTO versus CKD -Previously on dialysis, making urine -Dr. Hall consulted -Gentle IV fluid -Monitor morning labs, improving Diabetes mellitus type 3syu-xepccbk-eqyhargos with hyperglycemia -A1c 10.0 -Accu-Chek with sliding scale insulin -Reports recently restarted on home meds by PCP History of hypertension -Blood pressure stable VTE: Heparin subcu Code: Full Dispo: 2 to 3 days Time Spent Managing Pts Care (In Minutes): 35
[2023-07-10] MEDS: CEFEPIME 2 GM in NA CHLORIDE 0.9% 100 ML IV SCH ×2 (08:52→20:19)
[2023-07-10] MEDS: HEPARIN 5000 UNIT/ML 1 ML VIAL SQ SCH ×2 (08:52→20:18)
[2023-07-10] MEDS: Mupirocin NASAL 2 APPL/1 GM TUBE NAS SCH ×2 (08:52→20:19)
[2023-07-10] MEDS: COLLAGENASE 30 GM OINTMENT TOP SCH (08:53)
[2023-07-10] MEDS: VITAMIN D 5,000 UNIT CAP PO SCH (08:53)
[2023-07-10] MEDS: AMLODIPINE 5 MG TAB PO SCH (08:53)
[2023-07-10] MEDS ORDERED: POTASSIUM CL SA 10 MEQ TAB PO ONE (09:00)
--- NOTE | 2023-07-10 09:36 | P.CNS ---
Date of Consult: 07/10/23 Reason for Consult: LLE cellulitis Chief Complaint: non healing wound, osteomylitis to left anterior tibia History of Present Illness: Patient is a 57 year old male with a past medical history of diabetes mellitus type II and hypertension who presented to the ED with complaints of left lower extremity nonhealing wound which had been worsening over the past few days prior to arrival. CT tibia showing "Anterior soft tissue ulceration adjacent to the mid to distal left tibia. No radiographic evidence of osteomyelitis. No bony lesion seen." Patient underwent debridement on 07/08/[address] Oseguera, tissue culture sent. Infectious disease was consulted. Allergies No Known Allergies Allergy (Verified 08/23/22 12:18) Home medications list reviewed: Yes Home Medications: Insulin Degludec [Tresiba] 20 unit SQ BEDTIME 08/23/22 Losartan Potassium 0.5 mg PO DAILY 08/23/22 - Past Medical/Surgical History Diabetic: Yes -: HTN -: IDDM -: Abscess mid abd -: jj -: Appendectomy - Family History Mother Medical History: Hypertension, Diabetes Father Medical History: Diabetes - Social History Alcohol use: No CD- Drugs: No Caffeine use: Yes Review of Systems 10-point ROS is otherwise unremarkable Integumentary: As per HPI Physical Examination Temp Pulse Resp BP Pulse Ox 97.0 F 63 16 127/76 98 07/10/23 08:00 07/10/23 08:00 07/10/23 08:00 07/10/23 08:00 07/10/23 08:00 General: Alert, In no apparent distress, Oriented x3 HEENT: Atraumatic, Normocephalic Neck: Supple Respiratory: Clear to auscultation bilaterally, Normal air movement Cardiovascular: Regular rate/rhythm, Edema Gastrointestinal: Normal bowel sounds, No tenderness Integumentary: Other (left anterior tibia wound, dressing is clean dry and intact. ) Neurological: Normal speech, Normal tone, Normal affect Laboratory Data - Reviewed Microbiology Data - Reviewed Imagings Data: - CT tibia 07/06: "No fracture or dislocation. Edema within the subcutaneous tissues. A 9 millimeter curvilinear radiopaque foreign body within the anterior subcutaneous tissue distal lower leg. IMPRESSION: Anterior soft tissue ulceration adjacent to the mid to distal left tibia. No radiographic evidence of osteomyelitis. No bony lesion seen." Conclusions/Impression: Problem List Cellulitis of left lower extremity diabetes mellitus type II hypertension AGUSTO on CKD Cellulitis of left lower extremity - s/p debridement on 07/[address] Oseguera with findings of left leg infected necrotic ulcer down to bone tibial area exposed - wound/tissue culture 07/08: 3+ gram negative rods - currently on Cefepime (07/07-) and Vancomycin (07/08-) Recommendations - necrotic ulcer debrided down to bone, recommend continuing with IV antibiotic for 6 weeks duration. - Continue cefepime and vancomycin for now. Awaiting final wound/tissue culture results for targeted therapy. will adjust antibiotics as appropriate. - strict blood glucose control - wound care per surgery team Case discussed with Sy Terry
[2023-07-10] MEDS ORDERED: MAGNESIUM SULFATE 1 gm IVPB 1 GM/100 ML BAG IV ONE (10:00)
--- NOTE | 2023-07-10 15:05 | PN ---
Date of Progress Note: 07/10/2023 Diagnosis: Status post debridement of infected ulcer. Patient doing better. Objective: Chest: Clear. Extremities: Leg, intact surgical site. Plan: Continue antibiotics for ID. If he gets discharged home or placed somewhere else, we would li ke to have him weekly in our [facility] either at [place] or [place]. ARCELIA/JOHNATHAN Voice ID: [id number] Report ID: [id number]
[2023-07-10] MEDS: VANCOMYCIN 1.75 GM in NA CHLORIDE 0.9% 500 ML IVPB SCH (20:19)
[2023-07-10] MEDS: INSULIN GLARGINE 100 UNIT/ML SQ SCH (20:20)
--- NOTE | 2023-07-10 22:56 | PN ---
Date of Progress Note: 07/10/2023 Chief Complaint: Acute on chronic kidney injury. Subjective: The patient is a 57-year-old man who was admitted to the hospital because of acute kidne y injury secondary to acute tubular necrosis. He recently received dialysis and subsequently dialysi s was discontinued due to the fact that the patient was found to have an improvement of renal functio n. The patient is off dialysis. The patient has history of uncontrolled diabetes, hypertension, his tory of chronic pain, nonhealing lower extremity wounds of the left anterior tibia. The patient is o n antibiotics for wound infection. He was found to have tibial osteomyelitis of the left tibia. Ser um creatinine level improved from 2.2 to 1.9. Review of Systems: Denies chest pain, palpitation. Physical Examination: Lungs: Clear to auscultation bilaterally. Heart: S1, S2. Abdomen: Soft. Extremities: No edema. Impression And Plan: 1.Acute on chronic kidney injury, nonoliguric, due to hypoglycemia and effect of osmotic diuresis re lated to uncontrolled diabetes with hyperglycemia. The patient had acute tubular necrosis from prolo nged prerenal condition. He is gradually recovering from acute kidney injury. He remains nonoliguri c. Plan is to follow up urine chemistry and urine protein electrophoresis. CPK level is within norm al limits. There is no evidence of rhabdomyolysis. 2.Left tibial osteomyelitis, on IV antibiotics. Continue current treatment. 3.Hypertension. Increase blood pressure medication. 4.Anemia due to chronic kidney disease. Continue IV iron according to lab results. 5.Secondary hyperparathyroid and vitamin D deficiency. Continue vitamin D repletion. 6.Diabetes mellitus, uncontrolled. Continue insulin. Avoid metformin. EB/MODL Voice ID: [id number] Report ID: [id number]
[2023-07-11] MEDS: NA CHLORIDE 0.9% 1,000 ML IV SCH ×2 (02:54→16:55)
[2023-07-11 03:05] VITALS: O2SAT 98
[2023-07-11 07:28] LABS: Absolute Lymphocytes (CBC) 0.9 K/uL (0.7-4.9); Hematocrit 34.4 % (39.6-49.0); Lymphocytes % 29.3 % (15.3-44.8); MCV 81.3 fL (80-100); MPV 8.1 fL (7.6-11.3); Platelets 161 thou/uL (152-406); RBC Red Blood Cell Count 4.23 M/uL (4.33-5.43)
[2023-07-11] MEDS: INSULIN REGULAR (HUMAN) 100 UNIT/ML SQ SCH ×4 (07:30→20:39)
[2023-07-11 07:40] LABS: Magnesium 2.1 mg/dL (1.6-2.4); Phosphorus 2.9 mg/dL (2.5-4.9)
[2023-07-11 07:42] LABS: Potassium 4.3 mEq/L (3.5-5.1)
[2023-07-11] MEDS: Mupirocin NASAL 2 APPL/1 GM TUBE NAS SCH ×2 (08:26→20:36)
[2023-07-11] MEDS: HEPARIN 5000 UNIT/ML 1 ML VIAL SQ SCH ×2 (08:27→20:36)
[2023-07-11] MEDS: VITAMIN D 5,000 UNIT CAP PO SCH (08:27)
[2023-07-11] MEDS: AMLODIPINE 5 MG TAB PO SCH (08:27)
[2023-07-11] MEDS: COLLAGENASE 30 GM OINTMENT TOP SCH (08:28)
[2023-07-11] MEDS: CEFEPIME 2 GM in NA CHLORIDE 0.9% 100 ML IV SCH ×2 (08:58→20:36)
--- NOTE | 2023-07-11 09:00 | P.PN ---
Date of Service: 07/11/23 Chief Complaint: non healing wound, osteomylitis to left anterior tibia Subjective: In no apparent distress. Denies any new or worsening complaints. No acute events overnight. Physical Examination Temp Pulse Resp BP Pulse Ox 97.3 F 63 16 141/83 H 99 07/11/23 08:00 07/11/23 08:27 07/11/23 08:00 07/11/23 08:27 07/11/23 08:00 General: Alert, In no apparent distress, Oriented x3 HEENT: Atraumatic, Normocephalic Neck: Supple Respiratory: Clear to auscultation bilaterally, Normal air movement Cardiovascular: Regular rate/rhythm, Edema Gastrointestinal: Normal bowel sounds, No tenderness Integumentary: left anterior tibia wound, dressing is clean dry and intact Neurological: Normal speech, Normal tone, Normal affect Laboratory Data - Reviewed Microbiology Data - Reviewed Imagings Data: - CT tibia 07/06: "No fracture or dislocation. Edema within the subcutaneous tissues. A 9 millimeter curvilinear radiopaque foreign body within the anterior subcutaneous tissue distal lower leg. IMPRESSION: Anterior soft tissue ulceration adjacent to the mid to distal left tibia. No radiographic evidence of osteomyelitis. No bony lesion seen." Medications list Hydrocodone Bitart/Acetaminophen (Hydrocodone/Apap 7.5/325 Mg Tab) 1 tab PO Q6H PRN PRN Reason: Pain scale 5-7 (Moderate) Amlodipine Besylate (Amlodipine 5 Mg Tab) 5 mg PO DAILY [facility] Last Admin: 07/11/23 08:27 Dose: 5 mg Cholecalciferol (Vitamin D 5,000 Unit Cap) 5,000 unit PO DAILY [facility] Last Admin: 07/11/23 08:27 Dose: 5,000 unit Collagenase (Collagenase 30 Gm Ointment) 1 appl TOP DAILY [facility] Last Admin: 07/11/23 08:28 Dose: 1 appl Heparin Sodium (Porcine) (Heparin 5000 Unit/Ml 1 Ml Vial) 5,000 unit SQ Q12HR [facility] Last Admin: 07/11/23 08:27 Dose: 5,000 unit Hydralazine HCl (Hydralazine Hcl 20 Mg/Ml Vial) 10 mg IV Q6HP PRN PRN Reason: Goal to achieve SBP in comment Sodium Chloride (Ns 1000 Ml Ivbag) 1,000 mls @ 75 mls/hr IV .[id number] [facility] Last Admin: 07/11/23 02:54 Dose: 1,000 mls Vancomycin HCl 1.75 gm/ Sodium (Chloride) 500 mls @ 250 mls/hr IVPB Q24H [facility] Last Admin: 07/10/23 20:19 Dose: 500 mls Cefepime HCl 2 gm/ Sodium (Chloride) 100 mls @ 200 mls/hr IV Q12HR [facility]; Protocol Insulin Glargine (Insulin Glargine 100 Unit/Ml) 15 unit SQ BEDTIME [facility] Last Admin: 07/10/23 20:20 Dose: 15 unit Insulin Human Regular (Insulin Regular (Human) 100 Unit/Ml) 0 unit SQ ACHS [facility]; Protocol Last Admin: 07/11/23 07:30 Dose: Not Given Morphine Sulfate (Morphine 2 Mg/Ml Syr) 2 mg IV Q4H PRN PRN Reason: Pain scale 8-10 (Severe) Mupirocin (Mupirocin Nasal 2 Appl/1 Gm Tube) 1 appl PEPPER BID [facility] Stop: 07/12/23 09:01 Last Admin: 07/11/23 08:26 Dose: 1 appl Assessment and plan Problem List Cellulitis of left lower extremity diabetes mellitus type II hypertension AGUSTO on CKD Cellulitis of left lower extremity - s/p debridement on 07/[address] Oseguera with findings of left leg infected necrotic ulcer down to bone tibial area exposed - wound/tissue culture 07/08: Pseudomonas aeruginosa and Klebsiella pneumoniae - currently on Cefepime (07/07-) and Vancomycin (07/08-) Recommendations - necrotic ulcer debrided down to bone, recommend continuing with IV antibiotic for 6 weeks duration (07/07/23-08/18/23) - Wound cultures growing klebsiella and pseudomonas, Continue with Cefepime 2g q12h - Discontinue Vancomycin - strict blood glucose control - wound care per surgery team - Follow up with surgery/wound care as outpatient Case discussed with Sy Terry
--- NOTE | 2023-07-11 09:41 | P.PN ---
Date of Service: 07/11/23 Subjective: Did well overnight, no acute events pain well controlled Denies complaints ROS: 10 point ROS as noted above, otherwise negative Physical exam GEN: Alert, oriented, NAD HEENT: Normal conjunctiva, sclera anicteric CV: Regular rate and rhythm, no edema Pulm: Nonlabored respirations on room air ABD: Soft, nontender, nondistended MSK: No joint tenderness Integumentary: Ulcerative wound with health tissue present Neuro: Normal speech, normal affect Vitals reviewed Problem List Infected wound/diabetic ulcer left anterior tibia S/P excisional debridement Left leg infected necrotic ulcer [id number] 16-down to bone AGUSTO versus CKD Diabetes mellitus type 3bdx-[id number]-xcarckbex with hyperglycemia Hypertension Infected wound/diabetic ulcer left anterior tibia S/P excisional debridement Left leg infected necrotic ulcer [id number] 16-down to bone -X-ray of left tibia-fibula reports "Vague oval lucency overlies the anterior mid to distal tibial cortex. It is uncertain if this represents a bony lesion related to osteomyelitis or edema within overlying soft tissue. Further evaluation could be obtained with MRI." -Continue vancomycin, cefepime -Pain control -CT does not show evidence of osteomyelitis currently -Follow wound cultures obtained during debridement -May require prolonged IV abx -ID consult in place, await recs as pt needed debridement down to bone -Awaiting wound culture culture and sensitivity results for tailored abx -PICC in place AGUSTO versus CKD -Previously on dialysis, making urine -Dr. Hall consulted -Gentle IV fluid -Monitor morning labs, improving Diabetes mellitus type 2nol-krhxqmb-pjjvvuogk with hyperglycemia -A1c 10.0 -Accu-Chek with sliding scale insulin -Reports recently restarted on home meds by PCP History of hypertension -Blood pressure stable VTE: Heparin subcu Code: Full Dispo: 2 to 3 days Time Spent Managing Pts Care (In Minutes): 35
--- NOTE | 2023-07-11 16:28 | P.DS ---
Admission Date: 07/06/23 Discharge Date: 07/12/23 Disposition: ROUTINE DISCHARGE Discharge Condition: GOOD Reason for Admission: non healing wound, osteomylitis to left anterior tibia Consultations: General surgeryDrThanh Oseguera NephrologyDr. Hall Infectious diseaseDrThanh Negron Procedures: Left anterior tibia wound debridement 07/08/2023 Brief History of Present Illness: Cameron Hooper is a 57-year-old male with past medical history of diabetes and hypertension who presented to the ED complaining of pain and non healing wound to left anterior tibia. He reports splitting logs a few weeks ago, the log scraped against his franklin but did not present as a deep wound until a week later when the scab appeared with swelling. A week after that the wound was smaller and the swelling had gone down, he was thinking it was getting better. The wound now has malodorous discharge and is indented with black eschar present. He states he has had a previous injury to his right palm last year which needed debridement. He is also an uncontrolled diabetic with serum glucose of 366, he reports not taking his medications currently. A1c is pending, he states he was previously on dialysis and has maintain a caffeine free diet to avoid going back on dialysis. Dr. Hall was his electronic die maker at that time. Further education will need to be provided. Initial vital BP 161 / 83; Pulse 87; Resp 18; Pulse Ox 97% on R/A. Laboratory evaluation serum glucose 366, white blood cells 3.8, BUN/creatinine 44/2.23, GFR 34, C-reactive protein 5.57. X-ray of left tibia-fibula reports "Vague oval lucency overlies the anterior mid to distal tibial cortex. It is uncertain if this represents a bony lesion related to osteomyelitis or edema within overlying soft tissue. Further evaluation could be obtained with MRI." Cameron will be admitted to hospitalist service for further evaluation and treatment of left anterior tibial osteomyelitis. Hospital Course: Problem List Infected wound/diabetic ulcer left anterior tibia S/P excisional debridement Left leg infected necrotic ulcer [id number] 07/08-down to bone AGUSTO versus CKD Diabetes mellitus type 3wmn-wcfbatq-bvmuunbqn with hyperglycemia Hypertension Patient was admitted to the hospital for left anterior tibia diabetic ulceration. He underwent debridement with general surgery on 07/08/2023 which required debridement down to the bone. On initial x-ray there was concern for osteomyelitis, no evidence of osteomyelitis apparent on CT although due to need for debridement down to the level of the bone and the infected ulcer patient will require IV antibiotics for 6 weeks. Patient evaluated by infectious disease will be prescribed cefepime 2 g IV twice daily for total of 6 weeks ending 08/18. Home antibiotics have been arranged, patient was stable for discharge at this time. He will also be getting weekly BMPs and should follow- up with nephrology in 1 to 2 weeks. PICC line to be removed after completion of antibiotics Follow-up with your primary care doctor in 1 to 2 weeks, take insulin as prescribed by your primary care doctor Please also follow-up with nephrology in 1 to 2 weeks Vital Signs/Physical Exam: Temp Pulse Resp BP Pulse Ox 97.2 F 74 16 173/88 H 99 07/11/23 12:00 07/11/23 12:00 07/11/23 12:00 07/11/23 12:00 07/11/23 12:00 General: Alert, In no apparent distress, Oriented x3 HEENT: Atraumatic, PERRLA Neck: Supple, JVD not distended Respiratory: Normal air movement Cardiovascular: Regular rate/rhythm, Normal S1 S2 Gastrointestinal: Normal bowel sounds Musculoskeletal: No tenderness Integumentary: No rashes, Other (Ulceration present left anterior tibia, dressing clean dry and intact) Neurological: Normal speech, Normal affect Laboratory Data at Discharge: WBC 3.00 thou/uL (4.3-10.9) L 07/11/23 07:12 Hgb 12.1 g/dL (13.6-17.9) L D 07/11/23 07:12 Hct 34.4 % (39.6-49.0) L 07/11/23 07:12 Plt Count 161 thou/uL (152-406) 07/11/23 07:12 Sodium 138 mEq/L (136-145) 07/11/23 07:12 Potassium 4.3 mEq/L (3.5-5.1) D 07/11/23 07:12 BUN 21 mg/dL (7-18) H 07/11/23 07:12 Creatinine 1.60 mg/dL (0.70-1.30) H 07/11/23 07:12 Glucose 118 mg/dL (74-106) H 07/11/23 07:12 Phosphorus 2.9 mg/dL (2.5-4.9) 07/11/23 07:12 Magnesium 2.1 mg/dL (1.6-2.4) 07/11/23 07:12 Total Bilirubin 0.4 mg/dL (0.2-1.0) 07/06/23 14:13 AST 12 U/L (15-37) L 07/06/23 14:13 ALT 22 U/L (16-61) 07/06/23 14:13 Alkaline Phosphatase 103 U/L (45-117) 07/06/23 14:13 Home Medications: Insulin Degludec [Tresiba] 20 unit SQ BEDTIME 08/23/22 Losartan Potassium 0.5 mg PO DAILY 08/23/22 Physician Discharge Instructions: Patient was admitted to the hospital for left anterior tibia diabetic ulceration. He underwent debridement with general surgery on 07/08/2023 which required debridement down to the bone. On initial x-ray there was concern for osteomyelitis, no evidence of osteomyelitis apparent on CT although due to need for debridement down to the level of the bone and the infected ulcer patient will require IV antibiotics for 6 weeks. Patient evaluated by infectious disease will be prescribed cefepime 2 g IV twice daily for total of 6 weeks ending 08/18. Home antibiotics have been arranged, patient was stable for discharge at this time. He will also be getting weekly BMPs and should follow- up with nephrology in 1 to 2 weeks. PICC line to be removed after completion of antibiotics Follow-up with your primary care doctor in 1 to 2 weeks, take insulin as prescribed by your primary care doctor Follow-up with nephrology-Dr. Hall in 1 to 2 weeks Follow-up with Dr. Oseguera for further wound healing in 1-2 weeks Diet: ADA Activity: Ad césar Followup: Moon Hall MD [ACTIVE - CAN ADMIT] - 1-2 Weeks Cuong Oseguera MD [ACTIVE - CAN ADMIT] - 1-2 Weeks OOT,JHON [Primary Care Provider] - 1-2 Weeks Time spent managing pt's care (in minutes): 35
[2023-07-11] MEDS: INSULIN GLARGINE 100 UNIT/ML SQ SCH (20:40)
[2023-07-11] MEDS: VANCOMYCIN 1.75 GM in NA CHLORIDE 0.9% 500 ML IVPB SCH (21:39)
--- NOTE | 2023-07-11 23:23 | PN ---
Date of Progress Note: 07/11/2023 Chief Complaint: Acute on chronic kidney injury. Subjective: The patient is a 57-year-old man admitted to the hospital because of acute kidney injury secondary to acute tubular necrosis. The patient recently received dialysis and subsequently, dialy sis was discontinued due to the fact the patient was found to have improvement of renal function. Th e patient is off dialysis. The patient has history of uncontrolled diabetes, hypertension, history o f chronic pain, nonhealing lower extremity wounds of the left anterior tibia. He is undergoing antib iotic therapy and wound care. Review of Systems: Denies chest pain, palpitation. Physical Examination: Lungs: Clear to auscultation bilaterally. Heart: S1, S2. Abdomen: Soft, benign. Extremities: No edema. Impression And Plan: 1.Acute on chronic kidney injury, nonoliguric, due to hyperglycemia and effect of osmotic diuresis r elated to uncontrolled diabetes with hyperglycemia. The patient had acute tubular necrosis from prol onged prerenal status. He is gradually recovering from acute kidney injury. He remains nonoliguric. Plan is to follow up on chemistry and urine protein electrophoresis was ordered as well. CPK level is within normal limits. There is no evidence of rhabdomyolysis. 2.Left tibial osteomyelitis, on IV antibiotics. Continue current treatment. 3.Hypertension. Blood pressure medication . Continue to monitor blood pressure. 4.Secondary hyperparathyroid and vitamin D deficiency. Continue vitamin D repletion. 5.Diabetes mellitus . EB/MODL Voice ID: [id number] Report ID: [id number]
[2023-07-12 05:45] LABS: Absolute Lymphocytes (CBC) 0.9 K/uL (0.7-4.9); Lymphocytes % 31.7 % (15.3-44.8); MCV 81.9 fL (80-100); MPV 7.9 fL (7.6-11.3); Platelets 168 thou/uL (152-406); RBC Red Blood Cell Count 4.27 M/uL (4.33-5.43)
[2023-07-12 05:57] LABS: Magnesium 2.1 mg/dL (1.6-2.4); Potassium 4.2 mEq/L (3.5-5.1)
[2023-07-12] MEDS: NA CHLORIDE 0.9% 1,000 ML IV SCH (06:50)
[2023-07-12] MEDS: INSULIN REGULAR (HUMAN) 100 UNIT/ML SQ SCH (07:30)
[2023-07-12 07:33] LABS: Specific Gravity 1.015 (1.005-1.030); Urine Bacteria None Seen /HPF (<20); Urine Bilirubin NEGATIVE (Negative); Urine Blood Trace (Negative); Urine Clarity Clear (Clear); Urine Color Colorless (Yellow); Urine Glucose 1+ (Negative); Urine Protein 2+ (Negative); Urine RBC <5 /HPF (None Seen); Urine Urobilinogen Normal (Normal)
[2023-07-12 07:41] LABS: UR CREAT < 18.0 mg/dL (20-370)
--- NOTE | 2023-07-12 08:47 | P.PN ---
Date of Service: 07/12/23 Chief Complaint: non healing wound, osteomylitis to left anterior tibia Subjective: Improving. no new or worsening complaints. In no apparent distress. Current plan for discharge home with home health to continue IV antibiotic for [address] line in place. Physical Examination Temp Pulse Resp BP Pulse Ox 98.1 F 68 16 153/80 H 98 07/12/23 04:00 07/12/23 04:00 07/12/23 04:00 07/12/23 04:00 07/12/23 04:00 General: Alert, In no apparent distress, Oriented x3 HEENT: Atraumatic, Normocephalic Neck: Supple Respiratory: Clear to auscultation bilaterally, Normal air movement Cardiovascular: Regular rate/rhythm, Edema Gastrointestinal: Normal bowel sounds, No tenderness Integumentary: left anterior tibia wound, dressing is clean dry and intact Neurological: Normal speech, Normal tone, Normal affect Laboratory Data - Reviewed Microbiology Data - Reviewed Imagings Data: - CT tibia 07/06: "No fracture or dislocation. Edema within the subcutaneous tissues. A 9 millimeter curvilinear radiopaque foreign body within the anterior subcutaneous tissue distal lower leg. IMPRESSION: Anterior soft tissue ulceration adjacent to the mid to distal left tibia. No radiographic evidence of osteomyelitis. No bony lesion seen." Medications list: Reviewed Assessment and plan Problem List Cellulitis of left lower extremity diabetes mellitus type II hypertension AGUSTO on CKD Cellulitis of left lower extremity - s/p debridement on 07/[address] Oseguera with findings of left leg infected necrotic ulcer down to bone tibial area exposed - wound/tissue culture 07/08: Pseudomonas aeruginosa and Klebsiella pneumoniae - currently on Cefepime (07/07-) and Vancomycin (07/08-) Recommendations - necrotic ulcer debrided down to bone, recommend continuing with IV antibiotic for 6 weeks duration (07/07/23-08/18/23) - Wound cultures growing klebsiella and pseudomonas, Continue with Cefepime 2g q12h - Vancomycin discontinued - strict blood glucose control - wound care per surgery team - Follow up with surgery/wound care as outpatient Case discussed with Sy Terry
[2023-07-12] MEDS: AMLODIPINE 5 MG TAB PO SCH (08:58)
[2023-07-12] MEDS: Mupirocin NASAL 2 APPL/1 GM TUBE NAS SCH (08:58)
[2023-07-12] MEDS: VITAMIN D 5,000 UNIT CAP PO SCH (08:59)
[2023-07-12] MEDS: CEFEPIME 2 GM in NA CHLORIDE 0.9% 100 ML IV SCH (08:59)
[2023-07-12] MEDS: HEPARIN 5000 UNIT/ML 1 ML VIAL SQ SCH (08:59)
[2023-07-12] MEDS: COLLAGENASE 30 GM OINTMENT TOP SCH (09:00)
[2023-07-12 09:05] VITALS: BP 137/88; TEMP 97.1
--- NOTE | 2023-07-12 14:39 | PN ---
Date of Progress Note: 07/12/2023 Subjective: The patient was admitted to the hospital with cellulitis/abscess on the leg with acute k idney injury. Creatinine 2.3 secondary to toxic ATN. Obstructive uropathy was ruled out. Kidney fu nction gradually improved. Creatinine down to 1.6. The patient feeling better. No fever. No chill s. Physical Examination: Vital Signs: When I saw the patient, blood pressure of 137/88, pulse of 62, afebrile. Chest: Clear to auscultation. Heart: S1, S2 regular. Abdomen: Soft, nontender. Extremities: No edema. Dressing on the left leg. Laboratory Data: Sodium 138, potassium 4.2, bicarb 27, BUN 23, creatinine 1.6, GFR 48, calcium 8.5. Iron saturation 25, ferritin 158. Hemoglobin 12.2. PTH 144. PC ratio nephrotic. The patient had full workup before, did not show any autoimmune disease, kidney function improving. Assessment And Plan: 1.Acute kidney injury on chronic kidney disease with nephrotic range proteinuria secondary to toxic acute tubular necrosis, recovered. I am going to continue to monitor. Discontinue IV fluid. 2.Hypertension. Hold SULEMAN inhibitor or ARB given the acute kidney injury. 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 Full workup was done befor e and was negative. 4.Cellulitis. The patient on antibiotic dose appropriate. Follow up with the Primary. 5.Diabetes as by Primary. Current medications; the patient on amlodipine 5 mg, cefepime, cholecalci ferol, morphine. The patient cleared from the Renal standpoint for discharge planning. Follow up in the office in 2-3 weeks. Time Spent: Examining the patient [id number], reviewing data, lab, and radiology, placing order, d iscussing the case with the patient, discussing the case with the steam flattener including hospitalist and nursing staff more than 35 minutes . MARYLU Voice ID: [id number] Report ID: [id number]
== END 2023-07-12 10:33 | disposition home or self-care (01) | DRG 981 ==
LOC: ER 12:55 → ERHOLD 15:47 → 2ND 07-07 17:19
PROVIDERS: ADMIT Internal Medicine; ATTEND Hospitalist
PROC: 0QBH0ZZ Excision of Left Tibia, Open Approach (ICD-10-PCS; principal; 2023-07-07)
PROC: 02HV33Z Insertion of Infusion Device into Superior Vena Cava, Percutaneous Approach (ICD-10-PCS; 2023-07-07)
DX: L03.116 Cellulitis of left lower limb (principal); N17.0 Acute kidney failure with tubular necrosis; E11.52 Type 2 diabetes mellitus with diabetic peripheral angiopathy with gangrene; L97.829 Non-pressure chronic ulcer of other part of left lower leg with unspecified severity; N25.81 Secondary hyperparathyroidism of renal origin; L02.416 Cutaneous abscess of left lower limb; E55.9 Vitamin D deficiency, unspecified; I12.9 Hypertensive chronic kidney disease with stage 1 through stage 4 chronic kidney disease, or unspecified chronic kidney disease; N18.9 Chronic kidney disease, unspecified; E11.22 Type 2 diabetes mellitus with diabetic chronic kidney disease; E11.65 Type 2 diabetes mellitus with hyperglycemia; D63.1 Anemia in chronic kidney disease; B96.1 Klebsiella pneumoniae [K. pneumoniae] as the cause of diseases classified elsewhere; B96.5 Pseudomonas (aeruginosa) (mallei) (pseudomallei) as the cause of diseases classified elsewhere; Z79.4 Long term (current) use of insulin; Z90.49 Acquired absence of other specified parts of digestive tract; Z79.899 Other long term (current) drug therapy
CPT/HCPCS: 31720; 36415; 71045; 73700; 80048; 80053; 80202; 81001; 82306; 82550; 82570; 82728; 82947; 83036; 83540; 83735; 83880; 83935; 83970; 84100; 84132; 84156; 84300; 84466; 85025; 86140; 87070; 87075; 87077; 87186; 87205; 88304; 94010; 99285; J0692; J1170; J1644; J1815; J2001; J2250; J2405; J2543; J2704; J3010; J3475; J3590; J7030; J7040; J7050

== ENCOUNTER → 2023-08-18 | Emergency (ER) | payer OTHER ==
--- OUTSIDE RECORDS SUMMARY | 2023-08-18 11:15 | XMS REPORT | Continuity of Care Document ---
Author Name Unknown Address [address] [place] [address] [facility] thconnect Address 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 Name Role Phone Ofelia Attending Clinician Unavailable NASIM Attending Clinician Unavailable Tiffanie Andersen Attending Clinician Unavail able Ofelia Admitting Clinician Unavailable NASIM Admitting Clinician Unavailable Payers Payer Name Policy Type Policy Number Effective Date Expirati on Date Source [facility] [id number] [employer] - CHOICE (POS II) [id number] 2020 00:00:00 [place] [id number] 2017 00:00:00 Problems Condition Name Condition Details Condition Category Status Onset Date Resolution Date Last Treatment Date Treating Clinician Comments Source Type 2 diabetes mellitus Type 2 Diabetes Mellitus Problem Active 2022-07 2- 00:00: 00 [facility] Open wound of left lower leg Open Wound of Left Lower Leg Problem Active 2022-07 2 00:00: 00 [facility] [...] Onychomyco sis of Toenails Problem Active 2020-07 0 00:00: 00 [facility] Tinea pedis Tinea Pedis Problem Active 2020-07 0 00:00: 00 [facility] Vitamin D deficiency Vitamin D Deficiency Problem Active 2020-07 0 00:00: 00 [place] [...] Problem Active 2020-07 0-09 00:00: 00 [facility] Chronic kidney disease stage 3A Chronic Kidney Disease Stage 3a Problem Active 4-16 00:00: 00 [facility] SARS-CoV-2 SARS-CoV-2 Problem Active 02-07 00:00: 00 [facility] History of herpes zoster History of Herpes Zoster Problem Active 1- 00:00: 00 [facility] Type 2 diabetes mellitus with hyperglyce ignacio Type 2 diabetes mellitus with hyperglyce ignacio Problem Active [facility] HTN (hypertens ion) HTN (hypertens ion) Problem Active [facility] Renal insufficie ncy Renal insufficie ncy Problem Active [facility] Hyperlipid emia Hyperlipid emia Problem Active [facility] BMI 40.0-44.9, adult BMI 40.0-44.9, adult Problem Active [facility] Stage 1 chronic kidney disease Stage 1 chronic kidney disease Problem Active [facility] Diabetes mellitus Diabetes Mellitus Problem Active [facility] Hypertensi ve disorder Hypertensi ve Disorder Problem Active [facility] Social History Smoking Status Start Date Stop Date Source Never Smoker [facility] Medications Ordered Medication Name Filled Medication [...] intramuscu lar route one time only [facility] Xuburke Jacobo 11-22 00:00: 00 Yes Davis Regan 30 units [facility] cholecalcif mildred (vitamin D3) 1,250 mcg (50,000 unit) capsule Take 1 capsule every week by oral route as directed. cholecalcif mildred (vitamin D3) 1,250 mcg (50,000 unit) capsule Take 1 capsule every week by oral route as directed. No 1capsul e(s) Q1W cholecalci ferol (vitamin D3) 1,250 mcg (50,000 unit) capsule Take 1 capsule every week by oral route as directed. [facility] ciclopirox 8 % topical [...] AT BEDTIME OR 8 HOURS BEFORE WASHING [facility] lisinopril 10 mg tablet Take 1 tablet every day by oral route in the morning. lisinopril 10 mg tablet Take 1 tablet every day by oral route in the morning. No lisinopril 10 mg tablet Take 1 tablet every day by oral route in the morning. [facility] lisinopril 20 mg tablet Take 1 tablet every day by oral route as directed. lisinopril 20 mg tablet Take 1 tablet every day by oral route as directed. No 1 Q1D lisinopril 20 mg tablet Take 1 tablet every day by oral route as directed. [facility] Ozempic 0.25 mg [...] week by subcutaneo us route as directed. [facility] Ozempic 1 mg/dose (2 mg/1.5 mL) subcutaneou s pen injector Ozempic 1 mg/dose (2 mg/1.5 mL) subcutaneou s pen injector No Ozempic 1 mg/dose (2 mg/1.5 mL) subcutaneo us pen injector [facility] Sure Comfort Pen Needle 32 gauge x 1/4" Sure Comfort Pen Needle 32 gauge x 1/4" No Sure Comfort Pen Needle 32 gauge x 1/4" [facility] Synjardy 5 mg-1,000 mg tablet TAKE ONE (1) TABLET(S) BY MOUTH EVERY 12 HOURS DIRECTED. Synjardy 5 mg-1,000 mg tablet TAKE ONE (1) TABLET(S) BY MOUTH EVERY 12 HOURS DIRECTED. No Synjardy 5 mg-1,000 mg tablet TAKE ONE (1) TABLET(S) BY MOUTH EVERY 12 HOURS DIRECTED. [facility] Synjardy XR 12.5 mg-1,000 mg tablet, extended release Take 2 tablets every day by oral route in the morning. Synjardy XR 12.5 mg-1,000 mg tablet, extended release Take 2 tablets every day by oral route in the morning. No 2 Q1D Synjardy XR 12.5 mg-1,000 mg tablet, extended release Take 2 tablets every day by oral route in the morning. [facility] Tresiba FlexTouch U-200 insulin 200 unit/mL (3 mL) subcutaneou s pen Inject 30 units at bedtime every day. Tresiba FlexTouch U-200 insulin 200 unit/mL (3 mL) subcutaneou s pen Inject 30 units at bedtime every day. No Tresiba FlexTouch U-200 insulin 200 unit/mL (3 mL) subcutaneo us pen Inject 30 units at bedtime every day. [facility] atorvastati n 10 mg tablet TAKE ONE (1) TABLET(S) BY MOUTH ONCE DAILY IN THE EVENING. atorvastati n 10 mg tablet TAKE ONE (1) TABLET(S) BY MOUTH ONCE DAILY IN THE EVENING. No atorvastat in 10 mg tablet TAKE ONE (1) TABLET(S) BY MOUTH ONCE DAILY IN THE EVENING. [facility] BD Gauri 2nd Gen Pen Needle 32 gauge x 5/32" USE DIRECTED FOR TRESIBA ONCE DAILY. BD Gauri 2nd Gen Pen Needle 32 gauge x 5/32" USE DIRECTED FOR TRESIBA ONCE DAILY. No BD Gauri 2nd Gen Pen Needle 32 gauge x 5/32" USE DIRECTED FOR TRESIBA ONCE DAILY. [facility] cephalexin 500 mg capsule Take 1 capsule every 6 hours by oral route as directed for 7 days. cephalexin 500 mg capsule Take 1 capsule every 6 hours by oral route as directed for 7 days. No 1capsul e(s) Q6H cephalexin 500 mg capsule Take 1 capsule every 6 hours by oral route as directed for 7 days. [facility] cholecalcif mildred (vitamin [...] every week by oral route as directed. [facility] ciclopirox 8 % [...] AT BEDTIME OR 8 HOURS BEFORE WASHING [facility] FreeStyle Melita 2 [place] USE DIRECTED TO CHECK BLOOD SUGARS AT LEAST 4 TIMES DAILY. FreeStyle Melita 2 [place] USE DIRECTED TO CHECK BLOOD SUGARS AT LEAST 4 TIMES DAILY. No FreeStyle Mleita 2 [place] USE DIRECTED TO CHECK BLOOD SUGARS AT LEAST 4 TIMES DAILY. [facility] FreeStyle Melita 2 [...] 4 TIMES DAILY. CHANGE EVERY 14 DAYS. [facility] ketorolac 10 mg tablet Take 1 tablet every 8 hours by oral route as needed for 2 days. ketorolac 10 mg tablet Take 1 tablet every 8 hours by oral route as needed for 2 days. No ketorolac 10 mg tablet Take 1 tablet every 8 hours by oral route as needed for 2 days. [facility] ketorolac 60 mg/2 mL intramuscul ar solution Inject 2 mL by intramuscul ar route one time only ketorolac 60 mg/2 mL intramuscul ar solution Inject 2 mL by intramuscul ar route one time only No ketorolac 60 mg/2 mL intramuscu lar solution Inject 2 mL by intramuscu lar route one time only [facility] lisinopril 20 mg tablet TAKE ONE (1) TABLET(S) BY MOUTH DAILY. lisinopril 20 mg tablet TAKE ONE (1) TABLET(S) BY MOUTH DAILY. No lisinopril 20 mg tablet TAKE ONE (1) TABLET(S) BY MOUTH DAILY. [facility] mupirocin 2 % [...] BY TOPICAL ROUTE 3 TIMES PER DAY [facility] Ozempic 0.25 mg [...] UNDER THE SKIN ONCE EVERY WEEK DIRECTED. [facility] Ozempic 1 mg/dose (2 mg/1.5 mL) subcutaneou s pen injector Ozempic 1 mg/dose (2 mg/1.5 mL) subcutaneou s pen injector No Ozempic 1 mg/dose (2 mg/1.5 mL) subcutaneo us pen injector [facility] prednisone 20 mg tablet TAKE 2 TABLETS BY MOUTH WITH BREAKFAST prednisone 20 mg tablet TAKE 2 TABLETS BY MOUTH WITH BREAKFAST No prednisone 20 mg tablet TAKE 2 TABLETS BY MOUTH WITH BREAKFAST [facility] Sure Comfort Pen Needle 32 gauge x 1/4" Sure Comfort Pen Needle 32 gauge x 1/4" No Sure Comfort Pen Needle 32 gauge x 1/4" [facility] Synjardy XR 12.5 mg-1,000 mg tablet, extended release TAKE TWO (2) TABLET(S) BY MOUTH ONCE A DAY IN THE MORNING. Synjardy XR 12.5 mg-1,000 mg tablet, extended release TAKE TWO (2) TABLET(S) BY MOUTH ONCE A DAY IN THE MORNING. No Synjardy XR 12.5 mg-1,000 mg tablet, extended release TAKE TWO (2) TABLET(S) BY MOUTH ONCE A DAY IN THE MORNING. [facility] Tresiba FlexTouch U-200 [...] UNDER THE SKIN AT BEDTIME EVERY DAY. [facility] carvedilol 3.125 mg tablet Take 1 tablet twice a day by oral route as directed. carvedilol 3.125 mg tablet Take 1 tablet twice a day by oral route as directed. No 1 BID carvedilol 3.125 mg tablet Take 1 tablet twice a day by oral route as directed. [facility] Fiasp FlexTouch U-100 Insulin 100 unit/mL (3 mL) subcutaneou s pen Inject by subcutaneou s route per sliding scale. Fiasp FlexTouch U-100 Insulin 100 unit/mL (3 mL) subcutaneou s pen Inject by subcutaneou s route per sliding scale. No Fiasp FlexTouch U-100 Insulin 100 unit/mL (3 mL) subcutaneo us pen Inject by subcutaneo us route per sliding scale. [facility] Sure Comfort Pen Needle 32 gauge x 1/4" Sure Comfort Pen Needle 32 gauge x 1/4" No Sure Comfort Pen Needle 32 gauge x 1/4" [facility] Tresiba FlexTouch U-200 insulin 200 unit/mL (3 mL) subcutaneou s pen Inject 20 units at bedtime every day. Tresiba FlexTouch U-200 insulin 200 unit/mL (3 mL) subcutaneou s pen Inject 20 units at bedtime every day. No Tresiba FlexTouch U-200 insulin 200 unit/mL (3 mL) subcutaneo us pen Inject 20 units at bedtime every day. [facility] Fiasp FlexTouch U-100 Insulin 100 unit/mL (3 mL) subcutaneou s pen Inject by subcutaneou s route per sliding scale. Fiasp FlexTouch U-100 Insulin 100 unit/mL (3 mL) subcutaneou s pen Inject by subcutaneou s route per sliding scale. No Fiasp FlexTouch U-100 Insulin 100 unit/mL (3 mL) subcutaneo us pen Inject by subcutaneo us route per sliding scale. [facility] hydrocodone 5 mg-acetamin ophen 325 mg tablet hydrocodone 5 mg-acetamin ophen 325 mg tablet No hydrocodon e 5 mg-acetami nophen 325 mg tablet [facility] Sure Comfort Pen Needle 32 gauge x 1/4" Sure Comfort Pen Needle 32 gauge x 1/4" No Sure Comfort Pen Needle 32 gauge x 1/4" [facility] Tresiba FlexTouch U-200 insulin 200 unit/mL (3 mL) subcutaneou s pen Inject 20 units at bedtime every day. Tresiba FlexTouch U-200 insulin 200 unit/mL (3 mL) subcutaneou s pen Inject 20 units at bedtime every day. No Tresiba FlexTouch U-200 insulin 200 unit/mL (3 mL) subcutaneo us pen Inject 20 units at bedtime every day. [facility] BD Ultra-Fine Micro Pen Needle 32 gauge x 1/4" BD Ultra-Fine Micro Pen Needle 32 gauge x 1/4" No BD Ultra-Fine Micro Pen Needle 32 gauge x 1/4" [facility] Fiasp FlexTouch U-100 Insulin 100 unit/mL (3 mL) subcutaneou s pen Inject by subcutaneou s route every day at start of meals per sliding scale. [id number] 2 [id number] 4 [id number] 6 [id number] 0 8 -17 0 10 [id number] 12 units>400 14 units and call office. Fiasp FlexTouch U-100 Insulin 100 unit/mL (3 mL) subcutaneou s pen Inject by subcutaneou s route every day at start of meals per sliding scale. 141-180 2 [id number] 0 4 [id number] 0 6 -67 0 8 [id number] 0 10 [id number] 12 units>400 14 units and call office. No Fiasp FlexTouch U-100 Insulin 100 unit/mL (3 mL) subcutaneo us pen Inject by subcutaneo us route every day at start of meals per sliding scale. 141-180 2 [id number] 20 4 -8 60 6 [id number] 00 8 [id number] 50 10 [id number] 12 units>400 14 units and call office. [facility] hydrocodone 5 mg-acetamin ophen 325 mg tablet hydrocodone 5 mg-acetamin ophen 325 mg tablet No hydrocodon e 5 mg-acetami nophen 325 mg tablet [facility] Tresiba FlexTouch U-100 insulin 100 unit/mL [...] day by subcutaneo us route as directed. [facility] Bactrim DS 800 mg-160 mg tablet Take 1 tablet every 12 hours by oral route. Bactrim DS 800 mg-160 mg tablet Take 1 tablet every 12 hours by oral route. No 1 Q12H Bactrim DS 800 mg-160 mg tablet Take 1 tablet every 12 hours by oral route. [facility] losartan 25 mg tablet Take 1 tablet every day by oral route. losartan 25 mg tablet Take 1 tablet every day by oral route. No 1 Q1D losartan 25 mg tablet Take 1 tablet every day by oral route. [facility] Tresiba FlexTouch U-100 insulin 100 unit/mL [...] day by subcutaneo us route as directed. [facility] Immunizations Ordered Immunization Name Filled Immunization Name Date Status Comments Source COVID-19, mRNA, LNP-S, PF, 100 mcg/0.5 mL dose (Moderna) COVID-19, mRNA, LNP-S, PF, 100 mcg/0.5 mL dose (Moderna) 2021-10-06 14:01:11 Completed [facility] COVID-19, mRNA, LNP-S, PF, 100 mcg/0.5 mL dose (Moderna) COVID-19, mRNA, LNP-S, PF, 100 mcg/0.5 mL dose (Moderna) 2021-10-06 14:01:11 Completed [facility] COVID-19, mRNA, LNP-S, PF, 100 mcg/0.5 mL dose (Moderna) COVID-19, mRNA, LNP-S, PF, 100 mcg/0.5 mL dose (Moderna) 2021-10-06 14:01:11 Completed [facility] COVID-19, mRNA, LNP-S, PF, 100 mcg/0.5 mL dose (Moderna) COVID-19, mRNA, LNP-S, PF, 100 mcg/0.5 mL dose (Moderna) 2021-10-06 14:01:11 Completed [facility] COVID-19, mRNA, LNP-S, PF, 100 mcg/0.5 mL dose (Moderna) COVID-19, mRNA, LNP-S, PF, 100 mcg/0.5 mL dose (Moderna) 2021-10-06 14:01:11 Completed [facility] COVID-19, mRNA, LNP-S, PF, 100 mcg/0.5 mL dose (Moderna) COVID-19, mRNA, LNP-S, PF, 100 mcg/0.5 mL dose (Moderna) 2021-08-25 12:43:55 Completed [facility] COVID-19, mRNA, LNP-S, PF, 100 mcg/0.5 mL dose (Moderna) COVID-19, mRNA, LNP-S, PF, 100 mcg/0.5 mL dose (Moderna) 2021-08-25 12:43:55 Completed [facility] COVID-19, mRNA, LNP-S, PF, 100 mcg/0.5 mL dose (Moderna) COVID-19, mRNA, LNP-S, PF, 100 mcg/0.5 mL dose (Moderna) 2021-08-25 12:43:55 Completed [facility] COVID-19, mRNA, LNP-S, PF, 100 mcg/0.5 mL dose (Moderna) COVID-19, mRNA, LNP-S, PF, 100 mcg/0.5 mL dose (Moderna) 2021-08-25 12:43:55 Completed [facility] COVID-19, mRNA, LNP-S, PF, 100 mcg/0.5 mL dose (Moderna) COVID-19, mRNA, LNP-S, PF, 100 mcg/0.5 mL dose (Moderna) 2021-08-25 12:43:55 Completed [facility] pneumococcal polysaccharide PPV23 pneumococcal polysaccharide PPV23 Unknown Completed [facility] pneumococcal polysaccharide PPV23 pneumococcal polysaccharide PPV23 Unknown Completed [facility] pneumococcal polysaccharide PPV23 pneumococcal polysaccharide PPV23 Unknown Completed [facility] pneumococcal polysaccharide PPV23 pneumococcal polysaccharide PPV23 Unknown Completed [facility] pneumococcal polysaccharide PPV23 pneumococcal polysaccharide PPV23 Unknown Completed [facility] pneumococcal polysaccharide PPV23 pneumococcal polysaccharide PPV23 Unknown Completed [facility] pneumococcal polysaccharide PPV23 pneumococcal polysaccharide PPV23 Unknown Completed [facility] pneumococcal polysaccharide PPV23 pneumococcal polysaccharide PPV23 Unknown Completed [facility] zoster recombinant - kit zoster recombinant - kit Unknown Completed [facility] pneumococcal polysaccharide PPV23 pneumococcal polysaccharide PPV23 Unknown Completed [facility] pneumococcal polysaccharide PPV23 pneumococcal polysaccharide PPV23 Unknown Completed [facility] zoster recombinant - kit zoster recombinant - kit Unknown Completed [facility] pneumococcal polysaccharide PPV23 pneumococcal polysaccharide PPV23 Unknown Completed [facility] COVID-19, mRNA, LNP-S, PF, 100 mcg/0.5 mL dose (Moderna) COVID-19, mRNA, LNP-S, PF, 100 mcg/0.5 mL dose (Moderna) Unknown Completed [facility] COVID-19, mRNA, LNP-S, PF, 100 mcg/0.5 mL dose (Moderna) COVID-19, mRNA, LNP-S, PF, 100 mcg/0.5 mL dose (Moderna) Unknown Completed [facility] pneumococcal polysaccharide PPV23 pneumococcal polysaccharide PPV23 Unknown Completed [facility] Vital Signs Vital Name Observation Time Observation Value Comments S ource BP Diastolic 2023-07-05 00:00:00 113 mm[Hg] [facility] Height 2023-07-05 00:00:00 66 [facility] BMI (Body Mass Index) 2023-07-05 00:00:00 45.7 kg/m2 [facility] Body Weight 2023-07-05 00:00:00 4535 [oz_av] [facility] BP Systolic 2023-07-05 00:00:00 182 mm[Hg] [facility] BP Diastolic 2022-08-05 00:00:00 92 mm[Hg] [facility] Height 2022-08-05 00:00:00 66 [facility]_i] [facility] BMI (Body Mass Index) 2022-08-05 00:00:00 42 kg/m2 [facility] BP Systolic 2022-08-05 00:00:00 148 mm[Hg] [facility] Body Weight 2022-08-05 00:00:00 4161 [oz_av] [facility] BP Diastolic 2022-07-08 00:00:00 85 mm[Hg] [facility] Height 2022-07-08 00:00:00 66 [in_i] [facility] BMI (Body Mass Index) 2022-07-08 00:00:00 41.3 kg/m2 [facility] BP Systolic 2022-07-08 00:00:00 143 mm[Hg] [facility] Body Weight 2022-07-08 00:00:00 4096 [oz_av] [facility] BP Diastolic 2022-06-24 00:00:00 72 mm[Hg] [facility] Height 2022-06-24 00:00:00 66 [in_i] [facility] BMI (Body Mass Index) 2022-06-24 00:00:00 41.2 kg/m2 [facility] BP Systolic 2022-06-24 00:00:00 112 mm[Hg] [facility] Body Weight 2022-06-24 00:00:00 4081 [oz_av] [facility] BP Diastolic 2022-05-31 00:00:00 90 mm[Hg] [facility] Height 2022-05-31 00:00:00 66 [in_i] [facility] BMI (Body Mass Index) 2022-05-31 00:00:00 43.4 kg/m2 [facility] BP Systolic 2022-05-31 00:00:00 150 mm[Hg] [facility] Body Weight 2022-05-31 00:00:00 4305.6 [oz_av] [facility] BP Diastolic 2021-10-26 00:00:00 110 mm[Hg] [facility] Height 2021-10-26 00:00:00 66 [in_i] [facility] BMI (Body Mass Index) 2021-10-26 00:00:00 44.9 kg/m2 [facility] BP Systolic 2021-10-26 00:00:00 174 mm[Hg] [facility] Body Weight 2021-10-26 00:00:00 4449 [oz_av] [facility] Height 2021-04-30 00:00:00 66 [in_i] [facility] BMI (Body Mass Index) 2021-04-30 00:00:00 45.2 kg/m2 [facility] BP Systolic 2021-04-30 00:00:00 144 mm[Hg] [facility] Body Weight 2021-04-30 00:00:00 4480 [oz_av] [facility] BP Diastolic 2021-04-30 00:00:00 86 mm[Hg] [facility] BP Diastolic 2020-12-16 00:00:00 90 mm[Hg] [facility] Height 2020-12-16 00:00:00 66 [in_i] [facility] BMI (Body Mass Index) 2020-12-16 00:00:00 45.8 kg/m2 [facility] BP Systolic 2020-12-16 00:00:00 140 mm[Hg] [facility] Body Weight 2020-12-16 00:00:00 4544 [oz_av] [facility] BP Diastolic 2020-11-17 00:00:00 90 mm[Hg] [facility] Height 2020-11-17 00:00:00 66 [in_i] [facility] BMI (Body Mass Index) 2020-11-17 00:00:00 45.5 kg/m2 [facility] BP Systolic 2020-11-17 00:00:00 128 mm[Hg] [facility] Body Weight 2020-11-17 00:00:00 4512 [oz_av] [facility] BP Diastolic 2020-11-03 00:00:00 77 mm[Hg] [facility] Height 2020-11-03 00:00:00 66 [in_i] [facility] BMI (Body Mass Index) 2020-11-03 00:00:00 46.5 kg/m2 [facility] BP Systolic 2020-11-03 00:00:00 112 mm[Hg] [facility] Body Weight 2020-11-03 00:00:00 4608 [oz_av] [facility] BP Diastolic 2020-05-22 00:00:00 80 mm[Hg] [facility] Height 2020-05-22 00:00:00 66 [in_i] [facility] BMI (Body Mass Index) 2020-05-22 00:00:00 46 kg/m2 [facility] BP Systolic 2020-05-22 00:00:00 132 mm[Hg] [facility] Body Weight 2020-05-22 00:00:00 4560 [oz_av] [facility] BP Diastolic 2020-05-01 00:00:00 90 mm[Hg] [facility] [place] Height 2020-05-01 00:00:00 66 [in_i] [place] [facility] BMI (Body Mass Index) 2020-05-01 00:00:00 46.5 kg/m2 [place] [facility] BP Systolic 2020-05-01 00:00:00 150 mm[Hg] Cort[place] margarette [facility] Body Weight 2020-05-01 00:00:00 4608 [oz_av] [place] [facility] BP Diastolic 2020-03-25 00:00:00 68 mm[Hg] [place] [facility] Height 2020-03-25 00:00:00 66 [in_i] [place] [facility] BMI (Body Mass Index) 2020-03-25 00:00:00 45.1 kg/m2 [facility] [facility] BP Systolic 2020-03-25 00:00:00 110 mm[Hg] Cort[place] margarette [facility] Body Weight 2020-03-25 00:00:00 4468 [oz_av] Ma [facility] BP Diastolic 2020-03-18 00:00:00 82 mm[Hg] [place] [facility] Height 2020-03-18 00:00:00 66 [in_i] [place] [facility] BMI (Body Mass Index) 2020-03-18 00:00:00 44.3 kg/m2 [facility] BP Systolic 2020-03-18 00:00:00 120 mm[Hg] [facility] margarette [facility] Body Weight 2020-03-18 00:00:00 4393.6 [oz_av] [place] [facility] BP Diastolic 2020-03-13 00:00:00 78 mm[Hg] [place] [facility] Height 2020-03-13 00:00:00 66 [in_i] [place] [facility] BMI (Body Mass Index) 2020-03-13 00:00:00 45 kg/m2 [facility] BP Systolic 2020-03-13 00:00:00 128 mm[Hg] [facility] marg[facility] Body Weight 2020-03-13 00:00:00 4460.8 [oz_av] [place] [facility] BP Diastolic 2020-03-11 00:00:00 78 mm[Hg] [place] [facility] Height 2020-03-11 00:00:00 66 [in_i] [place] [facility] BMI (Body Mass Index) 2020-03-11 00:00:00 44.6 kg/m2 [facility] BP Systolic 2020-03-11 00:00:00 118 mm[Hg] [facility] marg[facility] Body Weight 2020-03-11 00:00:00 4422.4 [oz_av] [place] [facility] Height 2020-02-25 00:00:00 66 [in_i] [place] [facility] BP Diastolic 2020-02-21 00:00:00 82 mm[Hg] [place] [facility] Height 2020-02-21 00:00:00 66 [in_i] [place] [facility] BMI (Body Mass Index) 2020-02-21 00:00:00 48.4 kg/m2 [facility] BP Systolic 2020-02-21 00:00:00 150 mm[Hg] [facility] marg[facility] Body Weight 2020-02-21 00:00:00 4800 [oz_av] Ma [facility] BP Diastolic 2020-02-08 00:00:00 84 mm[Hg] [place] [facility] Height 2020-02-08 00:00:00 66 [in_i] [place] [facility] BMI (Body Mass Index) 2020-02-08 00:00:00 48.4 kg/m2 [facility] BP Systolic 2020-02-08 00:00:00 118 mm[Hg] [place] margarette [facility] Body Weight 2020-02-08 00:00:00 4800 [oz_av] Ma [facility] BP Diastolic 2019-09-20 00:00:00 80 mm[Hg] [place] [facility] Height 2019-09-20 00:00:00 66 [in_i] [place] [facility] BMI (Body Mass Index) 2019-09-20 00:00:00 46 kg/m2 [facility] BP Systolic 2019-09-20 00:00:00 138 mm[Hg] [place] marg[facility] Body Weight 2019-09-20 00:00:00 285.2 [lb_av] [place] [facility] BP Diastolic 2019-05-15 00:00:00 68 mm[Hg] [place] [facility] Height 2019-05-15 00:00:00 66 [in_i] [place] [facility] BMI (Body Mass Index) 2019-05-15 00:00:00 41.4 kg/m2 [facility] BP Systolic 2019-05-15 00:00:00 128 mm[Hg] Diego garciaa [facility] Body Weight 2019-05-15 00:00:00 256.2 [lb_av] [facility] BP Diastolic 2019-05-07 00:00:00 86 mm[Hg] [facility] orquideaa [facility] Height 2019-05-07 00:00:00 66 [in_i] [facility] BMI (Body Mass Index) 2019-05-07 00:00:00 41.5 kg/m2 [facility] BP Systolic 2019-05-07 00:00:00 142 mm[Hg] Diego garciaa [facility] Body Weight 2019-05-07 00:00:00 257.4 [lb_av] [facility] Procedures Procedure Date / Time Performed Performing Clinician Source MRI, lower leg, w/o contrast 2023-07-05 00:00:00 [place] [facility] Kidney Biopsy 2022-06-06 00:00:00 Bryce da [facility] Colonoscopy 2019-05-28 00:00[facility] Cholecystectomy 2016-07-24 00:00:00 [facility] Appendectomy [place] [facility] Debridement of Hand [facility] Drainage of Skin Abscess [facility] Hand Incision [facility] Plan of Care Planned Activity Planned Date Details Comments Source Diagnostic Test Pending 2023-07-05 00:00:00 HbA1c (hemoglobin A1c), blood [code = HbA1c (hemoglobin A1c), blood] [place] [facility] Diagnostic Test Pending 2023-07-05 00:00:00 CMP, serum or plasma [code = CMP, serum or plasma] [place] [facility] Diagnostic Test Pending 2023-07-05 00:00:00 microalbumin/creatin ine, mass ratio, urine [code = microalbumin/creatin ine, mass ratio, urine] [facility] Diagnostic Test Pending 2023-07-05 00:00:00 urinalysis complete, reflex culture [code = urinalysis complete, reflex culture] [facility] Diagnostic Test Pending 2023-07-05 00:00:00 lipid panel, serum [code = lipid panel, serum] [facility] Diagnostic Test Pending 2023-07-05 00:00:00 CBC w/ auto diff [code = CBC w/ auto diff] [facility] Diagnostic Test Pending 2023-07-05 00:00:00 vitamin D, 25-hydroxy, total, serum [code = vitamin D, 25-hydroxy, total, serum] [facility] Diagnostic Test Pending 2023-07-05 00:00:00 TSH + free T4, serum [code = TSH + free T4, serum] [facility] Encounters Start Date/Time End Date/Time Encounter Type Admission Type Attending [facility] Facility Care Department Encounter ID Source 2023-08-02 00:00:00 2023-08-02 00:00:00 Outpatient Ngen_o [facility] [id number] [place] [facility] 2023-07-07 00:00:00 2023-07-07 00:00:00 Outpatient Ngen_o [facility] [id number] [place] [facility] 2023-07-05 00:00:00 2023-07-05 00:00:00 Outpatient Nguyen_o [facility] [id number] [place] [facility] 2023-07-05 00:00:00 2023-07-05 00:00:00 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 [facility] [id number] [place] [facility] 2022-08-04 00:00:00 2022-08-04 00:00:00 Outpatient Nguyen_Tho [facility] [id number] [place] [facility] 2022-08-04 00:00:00 2022-08-04 00:00:00 Outpatient Nguyen_Tho [facility] [id number] [place] [facility] 2022-07-22 00:00:00 2022-07-22 00:00:00 Outpatient Nguyen_Tho [facility] [id number] [place] [facility] 2022-07-08 00:00:00 2022-07-08 00:00:00 Outpatient Nguyen_Tho [facility] [id number] [place] [facility] 2022-07-08 00:00:00 2022-07-08 00:00:00 Austen Graves APRN-DIVERSIFIED CROPS FARMWORKER-C: [address] [place] [address] , [address] [facility] [id number] [place] [facility] 2022-06-29 00:00:00 2022-06-29 00:00:00 Outpatient Nguyen_Tho [facility] [id number] [place] [facility] 2022-06-27 00:00:00 2022-06-27 00:00:00 Outpatient Nguyen_Tho [facility] [id number] [place] [facility] 2022-06-26 00:00:00 2022-06-26 00:00:00 Outpatient Nguyen_Tho [facility] [id number] [place] [facility] 2022-06-24 00:00:00 2022-06-24 00:00:00 Outpatient Nguyen_Tho [facility] [id number] [place] [facility] 2022-06-24 00:00:00 2022-06-24 00:00:00 NATASHA NegronDIVERSIFIED CROPS FARMWORKER-C: [address] [place] [address] , [facility]. [facility] [id number] [place] [facility] 2022-05-31 00:00:00 2022-05-31 00:00:00 Outpatient [facility] [id number] [place] [facility] 2022-05-31 00:00:00 2022-05-31 00:00:00 NATASHA NegronDIVERSIFIED CROPS FARMWORKER-C: [address] [place] [address] , Ph. [facility] Primary Expansion [id number] [place] [facility] 2021-10-26 00:00:00 2021-10-26 00:00:00 NATASHA NegronDIVERSIFIED CROPS FARMWORKER-C: [address] [place] [address] , [facility]. [facility] [id number] [place] [facility] 2021-10-06 00:00:2021-10-06 00:00:00 Sandie Cuellar MD: [address] [place] [address] , [facility]. [facility] 0316 [place] [facility] 2021-08-25 02:14:00 2021-08-25 02:14:00 [id number] [place] [facility] 2021-04-30 00:00:00 2021-04-30 00:00:00 NATASHA NegronDIVERSIFIED CROPS FARMWORKER-C: [address] [place] [address] , [facility]. [facility] 1008 [place] [facility] 2021-04-28 04:40:00 2021-04-28 04:40:00 [id number] [place] [facility] 2020-12-16 00:00:00 2020-12-16 00:00:00 NATASHA NegronDIVERSIFIED CROPS FARMWORKER-C: [address] [place] [address] , [facility]. [facility] [id number] [place] [facility] 2020-11-17 00:00:00 2020-11-17 00:00:00 NATASHA NegronDIVERSIFIED CROPS FARMWORKER-C: [address] [place] [address] , Ph. [facility] 0427 [place] [facility] 2020-11-03 00:00:00 2020-11-03 00:00:00 DUNG Negron: [address] [place] [address] , Ph. Cartermarzena_Austen LINARES [place] [facility] 0413 [place] [facility] 2020-06-17 10:04:00 2020-06-17 10:04:00 Outpatient NEESE_MADELINE [facility] [id number] [place] [facility] 2020-06-03 05:28:00 2020-06-03 05:28:00 Outpatient NEESE_MADELINE [facility] [id number] [place] [facility] 2020-05-22 00:00:00 2020-05-22 00:00:00 Madeline Sanders PA: [address] [place] [phone] , Ph. NASIM TNBE [place] [facility] 3 [id number] [place] [facility] 2020-05-01 00:00:00 2020-05-01 00:00:00 KRISTIN Rodriguez: [address] [place] [address] , Ph. NASIM TNBE [place] [facility] 3 1009 [place] [facility] 2020-04-01 09:20:00 2020-04-01 09:20:00 Outpatient NEJENNY_MADELINE [facility] [id number] [place] [facility] 2020-03-25 00:00:00 2020-03-25 00:00:00 Madeline Sanders PA: [address] [place] [address] , Ph. NASIM TNBE [place] [facility] 3 901 [place] [facility] 2020-03-18 00:00:00 2020-03-18 00:00:00 Madeline Sanders PA: [address] [place] [address] , Ph. FILIBERTOMADELINE LINARES [place] [facility] 3 825 [place] [facility] 2020-03-13 00:00:00 2020-03-13 00:00:00 Madeline Sanders PA: [address] [place] [phone] , Ph. FILIBERTOMADELINE LINARES [facility] [place] [facility] 3 820 [place] [facility] 2020-03-11 00:00:00 2020-03-11 00:00:00 Madeline Sanders PA: [address] [place] [phone] , Ph. FILIBERTOMADELINE [facility] 3 818 [place] [facility] 2020-02-25 00:00:00 2020-02-25 00:00:00 Danuta Lees DIVERS[employer]IED CROPS FARMWORKER: [address] [place] [address] , Ph. NASIM BE [facility] [place] [facility] 04 [place] [facility] 2020-02-21 00:00:00 2020-02-21 00:00:00 Madeline Sanders PA: [address] [place] [phone] , Ph. FILIBERTOMADELINE LAMBBE [place] [facility] 3 31 [place] [facility] 2020-02-19 11:34:00 2020-02-19 11:34:00 Outpatient NEJENNY_MADELINE LINARES [facility] [id number] [place] [facility] 2020-02-08 00:00:00 2020-02-08 00:00:00 Batool Nichols, DIVERSIFIED CROPS FARMWORKER: [address], [place] [address] , Ph. NEESE_MADELINE [facility] [place] [facility] Primary Expansion [id number] [place] [facility] 2019-09-20 00:00:00 2019-09-20 00:00:00 Madeline Sanders PA: [address] [place] [address] , Ph. MARCELINAELIA [facility] Hospital[facility]ondoism[place] [address] 227 [place] [facility] 2019-09-03 14:00:00 2019-09-02 13:29:57 Inpatient Tiffanie Andersen [facility] [id number] [facility] [place] 2019-06-19 00:00:00 2019-06-19 00:00:00 Madeline Sanders PA: [address], [address], [place] [address] , Ph. [facility] 3 1127 [place] [facility] 2019-05-15 00:00:00 2019-05-15 00:00:00 Madeline Sanders PA: [address], [address], [place] [address] , Ph. [facility] [place] [facility] 3 1023 [place] [facility] 2019-05-07 00:00:00 2019-05-07 00:00:00 Madeline Sanders PA: [address], [address], [place] [address] , Ph. [facility] 3 [id number] 1015 [facility] 2018-10-19 14:28:00 2018-10-19 14:28:[address] [facility] [id number] [facility] 2018-10-16 16:00:00 2018-10-16 16:00:[address] [facility] [address] [id number] [facility] 2018-05-03 08:13:00 2018-05-03 08:13:[address] [facility] [facility] [address] [facility] [id number] [facility] 2018-04-23 08:44:00 2018-04-23 08:44:00 [facility] [id number] [facility] 2018-04-17 08:45:00 2018-04-17 08:45:00 [facility] [id number] [facility] 2018-04-16 10:00:00 2018-04-16 10:00:[address] [facility] [address] [facility] [id number] [facility] 2018-04-10 08:30:00 2018-04-10 08:30:[address] [facility] [facility] [id number] [facility] 2017-12-27 08:30:00 2017-12-27 08:30:[address] [facility] [facility] [id number] [facility] 2017-11-30 14:15:00 2017-11-30 14:15:00 [facility] [id number] [facility] 2017-11-30 08:30:00 2017-11-30 08:30:00 Outpatient [facility] [id number] [facility] 2017-11-22 08:45:00 2017-11-22 08:45:00 Outpatient [facility] [id number] [facility] Results Test Description Test Time Test Comments Results Result Co mments Source [facility] Center[facility] [Mass/volume] in Capillary [id number] 13:08:30* Test Item Value Reference Range Interpretation Comme nts Blood Glucose: mg/dl (test c ode = Blood Glucose: mg/dl) 197 [facility] ProgramGlucose [Mass/volume] in Capillary [id number] 13:08:30* Test Item Value Reference Range Interpretation Comme nts Blood Glucose: mg/dl (test c ode = Blood Glucose: mg/dl) 197 [facility] ProgramCBC W Auto Differential panel - Blood [...] immature cells (test code = immature cells) crnp Neutrophils [#/volume] in Bl ood by Automated [...] Blood by Automated count (test code = 90990-4) 0 % not estab. Immature granulocytes [#/volume] in Blood by Automated count (test code = 39809-5) 0.0 x10e3/uL 0.0-0.1 Nucleated erythrocytes/100 leukocytes [Ratio] in Blood by Automated count (test code = 85689-0) crnp Morphology [Interpretation] in Blood Narrative (test code = 26391-4) crnp [facility] ProgramComprehensive metabolic 2000 panel - Serum or [id number] 00:00:00* Test Item Value Reference Range Interpretation [...] Serum or Plasma (test code = 5-0) 100 mmol/L 96-106 Carbon dioxide, total [Moles/volume] in Serum or Plasma (test code = 2027-9) 21 mmol/L 20-29 Calcium [Mass/volume] in Ser um or Plasma (test code = 73053-3) 8.8 mg/dL 8.7-10.2 Protein [Mass/volume] in Ser um or Plasma (test code = 2885-2) 7.4 g/dL 6.0-8.5 Albumin [Mass/volume] in Ser um or Plasma (test code = 1751-7) 4.1 g/dL 3.8-4.9 Globulin [Mass/volume] in Serum by calculation (test code = 72733-1) 3.3 g/dL 1.5-4.5 Albumin/Globulin [Mass Ratio ] [...] (test code = 1742-6) 13 IU/L 0-44 [facility] CenterLipid 1996 panel - Serum or Plasma 2022-06-25 [...] or Plasma by calculation (test code = 70866-0) 34 mg/dL 5-40 Cholesterol in LDL [Mass/vol ume] in Serum or Plasma by calculation (test code = 39527-8) 111 mg/dL 0-99 H Laboratory comment [Text] in Report Narrative (test code = 68777-3) crnp [facility] ProgramMicroalbumin/Creatinine [Mass Ratio] in [id number] 00:00:00* Test Item Value Reference Range Interpretation Comme nts Creatinine [Mass/volume] in Urine (test code = 2161-8) 136.0 mg/dL not estab. Microalbumin [Mass/volume] i n Urine (test code = 75735-1) 714.7 ug/mL not estab. Albumin/Creatinine [Mass ratio] in Urine (test code = 9318-7) 526 mg/g creat 0-29 H [facility] Centercardiovascular assessment panel, [id number] 00:00:00* Test Item Value Reference Range Interpretation Comme nts Interpretation and review of laboratory results (test code = 66681-0) note Report (test code = 95736-9) not applicable [facility] Programlitholink CKD [id number] 00:00:00* Test Item Value Reference Range Interpretation Comme nts Report (test code = 12566-8) note Interpretation and review of laboratory results (test code = 27254-3) . [place] [facility] patient [id number] 00:00:00* Test Item Value Reference Range Interpretation Comme nts pdf (test code = pdf) not applicable [facility] CenterHemoglobin A1c/Hemoglobin.total in [id number] 00:00:00* Test Item Value Reference Range Interpretation Comme nts Hemoglobin A1c/Hemoglobin.to lindsay in Blood (test code = 4548-4) 11.2 % 4.8-5.6 H [facility] ProgramGlucose [Mass/volume] in Capillary [id number] 14:30:40* Test Item Value Reference Range Interpretation Comme nts Blood Glucose: mg/dl (test c ode = Blood Glucose: mg/dl) 136 [facility] ProgramGlucose [Mass/volume] in Capillary [id number] 14:30:40* Test Item Value Reference Range Interpretation Comme nts Blood Glucose: mg/dl (test c ode = Blood Glucose: mg/dl) 136 [facility] ProgramGlucose [Mass/volume] in Capillary [id number] 16:26:09* Test Item Value Reference Range Interpretation Comme nts Blood Glucose: mg/dl (test c ode = Blood Glucose: mg/dl) 400 [facility] Centercardiovascular assessment panel, [id number] 00:00:00* Test Item Value Reference Range Interpretation Comme nts Interpretation and review of laboratory results (test code = 18013-3) note Report (test code = 17732-7) not applicable [facility] [id number] 00:00:00* Test Item Value Reference Range Interpretation Comme nts Report (test code = 13765-0) note Interpretation and review of laboratory results (test code = 45437-4) . [facility] patient [id number] 00:00:00* Test Item Value Reference Range Interpretation Comme nts pdf (test code = pdf) not applicable [facility] CenterBacteria identified in Wound by [id number] 00:00:00* Test Item Value Reference Range Interpretation Comme nts Bacteria identified in Unspecified specimen by Anaerobe culture (test code = 635-3) final report Bacteria identified in Unspecified specimen by Culture (test code = 6463-4) pantoea agglomerans A Bacteria identified in Unspecified specimen by Aerobe culture (test code = 634-6) final report A Other Antibiotic [Susceptibility] (test code = 63596-7) comment [facility] W Auto Differential panel - Blood 2020-11-04 [...] immature cells (test code = immature cells) crnp Neutrophils [#/volume] in Bl ood by Automated [...] Blood by Automated count (test code = 46546-7) 0 % not estab. Immature granulocytes [#/volume] in Blood by Automated count (test code = 06114-8) 0.0 x10e3/uL 0.0-0.1 Nucleated erythrocytes/100 leukocytes [Ratio] in Blood by Automated count (test code = 40541-3) crnp Morphology [Interpretation] in Blood Narrative (test code = 49905-0) crnp [facility] ProgramCom[facility] 2000 panel - Serum or [id number] 00:00:00* Test Item Value Reference Range Interpretation [...] by Creatinine-based formula (CKD-EPI) (test code = 98068-8) 51 mL/min/1.73 >59 L Glomerular filtration rate/1.73 sq M.predicted among blacks [Volume Rate/Area] in Serum, Plasma or Blood by Creatinine-based formula (CKD-EPI) (test code = 94421-7) 59 mL/min/1.73 >59 L Urea nitrogen/Creatinine [Ma [...] Ser um or Plasma (test code = 69378-5) 8.5 mg/dL 8.7-10.2 L Protein [Mass/volume] in Ser um or Plasma (test code = 2885-2) 6.8 g/dL 6.0-8.5 Albumin [Mass/volume] in Ser um or Plasma (test code = 1751-7) 3.3 g/dL 3.8-4.9 L Globulin [Mass/volume] in Serum by calculation (test code = 72965-6) 3.5 g/dL 1.5-4.5 Albumin/Globulin [Mass Ratio ] [...] in Serum or Plasma (test code = 174-6) 9 IU/L 0-44 [facility] ProgramMicroalbumin/Creatinine [Mass Ratio] in [id number] 00:00:00* Test Item Value Reference Range Interpretation Comme nts Creatinine [Mass/volume] in Urine (test code = 2161-8) 131.3 mg/dL not estab. Microalbumin [Mass/volume] i n Urine (test code = 23097-9) 2710.8 ug/mL not estab. Albumin/Creatinine [Mass ratio] in Urine (test code = 9318-7) 2065 mg/g creat 0-29 [facility] CKD [id number] 00:00:00* Test Item Value Reference Range Interpretation Comme nts Report (test code = 90269-6) note Interpretation and review of laboratory results (test code = 30690-9) . [facility] CenterHemoglobin A1c/Hemoglobin.total in [id number] 00:00:00* Test Item Value Reference Range Interpretation Comme nts Hemoglobin A1c/Hemoglobin.to lindsay in Blood (test code = 4548-4) 12.9 % 4.8-5.6 H Glucose mean value [Mass/vol ume] in Blood Estimated from glycated hemoglobin (test code = 48194-8) 324 mg/dL [facility] patient [id number] 00:00:00* Test Item Value Reference Range Interpretation Comme nts pdf (test code = pdf) not applicable [facility] CenterCom[facility] metabolic 2000 panel - Serum or [id number] 00:00:00* Test Item Value Reference Range Interpretation [...] by Creatinine-based formula (CKD-EPI) (test code = 66501-7) 53 mL/min/1.73 >59 L Glomerular filtration rate/1.73 sq M.predicted among blacks [Volume Rate/Area] in Serum, Plasma or Blood by Creatinine-based formula (CKD-EPI) (test code = 52346-7) 61 mL/min/1.73 >59 Urea nitrogen/Creatinine [Ma ss [...] Serum or Plasma (test code = 2027-) 27 mmol/L 20-29 Calcium [Mass/volume] in Ser um or Plasma (test code = 25309-5) 9.0 mg/dL 8.7-10.2 Protein [Mass/volume] in Ser um or Plasma (test code = 2885-2) 6.8 g/dL 6.0-8.5 Albumin [Mass/volume] in Ser um or Plasma (test code = 1751-7) 3.9 g/dL 3.8-4.9 Globulin [Mass/volume] in Serum by calculation (test code = 79242-2) 2.9 g/dL 1.5-4.5 Albumin/Globulin [Mass Ratio ] in Serum or Plasma (test code = 1759-0) 1.3 1.2-2.2 Bilirubin.total [Mass/volume ] in Serum or Plasma (test code = 1974-) 0.3 mg/dL 0.0-1.2 Alkaline phosphatase [Enzymatic activity/volume] in Serum or Plasma (test code = 6768-6) 79 IU/L 39-117 Aspartate aminotransferase [Enzymatic activity/volume] in Serum or Plasma (test code = 1920-8) 14 IU/L 0-40 Alanine aminotransferase [Enzymatic activity/volume] in Serum or Plasma (test code = 174-6) 18 IU/L 0-44 [facility] CKD [id number] 00:00:00* Test Item Value Reference Range Interpretation Comme nts interpretation (test code = interpretation) note pdf (test code = pdf) . [facility] Centerdi[facility] patient [id number] 00:00:00* Test Item Value Reference Range Interpretation Comme nts pdf (test code = pdf) not applicable [facility] CenterHemoglobin A1c/Hemoglobin.total in [id number] 00:00:00* Test Item Value Reference Range Interpretation Comme nts Hemoglobin A1c/Hemoglobin.to lindsay in Blood (test code = 4548-4) 9.9 % 4.8-5.6 H [facility] CenterBacteria identified in Unspecified specimen by Anaerobe+Aerobe [id number] 00:00:00* Test Item Value Reference Range Interpretation Comme nts Bacteria identified in Unspecified specimen by Anaerobe culture (test code = 635-3) final report Bacteria identified in Unspecified specimen by Culture (test code = 6463-4) staphylococcus aureus A Bacteria identified in Unspecified specimen by Aerobe culture (test code = 634-6) final report A Other Antibiotic [Susceptibility] (test code = 14068-3) comment [facility] CenterBacteria identified in Unspecified specimen by Anaerobe+Aerobe [id number] 00:00:00* Test Item Value Reference Range Interpretation Comme nts Bacteria identified in Unspecified specimen by Anaerobe culture (test code = 635-3) final report Bacteria identified in Unspecified specimen by Culture (test code = 6463-4) staphylococcus aureus A Bacteria identified in Unspecified specimen by Aerobe culture (test code = 634-6) final report A Other Antibiotic [Susceptibility] (test code = 80761-8) comment [facility] CenterB[facility] identified in Unspecified specimen by Anaerobe+Aerobe [id number] 00:00:00* Test Item Value Reference Range Interpretation Comme nts Bacteria identified in Unspecified specimen by Anaerobe culture (test code = 635-3) final report Bacteria identified in Unspecified specimen by Culture (test code = 6463-4) staphylococcus aureus A Bacteria identified in Unspecified specimen by Aerobe culture (test code = 634-6) final report A Other Antibiotic [Susceptibility] (test code = 40524-7) comment [facility] coronavirus 2 RNA [Presence] in Respiratory specimen by ISIDRO with probe [id number] 00:00:00* Test Item Value Reference Range Interpretation Comme nts SARS coronavirus 2 RNA [Presence] in Respiratory specimen by ISIDRO with probe detection (test code = 92794-8) not detected not detected [facility] ProgramS[facility] coronavirus 2 RNA [Presence] in Respiratory specimen by ISIDRO with probe [id number] 00:00:00* Test Item Value Reference Range Interpretation Comme nts SARS coronavirus 2 RNA [Presence] in Respiratory specimen by ISIDRO with probe detection (test code = 26392-0) not detected not detected [facility] coronavirus 2 RNA [Presence] in Respiratory specimen by ISIDRO with probe [id number] 00:00:00* Test Item Value Reference Range Interpretation Comme nts SARS coronavirus 2 RNA [Presence] in Respiratory specimen by ISIDRO with probe detection (test code = 97570-1) not detected not detected [facility] coronavirus 2 RNA [Presence] in Respiratory specimen by ISIDRO with probe [id number] 00:00:00* Test Item Value Reference Range Interpretation Comme nts SARS coronavirus 2 RNA [Presence] in Respiratory specimen by ISIDRO with probe detection (test code = 26559-7) not detected not detected [facility] ProgramS[facility] coronavirus 2 RNA [Presence] in Respiratory specimen by ISIDRO with probe [id number] 00:00:00* Test Item Value Reference Range Interpretation Comme nts SARS coronavirus 2 RNA [Presence] in Respiratory specimen by ISIDRO with probe detection (test code = 61410-3) not detected not detected [facility] coronavirus 2 RNA [Presence] in Respiratory specimen by ISIDRO with probe [id number] 00:00:00* Test Item Value Reference Range Interpretation Comme nts SARS coronavirus 2 RNA [Presence] in Respiratory specimen by ISIDRO with probe detection (test code = 59119-8) not detected not detected [facility] coronavirus 2 RNA [Presence] in Respiratory specimen by ISIDRO with probe [id number] 00:00:00* Test Item Value Reference Range Interpretation Comme nts SARS coronavirus 2 RNA [Presence] in Respiratory specimen by ISIDRO with probe detection (test code = 92914-7) not detected not detected [facility] [Presence] in Respiratory specimen by ISIDRO with probe [id number] 00:00:00* Test Item Value Reference Range Interpretation Comme nts SARS coronavirus 2 RNA [Pres ence] in Respiratory specimen by ISIDRO with probe detection (test code = 70665-8) detected not detected [facility] RNA [Presence] in Respiratory specimen by ISIDRO with probe [id number] 00:00:00* Test Item Value Reference Range Interpretation Comme nts SARS coronavirus 2 RNA [Pres ence] in Respiratory specimen by ISIDRO with probe detection (test code = 74581-6) detected not detected A [facility] [id number] 00:00:00* Test Item Value Reference Range Interpretation Comme nts pdf image (test code = pdf image) . [facility] CenterH.pylori,IgG/IgM [id number] 00:00:00* Test Item Value Reference Range Interpretation Comme nts Helicobacter pylori IgG Ab [Units/volume] in Serum by Immunoassay (test code = 5176-3) 1.75 index value 0.00-0.79 H Helicobacter pylori IgM Ab [Units/volume] in Serum (test code = 7903-8) <9.0 0.0-8.9 [facility] CenterCBC W Auto Differential panel - Blood 2019-05-08 [...] immature cells (test code = immature cells) crnp Neutrophils [#/volume] in Bl ood by Automated [...] Blood by Automated count (test code = 84800-5) 0.0 x10e3/uL 0.0-0.1 Nucleated erythrocytes/100 leukocytes [Ratio] in Blood by Automated count (test code = 61757-1) crnp Morphology [interpretation] in Blood Narrative (test code = 50730-7) crnp [facility] ProgramComprehensive metabolic 2000 panel - Serum or [id number] 00:00:00* Test Item Value Reference Range Interpretation [...] Serum or Plasma (test code = 2027-9) 26 mmol/L 20-29 Calcium [Mass/volume] in Ser um or Plasma (test code = 66326-1) 9.1 mg/dL 8.7-10.2 Protein [Mass/volume] in Ser um or Plasma (test code = 2885-2) 7.0 g/dL 6.0-8.5 Albumin [Mass/volume] in Ser um or Plasma (test code = 1751-7) 3.7 g/dL 3.5-5.5 Globulin [Mass/volume] in Serum by calculation (test code = 19013-5) 3.3 g/dL 1.5-4.5 Albumin/Globulin [Mass Ratio ] [...] (test code = 1742-6) 16 IU/L 0-44 [facility] CenterHemoglobin A1c/Hemoglobin.total in [id number] 00:00:00* Test Item Value Reference Range Interpretation Comme nts Hemoglobin A1c/Hemoglobin.to lindsay in Blood (test code = 4548-4) 11.2 % 4.8-5.6 H [facility]
--- NOTE | 2023-08-18 11:24 | ER ---
Nurse's Notes [facility] Name: Cameron Hooper Age: 57 yrs Sex: Male : 1965 Arrival Date: 08/18/2023 Time: 11:11 Bed IW1 Private MD: Diagnosis: PICC line removal Presentation: 08/18 11:19 Ebola Screen: Patient denies travel to an Ebola-affected area in the 21 days before ll1 illness onset. Initial Sepsis Screen: Does the patient meet any 2 criteria? No. Patient's initial sepsis screen is negative. Does the patient have a suspected source of infection? No. Patient's initial sepsis screen is negative. Risk Assessment: Do you want to hurt yourself or someone else? Patient reports no desire to harm self or others. Onset of symptoms is unknown. 11:19 Method Of Arrival: Ambulatory ll1 11:19 Acuity: MAYA 4 ll1 11:19 Chief complaint: Patient states: Wants PICC line removed from RUE. ll1 11:21 Coronavirus screen: Client denies travel out of the [place] in the last 14 days. At this ll1 time, the client does not indicate any symptoms associated with coronavirus-19. Triage Assessment: 11:20 General: Appears uncomfortable, Behavior is calm, cooperative, appropriate for age. ll1 General: needs PICC removed from RUE. Pain: Denies pain. Historical: - Allergies: 11:19 No Known Allergies; ll1 - PMHx: 11:19 diabetes mellitus; Hypertensive disorder; ll1 - PSHx: 11:19 Appendectomy; Cholecystectomy; ll1 - Immunization history:: Adult Immunizations up to date. - Social history:: Smoking status: Patient denies any tobacco usage or history of. Screenin:46 [facility] ED Fall Risk Assessment (Adult) Score/Fall Risk Level 0 - 2 = Low Risk ll1 Oriented to surroundings, Maintained a safe environment, Educated pt \T\ family on fall prevention, incl call for assistance when getting out of bed, Hourly rounding (assess needs \T\ fall precautionary measures) done. Abuse screen: Denies threats or abuse. Nutritional screening: No deficits noted. Tuberculosis screening: No symptoms or risk factors identified. Assessment: 11:29 Reassessment: No changes from previously documented assessment. Patient and/or family ll1 updated on plan of care and expected duration. Pain level reassessed. PICC removed by Dr Zhu. Tolerated well. Musculoskeletal: Circulation, motion, and sensation intact. Capillary refill < 3 seconds. Vital Signs: 11:21 BP 181 / 95; Pulse 73; Resp 17; Temp 97.5; Pulse Ox 100% ; Weight 127.01 kg; Height 5 ll1 ft. 6 in. ; Pain 0/10; 11:21 Body Mass Index 45.19 (127.01 kg, 167.64 cm) ll1 11:21 Pain Scale: Adult ll1 ED Course: 11:14 Patient arrived in ED. mr 11:16 Galdino Zhu DO is Attending Physician. ms3 11:19 Triage completed. ll1 11:19 Arm band placed on. ll1 11:23 Mikal Ramirez DO is Referral Physician. ms3 11:29 Patient has correct armband on for positive identification. Provided Education on: n/a. ll1 11:29 No provider procedures requiring assistance completed. Patient did not have IV access ll1 during this emergency room visit. Administered Medications: No medications were administered Medication: 11:47 VIS not applicable for this client. ll1 Outcome: 11:23 Discharge ordered by MD. ms3 11:29 Patient left the ED. ll1 11:29 Discharged to home ambulatory, ll1 11:29 Condition: stable 11:29 Discharge instructions given to patient, Instructed on discharge instructions, follow up and referral plans. Demonstrated understanding of instructions, follow-up care, Signatures: Danuta Cutler, Reg Reg mr Micky Wilkes RN RN ll1 Galdino Zhu DO DO ms3 Corrections: (The following items were deleted from the chart) 11:21 11:19 Chief complaint: Patient states: Wants PICC line pulled ll1 ll1 11:23 11:21 Resp 17bpm; Temp 97.5F; Pain 0/10, Adult; ll1 ll1 11:24 11:21 Pulse 73bpm; Resp 17bpm; Pulse Ox 100%; Temp 97.5F; 127.01 kg; Height 5 ft. 6 ll1 in.; BMI: 45.1; Pain 0/10, Adult; ll1
--- NOTE | 2023-08-18 11:24 | EDPHYS ---
Physician Documentation [facility] Name: Cameron Hooper Age: 57 yrs Sex: Male : 1965 Arrival Date: 08/18/2023 Time: 11:11 Bed IW1 Private MD: ED Physician Galdino Zhu HPI: 08/18 11:23 This 57 yrs old Male presents to ER via Ambulatory with complaints of PICC ms3 line problem. 11:23 57-year-old male with past medical history of diabetes, hypertension [place] [facility] [place] for right upper extremity PICC line removal. Patient states PICC line was placed 6 weeks ago when he had a wound on his left lower leg. Patient states his antibiotics finished yesterday and he was instructed to have the PICC line removed. Patient denies pain or drainage from PICC line site. Historical: - Allergies: 11:19 No Known Allergies; ll1 - PMHx: 11:19 diabetes mellitus; Hypertensive disorder; ll1 - PSHx: 11:19 Appendectomy; Cholecystectomy; ll1 - Immunization history:: Adult Immunizations up to date. - Social history:: Smoking status: Patient denies any tobacco usage or history of. ROS: 11:23 Constitutional: Negative for fever, and chills. Neck: Negative for injury, pain, and ms3 swelling, Cardiovascular: Negative for chest pain, and palpitations. Respiratory: Negative for shortness of breath, cough, wheezing, and pleuritic chest pain, Abdomen/GI: Negative for abdominal pain, nausea, vomiting, diarrhea, and constipation, Back: Negative for injury and pain, Skin: Negative for injury, rash, and discoloration, 11:23 All other systems are negative, Exam: 11:23 Constitutional: This is a well developed, well nourished patient who is awake, alert, ms3 and in no acute distress. Head/Face: Normocephalic, atraumatic. Chest/axilla: Normal chest wall appearance and motion. Nontender with no deformity. Cardiovascular: Regular rate and rhythm with a normal S1 and S2. No gallops, murmurs, or rubs. Normal PMI, no JVD. No pulse deficits. Respiratory: Lungs have equal breath sounds bilaterally, clear to auscultation and percussion. No rales, rhonchi or wheezes noted. No increased work of breathing, no retractions or nasal flaring. Abdomen/GI: Soft, non-tender, with normal bowel sounds. No distension or tympany. No guarding or rebound. No evidence of tenderness throughout. 11:23 Skin: PICC line in right upper extremity without surrounding erythema or drainage. Vital Signs: 11:21 BP 181 / 95; Pulse 73; Resp 17; Temp 97.5; Pulse Ox 100% ; Weight 127.01 kg; Height 5 ll1 ft. 6 in. ; Pain 0/10; 11:21 Body Mass Index 45.19 (127.01 kg, 167.64 cm) ll1 11:21 Pain Scale: Adult ll1 MDM: 11:22 Patient medically screened. ms3 11:23 Differential Diagnosis PICC Line removal. Data reviewed: vital signs, nurses notes, and ms3 as a result, I will discharge patient. Counseling: I had a detailed discussion with the patient and/or guardian regarding the historical points, exam findings, and any diagnostic results supporting the discharge/admit diagnosis, the need for outpatient follow up, to return to the emergency department if symptoms worsen or persist or if there are any questions or concerns that arise at home. Special discussion: I discussed with the patient/guardian in detail that at this point there is no indication for admission to the hospital. It is understood, however, that if the symptoms persist or worsen the patient needs to return immediately for re-evaluation. ED course: PICC line removed without complications. Patient to follow-up with primary care physician in 2 to 3 days. Patient understands agrees with plan. All questions were answered. Return precautions discussed include worsening symptoms, or any other concerns. Administered Medications: No medications were administered Disposition Summary: 08/18/23 11:23 Discharge Ordered Notes: Location: Home ms3 Condition: Stable ms3 Diagnosis - PICC line removal ms3 Followup: ms3 - With: Mikal Ramirez DO - When: 2 - 3 days - Reason: Recheck today's complaints Discharge Instructions: - Discharge Summary Sheet ms3 - PICC Removal, Adult ms3 Forms: - Medication Reconciliation Form ms3 - Thank You Letter ms3 - Antibiotic Education ms3 - Prescription Opioid Use ms3 - Patient Portal Instructions ms3 - Leadership Thank You Letter ms3 Signatures: Chung, Lynsay, RN RN ll1 Zhu, Galdino, DO DO ms3
[2023-08-18 11:46] VITALS: BP 181/95; TEMP 97.5; O2SAT 100
== END ==
LOC: ER 11:11
DX: Z45.2 Encounter for adjustment and management of vascular access device (principal)

== ENCOUNTER 2024-07-09 17:25 | Emergency (ER) | payer OTHER ==
--- OUTSIDE RECORDS SUMMARY | 2024-07-09 17:30 | XMS REPORT | Continuity of Care Document ---
Author Name Unknown Address [address] [facility] [address] [place] [address] [facility] thconnect Address [address] [facility] [address] [place] [address] Care Team Providers Care Eyeglass Lens Generator Name Role Phone Ofelia Attending Clinician Unavailable NASIM Attending Clinician Unavailable Tiffanie Andersen Attending Clinician Unavail able Ofelia Admitting Clinician Unavailable NASIM Admitting Clinician Unavailable Payers Payer Name Policy Type Policy Number Effective Date Expirati on Date Source [facility] [id number] [employer] - CHOICE (POS II) [id number] 2020 00:00:00 [place] [id number] 2017 00:00:00 Problems Condition Name Condition Details Condition Category Status Onset Date Resolution Date Last Treatment Date Treating Clinician Comments Source Type 2 diabetes mellitus Type 2 Diabetes Mellitus Problem Active 2022-07 2- 00:00: 00 [facility] Open wound of [...] Problem Active 2020-07 0-09 00:00: 00 [facility] Chronic kidney disease stage 3A Chronic Kidney Disease Stage 3a Problem Active 4-16 00:00: 00 [facility] SARS-CoV-2 SARS-CoV-2 Problem Active 7-18 00:00: 00 [facility] History of herpes zoster History of Herpes Zoster Problem Active 1- 00:00: 00 [facility] Type 2 diabetes mellitus with hyperglyce ignacio Type 2 diabetes mellitus with hyperglyce ignacio Problem Active [facility] HTN (hypertens ion) HTN (hypertens ion) Problem Active [facility] Renal insufficie ncy Renal insufficie ncy Problem Active [facility] Hyperlipid emia Hyperlipid emia Problem Active [facility] BMI 40.0-44.9, adult BMI 40.0-44.9, adult Problem Active [facility] Stage 1 chronic kidney disease Stage 1 chronic kidney disease Problem Active [facility] Diabetes mellitus Diabetes Mellitus Problem Active [facility] Hypertensi ve disorder Hypertensi ve Disorder Problem Active [facility] Social History Smoking Status Start Date Stop Date Source Never Smoker [facility] Medications Ordered Medication Name Filled Medication Name Start Date Stop Date Current Medication? Ordering Clinician Indication Dosage Frequency Signature (SIG) Comments Components Source Odalis Jacobo 11-22 00:00: 00 Yes Davis Regan 30 units [facility] cholecalcif mildred (vitamin D3) 1,250 mcg (50,000 unit) capsule Take 1 capsule every week by oral route as directed. cholecalcif mildred (vitamin D3) 1,250 mcg (50,000 unit) capsule Take 1 capsule every week by oral route as directed. No 1capsul e(s) Q1W cholecalci ferol (vitamin D3) 1,250 mcg (50,000 unit) capsule Take 1 capsule every week by oral route as directed. [facility] ciclopirox 8 % topical [...] AT BEDTIME OR 8 HOURS BEFORE WASHING [facility] lisinopril 10 mg tablet Take 1 tablet every day by oral route in the morning. lisinopril 10 mg tablet Take 1 tablet every day by oral route in the morning. No lisinopril 10 mg tablet Take 1 tablet every day by oral route in the morning. [facility] lisinopril 20 mg tablet Take 1 tablet every day by oral route as directed. lisinopril 20 mg tablet Take 1 tablet every day by oral route as directed. No 1 Q1D lisinopril 20 mg tablet Take 1 tablet every day by oral route as directed. [facility] Ozempic 0.25 mg or 0.5 [...] week by subcutaneo us route as directed. [facility] Ozempic 1 mg/dose (2 mg/1.5 mL) subcutaneou s pen injector Ozempic 1 mg/dose (2 mg/1.5 mL) subcutaneou s pen injector No Ozempic 1 mg/dose (2 mg/1.5 mL) subcutaneo us pen injector [facility] Sure Comfort Pen Needle 32 gauge x 1/4" Sure Comfort Pen Needle 32 gauge x 1/4" No Sure Comfort Pen Needle 32 gauge x 1/4" [facility] Synjardy 5 mg-1,000 mg tablet TAKE ONE (1) TABLET(S) BY MOUTH EVERY 12 HOURS DIRECTED. Synjardy 5 mg-1,000 mg tablet TAKE ONE (1) TABLET(S) BY MOUTH EVERY 12 HOURS DIRECTED. No Synjardy 5 mg-1,000 mg tablet TAKE ONE (1) TABLET(S) BY MOUTH EVERY 12 HOURS DIRECTED. [facility] Synjardy XR 12.5 mg-1,000 mg tablet, extended release Take 2 tablets every day by oral route in the morning. Synjardy XR 12.5 mg-1,000 mg tablet, extended release Take 2 tablets every day by oral route in the morning. No 2 Q1D Synjardy XR 12.5 mg-1,000 mg tablet, extended release Take 2 tablets every day by oral route in the morning. [facility] Tresiba FlexTouch U-200 insulin 200 unit/mL (3 mL) subcutaneou s pen Inject 30 units at bedtime every day. Tresiba FlexTouch U-200 insulin 200 unit/mL (3 mL) subcutaneou s pen Inject 30 units at bedtime every day. No Tresiba FlexTouch U-200 insulin 200 unit/mL (3 mL) subcutaneo us pen Inject 30 units at bedtime every day. [facility] atorvastati n 10 mg tablet TAKE ONE (1) TABLET(S) BY MOUTH ONCE DAILY IN THE EVENING. atorvastati n 10 mg tablet TAKE ONE (1) TABLET(S) BY MOUTH ONCE DAILY IN THE EVENING. No atorvastat in 10 mg tablet TAKE ONE (1) TABLET(S) BY MOUTH ONCE DAILY IN THE EVENING. [facility] BD Gauri 2nd Gen Pen Needle 32 gauge x 5/32" USE DIRECTED FOR TRESIBA ONCE DAILY. BD Gauri 2nd Gen Pen Needle 32 gauge x 5/32" USE DIRECTED FOR TRESIBA ONCE DAILY. No BD Gauri 2nd Gen Pen Needle 32 gauge x 532" USE DIRECTED FOR TRESIBA ONCE DAILY. [facility] cephalexin 500 mg capsule Take 1 capsule every 6 hours by oral route as directed for 7 days. cephalexin 500 mg capsule Take 1 capsule every 6 hours by oral route as directed for 7 days. No 1capsul e(s) Q6H cephalexin 500 mg capsule Take 1 capsule every 6 hours by oral route as directed for 7 days. [facility] cholecalcif mildred (vitamin D3) 1,250 mcg (50,000 unit) capsule Take 1 capsule every week by oral route as directed. cholecalcif mildred (vitamin D3) 1,250 mcg (50,000 unit) capsule Take 1 capsule every week by oral route as directed. No 1capsul e(s) Q1W cholecalci ferol (vitamin D3) 1,250 mcg (50,000 unit) capsule Take 1 capsule every week by oral route as directed. [facility] ciclopirox 8 [...] AT BEDTIME OR 8 HOURS BEFORE WASHING [facility] FreeStyle Melita 2 [place] USE DIRECTED TO CHECK BLOOD SUGARS AT LEAST 4 TIMES DAILY. FreeStyle Melita 2 [place] USE DIRECTED TO CHECK BLOOD SUGARS AT LEAST 4 TIMES DAILY. No FreeStyle Melita 2 [place] USE DIRECTED TO CHECK BLOOD SUGARS AT LEAST 4 TIMES DAILY. [facility] FreeStyle Melita 2 Sensor [...] 4 TIMES DAILY. CHANGE EVERY 14 DAYS. [facility] ketorolac 10 mg tablet Take 1 tablet every 8 hours by oral route as needed for 2 days. ketorolac 10 mg tablet Take 1 tablet every 8 hours by oral route as needed for 2 days. No ketorolac 10 mg tablet Take 1 tablet every 8 hours by oral route as needed for 2 days. [facility] ketorolac 60 mg/2 mL intramuscul ar solution Inject 2 mL by intramuscul ar route one time only ketorolac 60 mg/2 mL intramuscul ar solution Inject 2 mL by intramuscul ar route one time only No ketorolac 60 mg/2 mL intramuscu lar solution Inject 2 mL by intramuscu lar route [facility] l[facility] 20 mg tablet TAKE ONE (1) TABLET(S) BY MOUTH DAILY. lisinopril 20 mg tablet TAKE ONE (1) TABLET(S) BY MOUTH DAILY. No lisinopril 20 mg tablet TAKE ONE (1) TABLET(S) BY MOUTH DAILY. [facility] mupirocin 2 % topical [...] BY TOPICAL ROUTE 3 TIMES PER DAY [facility] Ozempic 0.25 mg or [...] UNDER THE SKIN ONCE EVERY WEEK DIRECTED. [facility] Ozempic 1 mg/dose (2 mg/1.5 mL) subcutaneou s pen injector Ozempic 1 mg/dose (2 mg/1.5 mL) subcutaneou s pen injector No Ozempic 1 mg/dose (2 mg/1.5 mL) subcutaneo us pen injector [facility] prednisone 20 mg tablet TAKE 2 TABLETS BY MOUTH WITH BREAKFAST prednisone 20 mg tablet TAKE 2 TABLETS BY MOUTH WITH BREAKFAST No prednisone 20 mg tablet TAKE 2 TABLETS BY MOUTH WITH BREAKFAST [facility] Sure Comfort Pen Needle 32 gauge x 1/4" Sure Comfort Pen Needle 32 gauge x 1/4" No Sure Comfort Pen Needle 32 gauge x 1/4" [facility] Synjardy XR 12.5 mg-1,000 mg tablet, extended release TAKE TWO (2) TABLET(S) BY MOUTH ONCE A DAY IN THE MORNING. Synjardy XR 12.5 mg-1,000 mg tablet, extended release TAKE TWO (2) TABLET(S) BY MOUTH ONCE A DAY IN THE MORNING. No Synjardy XR 12.5 mg-1,000 mg tablet, extended release TAKE TWO (2) TABLET(S) BY MOUTH ONCE A DAY IN THE MORNING. [facility] Tresiba FlexTouch U-200 insulin 200 [...] UNDER THE SKIN AT BEDTIME EVERY DAY. [facility] carvedilol 3.125 mg tablet Take 1 tablet twice a day by oral route as directed. carvedilol 3.125 mg tablet Take 1 tablet twice a day by oral route as directed. No 1 BID carvedilol 3.125 mg tablet Take 1 tablet twice a day by oral route as directed. [facility] Fiasp FlexTouch U-100 Insulin 100 unit/mL (3 mL) subcutaneou s pen Inject by subcutaneou s route per sliding scale. Fiasp FlexTouch U-100 Insulin 100 unit/mL (3 mL) subcutaneou s pen Inject by subcutaneou s route per sliding scale. No Fiasp FlexTouch U-100 Insulin 100 unit/mL (3 mL) subcutaneo us pen Inject by subcutaneo us route per sliding scale. [facility] Sure Comfort Pen Needle 32 gauge x 1/4" Sure Comfort Pen Needle 32 gauge x 1/4" No Sure Comfort Pen Needle 32 gauge x 1/4" [facility] Tresiba FlexTouch U-200 insulin 200 unit/mL (3 mL) subcutaneou s pen Inject 20 units at bedtime every day. Tresiba FlexTouch U-200 insulin 200 unit/mL (3 mL) subcutaneou s pen Inject 20 units at bedtime every day. No Tresiba FlexTouch U-200 insulin 200 unit/mL (3 mL) subcutaneo us pen Inject 20 units at bedtime every day. [facility] Fiasp FlexTouch U-100 Insulin 100 unit/mL (3 mL) subcutaneou s pen Inject by subcutaneou s route per sliding scale. Fiasp FlexTouch U-100 Insulin 100 unit/mL (3 mL) subcutaneou s pen Inject by subcutaneou s route per sliding scale. No Fiasp FlexTouch U-100 Insulin 100 unit/mL (3 mL) subcutaneo us pen Inject by subcutaneo us route per sliding scale. [facility] hydrocodone 5 mg-acetamin ophen 325 mg tablet hydrocodone 5 mg-acetamin ophen 325 mg tablet No hydrocodon e 5 mg-acetami nophen 325 mg tablet [facility] Sure Comfort Pen Needle 32 gauge x 1/4" Sure Comfort Pen Needle 32 gauge x 1/4" No Sure Comfort Pen Needle 32 gauge x 1/4" [facility] Tresiba FlexTouch U-200 insulin 200 unit/mL (3 mL) subcutaneou s pen Inject 20 units at bedtime every day. Tresiba FlexTouch U-200 insulin 200 unit/mL (3 mL) subcutaneou s pen Inject 20 units at bedtime every day. No Tresiba FlexTouch U-200 insulin 200 unit/mL (3 mL) subcutaneo us pen Inject 20 units at bedtime every day. [facility] BD Ultra-Fine Micro Pen Needle 32 gauge x 1/4" BD Ultra-Fine Micro Pen Needle 32 gauge x 1/4" No BD Ultra-Fine Micro Pen Needle 32 gauge x 1/4" [facility] Fiasp FlexTouch U-100 Insulin 100 unit/mL (3 mL) subcutaneou s pen Inject by subcutaneou s route every day at start of meals per sliding scale. [id number] 2 [id number] 0 4 [id number] 0 6 [id number] 0 8 [id number] 0 10 [id number] 0 12 units>400 14 units and call office. Fiasp FlexTouch U-100 Insulin 100 unit/mL (3 mL) subcutaneou s pen Inject by subcutaneou s route every day at start of meals per sliding scale. 141-180 2 [id number] 0 4 [id number] 0 6 [id number] 0 8 [id number] 0 10 [id number] 0 12 units>400 14 units and call office. No Fiasp FlexTouch U-100 Insulin 100 unit/mL (3 mL) subcutaneo us pen Inject by subcutaneo us route every day at start of meals per sliding scale. 141-180 2 [id number] 20 4 -2 60 6 -1 00 8 -2 50 10 [id number] 00 12 units>400 14 units and call office. [facility] hydrocodone 5 mg-acetamin ophen 325 mg tablet hydrocodone 5 mg-acetamin ophen 325 mg tablet No hydrocodon e 5 mg-acetami nophen 325 mg tablet [facility] Tresiba FlexTouch U-100 insulin 100 unit/mL [...] day by subcutaneo us route as directed. [facility] Bactrim DS 800 mg-160 mg tablet Take 1 tablet every 12 hours by oral route. Bactrim DS 800 mg-160 mg tablet Take 1 tablet every 12 hours by oral route. No 1 Q12H Bactrim DS 800 mg-160 mg tablet Take 1 tablet every 12 hours by oral route. [facility] losartan 25 mg tablet Take 1 tablet every day by oral route. losartan 25 mg tablet Take 1 tablet every day by oral route. No 1 Q1D losartan 25 mg tablet Take 1 tablet every day by oral route. [facility] Tresiba FlexTouch U-100 insulin 100 unit/mL [...] day by subcutaneo us route as directed. [facility] Immunizations Ordered Immunization Name Filled Immunization Name Date Status Comments Source COVID-19, mRNA, LNP-S, PF, 100 mcg/0.5 mL dose (Moderna) COVID-19, mRNA, LNP-S, PF, 100 mcg/0.5 mL dose (Moderna) 2021-10-06 14:01:11 Completed [facility] COVID-19, mRNA, LNP-S, PF, 100 mcg/0.5 mL dose (Moderna) COVID-19, mRNA, LNP-S, PF, 100 mcg/0.5 mL dose (Moderna) 2021-10-06 14:01:11 Completed [facility] COVID-19, mRNA, LNP-S, PF, 100 mcg/0.5 mL dose (Moderna) COVID-19, mRNA, LNP-S, PF, 100 mcg/0.5 mL dose (Moderna) 2021-10-06 14:01:11 Completed [facility] COVID-19, mRNA, LNP-S, PF, 100 mcg/0.5 mL dose (Moderna) COVID-19, mRNA, LNP-S, PF, 100 mcg/0.5 mL dose (Moderna) 2021-10-06 14:01:11 Completed [facility] COVID-19, mRNA, LNP-S, PF, 100 mcg/0.5 mL dose (Moderna) COVID-19, mRNA, LNP-S, PF, 100 mcg/0.5 mL dose (Moderna) 2021-10-06 14:01:11 Completed [facility] COVID-19, mRNA, LNP-S, PF, 100 mcg/0.5 mL dose (Moderna) COVID-19, mRNA, LNP-S, PF, 100 mcg/0.5 mL dose (Moderna) 2021-08-25 12:43:55 Completed [facility] COVID-19, mRNA, LNP-S, PF, 100 mcg/0.5 mL dose (Moderna) COVID-19, mRNA, LNP-S, PF, 100 mcg/0.5 mL dose (Moderna) 2021-08-25 12:43:55 Completed [facility] COVID-19, mRNA, LNP-S, PF, 100 mcg/0.5 mL dose (Moderna) COVID-19, mRNA, LNP-S, PF, 100 mcg/0.5 mL dose (Moderna) 2021-08-25 12:43:55 Completed [facility] COVID-19, mRNA, LNP-S, PF, 100 mcg/0.5 mL dose (Moderna) COVID-19, mRNA, LNP-S, PF, 100 mcg/0.5 mL dose (Moderna) 2021-08-25 12:43:55 Completed [facility] COVID-19, mRNA, LNP-S, PF, 100 mcg/0.5 mL dose (Moderna) COVID-19, mRNA, LNP-S, PF, 100 mcg/0.5 mL dose (Moderna) 2021-08-25 12:43:55 Completed [facility] pneumococcal polysaccharide PPV23 pneumococcal polysaccharide PPV23 Unknown Completed [facility] pneumococcal polysaccharide PPV23 pneumococcal polysaccharide PPV23 Unknown Completed [facility] pneumococcal polysaccharide PPV23 pneumococcal polysaccharide PPV23 Unknown Completed [facility] pneumococcal polysaccharide PPV23 pneumococcal polysaccharide PPV23 Unknown Completed [facility] zoster recombinant - kit zoster recombinant - kit Unknown Completed [facility] pneumococcal polysaccharide PPV23 pneumococcal polysaccharide PPV23 Unknown Completed [facility] zoster recombinant - kit zoster recombinant - kit Unknown Completed [facility] pneumococcal polysaccharide PPV23 pneumococcal polysaccharide PPV23 Unknown Completed [facility] COVID-19, mRNA, LNP-S, PF, 100 mcg/0.5 mL dose (Moderna) COVID-19, mRNA, LNP-S, PF, 100 mcg/0.5 mL dose (Moderna) Unknown Completed [facility] Vital Signs Vital Name Observation Time Observation Value Comments S ource BP Diastolic 2023-07-05 00:00:00 113 mm[Hg] [facility] Height 2023-07-05 00:00:00 66 [in_i] [facility] BMI (Body Mass Index) 2023-07-05 00:00:00 45.7 kg/m2 [facility] Body Weight 2023-07-05 00:00:00 4535 [oz_av] [facility] BP Systolic 2023-07-05 00:00:00 182 mm[Hg] [facility] BP Diastolic 2022-08-05 00:00:00 92 mm[Hg] [facility] Height 2022-08-05 00:00:00 66 [in_i] [facility] BMI (Body Mass Index) 2022-08-05 00:00:00 42 kg/m2 [facility] BP Systolic 2022-08-05 00:00:00 148 mm[Hg] [facility] Body Weight 2022-08-05 00:00:00 4161 [oz_av] [facility] BP Diastolic 2022-07-08 00:00:00 85 mm[Hg] [facility] Height 2022-07-08 00:00:00 66 [in_i] [facility] BMI (Body Mass Index) 2022-07-08 00:00:00 41.3 kg/m2 [facility] BP Systolic 2022-07-08 00:00:00 143 mm[Hg] [facility] Body Weight 2022-07-08 00:00:00 4096 [oz_av] [facility] BP Diastolic 2022-06-24 00:00:00 72 mm[Hg] [facility] Height 2022-06-24 00:00:00 66 [in_i] [facility] BMI (Body Mass Index) 2022-06-24 00:00:00 41.2 kg/m2 [facility] BP Systolic 2022-06-24 00:00:00 112 mm[Hg] [facility] Body Weight 2022-06-24 00:00:00 4081 [oz_av] [facility] BP Diastolic 2022-05-31 00:00:00 90 mm[Hg] [facility] Height 2022-05-31 00:00:00 66 [in_i] [facility] BMI (Body Mass Index) 2022-05-31 00:00:00 43.4 kg/m2 [facility] BP Systolic 2022-05-31 00:00:00 150 mm[Hg] [facility] Body Weight 2022-05-31 00:00:00 4305.6 [oz_av] [facility] BP Diastolic 2021-10-26 00:00:00 110 mm[Hg] [facility] Height 2021-10-26 00:00:00 66 [in_i] [facility] BMI (Body Mass Index) 2021-10-26 00:00:00 44.9 kg/m2 [facility] BP Systolic 2021-10-26 00:00:00 174 mm[Hg] [facility] Body Weight 2021-10-26 00:00:00 4449 [oz_av] [facility] Height 2021-04-30 00:00:00 66 [in_i] [facility] BMI (Body Mass Index) 2021-04-30 00:00:00 45.2 kg/m2 [facility] BP Systolic 2021-04-30 00:00:00 144 mm[Hg] [facility] Body Weight 2021-04-30 00:00:00 4480 [oz_av] [facility] BP Diastolic 2021-04-30 00:00:00 86 mm[Hg] [facility] BP Diastolic 2020-12-16 00:00:00 90 mm[Hg] [facility] Height 2020-12-16 00:00:00 66 [in_i] [facility] BMI (Body Mass Index) 2020-12-16 00:00:00 45.8 kg/m2 [facility] BP Systolic 2020-12-16 00:00:00 140 mm[Hg] [facility] Body Weight 2020-12-16 00:00:00 4544 [oz_av] [facility] BP Diastolic 2020-11-17 00:00:00 90 mm[Hg] [facility] Height 2020-11-17 00:00:00 66 [in_i] [facility] BMI (Body Mass Index) 2020-11-17 00:00:00 45.5 kg/m2 [facility] BP Systolic 2020-11-17 00:00:00 128 mm[Hg] [facility] Body Weight 2020-11-17 00:00:00 4512 [oz_av] [facility] BP Diastolic 2020-11-03 00:00:00 77 mm[Hg] [facility] Height 2020-11-03 00:00:00 66 [in_i] [facility] BMI (Body Mass Index) 2020-11-03 00:00:00 46.5 kg/m2 [facility] BP Systolic 2020-11-03 00:00:00 112 mm[Hg] [facility] Body Weight 2020-11-03 00:00:00 4608 [oz_av] [facility] BP Diastolic 2020-05-22 00:00:00 80 mm[Hg] [facility] Height 2020-05-22 00:00:00 66 [in_i] [facility] BMI (Body Mass Index) 2020-05-22 00:00:00 46 kg/m2 [facility] BP Systolic 2020-05-22 00:00:00 132 mm[Hg] [facility] Body Weight 2020-05-22 00:00:00 4560 [oz_av] [facility] BP Diastolic 2020-05-01 00:00:00 90 mm[Hg] [facility] Height 2020-05-01 00:00:00 66 [in_i] [facility] BMI (Body Mass Index) 2020-05-01 00:00:00 46.5 kg/m2 [facility] BP Systolic 2020-05-01 00:00:00 150 mm[Hg] [facility] Body Weight 2020-05-01 00:00:00 4608 [oz_av] [facility] BP Diastolic 2020-03-25 00:00:00 68 mm[Hg] [facility] Height 2020-03-25 00:00:00 66 [in_i] [facility] BMI (Body Mass Index) 2020-03-25 00:00:00 45.1 kg/m2 [facility] BP Systolic 2020-03-25 00:00:00 110 mm[Hg] [facility] Body Weight 2020-03-25 00:00:00 4468 [oz_av] [facility] BP Diastolic 2020-03-18 00:00:00 82 mm[Hg] [facility] Height 2020-03-18 00:00:00 66 [in_i] [facility] BMI (Body Mass Index) 2020-03-18 00:00:00 44.3 kg/m2 [facility] BP Systolic 2020-03-18 00:00:00 120 mm[Hg] [facility] Body Weight 2020-03-18 00:00:00 4393.6 [oz_av] [facility] BP Diastolic 2020-03-13 00:00:00 78 mm[Hg] [facility] Height 2020-03-13 00:00:00 66 [in_i] [facility] BMI (Body Mass Index) 2020-03-13 00:00:00 45 kg/m2 [facility] BP Systolic 2020-03-13 00:00:00 128 mm[Hg] [facility] Body Weight 2020-03-13 00:00:00 4460.8 [oz_av] [facility] BP Diastolic 2020-03-11 00:00:00 78 mm[Hg] [facility] Height 2020-03-11 00:00:00 66 [in_i] [facility] [facility] BMI (Body Mass Index) 2020-03-11 00:00:00 44.6 kg/m2 [facility] BP Systolic 2020-03-11 00:00:00 118 mm[Hg] [facility] Body Weight 2020-03-11 00:00:00 4422.4 [oz_av] [facility] Height 2020-02-25 00:00:00 66 [in_i] [place] [facility] BP Diastolic 2020-02-21 00:00:00 82 mm[Hg] [place] [facility] Height 2020-02-21 00:00:00 66 [in_i] [place] [facility] BMI (Body Mass Index) 2020-02-21 00:00:00 48.4 kg/m2 [facility] BP Systolic 2020-02-21 00:00:00 150 mm[Hg] [facility] Body Weight 2020-02-21 00:00:00 4800 [oz_av] [place] BP Diastolic 2020-02-08 00:00:00 84 mm[Hg] [place] [facility] Height 2020-02-08 00:00:00 66 [in_i] [place] [facility] BMI (Body Mass Index) 2020-02-08 00:00:00 48.4 kg/m2 [facility] BP Systolic 2020-02-08 00:00:00 118 mm[Hg] [facility] Body Weight 2020-02-08 00:00:00 4800 [oz_av] [place] BP Diastolic 2019-09-20 00:00:00 80 mm[Hg] [place] [facility] Height 2019-09-20 00:00:00 66 [in_i] [place] [facility] BMI (Body Mass Index) 2019-09-20 00:00:00 46 kg/m2 [facility] BP Systolic 2019-09-20 00:00:00 138 mm[Hg] [facility] Body Weight 2019-09-20 00:00:00 285.2 [lb_av] [place] [facility] BP Diastolic 2019-05-15 00:00:00 68 mm[Hg] [place] [facility] Height 2019-05-15 00:00:00 66 [in_i] [place] [facility] BMI (Body Mass Index) 2019-05-15 00:00:00 41.4 kg/m2 [facility] BP Systolic 2019-05-15 00:00:00 128 mm[Hg] [facility] Body Weight 2019-05-15 00:00:00 256.2 [lb_av] [place] [facility] BP Diastolic 2019-05-07 00:00:00 86 mm[Hg] [place] [facility] Height 2019-05-07 00:00:00 66 [in_i] [place] [facility] BMI (Body Mass Index) 2019-05-07 00:00:00 41.5 kg/m2 [facility] BP Systolic 2019-05-07 00:00:00 142 mm[Hg] [facility] Body Weight 2019-05-07 00:00:00 257.4 [lb_av] [place] [facility] Procedures Procedure Date / Time Performed Performing Clinician Source MRI, lower leg, w/o contrast 2023-07-05 00:00:00 [facility] Kidney Biopsy 2022-06-06 00:00:00 [facility] Colonoscopy 2019-05-28 00:00:00 Candelario de la garza [facility] Cholecystectomy 2016-07-24 00:00:00 Matcharlie ordholli [facility] Appendectomy [facility] Drainage of Skin Abscess [facility] Plan of Care Planned Activity Planned Date Details Comments Source Diagnostic Test Pending 2023-07-05 00:00:00 HbA1c (hemoglobin A1c), blood [code = HbA1c (hemoglobin A1c), blood] [facility] Diagnostic Test Pending 2023-07-05 00:00:00 CMP, serum or plasma [code = CMP, serum or plasma] [facility] Diagnostic Test Pending 2023-07-05 00:00:00 microalbumin/creatin ine, mass ratio, urine [code = microalbumin/creatin ine, mass ratio, urine] [facility] Program Diagnostic Test Pending 2023-07-05 00:00:00 urinalysis complete, reflex culture [code = urinalysis complete, reflex culture] [facility] Diagnostic Test Pending 2023-07-05 00:00:00 lipid panel, serum [code = lipid panel, serum] [facility] Diagnostic Test Pending 2023-07-05 00:00:00 CBC w/ auto diff [code = CBC w/ auto diff] [facility] Program Diagnostic Test Pending 2023-07-05 00:00:00 vitamin D, 25-hydroxy, total, serum [code = vitamin D, 25-hydroxy, total, serum] [facility] Diagnostic Test Pending 2023-07-05 00:00:00 TSH + free T4, serum [code = TSH + free T4, serum] [facility] Program Encounters Start Date/Time End Date/Time Encounter Type Admission Type Attending Clinicians Care Facility Care Department Encounter ID Source 2023-08-02 00:00:00 2023-08-02 00:00:00 Outpatient Ofelia [facility] [id number] [facility] 2023-07-07 00:00:00 2023-07-07 00:00:00 Outpatient Nguyen_Tho [facility] [id number] [facility] 2023-07-05 00:00:00 2023-07-05 00:00:00 Outpatient Nguyen_Tho [facility] [id number] [facility] 2023-07-05 00:00:00 2023-07-05 00:00:00 Raquel Maurice, TANKER TRUCK DRIVER: [address] [place] [address] , Ph. [facility] [id number] [facility] 2022-09-03 00:00:00 2022-09-03 00:00:00 Outpatient Nguyen_Tho [facility] [id number] [facility] 2022-08-05 00:00:00 2022-08-05 00:00:00 Austen Graves APRN-TANKER TRUCK DRIVER-C: [address] [place] [address] , Ph. [facility] [id number] [facility] 2022-08-04 00:00:00 2022-08-04 00:00:00 Outpatient Nguyen_Tho [facility] [id number] [facility] 2022-08-04 00:00:00 2022-08-04 00:00:00 Outpatient Nguyen_Tho [facility] [id number] [facility] 2022-07-22 00:00:00 2022-07-22 00:00:00 Outpatient Nguyen_Tho [facility] [id number] [facility] 2022-07-08 00:00:00 2022-07-08 00:00:00 Outpatient Nguyen_Tho [facility] [id number] [facility] 2022-07-08 00:00:00 2022-07-08 00:00:00 Austen Graves 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 [facility] [id number] [facility] 2022-06-29 00:00:00 2022-06-29 00:00:00 Outpatient Nguyen_Tho [facility] [id number] [facility] 2022-06-27 00:00:00 2022-06-27 00:00:00 Outpatient Nguyen_Tho [facility] [id number] [facility] 2022-06-26 00:00:00 2022-06-26 00:00:00 Outpatient Nguyen_Tho [facility] [id number] [facility] 2022-06-24 00:00:00 2022-06-24 00:00:00 Outpatient Nguyen_Tho [facility] [id number] [facility] 2022-06-24 00:00:00 2022-06-24 00:00:00 Austen Graves APRN-TANKER TRUCK DRIVER-C: [address] [place] [address] , Ph. [facility] [id number] [facility] 2022-05-31 00:00:00 2022-05-31 00:00:00 Outpatient Nguyen_Tho [facility] [id number] [facility] 2022-05-31 00:00:00 2022-05-31 00:00:00 Austen Graves APRN-TANKER TRUCK DRIVER-C: [address] [place] [address] , Ph. [facility] [id number] [facility] 2021-10-26 00:00:00 2021-10-26 00:00:00 Austen Graves APRN-TANKER TRUCK DRIVER-C: [address] [place] [address] , [facility]. [facility] 0405 [facility] 2021-10-06 00:00:00 2021-10-06 00:00:00 Sandie Cuellar MD: [address] [place] [address] , Ph. [facility] 0316 [facility] 2021-08-25 02:14:00 2021-08-25 02:14:[id number] 2021-04-30 00:00:00 2021-04-30 00:00:00 NATASHA NegronTANKER TRUCK DRIVER-C: [address] [place] [address] , [facility]. [facility] 1008 [facility] 2021-04-28 04:40:00 2021-04-28 04:40:00 [facility] [id number] [facility] 2020-12-16 00:00:00 2020-12-16 00:00:00 NATASHA NegronTANKER TRUCK DRIVER-C: [address] [place] [address] , Ph. [facility] 0526 [facility] 2020-11-17 00:00:00 2020-11-17 00:00:00 NATASHA NegronTANKER TRUCK DRIVER-C: [address] [place] [address] , Ph. [facility] 0427 [facility] 2020-11-03 00:00:00 2020-11-03 00:00:00 NATASHA NegronTANKER TRUCK DRIVER-C: [address] [place] [address] , Ph. [facility] 0413 [facility] 2020-06-17 10:04:00 2020-06-17 10:04:00 Outpatient NEJENNY_MADELINE [facility] [id number] [facility] 2020-06-03 05:28:00 2020-06-03 05:28:00 Outpatient NEESE_MADELINE [facility] [id number] [facility] 2020-05-22 00:00:00 2020-05-22 00:00:00 Madeline Sanders PA: [address] [place] [address] , Ph[address] [facility] [place] [address] 1030 [facility] 2020-05-01 00:00:00 2020-05-01 00:00:00 Madeline Sanders PA: [address] [place] [address] , Ph. MARCELINAELIA LINARES [place] [facility] 3 1009 [facility] 2020-04-01 09:20:00 2020-04-01 09:20:00 Outpatient NEJENNY_MADELINE LINARES [facility] [id number] [facility] 2020-03-25 00:00:00 2020-03-25 00:00:00 Madeline Sanders PA: [address] [place] [address] , Ph. ROSALINAGERMAN LINARES [place] [facility] 3 0902 [facility] 2020-03-18 00:00:00 2020-03-18 00:00:00 Madeline Sanders PA: [address] [place] [address] , Ph. MARCELINAELIA LINARES [place] [facility] 3 0826 [facility] 2020-03-13 00:00:00 2020-03-13 00:00:00 Madeline Sanders PA: [address] [place] [address] , Ph. FILIBERTOMADELINE LINARES [place] [facility] 3 0821 [facility] 2020-03-11 00:00:00 2020-03-11 00:00:00 Madeline Sanders PA: [address] [place] [address] , Ph. FILIBERTOMADELINE LINARES [place] [facility] 3 818 [facility] 2020-02-25 00:00:00 2020-02-25 00:00:00 Danuta Lees, TANKER TRUCK DRIVER: [address] [place] [address] , Ph. NASIM LINARES [place] [facility] 803 [facility] 2020-02-21 00:00:00 2020-02-21 00:00:00 Madeline Sanders, PA: [address] [place] [address] , Ph. NASIM [facility] [place] [facility] 3 730 [facility] 2020-02-19 11:34:00 2020-02-19 11:34:00 Outpatient ROSALINAMADELINE [facility] [id number] [facility] 2020-02-08 00:00:00 2020-02-08 00:00:00 Batool Nichols, TANKER TRUCK DRIVER: [address] [place] [address] , Ph. NASIM LINARES [facility] Primary Expansion 717 [facility] 2019-09-20 00:00:00 2019-09-20 00:00:00 Madeline Sanders PA: [address] [place] [address] , Ph. ROSALINAMADELINE [facility] [facility] 3 227 [facility] 2019-09-03 14:00:00 2019-09-02 13:29:57 Inpatient Tiffanie Andersen [facility] [id number] 92 [facility] 2019-06-19 00:00:00 2019-06-19 00:00:00 Madeline Sanders PA: [address], [place] [address] , Ph. [facility] 3 1127 [facility] 2019-05-15 00:00:00 2019-05-15 00:00:00 Madeline Sanders PA: [address], [place] [address] , Ph. [facility] 3 1023 [facility] 2019-05-07 00:00:00 2019-05-07 00:00:00 Madeline Sanders PA: [address], [place] [address] , Ph. [facility] 3 1015 [facility] 2018-10-19 14:28:00 2018-10-19 14:28:[address] [facility] [id number] [facility] 2018-10-16 16:00:00 2018-10-16 16:00:00 Outpatient [facility] [id number] [facility] 2018-05-03 08:13:00 2018-05-03 08:13:[address] [facility] [id number] [facility] 2018-04-23 08:44:00 2018-04-23 08:44:00 [facility] [id number] [facility] 2018-04-17 08:45:00 2018-04-17 08:45:00 [facility] [id number] [facility] 2018-04-16 10:00:00 2018-04-16 10:00:00 Out[facility] [id number] [facility] 2018-04-10 08:30:00 2018-04-10 08:30:00 Out[facility] [id number] [facility] 2017-12-27 08:30:00 2017-12-27 08:30:00 Out[facility] Medicine [id number] [facility] 2017-11-30 14:15:00 2017-11-30 14:15:00 [facility] [id number] [facility] 2017-11-30 08:30:00 2017-11-30 08:30:00 Out[facility] Medicine [id number] [facility] 2017-11-22 08:45:00 2017-11-22 08:45:00 Out[facility] [id number] [facility] Results Test Description Test Time Test Comments Results Result Co mments Source [facility] [Mass/volume] in Capillary [id number] 13:08:30* Test Item Value Reference Range Interpretation Comme nts Blood Glucose: mg/dl (test c ode = Blood Glucose: mg/dl) [address] W Auto Differential panel - Blood 2022-06-25 [...] immature cells (test code = immature cells) pharmacy technician inpatient Neutrophils [#/volume] in Bl ood by Automated [...] Blood by Automated count (test code = 10300-9) 0 % not estab. Immature granulocytes [#/volume] in Blood by Automated count (test code = 32751-7) 0.0 x10e3/uL 0.0-0.1 Nucleated erythrocytes/100 leukocytes [Ratio] in Blood by Automated count (test code = 88367-5) pharmacy technician inpatient Morphology [Interpretation] in Blood Narrative (test code = 79236-2) pharmacy technician inpatient [facility] ProgramCom[facility] 2000 panel - Serum or [id number] 00:00:00* Test Item Value Reference Range Interpretation [...] Ser um or Plasma (test code = 45813-8) 8.8 mg/dL 8.7-10.2 Protein [Mass/volume] in Ser um or Plasma (test code = 2885-2) 7.4 g/dL 6.0-8.5 Albumin [Mass/volume] in Ser um or Plasma (test code = 1751-7) 4.1 g/dL 3.8-4.9 Globulin [Mass/volume] in Serum by calculation (test code = 74784-9) 3.3 g/dL 1.5-4.5 Albumin/Globulin [Mass Ratio ] [...] (test code = 1742-6) 13 IU/L 0-44 [facility] ProgramLipid 1996 panel - Serum or Plasma 2022-06-25 [...] or Plasma by calculation (test code = 13538-9) 34 mg/dL 5-40 Cholesterol in LDL [Mass/vol ume] in Serum or Plasma by calculation (test code = 10027-5) 111 mg/dL 0-99 H Laboratory comment [Text] in Report Narrative (test code = 82489-9) pharmacy technician inpatient [facility] ProgramMicroalbumin/Creatinine [Mass Ratio] in [id number] 00:00:00* Test Item Value Reference Range Interpretation Comme nts Creatinine [Mass/volume] in Urine (test code = 2161-8) 136.0 mg/dL not estab. Microalbumin [Mass/volume] i n Urine (test code = 29031-1) 714.7 ug/mL not estab. Albumin/Creatinine [Mass ratio] in Urine (test code = 9318-7) 526 mg/g creat 0-[address] [facility] assessment panel, [id number] 00:00:00* Test Item Value Reference Range Interpretation Comme nts Interpretation and review of laboratory results (test code = 47561-8) note Report (test code = 36355-4) not applicable [facility] CKD [id number] 00:00:00* Test Item Value Reference Range Interpretation Comme nts Report (test code = 71288-9) note Interpretation and review of laboratory results (test code = 95139-6) . [facility] patient [id number] 00:00:00* Test Item Value Reference Range Interpretation Comme nts pdf (test code = pdf) not applicable [facility] HospitalHemoglobin A1c/Hemoglobin.total in [id number] 00:00:00* Test Item Value Reference Range Interpretation Comme nts Hemoglobin A1c/Hemoglobin.to lindsay in Blood (test code = 4548-4) 11.2 % 4.8-5.[address] [facility] HospitalGlucose [Mass/volume] in Capillary [id number] 14:30:40* Test Item Value Reference Range Interpretation Comme nts Blood Glucose: mg/dl (test c ode = Blood Glucose: mg/dl) [address] HospitalGlucose [Mass/volume] in Capillary [id number] 16:26:09* Test Item Value Reference Range Interpretation Comme nts Blood Glucose: mg/dl (test c ode = Blood Glucose: mg/dl) [address] [facility] panel, [id number] 00:00:00* Test Item Value Reference Range Interpretation Comme nts Interpretation and review of laboratory results (test code = 63278-0) note Report (test code = 73542-1) not applicable [facility] CKD [id number] 00:00:00* Test Item Value Reference Range Interpretation Comme nts Report (test code = 47952-0) note Interpretation and review of laboratory results (test code = 16674-9) . [facility] [id number] 00:00:00* Test Item Value Reference Range Interpretation Comme nts pdf (test code = pdf) not applicable [facility] HospitalBacteria identified in Wound by [id number] 00:00:00* Test Item Value Reference Range Interpretation Comme nts Bacteria identified in Unspecified specimen by Anaerobe culture (test code = 635-3) final report Bacteria identified in Unspecified specimen by Culture (test code = 6463-4) pantoea agglomerans A Bacteria identified in Unspecified specimen by Aerobe culture (test code = 634-6) final report A Other Antibiotic [Susceptibility] (test code = 43848-8) comment [facility] W Auto Differential panel - Blood 2020-11-04 [...] immature cells (test code = immature cells) pharmacy technician inpatient Neutrophils [#/volume] in Bl ood by Automated [...] Blood by Automated count (test code = 56327-1) 0 % not estab. Immature granulocytes [#/volume] in Blood by Automated count (test code = 87205-4) 0.0 x10e3/uL 0.0-0.1 Nucleated erythrocytes/100 leukocytes [Ratio] in Blood by Automated count (test code = 70464-3) pharmacy technician inpatient Morphology [Interpretation] in Blood Narrative (test code = 62260-8) pharmacy technician inpatient [facility] Outreach ProgramComprehensive metabolic 2000 panel - Serum or [id number] 00:00:00* Test Item Value Reference Range Interpretation [...] by Creatinine-based formula (CKD-EPI) (test code = 04403-5) 51 mL/min/1.73 >59 L Glomerular filtration rate/1.73 sq M.predicted among blacks [Volume Rate/Area] in Serum, Plasma or Blood by Creatinine-based formula (CKD-EPI) (test code = 79080-9) 59 mL/min/1.73 >59 L Urea nitrogen/Creatinine [Ma ss Ratio] in Serum or Plasma (test code = 3097-3) 14 9-20 Sodium [Moles/volume] in Ser um or Plasma (test code = 2951-2) 132 mmol/L 134-144 L Potassium [Moles/volume] in Serum or Plasma (test code = 2823-3) 4.3 mmol/L 3.5-5.2 Chloride [Moles/volume] in Serum or Plasma (test code = 2074-0) 92 mmol/L 96-106 L Carbon dioxide, total [Moles/volume] in Serum or Plasma (test code = 2027-) 25 mmol/L 20-29 Calcium [Mass/volume] in Ser um or Plasma (test code = 10638-9) 8.5 mg/dL 8.7-10.2 L Protein [Mass/volume] in Ser um or Plasma (test code = 2885-2) 6.8 g/dL 6.0-8.5 Albumin [Mass/volume] in Ser um or Plasma (test code = 1751-7) 3.3 g/dL 3.8-4.9 L Globulin [Mass/volume] in Serum by calculation (test code = 28470-1) 3.5 g/dL 1.5-4.5 Albumin/Globulin [Mass Ratio ] [...] (test code = 1742-6) 9 IU/L 0-44 [facility] ProgramMicroalbumin/Creatinine [Mass Ratio] in [id number] 00:00:00* Test Item Value Reference Range Interpretation Comme nts Creatinine [Mass/volume] in Urine (test code = 2161-8) 131.3 mg/dL not estab. Microalbumin [Mass/volume] i n Urine (test code = 47678-0) 2710.8 ug/mL not estab. Albumin/Creatinine [Mass ratio] in Urine (test code = 9318-7) 2065 mg/g creat 0-[address] [facility] Hospitallith[facility]ink CKD [id number] 00:00:00* Test Item Value Reference Range Interpretation Comme nts Report (test code = 66420-4) note Interpretation and review of laboratory results (test code = 64577-8) . [facility] HospitalHemoglobin A1c/Hemoglobin.total in [id number] 00:00:00* Test Item Value Reference Range Interpretation Comme nts Hemoglobin A1c/Hemoglobin.to lindsay in Blood (test code = 4548-4) 12.9 % 4.8-5.6 H Glucose mean value [Mass/vol ume] in Blood Estimated from glycated hemoglobin (test code = 56456-1) 324 mg/dL [facility] [id number] 00:00:00* Test Item Value Reference Range Interpretation Comme nts pdf (test code = pdf) not applicable [facility] HospitalCom[facility] metabolic 2000 panel - Serum or [id number] 00:00:00* Test Item Value Reference Range Interpretation [...] by Creatinine-based formula (CKD-EPI) (test code = 20950-8) 53 mL/min/1.73 >59 L Glomerular filtration rate/1.73 sq M.predicted among blacks [Volume Rate/Area] in Serum, Plasma or Blood by Creatinine-based formula (CKD-EPI) (test code = 86837-9) 61 mL/min/1.73 >59 Urea nitrogen/Creatinine [Ma ss Ratio] in Serum or Plasma (test code = 3097-3) 15 9-20 Sodium [Moles/volume] in Ser um or Plasma (test code = 2951-2) 138 mmol/L 134-144 Potassium [Moles/volume] in Serum or Plasma (test code = 2823-3) 4.2 mmol/L 3.5-5.2 Chloride [Moles/volume] in Serum or Plasma (test code = 2074-0) 99 mmol/L 96-106 Carbon dioxide, total [Moles/volume] in Serum or Plasma (test code = 2027-) 27 mmol/L 20-29 Calcium [Mass/volume] in Ser um or Plasma (test code = 21691-8) 9.0 mg/dL 8.7-10.2 Protein [Mass/volume] in Ser um or Plasma (test code = 2885-2) 6.8 g/dL 6.0-8.5 Albumin [Mass/volume] in Ser um or Plasma (test code = 175-7) 3.9 g/dL 3.8-4.9 Globulin [Mass/volume] in Serum by calculation (test code = 56905-2) 2.9 g/dL 1.5-4.5 Albumin/Globulin [Mass Ratio ] [...] (test code = 1742-6) 18 IU/L 0-[address] [facility] [id number] 00:00:00* Test Item Value Reference Range Interpretation Comme nts interpretation (test code = interpretation) note pdf (test code = pdf) . [facility] [id number] 00:00:00* Test Item Value Reference Range Interpretation Comme nts pdf (test code = pdf) not applicable [facility] A1c/Hemoglobin.total in [id number] 00:00:00* Test Item Value Reference Range Interpretation Comme nts Hemoglobin A1c/Hemoglobin.to lindsay in Blood (test code = 4548-4) 9.9 % 4.8-5.[address] [facility]Bacteria identified in Unspecified specimen by Anaerobe+Aerobe [id number] 00:00:00* Test Item Value Reference Range Interpretation Comme nts Bacteria identified in Unspecified specimen by Anaerobe culture (test code = 635-3) final report Bacteria identified in Unspecified specimen by Culture (test code = 6463-4) staphylococcus aureus A Bacteria identified in Unspecified specimen by Aerobe culture (test code = 634-6) final report A Other Antibiotic [Susceptibility] (test code = 38217-2) [facility] [Presence] in Respiratory specimen by ISIDRO with probe [id number] 00:00:00* Test Item Value Reference Range Interpretation Comme nts SARS coronavirus 2 RNA [Presence] in Respiratory specimen by ISIDRO with probe detection (test code = 18281-4) not detected not detected [facility] [Presence] in Respiratory specimen by ISIDRO with probe [id number] 00:00:00* Test Item Value Reference Range Interpretation Comme nts SARS coronavirus 2 RNA [Pres ence] in Respiratory specimen by ISIDRO with probe detection (test code = 47753-3) detected not detected A [facility] [id number] 00:00:00* Test Item Value Reference Range Interpretation Comme nts pdf image (test code = pdf image) . [facility].pylori,IgG/IgM [id number] 00:00:00* Test Item Value Reference Range Interpretation Comme nts Helicobacter pylori IgG Ab [Units/volume] in Serum by Immunoassay (test code = 5176-3) 1.75 index value 0.00-0.79 H Helicobacter pylori IgM Ab [Units/volume] in Serum (test code = 7903-8) <9.0 0.0-8.9 [facility] W Auto Differential panel - Blood 2019-05-08 [...] immature cells (test code = immature cells) pharmacy technician inpatient Neutrophils [#/volume] in Bl ood by Automated [...] Blood by Automated count (test code = 01513-7) 0.0 x10e3/uL 0.0-0.1 Nucleated erythrocytes/100 leukocytes [Ratio] in Blood by Automated count (test code = 54552-9) pharmacy technician inpatient Morphology [interpretation] in Blood Narrative (test code = 99133-4) pharmacy [facility] 2000 [facility] - Serum or [id number] 00:00:00* Test Item Value Reference Range Interpretation [...] in Serum or Plasma (test code = 207-0) 96 mmol/L 96-106 Carbon dioxide, total [Moles/volume] in Serum or Plasma (test code = 2027-) 26 mmol/L 20-29 Calcium [Mass/volume] in Ser um or Plasma (test code = 84415-4) 9.1 mg/dL 8.7-10.2 Protein [Mass/volume] in Ser um or Plasma (test code = 2885-2) 7.0 g/dL 6.0-8.5 Albumin [Mass/volume] in Ser um or Plasma (test code = 1751-7) 3.7 g/dL 3.5-5.5 Globulin [Mass/volume] in Serum by calculation (test code = 12498-8) 3.3 g/dL 1.5-4.5 Albumin/Globulin [Mass Ratio ] [...] (test code = 1742-6) 16 IU/L 0-[address] [facility] A1c/Hemoglobin.total in [id number] 00:00:00* Test Item Value Reference Range Interpretation Comme nts Hemoglobin A1c/Hemoglobin.to lindsay in Blood (test code = 4548-4) 11.2 % 4.8-5.[address] [facility]
--- NOTE | 2024-07-09 17:42 | EDPHYS ---
Physician Documentation [facility] Name: Cameron Hooper Age: 58 yrs Sex: Male : 1965 Arrival Date: 07/09/2024 Time: 17:25 Bed 10 Private MD: ED Physician Tre Phan HPI: 07/09 20:10 This 58 yrs old Male presents to ER via Ambulatory with complaints of Abscess. kb 20:10 Pt is a 58 year old male who presents for pain and bumps to back of scalp that started kb one week ago. Reports they are both tender to touch. Denies fever. . Historical: - Allergies: 17:40 No Known Allergies; tm6 - PMHx: 17:36 diabetes mellitus; Hypertensive disorder; tm6 - PSHx: 17:36 Appendectomy; Cholecystectomy; tm6 - Immunization history:: Flu vaccine is not up to date. - Infectious Disease History:: Denies. - Social history:: Smoking status: Patient denies any tobacco usage or history of. ROS: 20:05 Constitutional: As per HPI kb Exam: 20:05 Constitutional: This is a well developed, well nourished patient who is awake, alert, kb and in no acute distress. Head/Face: Normocephalic, atraumatic. ENT: Moist Mucous membranes Cardiovascular: Regular rate Respiratory: Respirations even and unlabored. No increased work of breathing. Talking in full sentences Abdomen/GI: Soft, non-tender. No distention MS/ Extremity: Pulses equal, no cyanosis. Neurovascular intact. Full, normal range of motion. Neuro: Awake and alert, GCS 15, oriented to person, place, time, and situation. 20:05 Skin: abscess, that is small, of the occipital area, Vital Signs: 17:37 BP 192 / 98; Pulse 88; Resp 17; Temp 98.9(O); Pulse Ox 100% on R/A; MAP 126 mmHg; tm6 Weight 136.08 kg; Height 5 ft. 7 in. ; Pain 6/10; 17:37 Pain 6/10; tm6 17:37 Body Mass Index 46.99 (136.08 kg, 170.18 cm) tm6 17:37 Pain Scale: Adult tm6 17:37 Pain Scale: Adult tm6 MDM: 17:30 Medical Screening Exam initiated kb 20:05 Differential diagnosis: abscess, allergic reaction, cellulitis, insect bite, ingrown kb hair. Data reviewed: vital signs, nurses notes. Historians other than the Patient: Spouse/Significant Other: sig other. Counseling: I had a detailed discussion with the patient and/or guardian regarding the historical points, exam findings, and any diagnostic results supporting the discharge/admit diagnosis, the need for outpatient follow up, a family practitioner, to return to the emergency department if symptoms worsen or persist or if there are any questions or concerns that arise at home. Administered Medications: 18:12 Drug: Trimethoprim-Sulfamethoxazole PO (160 mg-800 mg (DS) 1 tablet PO once Route: PO; jb4 18:13 Follow up: Response: Medication administered at discharge. jb4 18:13 Drug: Hydrocodone-Acetaminophen PO (7.5 mg-325 mg) 1 tabs PO once Route: PO; jb4 18:13 Follow up: Response: Medication administered at discharge. jb4 Disposition: 20:16 Co-signature as Attending Physician, Tre Phan MD I reviewed the patient's care rn provided by the Advanced Practice Provider and agree with the diagnosis and treatment plan. Disposition Summary: 07/09/24 17:42 Discharge Ordered Notes: Location: Home kb Condition: Stable kb Diagnosis - Cutaneous abscess of head [any part, except face] kb Followup: kb - With: Emergency Department - When: As needed - Reason: Worsening of condition Followup: kb - With: Private Physician - When: 2 - 3 days - Reason: Recheck today's complaints, Continuance of care, Re-evaluation by your physician Discharge Instructions: - Discharge Summary Sheet kb - Skin Abscess, [id number] kb Forms: - Medication Reconciliation Form kb - Antibiotic Education kb - Prescription Opioid Use kb - Patient Portal Instructions kb - Leadership Thank You Letter kb Prescriptions: - Bactrim DS 800-160 mg Oral Tablet - take 1 tablet ORAL route every 12 hours for 10 days; 20 tablet; Refills: 0, kb Product Selection Permitted Signatures: Sandra Barney FNP-C FNP-Tre Ramirez MD MD rn Bryson, James, RN RN jb4 Josseline Gay RN RN tm6
--- NOTE | 2024-07-09 17:42 | ER ---
Nurse's Notes [facility] [place], [place] Name: Cameron Hooper Age: 58 yrs Sex: Male : 1965 Arrival Date: 07/09/2024 Time: 17:25 Bed 10 Private MD: Diagnosis: Cutaneous abscess of head [any part, except face] Presentation: 07/09 17:35 Chief complaint: Patient states: 2 ingrown hairs or boils on neck. Coronavirus screen: tm6 Client denies travel out of the [place] in the last 14 days. Ebola Screen: Patient negative for fever greater than or equal to 101.5 degrees Fahrenheit, and additional compatible Ebola Virus Disease symptoms Patient denies exposure to infectious person. Patient denies travel to an Ebola-affected area in the 21 days before illness onset. No symptoms or risks identified at this time. Risk Assessment: Do you want to hurt yourself or someone else? Patient reports no desire to harm self or others. 17:35 Method Of Arrival: Ambulatory 6 17:35 Acuity: MAYA 4 tm6 17:37 Initial Sepsis Screen: Does the patient meet any 2 criteria? No. Patient's initial tm6 sepsis screen is negative. Does the patient have a suspected source of infection? No. Patient's initial sepsis screen is negative. Onset of symptoms was July 02, 2024. Triage Assessment: 17:36 General: Appears in no apparent distress. Behavior is calm, cooperative. Pain: tm6 Complains of pain in scalp Pain. EENT: No signs and/or symptoms were reported regarding the EENT system. Neuro: Level of Consciousness is awake, alert, obeys commands, Oriented to person, place, time, situation. Cardiovascular: Patient's skin is warm and dry. Respiratory: Airway is patent Respiratory effort is even, unlabored, Respiratory pattern is regular, symmetrical. GI: No signs and/or symptoms were reported involving the gastrointestinal system. Abdomen is round non-distended. : No signs and/or symptoms were reported regarding the genitourinary system. Derm: Reports ingrown hair on back of scalp. Musculoskeletal: No signs and/or symptoms reported regarding the musculoskeletal system. Historical: - Allergies: 17:40 No Known Allergies; tm6 - PMHx: 17:36 diabetes mellitus; Hypertensive disorder; tm6 - PSHx: 17:36 Appendectomy; Cholecystectomy; tm6 - Immunization history:: Flu vaccine is not up to date. - Infectious Disease History:: Denies. - Social history:: Smoking status: Patient denies any tobacco usage or history of. Screenin:14 [facility] ED Fall Risk Assessment (Adult) History of falling in the last 3 months, jb4 including since admission No falls in past 3 months (0 pts) Confusion or Disorientation No (0 pts) Intoxicated or Sedated No (0 pts) Impaired Gait No (0 pts) Mobility Assist Device Used No (0 pt) Altered Elimination No (0 pt) Score/Fall Risk Level 0 - 2 = Low Risk Oriented to surroundings, Maintained a safe environment. Abuse screen: Denies threats or abuse. Nutritional screening: No deficits noted. Tuberculosis screening: No symptoms or risk factors identified. Assessment: 18:14 Reassessment: Patient appears in no apparent distress at this time. Patient and/or jb4 family updated on plan of care and expected duration. Pain level reassessed. Patient is alert, oriented x 3, equal unlabored respirations, skin warm/dry/pink. Vital Signs: 17:37 BP 192 / 98; Pulse 88; Resp 17; Temp 98.9(O); Pulse Ox 100% on R/A; MAP 126 mmHg; tm6 Weight 136.08 kg; Height 5 ft. 7 in. ; Pain 6/10; 17:37 Pain 6/10; tm6 17:37 Body Mass Index 46.99 (136.08 kg, 170.18 cm) tm6 17:37 Pain Scale: Adult tm6 17:37 Pain Scale: Adult 6 ED Course: 17:29 Patient arrived in ED. mr 17:29 Sandra Barney FNP-C is PHCP. kb 17:29 Tre Phan MD is Attending Physician. kb 17:36 Triage completed. tm6 17:36 Arm band placed on right wrist. tm6 18:14 Patient has correct armband on for positive identification. Bed in low position. Call jb4 light in reach. Side rails up X 1. Provided Education on: discharge instructions.. 18:14 No provider procedures requiring assistance completed. Patient did not have IV access jb4 during this emergency room visit. Administered Medications: 18:12 Drug: Trimethoprim-Sulfamethoxazole PO (160 mg-800 mg (DS) 1 tablet PO once Route: PO; jb4 18:13 Follow up: Response: Medication administered at discharge. jb4 18:13 Drug: Hydrocodone-Acetaminophen PO (7.5 mg-325 mg) 1 tabs PO once Route: PO; jb4 18:13 Follow up: Response: Medication administered at discharge. jb4 Medication: 18:14 VIS not applicable for this client. jb4 Outcome: 17:42 Discharge ordered by . bon 18:14 Discharged to home ambulatory, jb4 18:14 Condition: stable 18:14 Discharge instructions given to patient, Instructed on discharge instructions, follow up and referral plans. medication usage, Demonstrated understanding of instructions, follow-up care, medications, Prescriptions given X 1, 18:16 Patient left the ED. jb4 Signatures: Sandra Barney, TUMBLERS SUPERVISOR-C TUMBLERS SUPERVISOR-Danuta Regalado Reg Reg Robert Bauman, RN RN jb4 Josseline Gay RN RN tm6
[2024-07-09] MEDS ORDERED: HYDROCODONE/APAP 7.5/325 MG TAB ONE (18:01)
[2024-07-09] MEDS ORDERED: SMZ./TMP. 800/160 MG TABLET ONE (18:01)
[2024-07-09 19:04] VITALS: BP 192/98; TEMP 98.9; O2SAT 100
== END 2024-07-09 18:16 | disposition home or self-care (01) ==
LOC: ER 17:25
DX: L02.811 Cutaneous abscess of head [any part, except face] (principal)
CPT/HCPCS: 99283